=== PATIENT | female | born 1950 | race Caucasian/White ===

== ENCOUNTER 2020-04-04 22:20 | Emergency (ER) | payer MEDICARE, OTHER, SELFPAY ==
[2020-04-04] VITALS (14 sets, daily range): BP systolic 153–213; BP diastolic 86–132; PULSE 74–104; RESP 13–24; O2SAT 95–100
--- NOTE | ~2020-04-04 | CT_ITS ---
EXAMINATION: CTA chest abdomen DATE: 04/04/2020 23:11 INDICATION: Chest pain TECHNIQUE: Computed tomographic angiography (CTA) of the chest and abdomen was performed without and with 100 mL Omnipaque-350 intravenous contrast. Volume-rendered 3D-reconstructions of the aorta and l arge arteries were constructed by the technologist on a separate workstation. Automated exposure cont rol and iterative reconstruction technique were employed. The dose-length product was 707 mGy-cm. COMPARISON: CT abdomen and pelvis dated 06/03/2017 FINDINGS: Chest: Mild biapical pleural-parenchymal scarring. Heart size is normal. No pericardial effusion. Calcified nodule in the right lower lobe along with calcified right hilar and mediastinal lymph nodes consisten t with old granulomatous disease. No pneumonia, pulmonary edema, pleural effusion or pneumothorax. Th oracic aorta is normal in caliber with no dissection. There is relatively low-attenuation likely emily atous wall thickening of the mid thoracic esophagus suspicious for esophagitis. No pathologically enl arged thoracic lymphadenopathy. Postoperative changes with several surgical clips at the left breast. Mild thoracic spondylosis with bridging osteophytes at multiple levels consistent with diffuse idiop athic skeletal hyperostosis (DISH). Likely ventriculoperitoneal shunt which extends caudally from the right neck along the anterior chest wall and into the right upper quadrant with distal tip in the an terior upper abdomen. Abdomen: Diffuse hepatic steatosis. Cholecystectomy clips the gallbladder fossa. Spleen, pancreas, bilateral a drenal glands and right kidney are normal. 2.6 cm cyst at the upper pole of the left kidney. Normal a ppendix. There are few scattered colonic diverticula without adjacent inflammatory change to suggest diverticulitis. No dilated bowel to suggest obstruction. There is mild scattered calcified atheroscle rosis without stenosis of the normal caliber aorta and several of the other arteries. No aortic disse ction. Utilized portions of the bladder and uterus are unremarkable. No pathologically enlarged abdom inal lymphadenopathy. Mild lumbar spondylosis. IMPRESSION: 1. Normal caliber aorta with no dissection. 2. Edematous-appearing wall thickening in the mid esophagus suggestive of esophagitis. 3. No acute intra-abdominal/pelvic process. 4. Diffuse hepatic steatosis. 5. Likely ventriculoperitoneal shunt with distal tip in the upper abdomen. Reviewed, dictated and finalized at location A. IMPRESSION: 1. Normal caliber aorta with no dissection. 2. Edematous-appearing wall thickening in the mid esophagus suggestive of esoph agitis. 3. No acute intra-abdominal/pelvic process. 4. Diffuse hepatic steatosis. 5. Likely ventriculoperitoneal shunt with distal tip in the upper abdomen.
--- NOTE | 2020-04-04 22:25 | ED.CHESTPAIN ---
HPI - Chest Pain General Chief Complaint: Chest Pain Stated Complaint: CP Time Seen by Provider: 04/04/20 22:24 History of Present Illness HPI narrative: Severe crushing chest pain radiating to the back for about thirty minutes. Associated with SOB, bilateral arm weakness. She tried antacids without relief. Related Data Home Medications Medication Instructions Recorded Confirmed atorvastatin 04/04/20 donepezil mg 04/04/20 fluoxetine mg 04/04/20 lisinopril 04/04/20 lisinopril 04/04/20 04/04/20 trazodone 04/04/20 Allergies Allergy/AdvReac Type Severity Reaction Status Date / Time No Known Allergies Allergy Mild Verified 04/04/20 22:30 Review of Systems Review of Systems: All systems reviewed & are unremarkable except as noted in HPI and below Constitutional: Constitutional: Denies fever(s) ENT: Denies sore throat Cardiovascular: Cardiovascular: Reports chest pain Respiratory: Respiratory: Reports dyspnea Gastrointestinal: Gastrointestinal: Reports abdominal pain Musculoskeletal: Musculoskeletal: Reports back pain Neurologic: Reports numbness and Reports weakness [facility] Past Medical History Medical History (Updated 04/05/20 @ 04:28 by Jaime Lovett MD) Acid reflux Depression HTN (hypertension) Social History Social History (Updated 04/05/20 @ 04:28 by Jaime Lovett MD) Smoking status: Never smoker Exam Const: General: alert Orientation/consciousness: patient oriented x3 Other: Moderate distress HENMT: Head: normal to inspection Resp: Effort & Inspection: tachypneic Auscultation: clear to auscultation bilaterally Cardio: Rate: tachycardic Rhythm: regular rhythm GI: Other: mild epigastric tenderness Skin: General skin exam: normal color Neuro: General: patient oriented x3, moves all extremities, no focal motor deficits and CN's II-XI intact bilaterally Extrem: General: no edema Course Vital Signs Vital signs: Vital Signs Pulse Rate 104 H 04/04/20 22:25 Respiratory Rate 22 H 04/04/20 22:25 Blood Pressure 213/132 H 04/04/20 22:25 Pulse Oximetry 100 04/04/20 22:25 Pulse Rate 80 04/05/20 02:22 Respiratory Rate 17 04/05/20 02:22 Blood Pressure 140/90 04/05/20 02:22 Pulse Oximetry 97 04/05/20 02:22 MDM - Chest Pain MDM Narrative Medical decision making narrative: She presented with severe chest pain radiating to the back and very elevated BP. This was very concerning for potential aortic dissection. CT showed no dissection, but did show finding concerning for esophogitis. EKG had no acute findings. Troponin negative x2. Medical Records Data Attestation: I reviewed the patient's medical records. Lab Data Attestation: I reviewed the patient's lab results. Result diagrams: 04/04/20 23:08 04/04/20 23:50 Labs: Lab Results 04/04/20 04/04/20 04/04/20 Range/Units 22:58 23:08 23:08 WBC 9.2 (4.5-10.0) K/mm3 RBC 4.25 (4.2-5.4) M/mm3 Hgb 13.0 (12.0-15.0) g/dL Hct 37.9 (37.0-47.0) % MCV 89.2 (80-100) fl MCH 30.6 (26-34) pg MCHC 34.3 (32-36) g/dl RDW 14.6 H (11.5-14.5) % Plt Count 246 (150-375) k/mm3 MPV 10.2 (7.4-10.4) fl Immature Gran % (Auto) 0.2 (0-0.5) % Neut % (Auto) 42.9 L (45.5-73.1) % Lymph % (Auto) 49.4 H (18.3-44.2) % [place] % (Auto) 5.7 (2.6-8.5) % Eos % (Auto) 1.6 (0-4.4) % Baso % (Auto) 0.2 (0.2-1.2) % Lymph # (Auto) 4.54 H (0.9-3.2) K/mm3 [place] # (Auto) 0.5 (0.1-0.6) K/mm3 Eos # (Auto) 0.2 (0-0.3) K/mm3 Baso # (Auto) 0.0 (0.0-0.1) K/mm3 Abs Immat Gran (auto) 0.02 (0.00-0.031) K/mm3 Absolute Neuts (auto) 3.9 (1.3-6.7) K/mm3 Absolute Nucleated RBC 0.0 (0.0-0.012) K/mm3 Nucleated RBC % 0.0 (0.0-0.2) % PT 12.5 (11.1-14.7) Seconds INR 1.0 APTT 25.7 (22.3-36.8) SECONDS Sodium (137-145) mmol/L Potassium (3.4-5.0) mmol/L Chloride (98-107)
--- NOTE | 2020-04-04 22:41 | ECG_ITS ---
Measurements Intervals [place] Rate: 91 P: 57 [place]: 141 QRS: -8 QRSD: 96 T: 47 QT: 362 QTc: 446 Interpretive Statements SINUS RHYTHM CANNOT RULE OUT SEPTAL INFARCT, AGE INDETERMINATE BORDERLINE ST-T WAVE ABNORMALITY- DIFFUSE LEADS BASELINE ARTIFACT- I, II, AVR, AVL, AVF, V3-V6 ABNORMAL ECG Electronically Signed On 04-05-2020 6:57:36 CDT by Jose Martino D.O.
[2020-04-04] MEDS: MORPHINE SULFATE 2 MG/ML INJ IV PUSH (22:46)
[2020-04-04] MEDS: LABETALOL HCL INJ 100 MG/20 ML VIAL 20 MG IV PUSH (22:46)
[2020-04-04 22:59] LABS: Estimated CRCL calculation 61 ml/min; Estimated Glomerular Filt Rate > 60
[2020-04-04 23:16] LABS: Basophils Percent Auto 0.2 % (0.2-1.2); Eosinophils Absolute Auto 0.2 K/mm3 (0-0.3); Eosinophils Percent Auto 1.6 % (0-4.4); Hematocrit 37.9 % (37.0-47.0); Immature Granulocyte Absolute 0.02 K/mm3 (0.00-0.031); Immature Granulocyte Percent A 0.2 % (0-0.5); Lymphocytes Absolute Auto 4.54 K/mm3 (0.9-3.2); Lymphocytes Percent Auto 49.4 % (18.3-44.2); Mean Corpuscular HGB Conc 34.3 g/dl (32-36); Mean Corpuscular Hemoglobin 30.6 pg (26-34); Mean Corpuscular Volume 89.2 fl (80-100); Mean Platelet Volume 10.2 fl (7.4-10.4); Monocytes Absolute Auto 0.5 K/mm3 (0.1-0.6); Monocytes Percent Auto 5.7 % (2.6-8.5); Neutrophils Absolute Auto 3.9 K/mm3 (1.3-6.7); Neutrophils Percent Auto 42.9 % (45.5-73.1); Platelet Count Result 246 k/mm3 (150-375); Red Blood Count 4.25 M/mm3 (4.2-5.4); Red Cell Distribution Width 14.6 % (11.5-14.5); White Blood Count 9.2 K/mm3 (4.5-10.0)
[2020-04-04 23:27] LABS: Prothrombin Time 12.5 Seconds (11.1-14.7)
[2020-04-04 23:28] LABS: Partial Thromboplastin Time 25.7 SECONDS (22.3-36.8)
[2020-04-05] VITALS (11 sets, daily range): BP systolic 115–144; BP diastolic 66–90; PULSE 75–87; RESP 13–17; O2SAT 94–98
[2020-04-05 00:33] LABS: Alanine Aminotransferase 21 U/L (4-35); Albumin Level 3.9 g/dL (3.5-5.1); Alkaline Phosphatase 84 U/L (38-126); Aspartate Amino Transferase 25 U/L (14-36); Bilirubin,Total 0.3 mg/dL (0.2-1.3); Blood Urea Nitrogen 12 mg/dL (7-17); Calcium 8.7 mg/dL (8.4-10.2); Carbon Dioxide 23 mmol/L (22-30); Chloride 101 mmol/L (98-107); Estimated CRCL calculation 72 ml/min; Estimated Glomerular Filt Rate > 60; Glucose 118 mg/dL (65-105); Sodium 132 mmol/L (137-145)
[2020-04-05 00:38] LABS: NT Pro B Type Natriuretic Pept 107 PG/ML (5-100); Troponin I < 0.012 ng/mL (0.000-0.034)
[2020-04-05] MEDS: PANTOPRAZOLE SODIUM IV 40 MG VIAL IV PUSH (01:09)
[2020-04-05 01:58] LABS: Troponin I < 0.012 ng/mL (0.000-0.034)
== END 2020-04-05 02:15 | disposition home or self-care (01) ==
PROVIDERS: Emergency Provider Emergency Medicine; PCP Internal Medicine
DX: K21.0 Gastro-esophageal reflux disease with esophagitis (principal); F32.9 Major depressive disorder, single episode, unspecified; I10 Essential (primary) hypertension; R06.02 Shortness of breath
CPT/HCPCS: 36415; 71275; 74175; 80053; 83880; 84484; 85025; 85610; 85730; 93005; 96374; 96375; 99284; C9113; J2270; Q9967

== ENCOUNTER 2020-11-24 15:14 | Observation (INO) | payer MEDICARE, OTHER, SELFPAY ==
--- NOTE | ~2020-11-24 | XR_ITS ---
EXAMINATION: XR chest 2V EXAM DATE: 11/24/2020 16:18 INDICATION: Chest pain across shoulder blades for one week. TECHNIQUE: Frontal and lateral projections of the chest obtained and reviewed. Comparison is made to prior examination from 09/13/2016. FINDINGS: The lungs are clear. There are no pleural effusions. The cardiomediastinal silhouette is within normal limits. There is no pneumothorax suspected. Moderate-sized mid thoracic bridging endp late osteophytes. There is a ventriculoperitoneal shunt. IMPRESSION: No acute cardiopulmonary findings. Reviewed, dictated and finalized at location B. DRY ROOM ATTENDANT
--- NOTE | 2020-11-24 15:20 | ECG_ITS ---
Measurements Intervals [place] Rate: 87 P: 66 [place]: 146 QRS: -7 QRSD: 94 T: 69 QT: 389 QTc: 470 Interpretive Statements SINUS RHYTHM CANNOT RULE OUT SEPTAL INFARCT, AGE INDETERMINATE BORDERLINE ST-T WAVE ABNORMALITY- HIGH LATERAL LEADS ABNORMAL ECG Electronically Signed On 11-24-2020 15:44:14 WILDLIFE VETERINARIAN by Jose Martino D.O.
[2020-11-24 15:21] VITALS: BP 147/93; PULSE 90; RESP 16; TEMP 36.2; O2SAT 97
[2020-11-24 15:35] LABS: Basophils Percent Auto 0.4 % (0.2-1.2); Eosinophils Absolute Auto 0.2 K/mm3 (0-0.3); Eosinophils Percent Auto 1.9 % (0-4.4); Hematocrit 38.7 % (37.0-47.0); Hemoglobin 12.7 g/dL (12.0-15.0); Immature Granulocyte Absolute 0.03 K/mm3 (0.00-0.031); Immature Granulocyte Percent A 0.4 % (0-0.5); Lymphocytes Percent Auto 27.8 % (18.3-44.2); Mean Corpuscular HGB Conc 32.8 g/dl (32-36); Mean Corpuscular Hemoglobin 30.5 pg (26-34); Mean Platelet Volume 9.2 fl (7.4-10.4); Monocytes Absolute Auto 0.4 K/mm3 (0.1-0.6); Monocytes Percent Auto 5.3 % (2.6-8.5); Neutrophils Absolute Auto 5.1 K/mm3 (1.3-6.7); Neutrophils Percent Auto 64.2 % (45.5-73.1); Platelet Count Result 228 k/mm3 (150-375); Red Blood Count 4.16 M/mm3 (4.2-5.4); Red Cell Distribution Width 15.1 % (11.5-14.5); White Blood Count 7.9 K/mm3 (4.5-10.0)
[2020-11-24 15:49] LABS: Anion Gap 9 mmol/L (8-16); Blood Urea Nitrogen 14 mg/dL (7-17); Calcium 8.8 mg/dL (8.4-10.2); Carbon Dioxide 26 mmol/L (22-30); Chloride 104 mmol/L (98-107); Estimated CRCL calculation 61 ml/min; Estimated Glomerular Filt Rate > 60; Glucose 97 mg/dL (65-105); Potassium 3.9 mmol/L (3.4-5.0); Sodium 139 mmol/L (137-145)
[2020-11-24 16:01] LABS: Troponin I < 0.012 ng/mL (0.000-0.034)
[2020-11-24 16:13] VITALS: BP 160/91; PULSE 86; RESP 17; O2SAT 99
--- NOTE | 2020-11-24 16:13 | PC.NURSE ---
Pt to XRAY via stretcher.
[2020-11-24 16:14] VITALS: PULSE 86
[2020-11-24 16:23] LABS: Prothrombin Time 13.2 Seconds (11.1-14.7)
--- NOTE | 2020-11-24 16:29 | ED.CHESTPAIN ---
HPI - Chest Pain General Chief Complaint: Chest Pain Stated Complaint: Chest Pain Time Seen by Provider: 11/24/20 15:47 Source: patient and family Mode of arrival: ambulatory Limitations: no limitations History of Present Illness HPI narrative: Patient is 70-year-old white female presents with intermittent chest heaviness radiating to upper extremities. For the last 7 days, usually last for minutes loss that, denies aggravating or relieving factors. Currently patient is asymptomatic. Patient blood pressure was elevated over 1 week ago, her lisinopril increased to 20 mg instead of 1 mg once a day. History of hypertension, hyperlipidemia, patient does not smoke and drinks occasionally, currently baby aspirin once a day. Patient denies history of COVID-19 or exposure to anybody known having COVID-19. Patient also denies any shortness of breath Related Data Home Medications Medication Instructions Recorded Confirmed atorvastatin 04/04/20 donepezil mg 04/04/20 fluoxetine mg 04/04/20 lisinopril 20 mg PO DAILY 04/04/20 04/04/20 trazodone 04/04/20 Allergies Allergy/AdvReac Type Severity Reaction Status Date / Time No Known Allergies Allergy Mild Verified 11/24/20 15:24 Review of Systems Review of Systems: Narrative: CONSTITUTIONAL: Denies fever, chills, or sweats. EYES: Denies visual changes, redness, or discharge. ENT: Denies rhinorrhea, congestion, sore throat, or otalgia. CARDIOVASCULAR: Denies chest pain, palpitations, or edema. RESPIRATORY: Denies cough or dyspnea. GASTROINTESTINAL: Denies abdominal pain, nausea, vomiting, or diarrhea. GENITOURINARY: Denies dysuria or hematuria. SKIN: Denies rash or itching. MUSCULOSKELETAL: Denies back pain, joint pain, or myalgia. NEUROLOGIC: Denies headache, numbness, or weakness. PSYCHIATRIC: Denies anxiety or depression. PMFSH Past Medical History Medical History Acid reflux Depression HTN (hypertension) Social History Social History Smoking status: Never smoker Gender identity (if verbalized by the patient): Female Exam Narrative: Exam Narrative: General appearance: Well-developed, well-nourished Skin: Normal color Head: Normocephalic, nontraumatic Eyes: Clear conjunctiva ENT: Oropharynx normal, ears normal, nose normal Neck: Supple, nontender Chest and respiratory: Airway patent, no respiratory distress, no accessory muscle use Heart: Regular rate/rhythm Abdomen: Soft, nontender, no organomegaly, quiet bowel sounds Vascular: Normal peripheral pulses, normal capillary refill. Musculoskeletal: Normal range of motion, nontender back Neurologic: Alert and oriented ?3, GEODETIC COMPUTATOR is normal as tested, no gross motor deficit Course Course Emergency Course: Stable Consultations Consultation #1: Dr. Head, Admit to hospitalist Date: 11/24/20 Time: 16:46 Vital Signs Vital signs: Vital Signs Temperature 36.2 C L 11/24/20 15:21 Pulse Rate 90 11/24/20 15:21 Respiratory Rate 16 11/24/20 15:21 Blood Pressure 147/93 H 11/24/20 15:21 Pulse Oximetry 97 11/24/20 15:21 Temperature 36.2 C L 11/24/20 15:21 Pulse Rate 86 11/24/20 16:14 Respiratory Rate 17 11/24/20 16:13 Blood Pressure 160/91 H 11/24/20 16:13 Pulse Oximetry 99 11/24/20 16:13 MDM - Chest Pain MDM Narrative Medical decision making narrative: Patient presents with chest heaviness for the last 7 days, intermittent. Unstable angina, atypical chest pain, costochondritis. Differential Diagnosis Differential diagnosis: Likely pneumothorax, unstable angina pectoris, atypical chest pain and chest kwame
[2020-11-24] MEDS: ASPIRIN 81 MG CHEWABLE TABLET 324 MG PO (17:16)
[2020-11-24 17:18] VITALS: PULSE 100
[2020-11-24] MEDS: NITROGLYCERIN OINTMENT 1 INCH DOSE TRANSDERM (17:18)
[2020-11-24] MEDS: METOPROLOL TARTRATE 50 MG TAB 25 MG PO (17:18)
[2020-11-24 17:27] VITALS: BP 140/98; PULSE 100; RESP 15; O2SAT 97
--- NOTE | 2020-11-24 19:00 | PM.IMHP ---
H&P: HPI History of Present Illness Date/Time: 11/24/20 19:00 Chief Complaint: Chest pressure. Narrative: This is a pleasant 70-year-old female with hypertension and hydrocephalus status post PLACEMENT COORDINATOR shunt x3 who presented to the emergency department earlier today via private vehicle from home for evaluation of chest pressure. Sometime last week she had an appointment with her neurologist and at that time her blood pressure was high, reportedly in the 180 systolic. Since that time her blood pressures have continued to run in the 160s to 180s and she was seen by her primary care provider today and was told to double her lisinopril dose. She was ultimately referred to the emergency department after she provided a history of intermittent midsternal chest tightness/pressure over the past week or so. It happens several times a day, and typically resolves without issue within a minute or so. The discomfort radiates through to the scapula but she sees no significant aggravating or alleviating factors. She specifically denies that the discomfort is related to activity and/or eating. No associated headache, vertigo, nausea, vomiting, or sweats. She has never had similar symptoms in the past. Review of Systems Review of Systems: Narrative: Twelve systems were reviewed with pertinent positives and negatives as per HPI. No fever, chills, or sweats. 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 She was born with hydrocephalus and had a PLACEMENT COORDINATOR shunt created at that time, but began having issues about 5 years ago and has had to shunt revisions since. No cold or flu symptoms. No known exposure to those positive for COVID-19. She denies nausea and vomiting. No palpitations, orthopnea, PND, or lower extremity edema. Except as documented, all other systems were reviewed and are negative. [facility] Past Medical History Medical History (Updated 11/24/20 @ 21:24 by Monserrat Scott PA-C) Anxiety Arthritis Cancer of left breast Status post lumpectomy and chemo radiation. Depression Gastroesophageal reflux disease Hydrocephalus Hypertension Memory deficit Surgical History Surgical History (Updated 11/24/20 @ 21:20 by Monserrat Scott PA-C) History of cholecystectomy History of lumpectomy of left breast History of ventriculoperitoneal shunting X3. Family History Family History (Updated 11/24/20 @ 21:21 by Monserrat Scott PA-C) Mother Lung cancer Father Coronary artery disease Sibling Coronary artery disease Social History Social History (Updated 11/24/20 @ 21:23 by Monserrat Scott PA-C) Social History: Surrogate decision maker: Noe Drake, . Code status: Full code. Smoking status: Never smoker Second hand tobacco smoke exposure: No Alcohol intake: current Drinks per week: 2 Substance use: never Additional living arrangements comments: Resides with her in [place]. Additional occupation/education comments: Retired. Gender identity (if verbalized by the patient): Female Spiritual care concerns: No Meds Home Medications and Allergies Home Medications Medication Instructions Recorded Confirmed Type atorvastatin 04/04/20 History donepezil mg 04/04/20 History fluoxetine mg 04/04/20 History lisinopril 20 mg PO DAILY 04/04/20 04/04/20 History trazodone 04/04/20 History omeprazole 40 mg PO QPM 11/24/20 11/24/20 History Allergies Allergy/AdvReac Type Severity Reaction Status Date / Time No Known Allergies Allergy Mild Verified 11/24/20 15:24 Vital Signs Vital Signs - 24 hr 11/24/20 15:21 11/24/20 16:13 11/24/20 16:14 Temperature 97.1 F L Pulse Rate 90 86 86 Respiratory Rate 16 17 Blood Pressure 147/93 H 160/91 H Pulse Oximetry 97 99 11/24/20 17:18 11/24/20 17:27 Temperature Pulse Rate 100 100 Respiratory Rate 15 Blood Pressure 140/98 H Pulse Oximetry 97
[2020-11-24 19:01] LABS: Troponin I < 0.012 ng/mL (0.000-0.034)
[2020-11-24] MEDS: ENOXAPARIN 80 MG/0.8 ML SYRINGE 70 MG SUB-Q (19:16)
--- NOTE | 2020-11-24 20:57 | ADMGEN ---
This patient, Michelle Drake, was admitted to IMU Room 206-02. Patient/family oriented to hospital policies and general routines including ID bracelet, bed and alarms, visiting hours, pain management, procedures, bathroom and other care routines, personal items, smoking policy, room service/diet, and visiting hours. Information on how to activate the Rapid Response Team has been discussed. Patient/Family are encouraged to report perceived risks to care and to ask questions if they do not understand what they are told or what they should do.
[2020-11-24 22:24] LABS: Troponin I < 0.012 ng/mL (0.000-0.034)
[2020-11-24] MEDS: ACETAMINOPHEN 325 MG TABLET 650 MG PO (22:24)
[2020-11-24] MEDS: traZODone HCL 50 MG TABLET PO (22:49)
[2020-11-24 23:25] VITALS: BP 148/82; PULSE 68; RESP 20; TEMP 36.6; O2SAT 98
[2020-11-25] VITALS (9 sets, daily range): BP systolic 140–165; BP diastolic 78–87; PULSE 68–96; RESP 18–20; TEMP 36.5–36.9; O2SAT 96–98
[2020-11-25 05:05] LABS: Alanine Aminotransferase 30 U/L (4-35); Albumin Level 3.6 g/dL (3.5-5.1); Alkaline Phosphatase 67 U/L (38-126); Aspartate Amino Transferase 27 U/L (14-36); Bilirubin,Total 0.3 mg/dL (0.2-1.3); Cholesterol 196 mg/dL (0-200); HDL Direct 49 mg/dL; Triglycerides 505 mg/dL (<150)
[2020-11-25 05:17] LABS: LDL Cholesterol Direct 62 mg/dL
[2020-11-25] MEDS: lisinopriL 20 MG TABLET PO (09:59)
[2020-11-25] MEDS: ASPIRIN 81 MG CHEWABLE TABLET PO (09:59)
[2020-11-25] MEDS: ATORVASTATIN 40 MG TABLET PO (09:59)
[2020-11-25] MEDS: hydroCHLOROthiazide 12.5 MG CAPSULE PO (09:59)
[2020-11-25] MEDS: DONEPEZIL HCL 5 MG TABLET PO (09:59)
[2020-11-25] MEDS: FLUoxetine HCL 20 MG CAPSULE 40 MG PO (09:59)
--- NOTE | 2020-11-25 12:34 | PM.CNCAR ---
Assessment and Plan Additional Plan 70-year-old woman with: Intermittent episodes of chest and left arm paresthesias with no objective evidence of acute coronary syndrome ECGs and biomarkers are normal. Symptoms are nonexertional and in that sense on the atypical side. I believe she this lady should undergo noninvasive evaluation for ischemia ideally with a Lexiscan nuclear stress test. I was offering her to have this done while in the hospital . She prefers to be discharged and have this done as an outpatient . As ACS has been ruled out this is reasonable . I will arrange for Lexiscan Nuclear stress as an out pt Kyle Terrell MD [facility] History of Present Illness History of Present Illness Consult date/time: 11/25/20 12:34 Consult reason: chest pain Reason For Visit: Chest Pain, uncontrolled hypertension Narrative: This is a 70-year-old lady that I am seeing today at the request of the hospitalist because of chest pain for which she was seen in the emergency room last evening and subsequently admitted to the IMU. She is not known to have any cardiac problems before this. She was in the office of her primary care physician yesterday and was reporting that recently she has noticed some increased readings on her home blood pressure readings and also for the last 2-3 weeks she has been noticing intermittent episodes of some chest discomfort associated with paresthesias in her left arm. She states that the chest discomfort occurs in an unpredictable fashion usually 1-3 times per day and lasts a few minutes. She is not a physically active woman but she with activities she is capable of performing she has not noticed any of this to be triggered by exertion. She states that she was not particularly concerned about the symptoms but did mention it to her PCP who directed her to the emergency room yesterday evening and that she was admitted. She has a couple of EKGs in the chart that look benign. She had 3 sets of troponins done that are all normal. She is feeling well this morning her only complaint is that she is hungry and would like something to eat. Had a long discussion with the patient about the symptoms. She does as stated above have hypertension also history of dyslipidemia and hydrocephalus with ventriculoperitoneal shunts having been placed in the past. Because of this she is followed by a Neurology consult and at [place]. Review of Systems Constitutional: Constitutional: Reports no additional constitutional complaints Eyes: Eyes: Reports no additional eye complaints ENT: Reports system reviewed and no additional complaints, except as documented Cardiovascular: Cardiovascular: Reports as per HPI Respiratory: Respiratory: Reports no additional respiratory complaints Gastrointestinal: Gastrointestinal: Reports no additional gastrointestinal complaints Musculoskeletal: Musculoskeletal: Reports myalgias Integumentary/Breasts: Skin/Breast: Reports system reviewed and no additional complaints, except as docu Neurologic: Reports as per HPI Endocrine: Endocrine: Reports no additional endocrine complaints Hematologic/Lymphatic: Hematologic/Lymphatic: Reports no additional hematologic/lymphatic complaints Allergic/Immunologic: Allergic/Immunologic: Reports no additional allergic/immunologic complaints [facility] Past Medical History Medical History (Updated 11/24/20 @ 21:24 by Monserrat Scott PA-C) Anxiety Arthritis Cancer of left breast Status post lumpectomy and chemo radiation. Depression Gastroesophageal reflux disease Hydrocephalus Hypertension Memory deficit Surgical History Surgical History (Updated 11/24/20 @ 21:20 by Monserrat Scott PA-C) History of cholecystectomy History of lumpectomy of left breast History of ventriculoperitoneal shunting X3. Family History Family History Mother Lung cancer Father Coronary artery disease Sibling Ann
--- NOTE | 2020-11-25 12:53 | PM.DS ---
DS: Admitting Diagnosis Admitting Diagnosis Admitting Diagnosis: chest pain DS: Discharge Diagnosis Discharge Diagnosis (1) Chest pressure: Code(s): R07.89 - Other chest pain Status: Acute (2) Hypertension: Code(s): I10 - Essential (primary) hypertension Status: Acute (3) Gastroesophageal reflux disease: Code(s): K21.9 - Gastro-esophageal reflux disease without esophagitis Status: Inactive (4) Depression: Code(s): F32.9 - Major depressive disorder, single episode, unspecified Status: Acute (5) Anxiety: Code(s): F41.9 - Anxiety disorder, unspecified Status: Inactive (6) Memory deficit: Code(s): R41.3 - Other amnesia Status: Inactive DS: Summary Hospital Course Reason for hospitalization: 70yo female with HTN and hydorcephalus here for chest pressure. Please see H&P for details. Hospital Course: Patient presented to the emergency department for evaluation of chest pressure. Last week, her neurologist noted elevated blood pressure and was told to follow-up with her doctor. She was seen by her primary care doctor on the day of admission and told to double lisinopril. During that visist, she provided a history of intermittent midsternal chest tightness/pressure over the past week so the primary care doctor advised her to go to the emergencyroom for evaluation. In the emergency department, she was hemodynamically stable. Her blood pressure was 147/93. Blood pressure remained reasonably well controlled during hospital course. CBC and CMP were normal. CXR clear. Triglycerides were 505. Cholesterol 196. LDL 62 HDL 49. Troponin negative x3. EKG borderline ST T wave changes in the high lateral leads. Patient was admitted to the IMU on telemetry. No significant dysrhythmias noted. She was seen by Cardiology. Stress test was planned but patient wished to go home and have a stress test done as an outpatient. Spray Gun Sizer felt that this was not unreasonable. Echocardiogram has been done but is pending. Patient feels much better. She is able to discharge home on 11/25/2020. Status at Discharge Cognitive/behavioral status at discharge: Patient stable for discharge Time Spent with Patient Time attestation: Total time spent providing and/or coordinating discharge services:35 minutes Time spent: Greater than 30 minutes Specific discharge activities: Discussed with Cardiology in detail Exam Narrative: Exam Narrative: AF 98.4 165/87 79 18 96% ra Gen - NARD Chest - CTA bilaterally, nml RR CV - RRR S1/S2. Telemetry showing no significant dysrhythmias Abd - Soft, NT/ND, Positive BS Ext - No pedal edema Psych - Nml mood and affect Skin - Warm and dry DS: Data Data Completed and Pending Labs on day of discharge: Labs from last 24 hours 11/25/20 11/24/20 11/24/20 04:31 21:35 18:31 WBC RBC Hgb Hct MCV MCH MCHC RDW Plt Count MPV Immature Gran % (Auto) Neut % (Auto) Lymph % (Auto) [place] % (Auto) Eos % (Auto) Baso % (Auto) Lymph # (Auto) [place] # (Auto) Eos # (Auto) Baso # (Auto) Abs Immat Gran (auto) Absolute Neuts (auto) Absolute Nucleated RBC Nucleated RBC % PT INR APTT Sodium Potassium Chloride Carbon Dioxide Anion Gap BUN Creatinine Estim Creat Clear Calc Estimated GFR Glucose Calcium Total Bilirubin 0.3 Direct Bilirubin 0.0 AST 27 ALT 30 Alkaline Phosphatase 67 Troponin I < 0.012 < 0.012 Total Protein 6.0 L Albumin 3.6 Triglycerides 505 H Cholesterol 196 LDL Cholesterol Direct 62 HDL Direct 49 11/24/20 11/24/20 11/24/20 16:03 15:27 15:27 WBC 7.9 RBC 4.16 L Hgb 12.7 Hct 38.7 MCV 93.0 MCH 30.5 MCHC 32.8 RDW 15.1 H Plt Count 228 MPV 9.2 Immature Gran % (Auto) 0.4 Neut % (Auto) 64.2 Lymph % (Auto) 27.8 [place] % (Auto)
--- NOTE | 2020-11-25 21:33 | ECHO_ITS ---
Patient Info Name: Michelle Drake Age: 70 years : 1950 Gender: Female Ht: 62 in Wt: 154 lbs BSA: 1.77 m2 HR: 79 bpm BP: 146 / 82 mmHg Heart Rhythm: Sinus Rhythm Technical Quality: Good Exam Date: 11/25/2020 8:34 AM Exam Location: [facility] Patient Status: Inpatient Admit Date: 11/24/2020 Staff Ordering Physician: Monserrat Scott PA-C Consulting Solution Manager: Dio Lara, CRISTY, RT Attending Provider: Wilber Singh MD Referring Physician: Sonia VILLA; Exam Type: CA echo doppler color flow Study Info Indications R07.89 - Other chest pain Complete two-dimensional, color flow and Doppler transthoracic echocardiogram is performed. Strain analysis performed. Summary 1. Complete two-dimensional, color flow and Doppler transthoracic echocardiogram is performed. 2. Left ventricular chamber dimension is normal. 3. Left ventricular systolic function is normal, estimated at 60-65%. 4. No ischemic wall motion abnormalities. 5. No valvular lesions. Left Ventricle Left ventricular chamber dimension is normal. Left ventricular systolic function is normal, estimated at 60-65%. The left ventricular diastolic function is normal. No ischemic wall motion abnormalities. Right Ventricle Right ventricular chamber dimension is normal. Left Atria Left atrial chamber dimension is normal. Right Atria Right atrial chamber dimension is normal. Aortic Valve The aortic valve is normal. Pulmonic Valve The pulmonic valve is not well visualized. Mitral Valve The mitral valve has normal leaflets. Tricuspid Valve The tricuspid valve leaflets are normal. Pericardium/Pleural The pericardium appears normal. Aorta The aortic root size at the sinus of Valsalva is normal. Left Ventricular Outflow Tract Name Value Normal LVOT 2D LVOT Diameter 2.0 cm LVOT Doppler LVOT Peak Gradient 2 mmHg LVOT Mean Gradient 1 mmHg LVOT VTI 15 cm LVOT VTI/AV VTI Ratio 0.7 LVOT Stroke Volume 44 ml LVOT CO 3.3 l/min LVOT CI 1.9 l/min/m2 Mitral Valve Name Value Normal MV Doppler MV Decel Mclean 176 cm/s2 MV PHT 77 ms MV Area (PHT) 2.9 cm2 4.0-5.0 MV Diastolic Function MV E Peak Velocity 47 cm/s MV A Peak Velocity 71 cm/s MV E/A 0.7 MV Decel Time 265 ms MV Annular TDI
== END 2020-11-25 15:00 | disposition home or self-care (01) ==
LOC: ANHED 18:54 → ANHIMU 19:48
PROVIDERS: Emergency Medicine; Physician Assistant; Admitting Provider Internal Medicine; Emergency Provider Emergency Medicine; PCP Internal Medicine; Visit Provider Internal Medicine
DX: R07.89 Other chest pain (principal); I10 Essential (primary) hypertension; K21.9 Gastro-esophageal reflux disease without esophagitis; F32.9 Major depressive disorder, single episode, unspecified; F41.9 Anxiety disorder, unspecified; R41.3 Other amnesia; E78.5 Hyperlipidemia, unspecified; R94.31 Abnormal electrocardiogram [ECG] [EKG]; G91.9 Hydrocephalus, unspecified; Z79.82 Long term (current) use of aspirin; Z79.899 Other long term (current) drug therapy; Z98.2 Presence of cerebrospinal fluid drainage device; Z85.3 Personal history of malignant neoplasm of breast; Z92.3 Personal history of irradiation; Z92.21 Personal history of antineoplastic chemotherapy
CPT/HCPCS: 36415; 71046; 80048; 80061; 80076; 84484; 85025; 85610; 85730; 93005; 93306; 96372; 99285; A9270; G0378; J1650

== ENCOUNTER 2020-12-02 09:16 | Outpatient (CLI) | payer MEDICARE, OTHER, SELFPAY ==
[2020-12-02 09:54] LABS: Anion Gap 8 mmol/L (8-16); Blood Urea Nitrogen 11 mg/dL (7-17); Calcium 8.7 mg/dL (8.4-10.2); Carbon Dioxide 27 mmol/L (22-30); Chloride 100 mmol/L (98-107); Estimated Glomerular Filt Rate > 60; Glucose 103 mg/dL (65-105); Potassium 3.8 mmol/L (3.4-5.0); Sodium 135 mmol/L (137-145)
== END 2020-12-02 09:17 | disposition home or self-care (01) ==
PROVIDERS: PCP Internal Medicine; Visit Provider Internal Medicine
DX: I10 Essential (primary) hypertension (principal)
CPT/HCPCS: 36415; 80048

== ENCOUNTER 2021-02-07 11:53 | Outpatient (CLI) | payer MEDICARE, OTHER, SELFPAY ==
[2021-02-07 12:47] LABS: Alanine Aminotransferase 39 U/L (4-35); Aspartate Amino Transferase 34 U/L (14-36)
== END 2021-02-07 11:54 | disposition home or self-care (01) ==
PROVIDERS: PCP Internal Medicine; Visit Provider Podiatrist Foot & Ankle Surgery
DX: B35.1 Tinea unguium (principal)
CPT/HCPCS: 36415; 84450; 84460

== ENCOUNTER 2021-05-09 08:54 | Outpatient (CLI) | payer MEDICARE, OTHER, SELFPAY ==
[2021-05-09 10:16] LABS: Alanine Aminotransferase 32 U/L (4-35); Aspartate Amino Transferase 27 U/L (14-36)
== END 2021-05-09 08:55 | disposition home or self-care (01) ==
PROVIDERS: PCP Internal Medicine; Visit Provider Podiatrist Foot & Ankle Surgery
DX: B35.1 Tinea unguium (principal)
CPT/HCPCS: 36415; 84450; 84460

== ENCOUNTER 2021-09-11 01:49 | Day surgery (SDC) | payer MEDICARE, OTHER, SELFPAY ==
[2021-08-24 14:23] VITALS: BMI 25.9
--- NOTE | 2021-09-08 14:31 | PM.HPGS ---
History of Present Illness History of Present Illness Consent: Risks, benefits, and alternatives have been discussed and questions answered. Patient agrees to proceed with procedure. Chief complaint: hx of colon polyps, diarrhea Narrative: Michelle Drake is a 71 year old female here for colon cancer screening. She has a history of polyps. She has had a change in bowel habits having severe diarrhea for the past 6 or 8 weeks. Fiber 6 years ago a colonoscopy showed microscopic colitis. She does not recall taking any specific medication for that Review of Systems Review of Systems: All systems reviewed & are unremarkable except as noted in HPI and below PMFSH Past Medical History Medical History Anxiety Arthritis Cancer of left breast Status post lumpectomy and chemo radiation. Chest pressure Depression Gastroesophageal reflux disease Hydrocephalus Hypertension Memory deficit Overweight (BMI 25.0-29.9) Surgical History Surgical History History of cholecystectomy History of lumpectomy of left breast History of ventriculoperitoneal shunting X3. Family History Family History Mother Lung cancer Father Coronary artery disease Sibling Coronary artery disease Social History Social History Social History: Surrogate decision maker: Neo Drake, . Code status: Full code. Smoking status: Never smoker Second hand tobacco smoke exposure: No Alcohol intake: never Drinks per week: 2 Substance use: never Substance use type: does not use Living arrangements: with family Additional living arrangements comments: Neo (Spouse) Additional occupation/education comments: Retired. Gender identity (if verbalized by the patient): Female Spiritual care concerns: No Meds Home Medications and Allergies Home Medications Medication Instructions Recorded Confirmed Type atorvastatin 40 mg PO DAILY 04/04/20 08/24/21 History donepezil 10 mg PO HS 04/04/20 08/24/21 History fluoxetine 40 mg PO DAILY 04/04/20 08/24/21 History lisinopril 20 mg PO DAILY 04/04/20 08/24/21 History trazodone 75 mg PO QPM 04/04/20 08/24/21 History nortriptyline 40 mg PO QPM 11/24/20 08/24/21 History omeprazole 40 mg PO QPM 11/24/20 08/10/21 History aspirin [Children's Aspirin] 81 mg PO DAILY@0800 #30 tablet 11/25/20 08/24/21 Rx hydrochlorothiazide 12.5 mg PO QAM #30 cap 11/25/20 08/24/21 Rx diphenoxylate-atropine 2.5 1 tablet PO BID tablet 08/10/21 08/10/21 History mg-0.025 mg tablet budesonide 3 mg PO BID 08/24/21 History melatonin 48 mg PO HS 08/24/21 08/24/21 History Allergies Allergy/AdvReac Type Severity Reaction Status Date / Time No Known Allergies Allergy Mild Verified 09/11/21 09:04 Exam Resp: Auscultation: clear to auscultation bilaterally Cardio: Rate: regular rate Rhythm: regular rhythm GI: GI Palp: Yes Soft to palpation and No Tenderness to palpation present (GI) Assessment and Plan Assessment and plan (1) Colon cancer screening: Code(s): Z12.11 - Encounter for screening for malignant neoplasm of colon Status: Acute Assessment and Plan: Colonoscopy with possible biopsy or polypectomy or cautery or injection of substances.
--- NOTE | 2021-09-11 07:49 | WPDANESEPPF ---
Anes - Initial Pre Proc Eval Procedure: Operation Date: 09/11/21 10:00 Proposed Procedures p Colonoscopy - Bishnu Zee MD Date/Time: 09/11/21 07:49 Surgeon: Bishnu Zee MD Pre Op Diagnosis: hx of colon polyps, diarrhea Patient Data Age: 71 Gender: F Height: 1.57 m Weight: 64.5 kg Allergies Allergy/AdvReac Type Severity Reaction Status Date / Time No Known Allergies Allergy Mild Verified 09/11/21 09:04 Home Medications Medication Instructions Recorded Confirmed Type atorvastatin 40 mg PO DAILY 04/04/20 08/24/21 History donepezil 10 mg PO HS 04/04/20 08/24/21 History fluoxetine 40 mg PO DAILY 04/04/20 08/24/21 History lisinopril 20 mg PO DAILY 04/04/20 08/24/21 History trazodone 75 mg PO QPM 04/04/20 08/24/21 History nortriptyline 40 mg PO QPM 11/24/20 08/24/21 History omeprazole 40 mg PO QPM 11/24/20 09/11/21 History aspirin [Children's Aspirin] 81 mg PO DAILY@0800 #30 tablet 11/25/20 08/24/21 Rx hydrochlorothiazide 12.5 mg PO QAM #30 cap 11/25/20 08/24/21 Rx diphenoxylate-atropine 2.5 1 tablet PO BID tablet 08/10/21 09/11/21 History mg-0.025 mg tablet budesonide 3 mg PO BID 08/24/21 09/11/21 History melatonin 48 mg PO HS 08/24/21 08/24/21 History Patient hx anesthesia problems: none Family hx anesthesia problems: none Results Review: All pre-operative results and documents have been reviewed as part of the pre-operative evaluation. [facility] Past Medical History Medical History Anxiety Arthritis Cancer of left breast Status post lumpectomy and chemo radiation. Chest pressure Depression Gastroesophageal reflux disease Hydrocephalus Hypertension Memory deficit Overweight (BMI 25.0-29.9) Surgical History Surgical History History of cholecystectomy History of lumpectomy of left breast History of ventriculoperitoneal shunting X3. Family History Family History Mother Lung cancer Father Coronary artery disease Sibling Coronary artery disease Social History Social History Social History: Surrogate decision maker: Neo Drake, . Code status: Full code. Smoking status: Never smoker Second hand tobacco smoke exposure: No Alcohol intake: never Drinks per week: 2 Substance use: never Substance use type: does not use Living arrangements: with family Additional living arrangements comments: Neo (Spouse) Additional occupation/education comments: Retired. Gender identity (if verbalized by the patient): Female Spiritual care concerns: No Anes - Eval Final PreProcedure Day of Procedure 09/11/21 07:49 Patient weight: obese Heart: regular rate and rhythm Lungs: clear to auscultation and normal air movement Airway: Mallampati scale class II Neurological: alert and oriented Last oral intake: >/= 8 hours ASA classification: III Emergent: no Anesthetic plan: proceed Anesthesia type and monitoring: general GIVS Results Review: All pre-operative results and documents have been reviewed as part of the pre-operative evaluation. Informed Consent: The patient's anesthetic plan and its attendant risks and benefits were discussed with the patient/family/POA. Questions were solicited and answers provided to the satisfaction of the patient/family/POA.
[2021-09-11 09:05] VITALS: BP 141/89; PULSE 113; RESP 20; TEMP 36.4; O2SAT 97
[2021-09-11 09:06] VITALS: BP 124/76; PULSE 91; RESP 18; O2SAT 99
[2021-09-11] MEDS: LACTATED RINGERS 1,000 ML 150 ML IV CONT (09:17)
[2021-09-11 09:46] VITALS: BP 116/68; PULSE 85; RESP 20; O2SAT 96
[2021-09-11 09:56] VITALS: BP 112/67; PULSE 86; RESP 33; O2SAT 96
== END 2021-09-11 10:14 | disposition home or self-care (01) ==
PROVIDERS: PCP Internal Medicine; Visit Provider Internal Medicine Gastroenterology
PROC: 0DJD8ZZ Inspection of Lower Intestinal Tract, Via Natural or Artificial Opening Endoscopic (ICD-10-PCS; CPT 45378; principal; 2021-09-11 10:00)
DX: Z12.11 Encounter for screening for malignant neoplasm of colon (principal); K57.30 Diverticulosis of large intestine without perforation or abscess without bleeding; I10 Essential (primary) hypertension; K21.9 Gastro-esophageal reflux disease without esophagitis; F41.8 Other specified anxiety disorders; Z85.3 Personal history of malignant neoplasm of breast; Z92.21 Personal history of antineoplastic chemotherapy; Z92.3 Personal history of irradiation; E66.9 Obesity, unspecified
CPT/HCPCS: 45380; 88305; J2704; J7120

== ENCOUNTER 2021-11-12 18:19 | Inpatient (IN) | payer MEDICARE, OTHER, SELFPAY ==
--- NOTE | ~2021-11-12 | XR_ITS ---
EXAMINATION: XR UGI w small bowel EXAM DATE: 11/14/2021 10:04 INDICATION: Terminal ileitis on CT. Suspicion of omental carcinomatosis. TECHNIQUE: Standard single barium upper GI and small bowel examination was performed by radiologist Anand Schwartz M.D. Patient initially ingested barium and after it was determined more contrast should b e administered water-soluble Omnipaque water solution. Pulsed dose reduction fluoroscopy was used wit h fluoroscopic time of 0.1 minutes. The DAP for this procedure was 19.4 Gycm2. A total of 13 images obtained for the exam. Correlation is made to CT from 11/12/2021. FINDINGS: Stomach has normal mucosal pattern, no mass or ulceration suspected. Duodenal sweep is unre markable. Some cholecystectomy clips. Reflux was not demonstrated during this examination. The 30 and 45 minute KUB images are essentially unchanged from each other with contrast in normal-betito earing jejunum. No residual contrast was remaining in the stomach. Water-soluble contrast was adminis tered at this time. An image obtained at 1.5 hours demonstrates contrast within the jejunum and also normal-appearing ileum. The terminal ileum was well-visualized on that KUB and unremarkable. Contrast in the cecum. Normal transit time. IMPRESSION: Unremarkable terminal ileum, which could indicate improvement in terminal ileitis seen on CT from infectious etiology in the or possibly inflammatory bowel disease. Reviewed, dictated and finalized at location A. CAL DELIVERY TECHNICIAN IMPRESSION: Unremarkable terminal ileum, which could indicate improvement in te rminal ileitis seen on CT from infectious etiology in the or possibly inflammat ory bowel disease.
--- NOTE | ~2021-11-12 | XR_ITS ---
EXAMINATION: XR chest 1V portable INDICATION: Chest pain TECHNIQUE: Portable AP chest at 1901 hours COMPARISON: 11/24/2020 FINDINGS: The lungs are free of acute opacities. There is no pleural effusion or pneumothorax. The ca rdiomediastinal silhouette is normal. Ventriculoperitoneal shunt catheter tubing courses over the rig ht hemithorax. Surgical clips project over the left lower hemithorax. IMPRESSION: 1. No acute cardiopulmonary abnormality. Reviewed, dictated and finalized at location F. CTORY COMPILER
--- NOTE | ~2021-11-12 | CT_ITS ---
EXAMINATION: CT abdomen pelvis w con INDICATION: Abdominal pain TECHNIQUE: Computed tomographic images of the abdomen and pelvis were obtained after the administrati on of 100 cc of Omnipaque 350 intravenous contrast. The dose-length product (DLP) was 550.39 mGy-cm. Automated exposure control and iterative reconstruction technique were employed. COMPARISON: 04/04/2020 FINDINGS: Minimal dependent atelectasis is present in the lung bases. The heart size is normal. The g allbladder is surgically absent. Ventriculoperitoneal shunt catheter tubing courses anteriorly in the subcutaneous tissues overlying the right hemithorax and coils in the right upper quadrant. The liver , spleen, pancreas, and adrenal glands are normal. There is a 2.5 cm cyst of the left kidney upper po le. There is mild right hydroureteronephrosis which continues to the level of the mid ureter. No defi nite stone is identified. There is calcified atherosclerosis of the aorta and many of the other arter ies. No pathologically enlarged abdominal or pelvic lymph nodes are identified. There is wall thicken ing with possible stricturing in the terminal ileum. A small amount of small bowel feces is seen just proximal to the segment of stricturing. No free intraperitoneal gas is identified. There are no dila aster loops of bowel. There is omental thickening with some evidence of nodularity. There is mild lumba r spondylosis. IMPRESSION: 1. Wall thickening and stricturing of the terminal ileum which could reflect inflammatory bowel disea se. 2. Omental thickening with some evidence of nodularity concerning for omental caking due to metastati c disease or possibly omental edema. Reviewed, dictated and finalized at location F. ATRICS TEACHER IMPRESSION: 1. Wall thickening and stricturing of the terminal ileum which could reflect in flammatory bowel disease. 2. Omental thickening with some evidence of nodularity concerning for omental c aking due to metastatic disease or possibly omental edema.
[2021-11-12 18:21] VITALS: BP 134/86; PULSE 89; RESP 20; TEMP 36.8; O2SAT 100
--- NOTE | 2021-11-12 18:25 | ECG_ITS ---
Measurements Intervals [place] Rate: 100 P: 69 TN: 153 QRS: 18 QRSD: 85 T: 76 QT: 363 QTc: 470 Interpretive Statements SINUS TACHYCARDIA LOW QRS VOLTAGE IN LIMB LEADS CANNOT RULE OUT SEPTAL INFARCT, AGE INDETERMINATE BORDERLINE ST-T WAVE ABNORMALITY- ANTEROLAT/HIGH LAT LEADS BASELINE ARTIFACT- I, II, III, AVR, AVL, AVF, V1-V5 ABNORMAL ECG Electronically Signed On 11-12-2021 20:22:49 CROP QUANTITATIVE GENETICIST by Jose Martino D.O.
--- NOTE | 2021-11-12 19:04 | ED.ABDPAIN ---
HPI - Abdominal Pain General Chief Complaint: Abdominal Pain Stated Complaint: Gas pains Time Seen by Provider: 11/12/21 18:35 Source: RN notes reviewed History of Present Illness HPI narrative: Patient presents emergency department from home for abdominal pain. He states pain has been ongoing since this afternoon pain is located in the right abdomen and goes into the right back described as sharp and stabbing pain is worse with movement. States the pain radiates into the anterior right chest she denies any fevers or chills nausea vomiting diarrhea or any other symptoms states he not taking medication for the pain at home Related Data Home Medications Medication Instructions Recorded Confirmed atorvastatin 40 mg PO DAILY 04/04/20 08/24/21 donepezil 10 mg PO HS 04/04/20 08/24/21 fluoxetine 40 mg PO DAILY 04/04/20 08/24/21 lisinopril 20 mg PO DAILY 04/04/20 08/24/21 trazodone 75 mg PO QPM 04/04/20 08/24/21 nortriptyline 40 mg PO QPM 11/24/20 08/24/21 omeprazole 40 mg PO QPM 11/24/20 09/11/21 diphenoxylate-atropine 2.5 1 tablet PO BID tablet 08/10/21 09/11/21 mg-0.025 mg tablet budesonide 3 mg PO BID 08/24/21 09/11/21 melatonin 48 mg PO HS 08/24/21 08/24/21 Allergies Allergy/AdvReac Type Severity Reaction Status Date / Time No Known Allergies Allergy Mild Verified 09/11/21 09:04 Review of Systems Review of Systems: Gen.: Denies fevers or chills ENT: Denies congestion Respiratory: Denies shortness of breath or cough CV: Denies chest pain or palpitations GI: See HPI denies burning, urgency, frequency or hematuria Musculoskeletal: Denies back pain or muscle pain Neuro: Denies numbness, tingling, weakness or focal weakness Skin: Denies rash Except as documented, all other systems reviewed and negative PMFSH Past Medical History Medical History Anxiety Arthritis Cancer of left breast Status post lumpectomy and chemo radiation. Chest pressure Depression Gastroesophageal reflux disease Hydrocephalus Hypertension Memory deficit Overweight (BMI 25.0-29.9) Surgical History Surgical History History of cholecystectomy History of lumpectomy of left breast History of ventriculoperitoneal shunting X3. Family History Family History Mother Lung cancer Father Coronary artery disease Sibling Coronary artery disease Social History Social History Social History: Surrogate decision maker: Neo Drake, . Code status: Full code. Smoking status: Never smoker Second hand tobacco smoke exposure: No Alcohol intake: never Drinks per week: 2 Substance use: never Substance use type: does not use Additional living arrangements comments: Neo (Spouse) Additional occupation/education comments: Retired. Gender identity (if verbalized by the patient): Female Spiritual care concerns: No Exam Narrative: APPEARANCE: No acute distress, nontoxic, resting in bed HEENT: Normocephalic, atraumatic, OMM RESPIRATORY: No respiratory distress, clear to auscultation bilaterally with no rhonchi wheezing or rales CARDIOVASCULAR: RRR s murmur ABDOMINAL: Soft nondistended diffusely tender to palpation no rebound or guarding MUSCULOSKELETAl: Moves all extremities. No clubbing, cyanosis or edema. NEURO: Awake and alert. Following commands, speech normal, no focal deficits SKIN:: Warm, dry. Normal Color PSYCHIATRIC: Normal affect/mood Course Course Emergency Course: Reviewed old records patient had a colonoscopy in August 2021 no abnormalities at that time she denies any history of inflammatory bowel disease. Patient does have a history of breast cancer 25 years ago but has been in remission and has had no symptoms since that time Called and discussed with Dr. Coleman beckamn
[2021-11-12 19:06] LABS: Basophils Percent Auto 0.2 % (0.2-1.2); Eosinophils Percent Auto 0.5 % (0-4.4); Hematocrit 37.9 % (37.0-47.0); Hemoglobin 12.6 g/dL (12.0-15.0); Immature Granulocyte Absolute 0.03 K/mm3 (0.00-0.031); Immature Granulocyte Percent A 0.4 % (0-0.5); Lymphocytes Absolute Auto 3.13 K/mm3 (0.9-3.2); Lymphocytes Percent Auto 37.4 % (18.3-44.2); Mean Corpuscular HGB Conc 33.2 g/dl (32-36); Mean Corpuscular Hemoglobin 30.4 pg (26-34); Mean Corpuscular Volume 91.3 fl (80-100); Mean Platelet Volume 9.4 fl (7.4-10.4); Monocytes Absolute Auto 0.5 K/mm3 (0.1-0.6); Monocytes Percent Auto 6.2 % (2.6-8.5); Neutrophils Absolute Auto 4.6 K/mm3 (1.3-6.7); Neutrophils Percent Auto 55.3 % (45.5-73.1); Platelet Count Result 265 k/mm3 (150-375); Red Blood Count 4.15 M/mm3 (4.2-5.4); Red Cell Distribution Width 14.7 % (11.5-14.5); White Blood Count 8.4 K/mm3 (4.5-10.0)
[2021-11-12] MEDS: SODIUM CHLORIDE 0.9% IV 1,000 ML 999 ML IV CONT (19:11)
[2021-11-12] MEDS: MORPHINE SULFATE (*CRX) 4 MG/ML INJ IV PUSH ×2 (19:12→23:43)
[2021-11-12] MEDS: ONDANSETRON INJ 4 MG/2 ML VIAL IV PUSH (19:12)
[2021-11-12 19:16] LABS: Alanine Aminotransferase 26 U/L (4-35); Albumin Level 4.6 g/dL (3.5-5.1); Alkaline Phosphatase 80 U/L (38-126); Anion Gap 11 mmol/L (8-16); Aspartate Amino Transferase 24 U/L (14-36); Bilirubin,Total 0.3 mg/dL (0.2-1.3); Blood Urea Nitrogen 18 mg/dL (7-17); Calcium 9.5 mg/dL (8.4-10.2); Carbon Dioxide 27 mmol/L (22-30); Chloride 101 mmol/L (98-107); Estimated CRCL calculation 46 ml/min; Estimated Glomerular Filt Rate > 60; Glucose 110 mg/dL (65-110); Lactic Acid Reflex 2.2 mmol/L (0.7-2.1); Lipase 101 U/L (23-300); Potassium 3.7 mmol/L (3.4-5.0); Sodium 139 mmol/L (137-145)
[2021-11-12 19:21] LABS: Prothrombin Time 12.7 Seconds (11.1-14.7)
[2021-11-12 19:22] LABS: Partial Thromboplastin Time 23.7 SECONDS (22.3-36.8)
[2021-11-12 20:56] LABS: Add Urine Microscopic? YES; Appearance Urine Clear (Clear); Bacteria Urine Trace /hpf; Bilirubin Urine Negative (Negative); Blood Urine Negative (Negative); Color Urine Colorless (Yellow); Glucose Urine UA Negative (Negative); Ketones Urine Negative (Negative); Leukocyte Esterase Ur 3+ LEU/UL (Negative); Mucus Urine Rare /lpf; Nitrate Urine Negative (Negative); Protein Urine Negative (Negative); Specific Grav Ur 1.028 (1.001-1.035); Squamous Epithelial Cell Urine Occasional /hpf (Few); Urobilinogen Urine Negative mg/dL (<2.0); WBC Urine 21-30 /hpf
[2021-11-12] MEDS: MORPHINE SULFATE (*CRX) 2 MG/ML INJ IV PUSH (21:10)
--- NOTE | 2021-11-12 21:24 | PM.IMHP ---
H&P: HPI History of Present Illness Date/Time: 11/12/21 21:24 Chief Complaint: ABDOMINAL PAIN Narrative: This is a 71-year-old female with past medical history significant for hypertension, generalized anxiety disorder, left breast cancer, gastroesophageal reflux disease, hydrocephalus. Patient presented today to the emergency room due to diffuse abdominal pain she has been in her usual state of health up until this event she denies any nausea any vomiting any diarrhea she is had constipation and had a large hard bowel movement just prior to coming to the emergency room, patient denies any fevers, rigors, chills, weight loss, cough, sputum production, she has been able to eat or her meals, no pain or burning with urination. Preliminary workup was significant for CT of abdomen and pelvis with area of stricture in the terminal ileum and omental lesions. Patient is been admitted for further evaluation and treatment. Review of Systems Review of Systems: diffuse abdominal pain and constipation Constitutional: Constitutional: Denies chills, Denies fatigue, Denies fever(s), Denies malaise, Denies night sweats, Denies poor appetite and Denies weakness Eyes: Eyes: Denies change in vision ENT: Denies dysphagia, Denies nasal congestion, Denies nasal discharge, Denies nasal obstruction and Denies odynophagia Cardiovascular: Cardiovascular: Denies chest pain, Denies pedal edema, Denies leg edema, Denies radiating jaw, neck or arm pain, Denies palpitations, Denies dyspnea on exertion, Denies orthopnea and Denies paroxysmal nocturnal dyspnea Respiratory: Respiratory: Denies cough and Denies dyspnea Gastrointestinal: Gastrointestinal: Reports abdominal pain, Denies melena, Denies hematochezia, Reports change in bowel habits, Denies coffee ground emesis, Reports constipation, Reports GI cramping, Denies dyspepsia, Denies heartburn, Denies nausea and Denies vomiting Genitourinary: Genitourinary: Denies dysuria Musculoskeletal: Musculoskeletal: Denies arthralgias Integumentary/Breasts: Skin/Breast: Denies rash Neurologic: Denies focal weakness and Denies Sensory deficit (Neuro) Psychiatric: Psychiatric: Reports no additional psychiatric complaints and Reports as per HPI Endocrine: Endocrine: Denies cold intolerance, Denies heat intolerance, Denies polyphagia, Denies polydipsia, Denies polyuria and Denies palpitations Hematologic/Lymphatic: Hematologic/Lymphatic: Reports no additional hematologic/lymphatic complaints and Reports as per HPI Allergic/Immunologic: Allergic/Immunologic: Reports no additional allergic/immunologic complaints and Reports as per HPI [facility] Past Medical History Medical History (Updated 11/13/21 @ 05:01 by Konstantin High MD) Anxiety Arthritis Cancer of left breast Status post lumpectomy and chemo radiation. Chest pressure Depression Gastroesophageal reflux disease Hydrocephalus Hypertension Memory deficit Overweight (BMI 25.0-29.9) Surgical History Surgical History History of cholecystectomy History of lumpectomy of left breast History of ventriculoperitoneal shunting X3. Family History Family History Mother Lung cancer Father Coronary artery disease Sibling Coronary artery disease Social History Social History Social History: Surrogate decision maker: Neo Drake, . Code status: Full code. Smoking status: Never smoker Second hand tobacco smoke exposure: No Alcohol intake: never Drinks per week: 2 Substance use: never Substance use type: does not use Additional living arrangements comments: Neo (Spouse) Additional occupation/education comments: Retired. Gender identity (if verbalized by the patient): Female Spiritual care concerns: No Meds Home Medications and Allergies Home Medications
[2021-11-12 21:35] LABS: Erythrocyte Sedimentation Rate 20 mm/hr (0-20)
[2021-11-12 21:37] LABS: SARS-CoV-2 RNA PCR Negative
[2021-11-12 22:04] LABS: Reflex Lactic Acid Yes or No Add Lactic
[2021-11-13 00:07] LABS: Lactic Acid 1.7 mmol/L (0.7-2.1)
[2021-11-13 00:30] VITALS: BP 128/61; PULSE 105; RESP 16; TEMP 36.4; O2SAT 97; BMI 27.6
--- NOTE | 2021-11-13 00:30 | ADMGEN ---
This patient, Michelle Drake, was admitted to [facility] Surg Room 301-01. Patient/family oriented to hospital policies and general routines including ID bracelet, bed and alarms, visiting hours, pain management, procedures, bathroom and other care routines, personal items, smoking policy, room service/diet, and visiting hours. Information on how to activate the Rapid Response Team has been discussed. Patient/Family are encouraged to report perceived risks to care and to ask questions if they do not understand what they are told or what they should do.
[2021-11-13] MEDS: SODIUM CHLORIDE 0.9% IV 1,000 ML 125 ML IV CONT ×3 (00:42→20:00)
[2021-11-13] MEDS: MORPHINE SULFATE (*CRX) 4 MG/ML INJ IV PUSH ×2 (01:45→03:48)
[2021-11-13 05:26] VITALS: BP 122/63; PULSE 100; RESP 16; TEMP 36.6; O2SAT 95
[2021-11-13 07:48] LABS: Alanine Aminotransferase 22 U/L (4-35); Albumin Level 3.7 g/dL (3.5-5.1); Alkaline Phosphatase 67 U/L (38-126); Anion Gap 10 mmol/L (8-16); Aspartate Amino Transferase 21 U/L (14-36); Bilirubin,Total 0.3 mg/dL (0.2-1.3); Blood Urea Nitrogen 13 mg/dL (7-17); Calcium 8.7 mg/dL (8.4-10.2); Carbon Dioxide 26 mmol/L (22-30); Chloride 106 mmol/L (98-107); Estimated CRCL calculation 52 ml/min; Estimated Glomerular Filt Rate > 60; Glucose 114 mg/dL (65-110); Potassium 3.7 mmol/L (3.4-5.0); Sodium 142 mmol/L (137-145)
[2021-11-13 08:05] LABS: Basophils Percent Auto 0.3 % (0.2-1.2); Eosinophils Absolute Auto 0.1 K/mm3 (0-0.3); Eosinophils Percent Auto 0.8 % (0-4.4); Hematocrit 37.1 % (37.0-47.0); Hemoglobin 12.2 g/dL (12.0-15.0); Immature Granulocyte Absolute 0.04 K/mm3 (0.00-0.031); Immature Granulocyte Percent A 0.4 % (0-0.5); Lymphocytes Absolute Auto 2.51 K/mm3 (0.9-3.2); Lymphocytes Percent Auto 24.3 % (18.3-44.2); Mean Corpuscular HGB Conc 32.9 g/dl (32-36); Mean Corpuscular Hemoglobin 30.7 pg (26-34); Mean Corpuscular Volume 93.2 fl (80-100); Mean Platelet Volume 9.7 fl (7.4-10.4); Monocytes Absolute Auto 0.6 K/mm3 (0.1-0.6); Neutrophils Percent Auto 68.2 % (45.5-73.1); Platelet Count Result 269 k/mm3 (150-375); Red Blood Count 3.98 M/mm3 (4.2-5.4); Red Cell Distribution Width 15.2 % (11.5-14.5); White Blood Count 10.3 K/mm3 (4.5-10.0)
--- NOTE | 2021-11-13 08:10 | WPDGICN ---
Assessment and Plan Assessment and plan (1) Abdominal pain: Code(s): R10.9 - Unspecified abdominal pain Status: Acute Assessment and Plan: her pain she states was generalized although she is more tender in the lower abdomen and may have an inflammatory process of the terminal ileum. The omental caking is quite concerning for possible metastatic disease, possibly gynecologic (2) Ileitis, terminal: Code(s): K50.00 - Crohn's disease of small intestine without complications Status: Acute Assessment and Plan: I will obtain serology for Crohn's disease. Will probably also perform small-bowel series. I will 1st try her on a clear liquid diet today (3) Microscopic colitis: Code(s): K52.839 - Microscopic colitis, unspecified Status: Acute Assessment and Plan: she has been on budesonide and it is in remission. She no longer has diarrhea (4) Gastroesophageal reflux disease: Code(s): K21.9 - Gastro-esophageal reflux disease without esophagitis Status: Acute Assessment and Plan: well controlled with omeprazole. GI Consult Note Consult date/time: 11/13/21 08:10 HPI: Michelle Drake is a 71 year old female since emergency room with complaints of severe abdominal pain. She states that the pain has been coming and going for the last week or 2. It is generalized. Is much better today since she had a large bowel movement yesterday. Pain is predominantly in the lower abdomen and also radiates into the back. It was present most of the day yesterday. She denies vomiting or nausea. Her appetite has been good. She has a diagnosis of having microscopic colitis for which she was on budesonide several years ago. When diarrhea returned last fall she was restarted on that medication, and no longer has diarrhea. In fact a recent colonoscopy showed that there was no microscopic colitis present on biopsies and the plan was to wean her off budesonide. A CT scan shows an apparent stricture in terminal ileum. This raises the possibility of Crohn's disease although she has never had symptoms like this before. The mesenteric caking also is worrisome and suggests the possibility of metastatic disease. Review of Systems Review of Systems: All systems reviewed & are unremarkable except as noted in HPI and below PMFSH Past Medical History Medical History Anxiety Arthritis Cancer of left breast Status post lumpectomy and chemo radiation. Chest pressure Depression Gastroesophageal reflux disease Hydrocephalus Hypertension Memory deficit Overweight (BMI 25.0-29.9) Surgical History Surgical History History of cholecystectomy History of lumpectomy of left breast History of ventriculoperitoneal shunting X3. Family History Family History Mother Lung cancer Father Coronary artery disease Sibling Coronary artery disease Social History Social History Social History: Surrogate decision maker: Neo Drake, . Code status: Full code. Smoking status: Never smoker Second hand tobacco smoke exposure: No Alcohol intake: never Drinks per week: 2 Substance use: never Substance use type: does not use Additional living arrangements comments: Neo (Spouse) Additional occupation/education comments: Retired. Gender identity (if verbalized by the patient): Female Spiritual care concerns: No Meds Home Medications and Allergies Home Medications Medication Instructions Recorded Confirmed Type atorvastatin 40 mg PO DAILY 04/04/20 11/13/21 History donepezil 10 mg PO HS 04/04/20 11/13/21 History fluoxetine 40 mg PO DAILY 04/04/20 11/13/21 History lisinopril 20 mg PO DAILY 04/04/20 11/13/21 History nortriptyline 40 mg PO QP
[2021-11-13] MEDS: BUDESONIDE 3 MG CAP.SR.24H PO ×2 (08:23→17:35)
[2021-11-13] MEDS: FLUoxetine HCL 20 MG CAPSULE 40 MG PO (08:23)
[2021-11-13] MEDS: hydroCHLOROthiazide 12.5 MG CAPSULE PO (08:23)
[2021-11-13] MEDS: ATORVASTATIN 40 MG TABLET PO (08:23)
[2021-11-13] MEDS: ASPIRIN 81 MG CHEWABLE TABLET PO (08:23)
[2021-11-13] MEDS: RALOXIFENE HCL (*CHEMO) 60 MG TABLET PO (08:23)
[2021-11-13] MEDS: lisinopriL 20 MG TABLET PO (08:23)
[2021-11-13 11:33] LABS: Carcinoembryonic Antigen 4.8 ng/mL (0.0-3.0)
--- NOTE | 2021-11-13 11:42 | PM.IMPN ---
Progress Note: A&P Assessment and Plan (1) Acute UTI: Code(s): N39.0 - Urinary tract infection, site not specified Status: Acute Assessment and Plan: Patient was started on Zosyn. Currently she is stable afebrile. Urine cultures are pending at the time of this dictation. Deescalate antibiotics as needed (2) Ileitis, terminal: Code(s): K50.00 - Crohn's disease of small intestine without complications Status: Acute Assessment and Plan: Patient also found to have a stricture on CT of abdomen and pelvis GI consulted. They are considering a possibility of Crohn's disease. Appreciate their recommendation. (3) Gastroesophageal reflux disease: Code(s): K21.9 - Gastro-esophageal reflux disease without esophagitis Status: Acute Assessment and Plan: PPI as needed (4) Cancer of left breast: Code(s): C50.912 - Malignant neoplasm of unspecified site of left female breast Status: Inactive Assessment and Plan: On remission for 20+ years Follow-up in outpatient setting Subjective Date/time seen: 11/13/21 11:42 Narrative:This is a 71-year-old female with past medical history significant for hypertension, generalized anxiety disorder, left breast cancer, gastroesophageal reflux disease, hydrocephalus, who presented yesterday to the emergency room due to diffuse abdominal pain she has been in her usual state of health up until this event. Preliminary workup was significant for CT of abdomen and pelvis with area of stricture in the terminal ileum and omental lesions. Patient is been admitted for further evaluation and treatment. GI was consulted.She carries a diagnosis of microscopic colitis for which she was on budesonide several years ago. When diarrhea returned last fall she was restarted on that medication, and no longer has diarrhea. The diarrhea has recurred about 2 weeks ago, but has resolved now. In fact a recent colonoscopy showed that there was no microscopic colitis present on biopsies and the plan was to wean her off budesonide. A CT scan shows an apparent stricture in terminal ileum. This raises the possibility of Crohn's disease although she has never had symptoms like this before. The mesenteric caking also is worrisome and suggests the possibility of metastatic disease. Of note, she self catheterizes several times a day at home. S: Patient was seen and examined at the bedside. She is feeling a lot better. She denies any complaints at the time of the encounter. Review of Systems Constitutional: Constitutional: Denies chills, Denies fatigue, Denies fever(s), Denies malaise, Denies night sweats, Denies poor appetite and Denies weakness Eyes: Eyes: Denies change in vision ENT: Denies dysphagia, Denies nasal congestion, Denies nasal discharge, Denies nasal obstruction and Denies odynophagia Cardiovascular: Cardiovascular: Denies chest pain, Denies pedal edema, Denies leg edema, Denies radiating jaw, neck or arm pain, Denies palpitations, Denies dyspnea, Denies dyspnea on exertion, Denies orthopnea and Denies paroxysmal nocturnal dyspnea Respiratory: Respiratory: Denies cough, Denies dyspnea and Denies dyspnea on exertion Gastrointestinal: Gastrointestinal: Reports abdominal pain, Denies melena, Denies hematochezia, Reports change in bowel habits, Denies coffee ground emesis, Reports constipation, Reports GI cramping, Denies dysphagia, Denies dyspepsia, Denies heartburn, Denies nausea, Denies odynophagia and Denies vomiting Genitourinary: Genitourinary: Denies dysuria Musculoskeletal: Musculoskeletal: Denies arthralgias Integumentary/Breasts: Skin/Breast: Denies rash Neurologic: Denies focal weakness, Denies Sensory deficit (Neuro) and Denies weakness Psychiatric: Psychiatric: Reports no additional psychiatric complaints and Reports as per HPI Endocrine: Endocrine: Denies cold intolerance, Denies fatigue, Denies heat intolerance, Denies polyphagia, Denies
--- NOTE | 2021-11-13 13:10 | PC.NURSE ---
Felix not draining. Removed per pt request. Will notify
[2021-11-13 14:00] VITALS: BP 120/64; PULSE 98; RESP 16; TEMP 36.6; O2SAT 96
[2021-11-13] MEDS: NORTRIPTYLINE HCL 10 MG CAPSULE 40 MG PO (17:35)
[2021-11-13] MEDS: PANTOPRAZOLE 40 MG TABLET PO (17:35)
[2021-11-13] MEDS: MELATONIN 3 MG TABLET 12 MG PO (21:29)
[2021-11-13] MEDS: hydrOXYzine pamoate 25 MG CAPSULE 50 MG PO (21:29)
[2021-11-13] MEDS: DONEPEZIL HCL 5 MG TABLET 10 MG PO (21:30)
[2021-11-13 21:31] VITALS: BP 139/75; PULSE 79; RESP 18; TEMP 36.4; O2SAT 92
[2021-11-14 05:18] VITALS: BP 134/74; PULSE 84; RESP 18; TEMP 36.8; O2SAT 95
--- NOTE | 2021-11-14 07:30 | WPDGIPROGNO ---
Progress Note: A&P Assessment and Plan (1) Abdominal pain: Code(s): R10.9 - Unspecified abdominal pain Status: Acute Assessment and Plan: 11/13 her pain she states was generalized although she is more tender in the lower abdomen and may have an inflammatory process of the terminal ileum. The omental caking is quite concerning for possible metastatic disease, possibly gynecologic 11/14 today she says the pain is much improved. She is only mildly uncomfortable. Although her abdomen is rounded, She states this is no more than her usual (2) Ileitis, terminal: Code(s): K50.00 - Crohn's disease of small intestine without complications Status: Acute Assessment and Plan: I will obtain serology for Crohn's disease. Will probably also perform small-bowel series. she did well with clear liquids. I told her that depending on the results of the small-bowel series we may be able to advance her diet. She would really like to continue investigation as an outpatient. I told her that as of this morning they are still too many unanswered questions. (3) Microscopic colitis: Code(s): K52.839 - Microscopic colitis, unspecified Status: Acute Assessment and Plan: she has been on budesonide and it is in remission. She no longer has diarrhea . I would stop the budesonide but if she has Crohn's ileitis, budesonide is an ideal therapy. (4) Gastroesophageal reflux disease: Code(s): K21.9 - Gastro-esophageal reflux disease without esophagitis Status: Acute Assessment and Plan: well controlled with omeprazole. Subjective Date/time seen: 11/14/21 07:30 11/13 She was presented to the emergency room with complaints of severe abdominal pain. She states that the pain has been coming and going for the last week or 2. It is generalized. Is much better today since she had a large bowel movement yesterday. Pain is predominantly in the lower abdomen and also radiates into the back. It was present most of the day yesterday. She denies vomiting or nausea. Her appetite has been good. She has a diagnosis of having microscopic colitis for which she was on budesonide several years ago. When diarrhea returned last fall she was restarted on that medication, and no longer has diarrhea. In fact a recent colonoscopy showed that there was no microscopic colitis present on biopsies and the plan was to wean her off budesonide. A CT scan shows an apparent stricture in terminal ileum. This raises the possibility of Crohn's disease although she has never had symptoms like this before. The mesenteric caking also is worrisome and suggests the possibility of metastatic disease 11/14 she is able to take clear liquids yesterday. She denies any increase in pain. She has had no vomiting. She asked if she might be able to go home today. We are waiting results of her inflammatory bowel disease markers. Her CEA- was slightly elevated. Review of Systems Review of Systems: All systems reviewed & are unremarkable except as noted in HPI and below Exam Const: General: alert Orientation/consciousness: patient oriented x3 Resp: Auscultation: clear to auscultation bilaterally Cardio: Rhythm: regular rhythm GI: GI Palp: Yes Soft to palpation and No Tenderness to palpation present (GI) Auscultation: normal bowel sounds Skin: General skin exam: ecchymosis ( Numerous ecchymoses on extremities from venipuncture attempts) Neuro: General: patient oriented x3 Objective Data Vital Signs Vital Signs: Vital Signs - 24 hr 11/13/21 14:00 11/13/21 21:31 11/14/21 05:18 Temperature 36.6 C 36.4 C L 36.8 C Pulse Rate 98 79 84 Respiratory Rate 16 18 18 Blood Pressure 120/64 139/75 134/74 Pulse Oximetry 96 92 95 Intake/Output Intake/Output: Intake & Output 11/11/21 11/12/21 11/13/21 11/14/21 23:59 23:59 23:59 23:59 Intake Total 1050 3550 950 Balance 1050 3550 950 Meds/Results Medications: A
[2021-11-14] MEDS: SODIUM CHLORIDE 0.9% IV 1,000 ML 125 ML IV CONT (09:36)
[2021-11-14] MEDS: lisinopriL 20 MG TABLET PO (12:37)
[2021-11-14] MEDS: FLUoxetine HCL 20 MG CAPSULE 40 MG PO (12:37)
[2021-11-14] MEDS: RALOXIFENE HCL (*CHEMO) 60 MG TABLET PO (12:37)
[2021-11-14] MEDS: ATORVASTATIN 40 MG TABLET PO (12:38)
[2021-11-14] MEDS: hydroCHLOROthiazide 12.5 MG CAPSULE PO (12:38)
[2021-11-14] MEDS: ASPIRIN 81 MG CHEWABLE TABLET PO (12:38)
[2021-11-14] MEDS: BUDESONIDE 3 MG CAP.SR.24H PO (12:38)
[2021-11-14 13:49] VITALS: BP 151/87; PULSE 90; RESP 18; TEMP 35.8; O2SAT 100
--- NOTE | 2021-11-14 16:30 | PM.DS ---
DS: Admitting Diagnosis Discharge Date 11/14/2021 Admitting Diagnosis (1) Acute UTI: (2) Ileitis, terminal: (3) Gastroesophageal reflux disease: (4) Cancer of left breast: DS: Discharge Diagnosis Discharge Diagnosis (1) Acute UTI: Code(s): N39.0 - Urinary tract infection, site not specified Status: Acute Assessment and Plan: Patient was started on Zosyn. Currently she is stable afebrile. Urine cultures are pending at the time of this dictation. Deescalate antibiotics as needed (2) Ileitis, terminal: Code(s): K50.00 - Crohn's disease of small intestine without complications Status: Acute Assessment and Plan: Patient also found to have a stricture on CT of abdomen and pelvis GI consulted. They are considering a possibility of Crohn's disease. Appreciate their recommendation. (3) Gastroesophageal reflux disease: Code(s): K21.9 - Gastro-esophageal reflux disease without esophagitis Status: Acute Assessment and Plan: PPI as needed (4) Cancer of left breast: Code(s): C50.912 - Malignant neoplasm of unspecified site of left female breast Status: Inactive Assessment and Plan: On remission for 20+ years Follow-up in outpatient setting DS: Summary Hospital Course Reason for hospitalization: Abdominal pain Hospital Course: Please refer to admission H&P. Briefly,this is a 71-year-old female with past medical history significant for hypertension, generalized anxiety disorder, left breast cancer, gastroesophageal reflux disease, hydrocephalus. Patient presented today to the emergency room due to diffuse abdominal pain she has been in her usual state of health up until this event she denies any nausea any vomiting any diarrhea she is had constipation and had a large hard bowel movement just prior to coming to the emergency room, patient denies any fevers, rigors, chills, weight loss, cough, sputum production, she has been able to eat or her meals, no pain or burning with urination. Preliminary workup was significant for CT of abdomen and pelvis with area of stricture in the terminal ileum and omental lesions. Patient was admitted for further evaluation and treatment. (1) Abdominal pain: 11/13 her pain she states was generalized although she is more tender in the lower abdomen and may have an inflammatory process of the terminal ileum. The omental caking is quite concerning for possible metastatic disease, possibly gynecologic. On the day of discharge, she says the pain is much improved. She is only mildly uncomfortable. Although her abdomen is rounded, She states this is no more than her usual. Carcinogenic embryonic antigen was 4.8. CA 125 antigen is pending (2) Ileitis, terminal: Follow-up serology for Crohn's disease. (3) Microscopic colitis: Code(s): K52.839 - Microscopic colitis, unspecified Status: Acute Assessment and Plan: she has been on budesonide and it is in remission. She no longer has diarrhea . Continue investigation as an outpatient. (4) Gastroesophageal reflux disease: Code(s): K21.9 - Gastro-esophageal reflux disease without esophagitis Status: Acute Assessment and Plan: well controlled with omeprazole. Continue PPI Time Spent with Patient Time attestation: Total time spent providing and/or coordinating discharge services:35 min Exam Narrative: Patient is observed ambulating in her room. Const: General: cooperative, comfortable, no acute distress, well developed, alert, awake, Physically active and other (Well-appearing) Nutritional Appearance: average body habitus Orientation/consciousness: patient oriented x3 HENMT: Head: normal to inspection, normocephalic and atraumatic Ears: hearing grossly normal bilaterally General nose exam: Normal external nose present Face and sinus: normal facial exam Mouth: Yes Normal oral and palatal mucosa present Eyes: General: appearance normal, both eyes
[2021-11-16 03:20] LABS: CA-125 42 U/mL (<35)
[2021-11-17 19:57] LABS: ANCA Screen Negative (Negative); Myeloperoxidase Ab <1.0 AI (<1.0); Proteinase-3 Ab <1.0 AI (<1.0); S cerevisiae Ab (IgA) 9.2 U (<=20.0); S cerevisiae Ab (IgG) 10.5 U (<=20.0)
== END 2021-11-14 17:15 | disposition home or self-care (01) | DRG 386 ==
LOC: ANHED 22:35 → ANH3MEDSUR 23:17
PROVIDERS: Internal Medicine Gastroenterology; Admitting Provider Internal Medicine; Emergency Provider Emergency Medicine; PCP Internal Medicine; Visit Provider Internal Medicine
DX: K50.00 Crohn's disease of small intestine without complications (principal); N39.0 Urinary tract infection, site not specified; Z20.822 Contact with and (suspected) exposure to COVID-19; K21.9 Gastro-esophageal reflux disease without esophagitis; K52.839 Microscopic colitis, unspecified; F41.1 Generalized anxiety disorder; I10 Essential (primary) hypertension; M19.90 Unspecified osteoarthritis, unspecified site; Z85.3 Personal history of malignant neoplasm of breast; Z90.49 Acquired absence of other specified parts of digestive tract
CPT/HCPCS: 36415; 71045; 74177; 74240; 74248; 80053; 81001; 82378; 83605; 83690; 85025; 85610; 85652; 85730; 86036; 86140; 86304; 86671; 87077; 87086; 87186; 93005; 96361; 96365; 96366; 96375; 96376; 99285; A9270; C9803; G0378; J2270; J2405; J2543; J7030; Q9967; U0003; U0005

== ENCOUNTER 2024-11-29 12:02 | Emergency (ER) | payer MEDICARE, SELFPAY ==
--- OUTSIDE RECORDS SUMMARY | 2024-11-29 12:06 | XMS_ITS | CONTINUITY OF CARE DOCUMENT ---
Author Name john lopez Address Unknown Organization [facility] Office Address [address] [place] [address] [address] [place] [address] Phone [phone] Care Team Providers Care Choral Director Name Role Phone john lopez Unavailable Unavailable
--- OUTSIDE RECORDS SUMMARY | 2024-11-29 12:06 | XMS_ITS | Clinical Summary ---
Author Organization [facility] [place] [address] Address [address] [place] [address] Care Team Providers Care Slip Box Changer Name Role Phone Titi Cummings MD Primary Care Provider Tomás Garcia MD Unavailable Gautam Stoll MD Unavailable Steve Murphy MD Unavailable China Reynoso NP Unavailable + Yariel Stephens MD Unavailable Allergies No known active allergies Medications hydroCHLOROthi azide (MICROZIDE) 12.5 mg capsule Take 1 capsule (12.5 mg total) by mouth every morning 1 Active FLUoxetine (PROzac) 40 mg capsule daily 0 Active atorvastatin (LIPITOR) 40 mg tablet Take 1 tablet (40 mg total) by mouth daily 1 Active donepeziL (ARICEPT) 10 mg tablet 0.5 tablets (5 mg total) daily 1 Active traZODone (DESYREL) 50 mg tablet 1 tablet (50 mg total) every evening 1 Active lisinopriL (PRINIVIL,ZEST RIL) 20 mg tablet 1 tablet (20 mg total) daily 1 Active budesonide EC (ENTOCORT EC) 3 mg 24 hr capsule Take 2 capsules (6 mg total) by mouth every morning Active nortriptyline (PAMELOR) 50 mg capsule [address] (PROTONIX) 40 mg EC tablet Take 1 tablet (40 mg total) by mouth daily 30 tablet 11 3 Active doxorubicin HCl (DOXORUBICIN IV) Infuse into a venous catheter Active potassium chloride ER 20 mEq CR tablet 4 Active diphenoxylate- atropine (LOMOTIL) 2.5-0.025 mg per tablet TAKE 1 TABLET BY MOUTH FOUR TIMES DAILY NEEDED FOR DIARRHEA 30 tablet 1 5 Active diphenoxylate- atropine (LOMOTIL) 2.5-0.025 mg per tabletIndicati ons:Chemothera py-Induced Diarrhea,diarr hea Take 1 tablet by mouth 4 (four) times a day as needed for diarrhea 30 tablet 3 4 025 Discontinued Active Problems Problem Noted Date Diagnosed Date Nephrolithiasis 10/12/2023 Assessment & Plan (10/12/2023 11:42 AM SCREW MACHINE HAND): Re-imaging kidney stone Nuclear stress test ordered, though I am leaning more so towards reflux as the culprit Starting Protonix x 3 months (1 month supply sent for first) Abnormal computed tomography of head 10/07/2023 Benign hypertension 09/24/2023 Essential hypertension 09/24/2023 Blood glucose abnormal 09/24/2023 Gait abnormality 09/24/2023 Hypokalemia 09/24/2023 Acute encephalopathy 09/24/2023 Hydrocephalus 09/24/2023 Encounter for medical examination to establish c are 09/24/2023 Assessment & Plan (09/24/2023 11:21 AM SCREW MACHINE HAND): A(n) initial Medicare Annual Wellness Visit has been performed today. Michelle Drake is not up to date on screening tests. She is in need of hepatitis C screening . She is not up to date on needed preventative vaccinations; She is in need of Tdap/Td, Influenza, Pneumonia (Prevnar-13 or Pneumovax-23), Zoster, and Covid-19 (booster). We discussed healthy lifestyle habits, educational material has been given. Medications reviewed, changes documented as per the medical record and discussed with patient along with risks vs benefits. Return in 6 months Malfunction of ventriculoperitoneal shunt (CMS/H CC) 09/25/2022 Pure hypercholesterolemia 09/25/2022 Tremor 09/25/2022 Orthostatic syncope 04/24/2022 Sepsis 04/24/2022 Protein-calorie malnutrition, moderate (CMS/HCC) 03/17/2022 Increased anion gap metabolic acidosis Peritoneal carcinoma 11/21/2021 Abdominal pain 11/21/2021 Esophagitis 04/12/2020 Insomnia 05/02/2017 Right sided weakness 10/28/2015 Chronic intracranial subdural hematoma (CMS/HCC) 10/10/2015 NPH (normal pressure hydrocephalus) 07/19/2015 Other specified disorders of brain 06/07/2015 Microscopic colitis 01/18/2015 Diarrhea 12/01/2014 Malignant neoplasm of female breast 05/05/2014 Anxiety 02/17/2011 Chest pain 02/17/2011 Hyperlipemia 02/17/2011 Disorder of lip 11/22/2010 Encounters Date Type Department Care Team Description 11/02/2024 Telephone [facility] Primary Care at [address] [address] Titi Cummings MD Prior Auth (marionmotil) from Last 3 Months Immunizations Name Administration Dates Next Due Influenza, Quadrivalent, Hig h Dose, Preservative Free, Intrr 08/17/2021 Influenza, Quadrivalent, Spl it, Preservative Free, Intramuscular 08/09/2023 Influenza, Trivalent, High D ose, Split, Preservative Free, Intramuscular 08/06/2018,08/01/2017,08/30/2016 Influenza, Trivalent, IM (MDV) 0,08/09/2015,08/10/2014,08/14 Influenza, Trivalent, Preser vative Free, Intramuscular 09/28/2009 Influenza, Unspecified 10/21/2022(Deferred: Margret ent Refused) Moderna SARS-CoV-2 Monovalen t Vaccination (12+ YRS) 01/12/2021,01/06/2021,12/15/2020,12/09 Pneumococcal Conjugate Pcv20 03/25/2024 ZOSTER LIVE 08/14/2013 Surgical History Surgery Date Site/Laterality Comments VENTRICULOPERITONEAL SHUNT BREAST LUMPECTOMY Left CHOLECYSTECTOMY Medical History Medical History Date Comments Hyperlipidemia Hypertension Arthritis Hydrocephalus (HCC) GERD (gastroesophageal reflux disease) Anxiety and depression Breast cancer (HCC) Family History Medical History Relation Name Comments Coronary artery disease Brother Coronary artery disease Father Cancer Father's Sister No Known Problems Maternal Grandfather Diabetes type II Maternal Grandmother Lung cancer Mother metastatic; andrew g primary No Known Problems Paternal Grandfather No Known Problems Paternal Grandmother Coronary artery disease Sister Relation Name Status Comments Brother Alive Father Father's Sister Maternal Grandfather Maternal Grandmother Mother Paternal Grandfather Paternal Grandmother Sister Alive Social History Tobacco Use Types Packs/Day Years Used Date Smoking Tobacco: Never Smokeless Tobacco: Never Tobacco Cessation:Counseling Given: Not Answered AUDIT-C Answer Date Recorded Q1: How often do you have a drink containing alc ohol? Monthly or less 09/24/2023 Q2: How many drinks containi ng alcohol do you have on a typical day when you are drinking? 1 or 2 09/24/2023 Q3: How often do you have si x or more drinks on one occasion? Never 09/24/2023 PHQ-2 Answer Date Recorded PHQ-2 Total Score (If total score is 3 or more points, staff should administer the PHQ-9) 0 08/06/2024 Personal Safety Answer Date Recorded Getting School Help Needed Not on file 10/02 Comments No Sex and Gender Information Value Date Recorded Sex Assigned at Not on file Legal Sex Female 1:46 PM SCREW MACHINE HAND Gender Identity Female 07/25/2023 8:58 AM CDT Sexual Orientation Straight 07/25/2023 8: 58 AM CDT Obstetrics History Last Filed Vital Signs Vital Sign Reading Time Taken Comments Blood Pressure 122/70 08/06/2024 9:16 AM CDT Pulse 74 08/06/2024 9:16 AM CDT Temperature 36 C (96.8 F) 08/06/2024 9:16 AM CDT Respiratory Rate 16 08/06/2024 9:16 AM CDT Oxygen Saturation 97% 08/06/2024 9:16 AM CDT Inhaled Oxygen Concentration - - Weight 62.1 kg (137 lb) 08/06/2024 9:16 AM CDT Height 157.5 cm (5' 2 ) 08/06/2024 9:16 AM CDT Body Mass Index 25.06 08/06/2024 9:16 AM CDT Plan of Treatment Health Maintenance Due Date Last Done Comments DTaP/Tdap/Td Vaccine (1 - Tdap) 1961 Hepatitis B Screening 1968 Zoster Vaccine (1 of 2) 10/09/2013 08/14/2013 Covid-19 Vaccine (7 - season) 2024 07/13/2022, 08/25/2021, 01/12/2021, Additional history exists Fall Risk Assessment 09/24/2024 09/24/2023 Well Visit 65+ 09/24/2024 09/24/2023 Breast Cancer Screening-Mammogram 12/30/2024 11/02/2022, 11/02/2022, 11/02/2022, Additional history exists Postponed from 11/02/2023 (Patient declined, but will receive in the future) Influenza Vaccine (#1) 2025 , 07/22/2023, 08/17/2021, Additional history exists Postponed from 06/21/2024 (Patient declined, but will receive in the future) Osteoporosis Screening-Bone Density Scan 05/14/2025 05/14/2023, 05/14/2023, 05/14/2023, Additional history exists Depression Screening 08/06/2025 08/06/2024, 03/25/2024, 09/24/2023 Colon Cancer Screening-Colonoscopy 07/02/2032 07/02/2022 Hepatitis C Screening Completed 09/24/2023 Pneumococcal vaccine 65+ Completed 03/25/2024 Procedures Procedure Name Priority Date/Time Associated Diagnosis Comments HEPATITIS C ANTIBODY Routine 09/24/2023 12:11 PM SCREW MACHINE HAND Encounter for hepatitis C virus screening test for high risk patient from Last 3 Months or Most Recently Relevant to Health Maintenance Results * Hepatitis C antibody Blood (09/24/2023 12:11 PM SCREW MACHINE HAND) Hep C Ab Nonreactive Nonreactive [facility] Comment: Interpretive Data Nonreactive: Antibodies to HCV not detected. Does NOT exclude the possibility of recent exposure to HCV. Equivocal: Equivocal for HCV antibodies. Supplemental molecular testing will be automatically performed to determine infection status in accordance with current CDC screening recommendations. Reactive: Positive for HCV antibodies. This may represent current or past HCV infection. Supplemental molecular testing will be automatically performed to determine current infection status in accordance with current CDC screening recommendations. Interpretive data was last revised on 2020. Blood 09/24/2023 12:1 1 PM SCREW MACHINE HAND 09/24/2023 6:41 PM SCREW MACHINE HAND us Titi Cummings MD LAB MICROBIOLOGY - GENERAL ORDERABLES Edited Result - Final Performing Organization Address City/State/ZIP [facility] Phone Number [facility] [id number] Department [place] [address] from Last 3 Months or Most Recently Relevant to Health Maintenance Insurance [employer] MEDICARE PPO Care Teams Slip Box Changer Relationship Specialty Start Date End Date Titi Cummings MD [address] [place] [address] PCP - General Family Medicine 09/24/23 Tomás Garcia MD [address] [facility] [address] [place] [address] Referring Physician Neurosurgery 09/24/23 Gautam Stoll MD [address] [facility] [address] [place] [address] Consulting Physician Obstetrics and Gynecology 09/24/23 Steve Murphy MD [address] [facility] [address] [place] [address] Gynecologic Oncology 09/24/23 China Reynoso NP [address] [facility] [address] [place] [address] Nurse Practitioner Neurology 09/24/23 Yariel Stephens MD [address] [facility] [address] [place] [address] Referring Physician Neurology 09/24/23
--- OUTSIDE RECORDS SUMMARY | 2024-11-29 12:06 | XMS_ITS | Data Portability ---
Author Organization [place] [facility], Main Office Address [address] [place] [address] Assessment Encounter Date Assessment Date Assessment LastModified by Organization Details LastModified Time 05/07/2023 05/07/2023 Continue current therapy follow-up with me in 4 months blood work [email or web address] Not available 05/10/2023 21:52:33 07/24/2023 07/24/2023 Add amlodipine 5 mg daily. See me back 3 weeks. ER record reviewed. [email or web address] Not available 07/28/2023 11:17:44 Plan of Treatment Reminders Order Date Submit Date Provider Last Modified By Organization Details Last Modified Time Details Appointments None recorded . Lab CBC w/ auto diff 023 05/07/20 cyahl Not available 4 14:52:14 lipid panel, serum 023 05/07/20 cyahl Not available 4 14:52:15 CMP, serum or plasma 023 05/07/20 cyahl Not available 4 14:52:15 Referral None recorded . Procedures None recorded . Surgeries None recorded . Imaging None recorded . Medication Orders None recorded . Patient TargetsNo targets recorded. Patient InstructionsNo instructions recorded. Reason for Referral None Reported. Results Created Date Observation Date Name Description Value Unit Range Abnormal Flag Note LastModifiedBy Organization Detail LastModifiedTime 11/12/1911/12/2021 CT, abdom en + pelvi s, w/ contr ast No observ ation record ed. [id number], [place], [address], 12/19/2022 05:04:24 11/12/19 22 11/12/2021 XR, chest No observ ation record ed. [id number] [facility] (Imaging) [address], [place], [address], 12/19/2022 05:04:24 11/14/19 22 11/14/2021 RF, small bowel , w/ contr ast PO No observ ation record ed. [id number] [facility] (Imaging) [address], [place], [address], 12/19/2022 05:04:24 Result Notes None recorded. Problems Name Problem SNOMED Code Status Onset Date Resolution Date Notes Provider Name and Address Organization Details Recorded Time Blood glucose outside reference range 045915500 Active Not Available [facility] 3 04:53:02 Esophagiti s 88387887 Active 2019 Not Available [facility] 3 04:53:02 Insomnia 394649425 Active 2016 Not Available [facility] 3 04:53:02 Tremor 31659864 Active Not Available [facility] 3 04:53:02 Pure hyperchole sterolemia 140933092 Active Not Available [facility] 3 04:53:02 Chronic intracrani al subdural hematoma 692383698 Completed Not Available [facility] 3 04:53:02 Normal pressure hydrocepha fariha 04282761 Active 2016 Not Available [facility] 3 04:53:03 Ventriculo peritoneal shunt malfunctio n 293673873 Active Not Available [facility] 3 04:53:03 CT of head abnormal 203221621 Completed Not Available [facility] 3 04:53:03 Anxiety 99691103 Active 2017 Not Available [facility] 3 04:53:03 Essential hypertensi on 22339348 Active Not Available [facility] 3 04:53:03 Problem Notes None recorded. Procedures Surgical History Date Name Laterality Status Provider Name and Address Organization Details Recorded Time ventriculoperitoneal shunt completed Not Available [facility] 12/19/2022 04:43:40 Lumpectomy completed Not Available [facility] 12/19/2022 04:43:40 Imaging Results Imaging Date Name Status LastModified by Organiz ation Details LastModified Time 11/12/2021 CT, abdomen + pelvis, w/ contrast completed [id number] [facility] [address], [place], [address], 12/19/2022 05:04:24 11/14/2021 RF, small bowel, w/ contrast PO completed [id number] [facility] (Imaging) [address] [place] [address] [address], [place], [address], 12/19/2022 05:04:24 11/12/2021 XR, chest completed [id number] [facility] (Imaging) [facility] [address], [place], [address], 12/19/2022 05:04:24 Procedure Notes None recorded. Medical Equipment None Reported. Allergies No known drug allergies Medications Name Sig Start Date Stop Date Status Note LastModified by Organization Details LastModified Time fluoxetin e 40 mg capsule TAKE 1 CAPSULE BY MOUTH EVERY DAY active Not Available Not Available No t Available atorvasta tin 40 mg tablet TAKE 1 TABLET BY MOUTH DAILY active Not Available Not Available No t Available prednison e 10 mg tablet active Not Available Not Available Not Available nitrofura ntoin macrocrys amirah 50 mg capsule TK 1 C PO D WF 01/03 completed Not Available Not Available Not Available donepezil 5 mg tablet active Not Available Not Available Not Available tizanidin e 2 mg tablet active Not Available Not Available Not Available trazodone 50 mg tablet TAKE 1 AND 1/2 TABLETS BY MOUTH EVERY NIGHT AT BEDTIME NEEDED active Not Available Not Available No t Available levetirac etam 500 mg tablet TK 1 T PO BID 02/05 completed Not Available Not Available Not Available hydrocodo ne 5 mg-acetam inophen 325 mg tablet active Not Available Not Available Not Available ondansetr on HCl 8 mg tablet 03/29 completed Not Available Not Available Not Available donepezil 10 mg tablet active Not Available Not Available Not Available lisinopri l 20 mg tablet TAKE 1 TABLET BY MOUTH EVERY DAY active Not Available Not Available No t Available ondansetr on HCl 4 mg tablet TAKE 1 TABLET BY MOUTH THREE TIMES DAILY NEEDED 07/11 completed Not Available Not Available Not Available hydroxyzi ne pamoate 50 mg capsule TAKE 1 CAPSULE BY MOUTH EVERY NIGHT AT BEDTIME NEEDED FOR SLEEP 2022 active Not Available Not Available Not Avai lable diphenoxy late-atro pine 2.5 mg-0.025 mg tablet TAKE 1 TABLET BY MOUTH FOUR TIMES DAILY NEEDED active Not Available Not Available No t Available metronida zole 500 mg tablet TAKE 1 TABLET BY MOUTH THREE TIMES DAILY FOR 7 DAYS 07/11 completed Not Available Not Available Not Available Klor-Con 20 mEq oral packet 12/04 completed Not Available Not Available Not Available ciproflox acin 250 mg tablet TK 1 T PO BID 02/05 completed Not Available Not Available Not Available amlodipin e 5 mg tablet TAKE 1 TABLET BY MOUTH EVERY DAY 2023 active Not Available Not Available Not Avai lable prochlorp erazine maleate 10 mg tablet active Not Available Not Available Not Available ciproflox acin 500 mg tablet 05/07 completed Not Available Not Available Not Available sulfameth oxazole 800 mg-trimet hoprim 160 mg tablet TAKE 1 TABLET BY MOUTH EVERY 12 HOURS UNTIL GONE 12/04 completed Not Available Not Available Not Available omeprazol e 40 mg capsule,d elayed release TAKE 1 CAPSULE BY MOUTH EVERY DAY active Not Available Not Available No t Available aspirin 81 mg tablet,de layed release Take 1 tablet every day by oral route. 2020 active Not Available Not Available Not Avai lable ondansetr on 8 mg disintegr ating tablet DISSOLVE ONE TABLET ON TOP OF TONGUE EVERY 8 HOURS NEEDED FOR NAUSEA AND VOMITING active Not Available Not Available No t Available lidocaine -prilocai ne 2.5 %-2.5 % topical cream APPLY TO AFFECTED AREA DIRCTED 12/04 completed Not Available Not Available Not Available terbinafi ne HCl 250 mg tablet TAKE 1 TABLET BY MOUTH EVERY DAY 11/02 completed Not Available Not Available Not Available alprazola m 0.5 mg tablet TAKE 1 TABLET BY MOUTH DAILY active Not Available Not Available No t Available alprazola m 0.25 mg tablet 02/09 completed Not Available Not Available Not Available citalopra m 20 mg tablet TAKE ONE TABLET BY MOUTH DAILY 05/01 completed Not Available Not Available Not Available famotidin e 20 mg tablet 12/04 completed Not Available Not Available Not Available lorazepam 0.5 mg tablet 02/09 completed Not Available Not Available Not Available hyoscyami ne ER 0.375 mg tablet,ex tended release,1 2 hr 08/09 completed Not Available Not Available Not Available tamsulosi n 0.4 mg capsule TK 1 C PO D 01/03 completed Not Available Not Available Not Available pantopraz ole 40 mg tablet,de layed release active Not Available Not Available Not Available nortripty line 10 mg capsule TAKE 4 CAPSULES BY MOUTH EVERY NIGHT AT BEDTIME active Not Available Not Available No t Available clotrimaz ole-betam ethasone 1 %-0.05 % topical cream APPLY A THIN LAYER TO THE VULVAR AREA TWICE DAILY ALTERNAT ING WEEKS ON AND OFF 12/04 completed Not Available Not Available Not Available lisinopri l 10 mg tablet TAKE 1 TABLET BY MOUTH DAILY active Not Available Not Available No t Available hyoscyami ne 0.125 mg sublingua l tablet active Not Available Not Available Not Available hydrochlo rothiazid e 12.5 mg capsule TAKE 1 CAPSULE BY MOUTH EVERY MORNING active Not Available Not Available No t Available raloxifen e 60 mg tablet TAKE 1 TABLET BY MOUTH EVERY DAY active Not Available Not Available No t Available ergocalci ferol (vitamin D2) 1,250 mcg (50,000 unit) capsule Take 1 capsule every week by oral route. active Not Available Not Available No t Available budesonid e DR - ER 3 mg capsule,d elayed,ex tended release TAKE 3 CAPSULES BY MOUTH DAILY active Not Available Not Available No t Available methylpre dnisolone 4 mg tablets in a dose pack 06/13 completed Not Available Not Available Not Available ondansetr on 4 mg disintegr ating tablet 12/04 completed Not Available Not Available Not Available fluoxetin e 20 mg capsule one capsule daily 01/31 completed increase d to 40 mg qd Not Available Not Available Not Available nortripty line 50 mg capsule active Not Available Not Available Not Available oxycodone 5 mg tablet active Not Available Not Available Not Available topiramat e 50 mg tablet 02/05 completed Not Available Not Available Not Available nitrofura ntoin monohydra te/macroc rystals 100 mg capsule 01/03 completed Not Available Not Available Not Available Vesicare 5 mg tablet 05/02 completed Not Available Not Available Not Available Vesicare 10 mg tablet TK 1 T PO QD 01/03 completed Not Available Not Available Not Available Zostavax (PF) 19,400 unit/0.65 mL subcutane ous suspensio n active Not Available Not Available Not Available Gavilyte- C 240 gram-22.7 2 gram-6.72 gram-5.84 gram oral solution TAKE 4000 ML BY MOUTH 1 TIME ONLY FOR 1 DOSE 12/04 completed Not Available Not Available Not Available Myrbetriq 25 mg tablet,ex tended release TK 1 T PO D 01/03 completed Not Available Not Available Not Available Fluvirin 3270-3314 45 mcg (15 mcg x 3)/0.5 mL intramusc ular suspensio n active Not Available Not Available Not Available potassium chloride ER 20 mEq tablet,ex tended release active Not Available Not Available Not Available baclofen 5 mg tablet TAKE 1 TABLET BY MOUTH EVERY 8 HOURS NEEDED FOR MUSCLE SPASM 07/11 completed Not Available Not Available Not Available Zejula 200 mg tablet active Not Available Not Available Not Available Vitals Date Recorded Body mass index (BMI) Body mass index (BMI) Body mass index (BMI) Body height Body height Body height Pain severity - 0-10 verbal numeric rating [Score] - Reported Heart rate Heart rate Heart rate Body temperature Body temperature Body temperature Body weight Body weight Body weight Systolic blood pressure Diastolic blood pressure Systolic blood pressure Diastolic blood pressure Systolic blood pressure Diastolic blood pressure Provider Name and Address Organization Details Last Updated DateTime 3 27.8 kg/m2 24.5 kg/m2 26.3 kg/m2 157.48 cm 157.48 cm 157.48 cm 0 84 /min 63 /min 104 /min 97.4 [degF] 97.2 [degF] 98.2 [degF] 61592.0 4 g 44322.3 8 g 14493.3 g 130 mm[Hg] 80 mm[Hg] 126 mm[Hg] 86 mm[Hg] 118 mm[Hg] 82 mm[Hg] Not Available [facility] 3 04:50:24 Date Recorded Body height Body mass index (BMI) Body weight Body temperature Heart rate Systolic blood pressure Diastolic blood pressure Provider Name and Address Organization Details Last Updated DateTime 3 157.48 cm 25.1 kg/m2 08938.1 5 g 98.2 [degF] 92 /min 130 mm[Hg] 90 mm[Hg] NELY Lindo [employer] [facility] [employer] [facility] 3 12:14:31 Date Recorded Body height Body mass index (BMI) Body weight Body temperature Heart rate Systolic blood pressure Diastolic blood pressure Provider Name and Address Organization Details Last Updated DateTime 3 157.48 cm 23.8 kg/m2 44313.0 1 g 98.2 [degF] 102 /min 140 mm[Hg] 98 mm[Hg] Carly BrookeNELY [employer] [facility] [employer] [facility] 3 10:32:15 Social History Question Answer Notes LastModified by Organization Details LastModified Time Tobacco Smoking Status Never Smoker Not Available [facility] 12/19/2022 04:42:24 Do You Have An Advance Directive? Yes [id number].0301 [id number] Information not available 12/19/2022 What Is Your Level Of Alcohol Consumption? Occasional MIGRATION.030 [id number] Information not available 12/19/2022 Are You Blind Or Do You Have Difficulty Seeing? No MIGRATION.0301 133327 Information not available 12/19/2022 What Is Your Level Of Caffeine Consumption? Moderate MIGRATION.0301 181351 Information not available 12/19/2022 How Much Tobacco Do You Chew? None MIGRATION.030 951786 Information not available 12/19/2022 In The 14 Days Before Symptom Onset, Have You Had Close Contact With A Laboratory-conf irmed COVID-19 While That Case Was Ill? No MIGRATION.030 [id number] Information not available 12/19/2022 In The 14 Days Before Symptom Onset, Have You Had Close Contact With A Person Who Is Under Investigation For COVID-19 While That Person Was Ill? No MIGRATION.0301 573672 Information not available 12/19/2022 Are You Deaf Or Do You Have Serious Difficulty Hearing? No MIGRATION.0301 557849 Information not available 12/19/2022 What Type Of Diet Are You Following? REGULAR MIGRATION.0301 997010 Information not available 12/19/2022 Which Illicit Or Recreational Drugs Have You Used? None MIGRATION.0301 168991 Information not available 12/19/2022 Do You Or Have You Ever Used E-cigarettes Or Vape? Never Used Electronic Cigarettes MIGRATION.0301 730697 Information not available 12/19/2022 What Is The Highest Grade Or Level Of School You Have Completed Or The Highest Degree You Have Received? [id number] MIGRATION.030 451639 Information not available 12/19/2022 What Is Your Occupation? Retired MIGRATION.030 091666 Information not available 12/19/2022 Have There Been Any Changes To Your Family Or Social Situation? No MIGRATION.0301 142061 Information not available 12/19/2022 What Is The Fluoride Status Of Your Home? Unknown MIGRATION.030 200139 Information not available 12/19/2022 Are There Any Guns Present In Your Home? No MIGRATION.0301 054871 Information not available 12/19/2022 Do You Use Insect Repellent Routinely? No MIGRATION.0301 650941 Information not available 12/19/2022 Where Do You Live? SingleLevelHouse With Basement MIGRATION.030 193569 Information not available 12/19/2022 Do You Have A Medical Power Of Air Support Operations Operator? Yes MIGRATION.0301 130646 Information not available 12/19/2022 What Was The Date Of Your Most Recent Tobacco Screening? 07/24/2023 [email or web address] Information not available 07/24/2023 Have You Ever Been Counseled For Unhealthy Alcohol Use? No MIGRATION.0301 588347 Information not available 12/19/2022 Do You Have Any Pets? No MIGRATION.0301 412886 Information not available 12/19/2022 What Is Your Relationship Status? MIGRATION.0301 623166 Information not available 12/19/2022 Do You Use Your Seat Belt Or Car Seat Routinely? Yes MIGRATION.0301 230526 Information not available 12/19/2022 Do You Have Smoke And Carbon Monoxide Detectors In Your Home? Yes MIGRATION.0301 119405 Information not available 12/19/2022 Are You Passively Exposed To Smoke? No MIGRATION.0301 600898 Information not available 12/19/2022 Do You Or Have You Ever Used Smokeless Tobacco? Never Used Smokeless Tobacco MIGRATION.030 334345 Information not available 12/19/2022 Are There Any Smokers In Your House? No MIGRATION.0301 167109 Information not available 12/19/2022 How Much Tobacco Do You Smoke? No MIGRATION.0301 665792 Information not available 12/19/2022 What Types Of Sporting Activities Do You Participate In? None MIGRATION.0301 218112 Information not available 12/19/2022 Do You Feel Stressed (tense, Restless, Nervous, Or Anxious, Or Unable To Sleep At Night)? [id number] MIGRATION.0301 977686 Information not available 12/19/2022 Do You Use Any Illicit Or Recreational Drugs? No MIGRATION.0301 128826 Information not available 12/19/2022 Do You Use Sunscreen Routinely? No MIGRATION.0301 390620 Information not available 12/19/2022 Has Tobacco Cessation Counseling Been Provided? No Not Needed-nev er Smoked MIGRATION.0301 272685 Information not available 12/19/2022 How Many Years Have You Smoked Tobacco? 0 MIGRATION.0301 723485 Information not available 12/19/2022 Have You Recently Traveled Abroad? No MIGRATION.0301 418251 Information not available 12/19/2022 Do You Have Any Dietary Restrictions? No MIGRATION.0301 367000 Information not available 12/19/2022 Do You Or Have You Ever Used Any Other Forms Of Tobacco Or Nicotine? No MIGRATION.0301 898215 Information not available 12/19/2022 Sex: Female Functional Status Question Answer Note LastModified by Organizat ion Details LastModified Time Do you have difficulty walking or climbing stairs? Yes uses cane MIGRATION.240298 0651 Information not available 12/19/2022 Do you have transportation difficulties? No MIGRATION.255116 9033 Information not available 12/19/2022 Are you able to walk? YESASSIST uses cane MIGRATION.164620 1515 Information not available 12/19/2022 Do you have difficulty doing errands alone? No MIGRATION.144345 0633 Information not available 12/19/2022 Are you able to care for yourself? Yes MIGRATION.678361 6061 Information not available 12/19/2022 Do you have difficulty dressing or bathing? No MIGRATION.271680 1293 Information not available 12/19/2022 What is your exercise level? None MIGRATION.399614 7015 Information not available 12/19/2022 Mental Status Question Answer Note LastModified by Organizat ion Details LastModified Time Do you have difficulty concentrating, remembering or making decisions? Yes MIGRATION.[id number] 6 Information not available 12/19/2022 Family History Relationship Description Onset Age of this Age Resolved Age Notes LastModified by Organization Details LastModified Time Mother Malignant tumor of lung MIGRATION.606 [id number] Not available 12/19/2022 04:43:48 Medical History Condition Response NERVE DISEASE N BLINDNESS N RHEUMATIC FEVER N KIDNEY STONES N BLADDER PROBLEMS N MRSA N OTHER # 1 Y POLIO N LUNG DISEASE/DISORDER N COPD N RADIATION / CHEMOTHERAPY N Other # 2 N BLOOD DISEASES N EAR OR HEARING PROBLEMS N MUMPS N DEPRESSION (INCLUDING POST ) N BOWEL PROBLEMS N STROKE/TIA N ULCERS N BENIGN PROSTATIC HYPERPLASIA N MEASLES N MYOCARDIAL INFARCTION N OBESITY N GERD/NAUSEA N ANEURYSM N URINARY/BLADDER/KIDNEY PROBLEMS Y CORONARY ARTERY DISEASE (CAD) N ADDICTION CONCERNS N Impotence N ENDOMETRIOSIS N USE OF BLOOD THINNERS N SKIN PROBLEMS N GASTROINTESTINAL DISORDER N PERIPHERAL VASCULAR DISEASE N MUSCLE,JOINT OR BONE PROBLEMS N GASTROINTESTINAL BLEEDING N BLOOD CLOTS N ASTHMA N CATARACTS N ERECTILE DYSFUNCTION N VARICOSITIES N GI PROBLEMS N Low Testosterone N INFERTILITY N AIDS/HIV N CHEMOTHERAPY / RADIATION N LIVER DISEASE N MALE HYPOGONADISM N HYPERTENSION Y Deficiency N TOURETTE'S N ANXIETY DISORDER Y BLOOD TRANSFUSION N ANEMIA/BLOOD DISORDER N CHRONIC EAR INFECTIONS N BRONCHITIS N TUBERCULOSIS N GLAUCOMA N FOOT PROBLEM N DIVERTICULITIS N SLEEP APNEA N CHICKENPOX N INFECTIOUS DISEASE N PROSTATE N HEART ARRHYTHMIA N INSOMNIA Y HIGH CHOLESTEROL / HYPERLIPIDEMIA Y EYE PROBLEMS N HYPERTHYROIDISM N EDEMA N CHRONIC PAIN SYNDROME N HYPOTHYROIDISM N CAROTID BLOCKAGE N CONSTIPATION N BACK / NECK PROBLEMS N ATHEROSCLEROSIS N BREAST PROBLEMS N DIALYSIS N ECZEMA N OSTEOPOROSIS N ARTHRITIS N APPENDICITIS N DIABETES, TYPE N BAD TEETH N ENT N HEARTBURN / REFLUX N AUTISM SPECTRUM DISORDER (ASD) N HEPATITIS / LIVER DISEASE N GOUT N SLEEP DISORDER N ALZHEIMER'S DISEASE N Brain Problems Y DEMENTIA N HERPES N SEIZURES/EPILEPSY N HEADACHES/MIGRAINES N VASCULAR DISEASE N PACEMAKER N Blood Disorder N DIZZINESS N HEART DISEASE/HEART PROBLEMS N KIDNEY DISEASE N MULTIPLE SCLEROSIS N CANCER: SPECIFY Y CARDIAC ARRHYTHMIA N ATRIAL FIBRILLATION N Gall Stones N PULMONARY EMBOLISM N AUTOIMMUNE DISEASE N Gynecological History Statement/Question Response Date of Last Pap Date of Last Mammogram Date of Last Colonoscopy Most Recent Bone Density Obstetrics History GPAL:G 3 P 1 0 2 0 Type Value Full Term 1 Spontaneous 2 Total 3 Immunizations Vaccine Type Date Status Note Provider Nam e and Address Organization Details Recorded Time COVID-19, mRNA, LNP-S, PF, 100 mcg/0.5mL dose or 50 mcg/0.25mL dose 1 completed Not Available [facility] 12/19/2022 05:03:48 COVID-19, mRNA, LNP-S, PF, 100 mcg/0.5mL dose or 50 mcg/0.25mL dose 1 completed Not Available [facility] 12/19/2022 05:03:48 Influenza, split virus, trivalent, preservative 0 completed Not Available [facility] 12/19/2022 05:03:48 Influenza, high-dose, trivalent, PF 8 completed Not Available [facility] 12/19/2022 05:03:48 Influenza, high-dose, quadrivalent, PF 1 completed Not Available [facility] 12/19/2022 05:03:48 Influenza, high-dose, trivalent, PF 7 completed Not Available [facility] 12/19/2022 05:03:48 Influenza, high-dose, trivalent, PF 6 completed Not Available [facility] 12/19/2022 05:03:48 Influenza, split virus, trivalent, preservative 4 completed Not Available [facility] 12/19/2022 05:03:48 Influenza, split virus, trivalent, preservative 5 completed Not Available [facility] 12/19/2022 05:03:49 Past Encounters Encounter ID Performer Location Encounter Start Date Encounter Closed Date Diagnosis/Indication Diagnosis SNOMED-CT Code Diagnosis ICD10 Code Diagnosis Note [id number] [facility] Internal Med [place] llangeles [address] [place] [address] 03/14/2021 00:00:00 03/14/2021 23:03:17 [id number] [facility] Internal Med [place] [address] [place] [address] 06/13/2021 00:00:00 06/13/2021 21:15:23 [id number] [facility] Internal Med [place] llangeles [address] [place] [address] y , [place] [address] 07/11/2021 00:00:00 07/11/2021 22:19:31 [id number] [facility] Internal Med [place] l[place]eles [address] [place] [address] y , [place] [address] 11/02/2021 00:00:00 11/02/2021 22:47:25 [id number] [facility] Internal Med [place] [address] [place] [address] y , [place] [address] 06/28/2022 00:00:00 07/08/2022 12:00:03 [id number] [facility] Internal Med [place] l[place] [address] [place] [address] y , [place] [address] 12/04/2022 00:00:00 12/04/2022 21:36:02 [id number] Kyle Casas MD [facility] Internal Med [place] [address] [place] [address] y , [place] [address] 05/07/2023 11:31:17 05/07/2023 12:53:18 Essential hypertension 79368982 I10 Anxiety 02776204 F41.9 Normal pre ssure hydrocephalus 82572871 G91.2 [id number] Kyle Casas MD [facility] Internal Med [facility] [address] [facility], [facility] [address] [place] [address] 07/24/2023 10:22:50 07/24/2023 10:55:10 Essential hypertension 60692559 I10 Health Concerns Section Related Observation LastModified by Organization Detai ls LastModified Time None Recorded Concern Status LastModified by Organization Details LastModified Time None Recorded Advance Directives Directive Y: Payers Encounter Date Sequence Insurance Name Policy Number Policy Narvaez Covered Member ID Narvaez Member ID Guarantor Name 05/07/2023 1 [place] Michelle Drake [id number] Michelle A Noelle 05/07/2023 2 [employer] ([place]) [id number] Neo Bazan Noelle [id number] Michelle A Monroe 07/24/2023 1 [place] Michelle A Monroe [id number] Michelle A Monroe 07/24/2023 2 [employer] ([place]) [id number] Neo Bazan Monroe [id number] Michelle A Monroe Notes Date Note Type Note Provider Name and Address Organization Details Recorded Time 3 text/html Overall stable hypertension no headache anxiety stable normal pressure hydrocephalus ventriculoperitoneal shunt in place history of ovarian cancer following up with her specialist Kyle Casas MD [address], [place], [address], [facility] [employer] [facility] [employer] 05/10/2023 21:52:56 3 text/html Headache. BP a. ER. Shunt working fine. Chest pain. No shortness of breath. No edema. Kyle Casas MD [address], [place], [address], [employer] [facility] [employer] 07/28/2023 11:18:13 OBGyn Episode No OBEpisode recorded.
--- OUTSIDE RECORDS SUMMARY | 2024-11-29 12:06 | XMS_ITS | Continuity of Care Document ---
Author Organization [facility] Address [address] [place] [address] [address] [place] [address] Phone Care Team Providers Care Subway Train Driver Name Role Phone Jhon Oscar Unavailable Unavailable Procedures Procedure Date Eye Exam, New Patient Advance Directives Directive Yes / No Effective Date File Name No Information Encounters Encounter Description Practice Location Reason(s) For Visit Diagnoses Date Provider Providers Copied on Encounter [facility], [address], [place], [place], [id number], [place] tel:[phone] [facility] No Information [address] , [address], [place], [address], [place]. tel:[phone] Family History Family Member Type Diagnosis Age At Onset No Information Payers Payer name Insurance type Covered libertarian ID Authoriza tion(s) No Information Social History Type Description Quantity Date Captured Comments Sex Female Smoking Status No Information Chief Complaint And Reason For Visit No Information Reason For Referral Reason For Referral No Information History Of Present Illness Encounter Date Complaint History Of Prese nt Illness No Information Functional Status Date Functional Assessmen t No Information Instructions Date Instruction Additional Infor mation No Information Assessments Type Assessment Date No Information Patient Care Teams Name Effective Dates (start - stop) Status Members No Information
[2024-11-29 12:07] VITALS: BP 147/85; PULSE 99; RESP 22; TEMP 36.3; O2SAT 100
--- OUTSIDE RECORDS SUMMARY | 2024-11-29 12:07 | XMS_ITS | Patient Health Summary ---
Author Organization [facility] Address [address] [facility] [place] [address] Care Team Providers Care Medical Sonographer Name Role Phone Kyle Casas MD Primary Care Provider [phone] Note from [facility] [place],non-owned Affiliates and Associated Physician Practices is amultiple site organization consisting of ambulatory clinics and hospital sitesin [place], [place], [place] and [place]. This disclosure is being madepursuant to the Care Everywhere program and may not contain all information available regarding this patient. 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 Disorder of lip 11/22/2010 Social History Tobacco Use Types Packs/Day Years Used Date Smoking Tobacco: Never Smokeless Tobacco: Never Alcohol Use Standard Drinks/Week Comments No 0 (1 standard drink = 0.6 oz pur e alcohol) Sex and Gender Information Value Date Recorded Sex Assigned at Not on file Gender Identity Not on file Sexual Orientation Not on file Last Filed Vital Signs Vital Sign Reading Time Taken Comments Blood Pressure 141/87 06/01/2015 10:36 AM CDT Pulse 74 06/01/2015 10:36 AM CDT Temperature - - Respiratory Rate - - Oxygen Saturation - - Inhaled Oxygen Concentration - - Weight 59 kg (130 lb) 06/01/2015 10:36 AM CDT Height 157.5 cm (5' 2 ) 06/01/2015 10:36 AM CDT Body Mass Index 23.78 06/01/2015 10:36 AM CDT Procedures * TSH(Performed 06/01/2015) * VITAMIN B12(Performed 06/01/2015) Results * VITAMIN B12 (06/01/2015 12:10 PM CDT) Vitamin B12 675 213 - 816 pg/mL [facility] Blood specimen (specimen) BLOOD SPECIMEN / Unknown 06/01/2015 12:10 PM CDT 06/01/2015 1:06 PM CDT Varun Phelps MD LAB - CHEMISTRY [facility] [address] [phone] * TSH (06/01/2015 12:10 PM CDT) TSH 1.455 0.350 - 4.940 uIU/mL [facility] Blood specimen (specimen) BLOOD SPECIMEN / Unknown 06/01/2015 12:10 PM CDT 06/01/2015 1:06 PM CDT Varun Phelps MD LAB - CHEMISTRY [facility] [address] [phone] Care Teams Medical Sonographer Relationship Specialty Start Date End Date Kyle Casas MD PCP - General 10/27/08
--- OUTSIDE RECORDS SUMMARY | 2024-11-29 12:07 | XMS_ITS | Referral Summary ---
Author Organization [facility] Address [address] [place] [address] Care Team Providers Care Librarian Name Role Phone Kyle Casas MD Primary Care Provider [phone] Source Comments [facility],non-[facility] Affiliates and Associated Physician Practices is amultiple site organization consisting of ambulatory clinics and hospital sitesin [place], [place], [place] and [place]. This disclosure is being madepursuant to the Care Everywhere program and may not contain all information available regarding this patient. Last updated 18.[facility] Active Problems Problem Noted Date Diagnosed Date [...] Mass Index 23.78 06/01/2015 10:36 AM CDT Plan of Treatment Not on file Care Teams Librarian Relationship Specialty Start Date End Date Kyle Casas MD PCP - General 10/27/08
--- OUTSIDE RECORDS SUMMARY | 2024-11-29 12:07 | XMS_ITS | Clinical Summary ---
Author Organization [facility] Address [address] [place] [address] Care Team Providers Care Paleobotanist Name Role Phone Kyle Casas MD Primary Care Provider [phone] Source Comments [facility],non-[facility] Affiliates and Associated Physician Practices is amultiple site organization consisting of ambulatory clinics and hospital sitesin [place], [place], [place] and [place]. This disclosure is being madepursuant to the Care Everywhere program and may not contain all information available regarding this patient. 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/22/2010 Family History Medical History Relation Name Comments Cancer Father Testicle High Cholesterol Father Cancer Maternal Aunt Breast Cancer Maternal Grandmother Breast Ca Diabetes Maternal Grandmother Cancer Mother lung High Cholesterol Mother Relation Name Status Comments Father Maternal Aunt Maternal Grandmother Mother Social History Tobacco Use Types Packs/Day Years [...] 06/01/2015 10:36 AM CDT Plan of Treatment Health Maintenance Due Date Last Done Comments BONE DENSITY TESTING 1950 COLOGUARD (AGES 45-75) - COL ON CA SCREENING 1952 COLON MONITORING 1952 COLONOSCOPY - COLON CA SCREENING 1952 CT COLONOGRAPHY - COLON CA SCREENING 1950 Colorectal Cancer Screening 1952 FIT - COLON CA SCREENING 1952 FLEX SIG - COLON CA SCREENING 1952 LIPID TESTING 1952 MAMMOGRAM 1950 MEDICARE AWV 12 MONTHS 1952 HEPATITIS C SCREENING 04/10/1970 DTAP/TDAP/TD VACCINES (1 - Tdap) 1971 PNEUMOCOCCAL VACCINE 50+ (1 of 1 - PCV) 2002 ZOSTER VACCINE (1 of 2) 2002 COVID-19 VACCINE (1 - 2023-2 5 season) 2024 INFLUENZA VACCINE (#1) 2024 DEPRESSION SCREENING 10/21/2024 Respiratory Syncytial Virus (RSV) Vaccine Pt: or over 60 yrs (1 - 1-dose 75+ series) 2027 HEPATITIS B VACCINE Aged Out No longe r eligible based on patient's age to complete this topic HIB VACCINE Aged Out No longer eligi ble based on patient's age to complete this topic HPV VACCINE Aged Out No longer eligi ble based on patient's age to complete this topic MENINGOCOCCAL (Group B) VACCINE Aged Out No longer eligible based on patient's age to complete this topic MENINGOCOCCAL VACCINE Aged Out No cindy joel eligible based on patient's age to complete this topic Care Teams Paleobotanist Relationship Specialty Start Date End Date Kyle Casas MD PCP - General 10/27/08
--- OUTSIDE RECORDS SUMMARY | 2024-11-29 12:07 | XMS_ITS | Referral Summary ---
Author Organization [facility] [address] Address [address] [place] [address] Care Team Providers Care Clinical Laboratory Assistant Name Role Phone Titi Cummings MD Primary Care Provider Tomás Garcia MD Unavailable Gautam Stoll MD Unavailable Steve Murphy MD Unavailable China Reynoso NP Unavailable + Yariel Stephens MD Unavailable Encounters Date Type Department Care Team Description 11/02/2024 Telephone [facility] Primary Care at [address] [address] Titi Cummings MD Prior Auth (lomotil) from Last 3 Months Allergies No known active allergies Medications hydroCHLOROthi [...] 10/12/2023 Assessment & Plan (10/12/2023 11:42 AM RESEARCH COMPUTING SPECIALIST): Re-imaging kidney stone Nuclear stress test ordered, [...] 09/24/2023 Assessment & Plan (09/24/2023 11:21 AM RESEARCH COMPUTING SPECIALIST): A(n) initial Medicare Annual Wellness Visit has been performed today. Michelle Michael Drake is not up to date on [...] 02/17/2011 Hyperlipemia 02/17/2011 Disorder of lip 11/22/2010 Immunizations Name Administration Dates Next Due Influenza, [...] Pneumococcal Conjugate Pcv20 03/25/2024 ZOSTER LIVE 08/14/2013 Social History Tobacco Use Types Packs/Day Years [...] on file Legal Sex Female 1:46 PM RESEARCH COMPUTING SPECIALIST Gender Identity Female 07/25/2023 8:58 AM CDT Sexual Orientation Straight 07/25/2023 8: 58 AM CDT Last Filed Vital Signs Vital Sign Reading [...] 08/06/2024 9:16 AM CDT Plan of Treatment Not on file Procedures Procedure Name Priority Date/Time Associated Diagnosis Comments HEPATITIS C ANTIBODY Routine 09/24/2023 12:11 PM RESEARCH COMPUTING SPECIALIST Encounter for hepatitis C virus screening test for high risk patient from Last 3 Months or Most Recently Relevant to Health Maintenance Results * Hepatitis C antibody Blood (09/24/2023 12:11 PM RESEARCH COMPUTING SPECIALIST) Hep C Ab Nonreactive Nonreactive [facility]IM[facility] [...] on 2020. Blood 09/24/2023 12:1 1 PM RESEARCH COMPUTING SPECIALIST 09/24/2023 6:41 PM RESEARCH COMPUTING SPECIALIST us Titi Cummings MD LAB MICROBIOLOGY - GENERAL ORDERABLES Edited Result - Final [facility]ANC[facility] TRIMBLE [id number] Department [place] [address] from Last 3 Months or Most Recently Relevant to Health Maintenance Insurance [employer] MEDICARE PPO Care Teams Clinical Laboratory Assistant Relationship Specialty Start Date End Date Titi Cummings MD [address] [place] [address] PCP - General Family Medicine 09/24/23 Tomás Garcia MD [address] [facility] [address] [place], [place] [phone] Referring Physician Neurosurgery 09/24/23 Gautam Stoll MD [address] [facility] [address] [place] [address] Consulting Physician Obstetrics and Gynecology 09/24/23 Steve Murphy MD [address] [facility] [address] [place] [address] Gynecologic Oncology 09/24/23 China Reynoso, TORRI [address] [facility] [address] [place] [address] Nurse Practitioner Neurology 09/24/23 Yariel Stephens MD [address] [facility] [address] [place], [place] [address] [phone] Referring Physician Neurology 09/24/23
--- NOTE | 2024-11-29 12:40 | PC.NURSE ---
pt comes up to intake to this RN to states they would like to leave ED because it can wait until tomorrow when we see our family doctor . educated patient that we will gladly see them in ER today and to return with any concerning symptoms. pt ambulates with steady gait and in no resp. distress.
--- OUTSIDE RECORDS SUMMARY | 2024-11-29 12:46 | XMS_ITS | Encounter Summary ---
Author Organization [facility] Address [address] [place] [address] Care Team Providers Care Scientific Advisor Name Role Phone Titi Cummings MD Primary Care Provider Encounter Details Date Type Department Care Team (Latest Contact Info) Description 02/03/2000 Outpatient Historical HIS [facility] BRY Contreras, Gibson Rivera MD NO ADDRESS ON FILE Malignant neoplasm of upper-outer quadrant of female breast (CMS/HCC) (Primary Dx) Social History Tobacco Use Types Packs/Day Years Used Date Smoking Tobacco: Never Assessed Comments Unknown Sex and Gender Information Value Date Recorded Sex Assigned at Not on file Legal Sex Female 4:40 AM AGRICULTURAL EQUIPMENT SALESPERSON Gender Identity Not on file Sexual Orientation Not on file documented as of this encounter Plan of Treatment Upcoming Encounters Date Type Department Care Team (Late st Contact Info) Description 12/16/2024 11:00 AM AGRICULTURAL EQUIPMENT SALESPERSON Office Visit [facility] Gynecologic Oncology [place] [address] [place] [address] Becky Walton MD [address] [place] [address] 12/16/2024 11:30 AM AGRICULTURAL EQUIPMENT SALESPERSON Appointment [facility] 2nd Fl [address] [place] [address] Infusion [address] 6, 2nd Floor [place] 12/28/2024 10:00 AM CDT Office Visit [facility] Neurology [address] [place] [address] Navi Stephens MD [address] [facility] [address] [address] documented as of this encounter Visit Diagnoses Diagnosis Malignant neoplasm of upper-outer quadrant of female breast (CMS/HCC)- Primary Malignant neoplasm of upper-outer quadrant of female breast documented in this encounter Additional Health Concerns Infection Onset Date Last Indicated Resolved Time R/O C. diff 03/28/2022 03/27/2022 03/28/2022 3:35 PM CDT R/O C. diff 04/12/2022 04/11/2022 04/12/2022 3:26 PM CDT R/O C. diff 04/13/2023 04/12/2023 04/13/2023 2:29 PM CDT documented as of this encounter Care Teams Scientific Advisor Relationship Specialty Start Date End Date Titi Cummings MD [address] [phone] PCP - General Family Practice 10/10/23 documented as of this encounter
--- OUTSIDE RECORDS SUMMARY | 2024-11-29 12:46 | XMS_ITS | Encounter Summary ---
Author Organization [facility] Address [address] [place] [address] Care Team Providers Care Underwear Welter Name Role Phone Titi Cummings MD Primary Care Provider Encounter Details Date Type Department Care Team (Latest Contact Info) Description 09/23/1999 Outpatient Historical HIS [facility] BRY Contreras, Gibson Rivera MD NO ADDRESS ON FILE Malignant neoplasm of upper-outer quadrant of female breast (CMS/HCC) (Primary Dx) Social History Tobacco Use Types Packs/Day Years Used Date Smoking Tobacco: Never Assessed Comments Unknown Sex and Gender Information Value Date Recorded Sex Assigned at Not on file Legal Sex Female 4:40 AM CERAMIC TILE MECHANIC Gender Identity Not on file Sexual Orientation Not on file documented as of this encounter Plan of Treatment Upcoming Encounters Date Type Department Care Team (Late st Contact Info) Description 12/16/2024 11:00 AM CERAMIC TILE MECHANIC Office Visit [facility] Gynecologic Oncology [place] [address] [place] [address] Becky Walton MD [address] [place] [address] 12/16/2024 11:30 AM CERAMIC TILE MECHANIC Appointment [facility] 2nd Fl [address] [place] [address] Infusion Chair 6, 2nd Floor [place] 12/28/2024 10:00 AM CDT Office Visit [facility] Neurology [address] [place] [address] Navi Stephens MD [address] [facility] [address] [address] documented as of this encounter [...] documented as of this encounter Care Teams Underwear Welter Relationship Specialty Start Date End Date Titi Cummings MD [address] [phone] PCP - General Family Practice 10/10/23 documented as of this encounter
--- OUTSIDE RECORDS SUMMARY | 2024-11-29 12:46 | XMS_ITS | Encounter Summary ---
Author Organization [facility] Address [address] [place] [address] Care Team Providers Care Solution Director Name Role Phone Titi Cummings MD Primary Care Provider Reason for Visit * Reason Onset Date Comments Imaging Results 05/14/2023 BMD Encounter Details Date Type Department Care Team (Late st Contact Info) Description 05/14/2023 Telephone [facility] HEEL WASHER STRINGING MACHINE OPERATOR - Medical [facility] [address] [address] Jackie Aceves, VIRTUALIZATION ENGINEER [address] [facility] [address] [address] Imaging Results (BMD) Social History Tobacco Use Types Packs/Day Years Used Date Smoking Tobacco: Never Smokeless Tobacco: Never Alcohol Use Standard Drinks/Week Comments Not Currently 2 (1 standard drink = 0.6 oz pur e alcohol) Socially Comments No Sex and Gender Information Value Date Recorded Sex Assigned at Not on file Legal Sex Female 4:40 AM PIECE WORKER Gender Identity Not on file Sexual Orientation Not on file Occupation Industry Job Start Date Job End Date Not on file Not on file Not on file Not on file documented as of this encounter Miscellaneous Notes * Telephone Encounter - Aretha Ash LPN - 05/14/2023 4:21 PM CDT Narrative & Impression: Patient takes Evista due to breast cancer history. Her bone density is stable. FRAX is negative andthere is no history of osteoporotic fracture. Continue the Evista and repeat the bone density in 2 years. Patient was sent a Kapt[employer] message. documented in this encounter Plan of Treatment Upcoming Encounters Date Type Department Care Team (Late st Contact Info) Description 12/16/2024 11:00 AM PIECE WORKER Office Visit [facility] Gynecologic Oncology [place] [address] [place] [address] Becky Walton MD [address] [place] [address] 12/16/2024 11:30 AM PIECE WORKER Appointment [facility] 2nd Fl [address] [place] [address] Infusion Chair 6, 2nd Floor [place] 12/28/2024 10:00 AM CDT Office Visit [facility] Neurology [address] [place] [address] Navi Stephens MD [address] [address] documented as of this encounter Visit Diagnoses Not on filedocumented in this encounter Care Teams Solution Director Relationship Specialty Start Date End Date Titi Cummings MD [address] [place] [address] [place] [phone] PCP - General Family Practice 10/10/23 documented as of this encounter
--- OUTSIDE RECORDS SUMMARY | 2024-11-29 12:46 | XMS_ITS | Encounter Summary ---
Author Organization [facility] Address [address] [place] [address] Care Team Providers Care Chief Fundraising Officer Name Role Phone Titi Cummings MD Primary Care Provider Encounter Details Date Type Department Care Team (Latest Contact Info) Description 07/20/2000 Outpatient Historical HIS [facility] BRY Contreras, Gibson Rivera MD NO ADDRESS ON FILE Malignant neoplasm of upper-outer quadrant of female breast (CMS/HCC) (Primary Dx) Social History Tobacco Use Types Packs/Day Years Used Date Smoking Tobacco: Never Assessed Comments Unknown Sex and Gender Information Value Date Recorded Sex Assigned at Not on file Legal Sex Female 4:40 AM TANK CAR MECHANIC Gender Identity Not on file Sexual Orientation Not on file documented as of this encounter Plan of Treatment Upcoming Encounters Date Type Department Care Team (Late st Contact Info) Description 12/16/2024 11:00 AM TANK CAR MECHANIC Office Visit [facility] Gynecologic Oncology [place] [address] [place] [address] Becky Walton MD [address] [place] [address] 12/16/2024 11:30 AM TANK CAR MECHANIC Appointment [facility] 2nd Fl [address] [place] [address] Infusion Chair 6, 2nd Floor [place] 12/28/2024 10:00 AM CDT Office Visit [facility] Neurology [address] [place] [address] Navi Stephens MD [address] [facility] [address] [address] documented as of this encounter [...] documented as of this encounter Care Teams Chief Fundraising Officer Relationship Specialty Start Date End Date Titi Cummings MD [address] [phone] PCP - General Family Practice 10/10/23 documented as of this encounter
--- OUTSIDE RECORDS SUMMARY | 2024-11-29 12:46 | XMS_ITS | Encounter Summary ---
Author Organization [facility] Address [address] [place] [address] Care Team Providers Care Guidance Counselor Name Role Phone Titi Cummings MD Primary Care Provider Encounter Details Date Type Department Care Team (Latest Contact Info) Description 02/26/2001 Outpatient Historical HIS [facility] BRY Contreras, Gibson Rivera MD NO ADDRESS ON FILE Malignant neoplasm of upper-outer quadrant of female breast (CMS/HCC) (Primary Dx) Social History Tobacco Use Types Packs/Day Years Used Date Smoking Tobacco: Never Assessed Comments Unknown Sex and Gender Information Value Date Recorded Sex Assigned at Not on file Legal Sex Female 4:40 AM GUEST EXPERIENCE SPECIALIST Gender Identity Not on file Sexual Orientation Not on file documented as of this encounter Plan of Treatment Upcoming Encounters Date Type Department Care Team (Late st Contact Info) Description 12/16/2024 11:00 AM GUEST EXPERIENCE SPECIALIST Office Visit [facility] Gynecologic Oncology [place] [address] [place] [address] Becky Walton MD [address] [place] [address] 12/16/2024 11:30 AM GUEST EXPERIENCE SPECIALIST Appointment [facility] 2nd Fl [address] [place] [address] Infusion [address] 6, 2nd Floor [place] 12/28/2024 10:00 AM CDT Office Visit [facility] Neurology [address] [place] [address] Navi Stephens MD [address] [facility] [address] [address] documented as of this encounter [...] documented as of this encounter Care Teams Guidance Counselor Relationship Specialty Start Date End Date Titi Cummings MD [address] [phone] PCP - General Family Practice 10/10/23 documented as of this encounter
--- OUTSIDE RECORDS SUMMARY | 2024-11-29 12:46 | XMS_ITS | Encounter Summary ---
Author Organization [facility] Address [address] [place] [address] Care Team Providers Care Piano Mechanic Apprentice Name Role Phone Titi Cummings MD Primary Care Provider Encounter Details Date Type Department Care Team (Latest Contact Info) Description 02/06/2001 Outpatient Historical [facility] Daron French MD NO ADDRESS ON FILE Special screening for osteoporosis (Primary Dx) Social History Tobacco Use Types Packs/Day Years Used Date Smoking Tobacco: Never Assessed Comments Unknown Sex and Gender Information Value Date Recorded Sex Assigned at Not on file Legal Sex Female 4:40 AM R&D ENGINEER Gender Identity Not on file Sexual Orientation Not on file documented as of this encounter Plan of Treatment Upcoming Encounters Date Type Department Care Team (Late st Contact Info) Description 12/16/2024 11:00 AM R&D ENGINEER Office Visit [facility] Gynecologic Oncology [place] [address] [place] [address] Becky Walton MD [address] [place] [address] 12/16/2024 11:30 AM R&D ENGINEER Appointment [facility] 2nd Fl [address] [place] [address] Infusion Chair 6, 2nd Floor [place] 12/28/2024 10:00 AM CDT Office Visit [facility] Neurology [address] [place] [address] Navi Stephens MD [address] [facility] [address] [address] documented as of this encounter Visit Diagnoses Diagnosis Special screening for osteoporosis- Primary documented in this encounter Additional Health Concerns Infection Onset Date Last Indicated Resolved Time R/O C. diff 03/28/2022 03/27/2022 03/28/2022 3:35 PM CDT R/O C. diff 04/12/2022 04/11/2022 04/12/2022 3:26 PM CDT R/O C. diff 04/13/2023 04/12/2023 04/13/2023 2:29 PM CDT documented as of this encounter Care Teams Piano Mechanic Apprentice Relationship Specialty Start Date End Date Titi Cummings MD [address] [phone] PCP - General Family Practice 10/10/23 documented as of this encounter
--- OUTSIDE RECORDS SUMMARY | 2024-11-29 12:46 | XMS_ITS | Encounter Summary ---
Author Organization [facility] Address [address] [place] [address] Care Team Providers Care Meat And Seafood Manager Name Role Phone Titi Cummings MD Primary Care Provider Encounter Details Date Type Department Care Team (Late Contact Info) Description 11/28/2024 External Device Data STL ABSTRACTION Provider, Abstract NO ADDRESS ON FILE Social History Tobacco Use Types Packs/Day Years Used Date Smoking Tobacco: Never Smokeless Tobacco: Never Alcohol Use Standard Drinks/Week Comments Not Currently 0 (1 standard drink = 0.6 oz pur e alcohol) Feeling Safe Answer Date Recorded Are you in a relationship wi th someone who hurts you emotionally and/or physically? No 11/25/2024 Comments No Sex and Gender Information Value Date Recorded Sex Assigned at Not on file Legal Sex Female 4:40 AM PERINATAL SPECIALIST Gender Identity Not on file Sexual Orientation Not on file Occupation Industry Job Start Date Job End Date Not on file Not on file Not on file Not on file documented as of this encounter Plan of Treatment Upcoming Encounters Date Type Department Care Team (Late st Contact Info) Description 12/16/2024 11:00 AM PERINATAL SPECIALIST Office Visit [facility] Gynecologic Oncology [place] [address] [place] [address] Becky Walton MD [address] [place] [address] 12/16/2024 11:30 AM PERINATAL SPECIALIST Appointment [facility] [address] [place] [address] Infusion Chair 6, 2nd Floor [place] 12/28/2024 10:00 AM CDT Office Visit [facility] Neurology [address] [place] [address] Navi Stephens MD [address] [facility] [address] [address] documented as of this encounter Visit Diagnoses Not on filedocumented in this encounter Additional Health Concerns Assessment Noted Time PHQ-9 Depression Total Score: 4 10/02/20 24 12:00 PM PERINATAL SPECIALIST documented as of this encounter Care Teams Meat And Seafood Manager Relationship Specialty Start Date End Date Titi Cummings MD 4 [facility] [address] [place] [address] PCP - General Family Practice 10/10/23 documented as of this encounter
--- OUTSIDE RECORDS SUMMARY | 2024-11-29 12:46 | XMS_ITS | Encounter Summary ---
Author Organization [facility] Address [address] [place] [address] Care Team Providers Care Gift Consultant Name Role Phone Titi Cummings MD Primary Care Provider Encounter Details Date Type Department Care Team (Late Contact Info) Description 11/29/2024 External Device Data STL ABSTRACTION Provider, Abstract [...] on file Legal Sex Female 4:40 AM STRAP MAKER Gender Identity Not on file Sexual Orientation Not on file Occupation Industry Job Start Date Job End Date Not on file Not on file Not on file Not on file documented as of this encounter Plan of Treatment Upcoming Encounters Date Type Department Care Team (Late st Contact Info) Description 12/16/2024 11:00 AM STRAP MAKER Office Visit [facility] Gynecologic Oncology [place] [address] [place] [address] Becky Walton MD [address] [place] [address] 12/16/2024 11:30 AM STRAP MAKER Appointment [facility] [address] [place] [address] Infusion Chair 6, 2nd Floor [place] 12/28/2024 10:00 AM CDT Office Visit [facility] Neurology [address] [facility] [address] [place] [address] Navi Stephens MD [address] [facility] [address] [address] documented as of this encounter Visit Diagnoses Not on filedocumented in this encounter Additional Health Concerns Assessment Noted Time PHQ-9 Depression Total Score: 4 10/02/20 24 12:00 PM STRAP MAKER documented as of this encounter Care Teams Gift Consultant Relationship Specialty Start Date End Date Titi Cummings MD 4 [facility] [address] [place] [address] PCP - General Family Practice 10/10/23 documented as of this encounter
--- OUTSIDE RECORDS SUMMARY | 2024-11-29 12:46 | XMS_ITS | Encounter Summary ---
Author Organization [facility] Address [address] [place] [address] Care Team Providers Care Engineering Documentation Specialist Name Role Phone Titi Cummings MD Primary Care Provider Encounter Details Date Type Department Care Team (Latest Contact Info) Description 05/27/1999 Outpatient Historical [facility] BRY Contreras, Gibson Rivera MD NO ADDRESS ON FILE Malignant neoplasm of upper-outer quadrant of female breast (CMS/HCC) (Primary Dx) Social History Tobacco Use Types Packs/Day Years Used Date Smoking Tobacco: Never Assessed Comments Unknown Sex and Gender Information Value Date Recorded Sex Assigned at Not on file Legal Sex Female 4:40 AM LOOM STOP CHECKER Gender Identity Not on file Sexual Orientation Not on file documented as of this encounter Plan of Treatment Upcoming Encounters Date Type Department Care Team (Late st Contact Info) Description 12/16/2024 11:00 AM LOOM STOP CHECKER Office Visit [facility] Gynecologic Oncology [place] [address] [place] [address] Becky Walton MD [address] [place] [address] 12/16/2024 11:30 AM LOOM STOP CHECKER Appointment [facility] 2nd Fl [address] [place] [address] Infusion Chair 6, 2nd Floor [place] 12/28/2024 10:00 AM CDT Office Visit [facility] Neurology [address] [place] [address] Navi Stephens MD [address] [facility] [address] [address] documented as of this encounter [...] documented as of this encounter Care Teams Engineering Documentation Specialist Relationship Specialty Start Date End Date Titi Cummings MD [address] [phone] PCP - General Family Practice 10/10/23 documented as of this encounter
--- OUTSIDE RECORDS SUMMARY | 2024-11-29 12:46 | XMS_ITS ---
Author Organization [facility] Address [address] [place] [address] Phone Care Team Providers Care Assistant Finance Manager Name Role Phone Titi Cummings MD Primary Care Provider Active Problems Problem Noted Date Diagnosed Date Goals of care, counseling/discussion 10/02/2024 Cancer cachexia 10/02/2024 Chronic right shoulder pain 10/02/2024 Blood glucose abnormal 09/25/2022 Malfunction of ventriculoperitoneal shunt 2021 Pure hypercholesterolemia 09/25/2022 Tremor 09/25/2022 Orthostatic syncope 04/24/2022 Sepsis 04/24/2022 Acute cystitis without hematuria 04/24/2022 Protein-calorie malnutrition, moderate 2 Peritoneal carcinoma 03/13/2022 Primary peritoneal carcinomatosis 12/14/2021 Increased anion gap metabolic acidosis 2 Lactic acidosis 11/21/2021 Abdominal pain 11/21/2021 Peritoneal carcinomatosis 11/21/2021 Family history of breast cancer in female 2018 Family history of lung cancer 05/06/2019 Family history of pancreatic cancer 05/06/2019 Genetic testing 05/06/2019 Overview (06/18/2019): NEGATIVE genetic testing. The patient underwent the [employer] My Risk Genetic Testing for Hereditary Cancer Syndromes due to a personal history of premenopausal breast cancer. She also had a maternal family history of breast cancer. The patient had a paternal family history of pancreatic cancer. The patient tested negative for any deleterious mutations in all 35 genes that were tested. This testing included the genes responsible for HBOC, Morel syndrome, as well as most other common hereditary cancer syndromes. Insomnia 05/02/2017 Right sided weakness 10/28/2015 Chronic subdural hematoma 10/10/2015 NPH (normal pressure hydrocephalus) 07/19/2015 Microscopic colitis 01/18/2015 Diarrhea 12/01/2014 Malignant neoplasm of female breast 05/05/2014 Chest pain 02/17/2011 Hyperlipemia 02/17/2011 Anxiety 02/17/2011 Hydrocephalus Benign hypertension UNIFORM PATROL POLICE OFFICER (ventriculoperitoneal) shunt status Gait abnormality Acute on chronic intracranial subdural hematoma Hypokalemia Acute encephalopathy Catheter-associated urinary tract infection Current Treatment and Therapy Plans BLANK SUPPORTIVE CARE THERAPY PLAN & OP FLUSH PROTOCOL CENTRAL LINES (PICC, CVC, IMPLANTED PORT)* Plan Start Date:03/26/2022 Plan Provider:Avani Fong NP Linked Problems Peritoneal carcinoma (CMS/HC C) Treatment Medications No medications scheduled. OP ONC PPC_BEVACIZUMAB_CYTOXAN_EVERY 21 DAYS* Plan Start Date:08/10/2024 Plan Provider:Becky Walton MD Linked Problems Primary peritoneal carcinoma tosis (CMS/HCC) Treatment Medications Current Day (Day 1 , Cycle 6 - Planned for 12/16/2024) Next Day (Day 1, Cycle 7 - Planned for 01/06/2025) bevacizumab-awwb (MVASI) IVPB bevacizuma b-awwb (MVASI) 900 mg in sodium chloride 0.9 % 100 mL IVPB bevacizumab-awwb (MVASI) 900 mg in sodium chloride 0.9% 100 mL IVPB Past Treatment and Therapy Plans ONCOLOGY TREATMENT Plan Name Start Date Discontinue Date Treatment Medications Discontinue Reason Plan Provider Cycles OP ONC OVARIA N_LIPO SOMAL DOXORU BICIN_ EVERY 28 DAYS 12/18/19 24 08/03/2024 DOXOrubicin liposomal (DOXIL) IVPB Progression King Murphy MD 4 of 6 cycles started OP ONC OVARIA N_CARB OPLATI N_PACL ITAXEL _EVERY 21 DAYS X 6 023 11/29/2023 CARBOplatin (PARAPLATIN)CARBOplatin (PARAPLATIN) IVPBCARBOplatin (PARAPLATIN) IVPB FOR DESENSITIZATIONPACLitaxel (TAXOL) IVPB Other King Murphy MD 4 of 6 cycles started OP ONC OVARIA N_CARB OPLATI N_PACL ITAXEL _EVERY 21 DAYS X 6 2 12/19/2022 CARBOplatin (PARAPLATIN) IVPBPACLitaxel (TAXOL) IVPB Therapy Complete Maggy West V., DO 6 of 6 cycles started Lifetime Dose Tracking * Chemical Lifetime Dose Automatic Entry Manual Entr y doxorubicin 141.338 mg/m2 (226 mg) 141.338 mg/m2 (226 mg) 0 mg/m2 (0 mg) Effective Dose 260.92 mSv 260.92 mSv 0 mSv Total DLP 22,223.39 DLP 22,223.39 DLP 0 DLP CTDIvol Max 816.33 mGy 816.33 mGy 0 mGy CTDIvol Min 688.76 mGy 688.76 mGy 0 mGy
--- OUTSIDE RECORDS SUMMARY | 2024-11-29 12:46 | XMS_ITS | Encounter Summary ---
Author Organization [facility] Address [address] [place] [address] Care Team Providers Care Risk Intern Name Role Phone Titi Cummings MD Primary Care Provider Encounter Details Date Type Department Care Team (Latest Contact Info) Description 10/01/1998 Outpatient Historical [facility] BRY Contreras, Gibson Rivera MD NO ADDRESS ON FILE Malignant neoplasm of upper-outer quadrant of female breast (CMS/HCC) (Primary Dx) Social History Tobacco Use Types Packs/Day Years Used Date Smoking Tobacco: Never Assessed Comments Unknown Sex and Gender Information Value Date Recorded Sex Assigned at Not on file Legal Sex Female 4:40 AM WIRE WEAVER HELPER Gender Identity Not on file Sexual Orientation Not on file documented as of this encounter Plan of Treatment Upcoming Encounters Date Type Department Care Team (Late st Contact Info) Description 12/16/2024 11:00 AM WIRE WEAVER HELPER Office Visit [facility] Gynecologic Oncology [place] [address] [place] [address] Becky Walton MD [address] [place] [address] 12/16/2024 11:30 AM WIRE WEAVER HELPER Appointment [facility] 2nd Fl [address] [place] [address] Infusion Chair 6, 2nd Floor [place] 12/28/2024 10:00 AM CDT Office Visit [facility] Neurology [address] [place] [address] Navi Stephens MD [address] [facility] [address] [address] documented as of this encounter [...] documented as of this encounter Care Teams Risk Intern Relationship Specialty Start Date End Date Titi Cummings MD [address] [phone] PCP - General Family Practice 10/10/23 documented as of this encounter
--- OUTSIDE RECORDS SUMMARY | 2024-11-29 12:46 | XMS_ITS | Encounter Summary ---
Author Organization [facility] Address [address] [place] [address] Care Team Providers Care Tax Compliance Officer Name Role Phone Titi Cummings MD Primary Care Provider Encounter Details Date Type Department Care Team (Late Contact Info) Description 04/28/1999 Outpatient Historical [facility] Jose Daniel Dowell MD [address] [place] [address] [address] [place] [address] Diarrhea (Primary Dx) Social History Tobacco Use Types Packs/Day Years Used Date Smoking Tobacco: Never Assessed Comments Unknown Sex and Gender Information Value Date Recorded Sex Assigned at Not on file Legal Sex Female 4:40 AM INSTRUCTION DEAN Gender Identity Not on file Sexual Orientation Not on file documented as of this encounter Plan of Treatment Upcoming Encounters Date Type Department Care Team (Late Contact Info) Description 12/16/2024 11:00 AM INSTRUCTION DEAN Office Visit [facility] Gynecologic Oncology [place] [address] [place] [address] Becky Walton MD [address] [place] [address] 12/16/2024 11:30 AM INSTRUCTION DEAN Appointment [facility] 2nd Fl [address] [place] [address] Infusion Chair 6, 2nd Floor [place] 12/28/2024 10:00 AM CDT Office Visit [facility] Neurology [address] [place] [address] Navi Stephens MD [address] [facility] [address] [address] documented as of this encounter Visit Diagnoses Diagnosis Diarrhea- Primary documented in this encounter Additional Health Concerns Infection Onset Date Last Indicated Resolved Time R/O C. diff 03/28/2022 03/27/2022 03/28/2022 3:35 PM CDT R/O C. diff 04/12/2022 04/11/2022 04/12/2022 3:26 PM CDT R/O C. diff 04/13/2023 04/12/2023 04/13/2023 2:29 PM CDT documented as of this encounter Care Teams Tax Compliance Officer Relationship Specialty Start Date End Date Titi Cummings MD [address] [phone] PCP - General Family Practice 10/10/23 documented as of this encounter
--- OUTSIDE RECORDS SUMMARY | 2024-11-29 12:46 | XMS_ITS | Encounter Summary ---
Author Organization [facility] Address [address] [place] [address] Care Team Providers Care Pastoral Worker Name Role Phone Titi Cummings MD Primary Care Provider Encounter Details Date Type Department Care Team (Latest Contact Info) Description 01/25/2001 Outpatient Historical [facility] BRY Contreras, Gibson Rivera MD NO ADDRESS ON FILE Malignant neoplasm of upper-outer quadrant of female breast (CMS/HCC) (Primary Dx) Social History Tobacco Use Types Packs/Day Years Used Date Smoking Tobacco: Never Assessed Comments Unknown Sex and Gender Information Value Date Recorded Sex Assigned at Not on file Legal Sex Female 4:40 AM MEDICAL PHYSIOLOGIST Gender Identity Not on file Sexual Orientation Not on file documented as of this encounter Plan of Treatment Upcoming Encounters Date Type Department Care Team (Late st Contact Info) Description 12/16/2024 11:00 AM MEDICAL PHYSIOLOGIST Office Visit [facility] Gynecologic Oncology [place] [address] [place] [address] Becky Walton MD [address] [place] [address] 12/16/2024 11:30 AM MEDICAL PHYSIOLOGIST Appointment [facility] 2nd Fl [address] [place] [address] Infusion Chair 6, 2nd Floor [place] 12/28/2024 10:00 AM CDT Office Visit [facility] Neurology [address] [place] [address] Navi Stephens MD [address] [facility] [address] [address] documented as of this encounter [...] documented as of this encounter Care Teams Pastoral Worker Relationship Specialty Start Date End Date Titi Cummings MD [address] [phone] PCP - General Family Practice 10/10/23 documented as of this encounter
--- OUTSIDE RECORDS SUMMARY | 2024-11-29 12:46 | XMS_ITS | Encounter Summary ---
Author Organization [facility] Address [address] [place] [address] Care Team Providers Care Wet Process Miller Name Role Phone Titi Cummings MD Primary Care Provider Encounter Details Date Type Department Care Team (Latest Contact Info) Description 01/21/1999 Outpatient Historical [facility] BRY Contreras, Gibson Rivera MD NO ADDRESS ON FILE Malignant neoplasm of upper-outer quadrant of female breast (CMS/HCC) (Primary Dx) Social History Tobacco Use Types Packs/Day Years Used Date Smoking Tobacco: Never Assessed Comments Unknown Sex and Gender Information Value Date Recorded Sex Assigned at Not on file Legal Sex Female 4:40 AM FLAT IRONER Gender Identity Not on file Sexual Orientation Not on file documented as of this encounter Plan of Treatment Upcoming Encounters Date Type Department Care Team (Late st Contact Info) Description 12/16/2024 11:00 AM FLAT IRONER Office Visit [facility] Gynecologic Oncology [place] [address] [place] [address] Becky Walton MD [address] [place] [address] 12/16/2024 11:30 AM FLAT IRONER Appointment [facility] 2nd Fl [address] [place] [address] Infusion Chair 6, 2nd Floor [place] 12/28/2024 10:00 AM CDT Office Visit [facility] Neurology [address] [place] [address] Navi Stephens MD [address] [facility] [address] [address] documented as of this encounter [...] documented as of this encounter Care Teams Wet Process Miller Relationship Specialty Start Date End Date Titi Cummings MD [address] [phone] PCP - General Family Practice 10/10/23 documented as of this encounter
--- OUTSIDE RECORDS SUMMARY | 2024-11-29 12:46 | XMS_ITS | Encounter Summary ---
Author Organization [facility] Address [address] [place] [address] Care Team Providers Care Inspector Subassembly Name Role Phone Titi Cummings MD Primary Care Provider Encounter Details Date Type Department Care Team (Latest Contact Info) Description 04/13/1999 Outpatient Historical [facility] BRY Contreras, Gibson Rivera MD NO ADDRESS ON FILE Malignant neoplasm of upper-outer quadrant of female breast (CMS/HCC) (Primary Dx) Social History Tobacco Use Types Packs/Day Years Used Date Smoking Tobacco: Never Assessed Comments Unknown Sex and Gender Information Value Date Recorded Sex Assigned at Not on file Legal Sex Female 4:40 AM REAL ESTATE BROKER ASSOCIATE Gender Identity Not on file Sexual Orientation Not on file documented as of this encounter Plan of Treatment Upcoming Encounters Date Type Department Care Team (Late st Contact Info) Description 12/16/2024 11:00 AM REAL ESTATE BROKER ASSOCIATE Office Visit [facility] Gynecologic Oncology [place] [address] [place] [address] Becky Walton MD [address] [place] [address] 12/16/2024 11:30 AM REAL ESTATE BROKER ASSOCIATE Appointment [facility] 2nd Fl [address] [place] [address] Infusion Chair 6, 2nd Floor [place] 12/28/2024 10:00 AM CDT Office Visit [facility] Neurology [address] [place] [address] Navi Stephens MD [address] [facility] [address] [address] documented as of this encounter [...] documented as of this encounter Care Teams Inspector Subassembly Relationship Specialty Start Date End Date Titi Cummings MD [address] [phone] PCP - General Family Practice 10/10/23 documented as of this encounter
--- OUTSIDE RECORDS SUMMARY | 2024-11-29 12:46 | XMS_ITS | Clinical Summary ---
Author Organization [facility] Address [address] [place] [address] Phone Care Team Providers Care Inspector [employer] Name Role Phone Titi Cummings MD Primary Care Provider Allergies No known active allergies Medications atorvastatin (LIPITOR) 40 mg Oral tablet Take 40 mg by mouth Daily LATE. Active FLUoxetine (PROzac) 20 mg capsule Take 20 mg by mouth daily. 0 12/29/19 17 Active lisinopriL (PRINIVIL) 20 mg tablet lisinopril 20 mg tablet TAKE 1 TABLET BY MOUTH IN THE MORNING AND 1/2 TABLET IN THE EVENING 12/13/19 21 Active lidocaine-prilo hayley (EMLA) 2.5-2.5 % Cream Apply to affected area see administration instructions. 30 Gram 3 02/09/20 22 Active budesonide (ENTOCORT EC) 3 mg Enteric Coated 24 hour capsule TAKE 3 CAPSULES BY MOUTH DAILY 07/20/20 22 Active omeprazole (PriLOSEC) 40 mg Capsule, Delayed Release(E.C.) Take 40 mg by mouth daily. 07/25/20 22 Active amLODIPine (NORVASC) 5 mg tablet Take 5 mg by mouth daily. Active traZODone (DESYREL) 50 mg tabletIndicatio ns:Insomnia, unspecified type TAKE 2 TABLETS(100 MG) BY MOUTH DAILY AT BEDTIME 180 Tablet 3 12/15/19 24 Active donepeziL (ARICEPT) 10 mg tabletIndicatio ns:Forgetfulnes s TAKE 1 TABLET(10 MG) BY MOUTH DAILY AT BEDTIME 90 Tablet 6 12/24/19 24 Active doxorubicin HCl peg-liposomal (DOXIL IV) Inject by intravenous injection. Active nortriptyline (PAMELOR) 50 mg capsuleIndicati ons:Tension headache Take 1 Capsule (50 mg) by mouth daily at bedtime. NOTE change in dosage 90 Capsule 3 03/05/20 24 Active diphenoxylate-a tropine 2.5 mg-0.025 mg tabletIndicatio ns:Diarrhea, unspecified type TAKE 1 TABLET BY MOUTH FOUR TIMES DAILY NEEDED FOR DIARRHEA OR LOOSE STOOLS 40 Tablet 2 03/17/20 24 Active potassium chloride (KLOR-CON M20) 20 mEq Extended Release tablet 12/18/19 24 Active cycloPHOSphamid e (CYTOXAN) 50 mg capsule Take 1 Capsule (50 mg) by mouth daily. 30 Capsule 6 10/29/19 25 Active traMADoL (ULTRAM) 50 mg tabletIndicatio ns:Chemotherapy management, encounter for,Peritoneal carcinoma (CMS/HCC) Take 1 Tablet (50 mg) by mouth every 6 hours as needed for Pain. 120 Tablet 11/10/19 25 Active traMADoL (ULTRAM) 50 mg tabletIndicatio ns:Chemotherapy management, encounter for,Peritoneal carcinoma (CMS/HCC) Take 1 Tablet (50 mg) by mouth every 6 hours as needed for Pain. 30 Tablet 4 3:50 PM INTEGRATIVE MEDICINE PHYSICIAN 09/30/20 24 025 Discontin ued(Reord er) sodium chloride 0.9 % Syringe Inject 0-30 mL by intravenous injection see administration instructions. 10 mL 11/20/19 25 025 Discontin ued(Other ) heparin, porcine, pf, (heparin LockFlush,Porci ne,,PF,) 10 unit/mL Syringe Inject 5 mL (50 Units) by intravenous injection one time only for 1 dose. 5 mL 11/20/19 25 025 Discontin ued(Other ) Active Problems Problem Noted Date Diagnosed Date [...] NEGATIVE genetic testing. The patient underwent the [employer] Risk Genetic Testing for Hereditary Cancer Syndromes [...] Hyperlipemia 02/17/2011 Anxiety 02/17/2011 Hydrocephalus Benign hypertension PIPE CAULKER (ventriculoperitoneal) shunt status Gait abnormality Acute on chronic intracranial subdural hematoma Hypokalemia Acute encephalopathy Catheter-associated urinary tract infection Encounters Date Type Department Care Team Description 11/29/2024 External Device Data STL ABSTRACTION Provider, Abstract 11/28/2024 External Device Data STL ABSTRACTION Provider, Abstract 11/27/2024 External Device Data STL ABSTRACTION Provider, Abstract 11/26/2024 Telephone [facility] Oncology and Hematology - [place] [address] [address] Maggy eWst V., DO genetic testing 11/26/2024 External Device Data STL ABSTRACTION Provider, Abstract 11/26/2024 External Device Data ST[facility] ABSTRACTION Provider, Abstract 11/25/2024 10:22 AM INTEGRATIVE MEDICINE PHYSICIAN - 11/25/2024 11:59 PM INTEGRATIVE MEDICINE PHYSICIAN Hospital Encounter [facility] 2nd Fl [address] [place] [address] Becky Walton MD Infusion Chair 10, 2nd Floor [place] Discharge Disposition: Home or Self Care 11/25/2024 10:00 AM INTEGRATIVE MEDICINE PHYSICIAN Office Visit [facility] Gynecologic Oncology [place] [address] [facility] [address] [place] [address] Avani Fong NP Chemotherapy management, encounter for (Primary Dx); Recurrent malignant neoplasm of ovary (CMS/HCC); Chronic right shoulder pain 11/25/2024 8:48 AM INTEGRATIVE MEDICINE PHYSICIAN - 11/25/2024 11:59 PM INTEGRATIVE MEDICINE PHYSICIAN Hospital Encounter [facility] Infusion Center 2nd Fl [address] [place] [address] Becky Walton MD Discharge Disposition: Home or Self Care 11/25/2024 External Device Data STL ABSTRACTION Provider, Abstract 11/25/2024 External Device Data STL ABSTRACTION Provider, Abstract 11/24/2024 External Device Data STL ABSTRACTION Provider, Abstract 11/24/2024 External Device Data ST[facility] ABSTRACTION Provider, Abstract 11/23/2024 External Device Data STL ABSTRACTION Provider, Abstract 11/23/2024 External Device Data STL ABSTRACTION Provider, Abstract 11/22/2024 Results Follow-Up [facility] Gynecologic Oncology [place] [address] [facility] [address] [place] [address] CHEST ABDOMEN PELVIS W CONT 11/22/2024 External Device Data STL ABSTRACTION Provider, Abstract 11/22/2024 External Device Data STL ABSTRACTION Provider, Abstract 11/20/2024 10:56 AM INTEGRATIVE MEDICINE PHYSICIAN - 11/20/2024 11:59 PM INTEGRATIVE MEDICINE PHYSICIAN Hospital Encounter [facility] [address] [place] [address] Avani Fong NP Discharge Disposition: Home or Self Care 11/20/2024 10:39 AM INTEGRATIVE MEDICINE PHYSICIAN - 11/20/2024 11:59 PM INTEGRATIVE MEDICINE PHYSICIAN Hospital Encounter [facility] [address] [place] [address] Maggy West V., DO [facility] Discharge Disposition: Home or Self Care 11/20/2024 Telephone [facility] Gynecologic Oncology [place] [address] [facility] [address] [place] [address] Becky Walton MD Question (Port left accessed) 11/20/2024 External Device Data STL ABSTRACTION Provider, Abstract 11/20/2024 External Device Data STL ABSTRACTION Provider, Abstract 11/19/2024 External Device Data STL ABSTRACTION Provider, Abstract 11/19/2024 External Device Data STL ABSTRACTION Provider, Abstract 11/18/2024 External Device Data [place] ABSTRACTION Provider, Abstract 11/18/2024 External Device Data [facility] ABSTRACTION Provider, Abstract 11/17/2024 External Device Data STL ABSTRACTION Provider, Abstract 11/17/2024 External Device Data STL ABSTRACTION Provider, Abstract 11/16/2024 External Device Data STL ABSTRACTION Provider, Abstract 11/16/2024 External Device Data STL ABSTRACTION Provider, Abstract 11/15/2024 External Device Data STL ABSTRACTION Provider, Abstract 11/15/2024 External Device Data STL ABSTRACTION Provider, Abstract 11/14/2024 External Device Data ST[facility] ABSTRACTION Provider, Abstract 11/14/2024 External Device Data STL ABSTRACTION Provider, Abstract 11/13/2024 External Device Data ST[place] ABSTRACTION Provider, Abstract 11/13/2024 External Device Data [facility] ABSTRACTION Provider, Abstract 11/11/2024 External Device Data STL ABSTRACTION Provider, Abstract 11/11/2024 External Device Data STL ABSTRACTION Provider, Abstract 11/11/2024 External Device Data ST[place] ABSTRACTION Provider, Abstract 11/10/2024 External Device Data STL ABSTRACTION Provider, Abstract 11/10/2024 Specialty Pharmacy [facility] [address] [place] [address] Trixie [place], PHARMACIST 11/10/2024 External Device Data ST[place] ABSTRACTION Provider, Abstract 11/10/2024 External Device Data [place] ABSTRA[place] Provider, Abstract 11/09/2024 External Device Data [place] ABSTRACTION Provider, Abstract 11/09/2024 External Device Data ST[facility] ABSTRACTION Provider, Abstract 11/08/2024 External Device Data [facility] ABSTRACTION Provider, Abstract 11/08/2024 External Device Data STL ABSTRACTION Provider, Abstract 11/07/2024 External Device Data STL ABSTRACTION Provider, Abstract 11/07/2024 External Device Data STL ABSTRACTION Provider, Abstract 11/06/2024 Refill [facility] [address] [facility] [address] [place] [address] Saman Ramos MD Chemotherapy management, encounter for; Peritoneal carcinoma (CMS/HCC) 11/06/2024 External Device Data STL ABSTRACTION Provider, Abstract 11/06/2024 External Device Data STL ABSTRACTION Provider, Abstract 11/05/2024 Orders Only [facility] Gynecologic Oncology [place] [address] [facility] [address] [place] [address] Dee Dee Jessica RN Chemotherapy management, encounter for; Peritoneal carcinoma (CMS/HCC) 11/04/2024 11:14 AM INTEGRATIVE MEDICINE PHYSICIAN - 11/04/2024 11:59 PM INTEGRATIVE MEDICINE PHYSICIAN Hospital Encounter [facility] 2nd Fl [address] [place] [address] Becky Walton MD Infusion Chair 2, 2nd Floor [place] Discharge Disposition: Home or Self Care 11/04/2024 10:00 AM INTEGRATIVE MEDICINE PHYSICIAN - 11/04/2024 11:59 PM INTEGRATIVE MEDICINE PHYSICIAN Hospital Encounter [facility] 2nd Fl [address] [place] [address] Becky Walton MD Discharge Disposition: Home or Self Care 11/04/2024 External Device Data STL ABSTRACTION Provider, Abstract 11/04/2024 Orders Only [facility] Gynecologic Oncology [place] [address] [facility] [address] [place] [address] Avani Fong NP 11/04/2024 Telephone [facility] Gynecologic Oncology [place] [address] [facility] [address] [place] [address] Avani Fong NP Appointment Verification 11/03/2024 External Device Data ST[facility] ABSTRACTION Provider, Abstract 11/02/2024 External Device Data STL ABSTRACTION Provider, Abstract 11/01/2024 External Device Data ST[facility] ABSTRACTION Provider, Abstract 10/31/2024 External Device Data ST[place] ABSTRACTION Provider, Abstract 10/30/2024 External Device Data STL ABSTRACTION Provider, Abstract 10/29/2024 Refill [facility] Gynecologic Oncology [place] [address] [facility] [address] [place] [address] Avani Fong, TUBE BUFFER 10/29/2024 External Device Data [facility] ABSTRACTION Provider, Abstract 10/28/2024 External Device Data [place] ABSTRACTION Provider, Abstract 10/27/2024 External Device Data [place] ABSTRACTION Provider, Abstract 10/26/2024 External Device Data [facility] ABSTRACTION Provider, Abstract 10/25/2024 External Device Data [facility] ABSTRACTION Provider, Abstract 10/24/2024 External Device Data [facility] ABSTRACTION Provider, Abstract 10/23/2024 External Device Data [facility] ABSTRACTION Provider, Abstract 10/22/2024 External Device Data ST[place] ABSTRACTION Provider, Abstract 10/21/2024 External Device Data STL ABSTRACTION Provider, Abstract 10/20/2024 External Device Data ST[facility] ABSTRACTION Provider, Abstract 10/19/2024 External Device Data STL ABSTRACTION Provider, Abstract 10/18/2024 External Device Data [facility] ABSTRACTION Provider, Abstract 10/17/2024 External Device Data ST[facility] ABSTRACTION Provider, Abstract 10/16/2024 External Device Data [facility] ABSTRACTION Provider, Abstract 10/15/2024 External Device Data [facility] ABSTRACTION Provider, Abstract 10/14/2024 External Device Data ST[facility] ABSTRACTION Provider, Abstract 10/13/2024 External Device Data [facility] ABSTRACTION Provider, Abstract 10/12/2024 External Device Data [facility] ABSTRACTION Provider, Abstract 10/11/2024 External Device Data ST[facility] ABSTRACTION Provider, Abstract 10/10/2024 External Device Data STL ABSTRACTION Provider, Abstract 10/09/2024 External Device Data ST[facility] ABSTRACTION Provider, Abstract 10/08/2024 External Device Data ST[facility] ABSTRACTION Provider, Abstract 10/07/2024 External Device Data STL ABSTRACTION Provider, Abstract 10/06/2024 External Device Data STL ABSTRACTION Provider, Abstract 10/05/2024 Specialty Pharmacy [facility] [address] [facility] [place] [place] [place] [address] Audra Chacon, PHARMACIST Specialty Pharmacy Refill Coordination 10/05/2024 External Device Data STL ABSTRACTION Provider, Abstract 10/04/2024 External Device Data ST[place] ABSTRACTION Provider, Abstract 10/03/2024 External Device Data ST[facility] ABSTRACTION Provider, Abstract 10/02/2024 1:00 PM INTEGRATIVE MEDICINE PHYSICIAN Office Visit [facility] [address] [facility] [address] [place] [address] Saman Ramos MD Chronic right shoulder pain (Primary Dx); Cancer cachexia; Primary peritoneal carcinomatosis (CMS/HCC); Goals of care, counseling/discussion 10/02/2024 External Device Data ST[facility] ABSTRACTION Provider, Abstract 10/01/2024 External Device Data STL ABSTRACTION Provider, Abstract 09/30/2024 11:30 AM INTEGRATIVE MEDICINE PHYSICIAN Office Visit [facility] Gynecologic Oncology [place] [address] [facility] [address] [place] [address] Avani Fong NP Primary peritoneal carcinomatosis (CMS/HCC) (Primary Dx); Chemotherapy management, encounter for; Peritoneal carcinoma (CMS/HCC) 09/30/2024 11:08 AM INTEGRATIVE MEDICINE PHYSICIAN - 09/30/2024 11:59 PM INTEGRATIVE MEDICINE PHYSICIAN Hospital Encounter [facility] 2nd Co [address] [place] [address] Becky Walton MD Infusion Chair 2, 2nd Floor [place] Discharge Disposition: Home or Self Care 09/30/2024 8:45 AM INTEGRATIVE MEDICINE PHYSICIAN - 09/30/2024 11:59 PM INTEGRATIVE MEDICINE PHYSICIAN Hospital Encounter [facility] 2nd Fl [address] [place] [address] Becky Walton MD Discharge Disposition: Home or Self Care 09/30/2024 External Device Data STL ABSTRACTION Provider, Abstract 09/29/2024 External Device Data [place] ABSTRACTION Provider, Abstract 09/28/2024 External Device Data [place] ABSTRACTION Provider, Abstract 09/27/2024 External Device Data [place] ABSTRACTION Provider, Abstract 09/26/2024 External Device Data ST[place] ABSTRACTION Provider, Abstract 09/25/2024 External Device Data [place] ABSTRACTION Provider, Abstract 09/24/2024 External Device Data [place] ABSTRACTION Provider, Abstract 09/23/2024 11:14 AM INTEGRATIVE MEDICINE PHYSICIAN - 09/23/2024 11:59 PM INTEGRATIVE MEDICINE PHYSICIAN Hospital Encounter [facility] 2nd Fl [address] [place] [address] Becky Walton MD Infusion Chair 4, 2nd Floor [place] Discharge Disposition: Home or Self Care 09/23/2024 10:41 AM INTEGRATIVE MEDICINE PHYSICIAN - 09/23/2024 11:59 PM INTEGRATIVE MEDICINE PHYSICIAN Hospital Encounter [facility] 2nd Fl [address] [place] [address] Becky Walton MD Discharge Disposition: Home or Self Care 09/23/2024 Orders Only [facility] Gynecologic Oncology [place] [address] [facility] [address] [place] [address] Avani Fong NP Chemotherapy management, encounter for (Primary Dx); Peritoneal carcinoma (CMS/HCC) 09/23/2024 External Device Data STL ABSTRACTION Provider, Abstract 09/22/2024 External Device Data [facility] ABSTRACTION Provider, Abstract 09/21/2024 External Device Data STL ABSTRACTION Provider, Abstract 09/20/2024 External Device Data ST[facility] ABSTRACTION Provider, Abstract 09/19/2024 External Device Data STL ABSTRACTION Provider, Abstract 09/18/2024 External Device Data ST[facility] ABSTRACTION Provider, Abstract 09/17/2024 External Device Data STL ABSTRACTION Provider, Abstract 09/16/2024 External Device Data STL ABSTRACTION Provider, Abstract 09/15/2024 Telephone [facility] Gynecologic Oncology [place] [address] [facility] [address] [place] [address] Becky Walton MD Question (Tramadol prescription) 09/15/2024 External Device Data STL ABSTRACTION Provider, Abstract 09/14/2024 Refill [facility] Gynecologic Oncology [place] [address] [facility] [address] [place] [address] Avani Fong NP Chemotherapy management, encounter for 09/14/2024 External Device Data [place] ABSTRACTION Provider, Abstract 09/13/2024 External Device Data [place] ABSTRACTION Provider, Abstract 09/12/2024 External Device Data [place] ABSTRA[place] Provider, Abstract 09/11/2024 External Device Data [place] AB[facility] Provider, Abstract 09/10/2024 External Device Data [place] ABSTRA[place] Provider, Abstract 09/09/2024 External Device Data [facility] ABSTRA[place] Provider, Abstract 09/09/2024 External Device Data [facility] ABSTRACTION Provider, Abstract 09/08/2024 External Device Data [facility] ABSTRACTION Provider, Abstract 09/08/2024 External Device Data ST[place] ABSTRACTION Provider, Abstract 09/08/2024 Orders Only [facility] Gynecologic Oncology [place] [address] [facility] [address] [place] [address] Avani Fong NP Chemotherapy management, encounter for (Primary Dx) 09/08/2024 Telephone [facility] Gynecologic Oncology [place] [address] [facility] [address] [place] [address] Becky Walton MD Pain 09/08/2024 External Device Data [facility] ABSTRACTION Provider, Abstract 09/07/2024 External Device Data [place] ABSTRA[place] Provider, Abstract 09/07/2024 External Device Data [place] AB[place] Provider, Abstract 09/06/2024 External Device Data [place] ABSTRA[place] Provider, Abstract 09/05/2024 External Device Data [place] ABSTRACTION Provider, Abstract 09/04/2024 External Device Data [place] ABSTRACTION Provider, Abstract 09/04/2024 Specialty Pharmacy [facility] [place] [address] Audra Chacon, PHARMACIST Specialty Pharmacy Refill Coordination 09/04/2024 External Device Data [place] ABSTRACTION Provider, Abstract 09/03/2024 External Device Data [place] ABSTRA[place] Provider, Abstract 09/02/2024 10:00 AM INTEGRATIVE MEDICINE PHYSICIAN - 09/02/2024 11:59 PM INTEGRATIVE MEDICINE PHYSICIAN Hospital Encounter [facility] 2nd Fl [address] [place] [address] Avani Fong, TORRI Infusion Chair 2, 2nd Floor [place] Discharge Disposition: Home or Self Care 09/02/2024 9:30 AM INTEGRATIVE MEDICINE PHYSICIAN Office Visit [facility] Gynecologic Oncology [place] [address] [facility] [address] [place] [address] Sonia Iyer PA-C Chemotherapy management, encounter for (Primary Dx); Recurrent malignant neoplasm of ovary (CMS/HCC); Primary peritoneal carcinomatosis (CMS/HCC) 09/02/2024 8:20 AM INTEGRATIVE MEDICINE PHYSICIAN - 09/02/2024 11:59 PM INTEGRATIVE MEDICINE PHYSICIAN Hospital Encounter [facility] [address] [place] [address] Discharge Disposition: Home or Self Care 09/02/2024 External Device Data [facility] ABSTRACTION Provider, Abstract 09/01/2024 External Device Data [place] ABSTRA[place] Provider, Abstract 08/31/2024 External Device Data [place] AB[facility] Provider, Abstract 08/30/2024 External Device Data [place] AB[facility] Provider, Abstract 08/29/2024 External Device Data [place] ABSTRACTION Provider, Abstract from Last 3 Months Immunizations Immunization Administration Dates Next Due (SPIKEVAX) (12 YRS UP PRIMAR Y SERIES) COVID-19 VACCINE - MRNA-1273(PF) 100 MCG/0.5 ML IM SUSP 01/12/2021,12/15/2020 INFLUENZA VACCINE HIGH DOSE QUADRIVALENT 65 YR UP PF IM 08/17/2021 Influenza Seasonal Unspecified Formulation IM Influenza Vaccine Split 3+ Yrs PF IM 09/28/2009 Family History Medical History Relation Name Comments Healthy Brother Healthy Daughter Heart Disease Father Breast Cancer Maternal Aunt 1 Lung Cancer Maternal Aunt 2 Question bra in mets Breast Cancer Maternal Cousin Breast Cancer Maternal Grandmother Lung Cancer Mother Cancer Paternal Aunt Pancreatic Heart Disease Paternal Grandfather Healthy Sister 1 Ovarian Cancer Sister 1 Healthy Sister 2 Relation Name Status Comments Brother Alive Daughter Alive Father cancer Maternal Aunt 1 Maternal Aunt 2 Maternal Aunt 3 Alive Maternal Cousin Alive Maternal Grandfather Maternal Grandmother Maternal Uncle Mother cancer Paternal Aunt Paternal Grandfather Paternal Grandmother Sister 1 Alive Sister 2 Alive Social History Tobacco Use Types Packs/Day Years Used Date Smoking Tobacco: Never Smokeless Tobacco: Never Tobacco Cessation:Counseling Given: Not Answered Alcohol Use Standard Drinks/Week Comments Not Currently 0 (1 standard drink = 0.6 oz pur e alcohol) Feeling Safe Answer Date Recorded Are you in a relationship wi th someone who hurts you emotionally and/or physically? No 11/25/2024 Comments No Sex and Gender Information Value Date Recorded Sex Assigned at Not on file Legal Sex Female 4:40 AM INTEGRATIVE MEDICINE PHYSICIAN Gender Identity Not on file Sexual Orientation Not on file Occupation Industry Job Start Date Job End Date Not on file Not on file Not on file Not on file Last Filed Vital Signs Vital Sign Reading Time Taken Comments Blood Pressure 128/76 11/25/2024 9:53 AM INTEGRATIVE MEDICINE PHYSICIAN Pulse 82 11/25/2024 9:53 AM INTEGRATIVE MEDICINE PHYSICIAN Temperature 36.9 C (98.4 F) 11/25/2024 9:53 AM INTEGRATIVE MEDICINE PHYSICIAN Respiratory Rate 16 11/04/2024 12:29 PM INTEGRATIVE MEDICINE PHYSICIAN Oxygen Saturation 97% 11/25/2024 9:53 AM INTEGRATIVE MEDICINE PHYSICIAN Inhaled Oxygen Concentration - - Weight 57.8 kg (127 lb 6 oz) 11/25/2024 9:53 AM INTEGRATIVE MEDICINE PHYSICIAN Height 157.5 cm (5' 2 ) 11/25/2024 9:53 AM INTEGRATIVE MEDICINE PHYSICIAN Body Mass Index 23.3 11/25/2024 9:53 AM INTEGRATIVE MEDICINE PHYSICIAN Plan of Treatment Upcoming Encounters Date Type Department Care Team (Late st Contact Info) Description 12/16/2024 11:00 AM INTEGRATIVE MEDICINE PHYSICIAN Office Visit [facility] Gynecologic Oncology [place] [address] [facility] [address] [place] [address] Becky Walton MD [address] [facility] [address] [place] [address] 12/16/2024 11:30 AM INTEGRATIVE MEDICINE PHYSICIAN Appointment [facility] 2nd Fl [address] [place] [address] Infusion Chair 6, 2nd Floor [place] 12/28/2024 10:00 AM CDT Office Visit [facility] [address] [facility] [address] [place] [address] Navi Stephens MD [address] [facility] [address] [address] Health Maintenance Due Date Last Done Comments DTAP/TDAP/TD VACCINES (1 - Tdap) 1971 FIT-DNA Q 3 years 1997 FIT/FOBT Q 1 year 1997 Flex Sig/CT Colonography Q 5 years 1997 RSV VACCINE (60+ or ) (1 - Risk 60-74 years 1-dose series) 2012 ZOSTER VACCINE (1 of 2) 10/09/2013 08/14/2013 COVID-19 Vaccine (3 - Modern a risk series) 02/09/2021 01/12/2021, 12/15/2020 BREAST CANCER SCREENING 11/02/2023 11/02/19 23, 06/01/2021, 07/08/2019, Additional history exists INFLUENZA VACCINE (#1) 2024 3, 08/17/2021, 07/23/2020, Additional history exists COLORECTAL SCREENING 07/02/2027 07/02/2022, 07/02/2022, 09/11/2021, Additional history exists Colorectal Cancer Screening 07/02/2027 OSTEOPOROSIS SCREENING Completed 3, 05/14/2023, 08/25/2020, Additional history exists PNEUMOCOCCAL VACCINE 65+ YEARS Completed 03/25/2024 Medical Devices Implanted Type Area Corporate Vp [employer]vertising & Online Device Identifier Shelf Expiration Date Model / Serial / Lot Cath Pert Bactiseal [id number] - [id number] Implanted:Qty: 1 on 08/25/2015 by Tomás Garcia MD at [facility] Catheter [employer] 01/19/2016 [id number] / [id number] / [id number] Port-12/20/2021 Implanted:Qty: 1 on 12/20/2021 by Dameon Smith MD Port Chest Wall [id number] 01/18/2023 [id number] / / [id number] Sealant Floseal W/ Apdtr 5ml [id number] - [id number] Implanted:Qty: 1 on 07/19/2015 by Tomás Garcia MD at [facility] Sealant N/A: Cranial [employer]ARC[employer] 06/20/2016 [id number] / / [id number] Cath Ventricular Bactiseal [id number] - [id number] Implanted:Qty: 1 on 07/19/2015 by Tomás Garcia MD at [facility] Shunt N/A: Brain [employer]- [employer] 01/19/2016 [id number] / / [id number] Connector Shunt Ss Str [id number] - [id number] Implanted:Qty: 1 on 08/25/2015 by Tomás Garcia MD at [facility] [employer] 01/23/2018 [id number] / / [id number] Valve Strata Reg Programmable [id number] - [id number] Implanted:Qty: 1 on 08/25/2015 by Tomás Garcia MD at [facility] Valve [employer] 03/20/2018 [id number] / / [id number] Explanted Type Area Corporate Vp Advertising & Online Device Identifier Shelf Expiration Date Model / Serial / Lot Valve Strata Reg Programmable [id number] - [id number] Implanted:Qty: 1 on 07/19/2015 by Tomás Garcia MD at [facility] Explanted:Qty: 1 on 08/25/2015 by Tomás Garcia MD at [facility] Valve N/A: Brain [employer] NEUROS[employer]GERY 03/20/2018 [id number] / / [id number] Procedures Procedure Name Priority Date/Time Associated Diagnosis Comments URINALYSIS W/REFLEX MICROSCOPIC Stat 11/25/2024 8:57 AM INTEGRATIVE MEDICINE PHYSICIAN Primary peritoneal carcinomatosis (CMS/HCC) COMPREHENSIVE METABOLIC PANEL Stat 11/25/2024 8:56 AM INTEGRATIVE MEDICINE PHYSICIAN Primary peritoneal carcinomatosis (CMS/HCC) CBC WITH DIFFERENTIAL Stat 11/25/2024 8:56 AM INTEGRATIVE MEDICINE PHYSICIAN Primary peritoneal carcinomatosis (CMS/HCC) CANCER ANTIGEN 125 Routine 11/25/2024 8: 56 AM INTEGRATIVE MEDICINE PHYSICIAN Primary peritoneal carcinomatosis (CMS/HCC) CT CHEST ABDOMEN PELVIS W CONT Routine 11/20/2024 11:50 AM INTEGRATIVE MEDICINE PHYSICIAN Chemotherapy management, encounter for Recurrent malignant neoplasm of ovary (CMS/HCC) COMPREHENSIVE METABOLIC PANEL Stat 11/04/2024 10:55 AM INTEGRATIVE MEDICINE PHYSICIAN Primary peritoneal carcinomatosis (CMS/HCC) CBC WITH DIFFERENTIAL Stat 11/04/2024 10:55 AM INTEGRATIVE MEDICINE PHYSICIAN Primary peritoneal carcinomatosis (CMS/HCC) URINALYSIS W/REFLEX MICROSCOPIC Stat 11/04/2024 10:55 AM INTEGRATIVE MEDICINE PHYSICIAN Primary peritoneal carcinomatosis (CMS/HCC) CANCER ANTIGEN 125 Routine 11/03/2024 12 :14 PM INTEGRATIVE MEDICINE PHYSICIAN Primary peritoneal carcinomatosis (CMS/HCC) URINALYSIS W/REFLEX MICROSCOPIC Routine 09/30/2024 9:46 AM INTEGRATIVE MEDICINE PHYSICIAN Acute cystitis without hematuria COMPREHENSIVE METABOLIC PANEL Stat 09/30/2024 9:40 AM INTEGRATIVE MEDICINE PHYSICIAN Primary peritoneal carcinomatosis (CMS/HCC) CBC WITH DIFFERENTIAL Stat 09/30/2024 9:40 AM INTEGRATIVE MEDICINE PHYSICIAN Primary peritoneal carcinomatosis (CMS/HCC) CANCER ANTIGEN 125 Routine 09/30/2024 9: 40 AM INTEGRATIVE MEDICINE PHYSICIAN Primary peritoneal carcinomatosis (CMS/HCC) URINALYSIS W/REFLEX MICROSCOPIC Stat 09/23/2024 10:50 AM INTEGRATIVE MEDICINE PHYSICIAN Primary peritoneal carcinomatosis (CMS/HCC) COMPREHENSIVE METABOLIC PANEL Stat 09/23/2024 10:47 AM INTEGRATIVE MEDICINE PHYSICIAN Primary peritoneal carcinomatosis (CMS/HCC) CBC WITH DIFFERENTIAL Stat 09/23/2024 10:47 AM INTEGRATIVE MEDICINE PHYSICIAN Primary peritoneal carcinomatosis (CMS/HCC) CANCER ANTIGEN 125 Routine 09/23/2024 10 :47 AM INTEGRATIVE MEDICINE PHYSICIAN Primary peritoneal carcinomatosis (CMS/HCC) URINALYSIS W/REFLEX MICROSCOPIC Stat 09/02/2024 11:23 AM INTEGRATIVE MEDICINE PHYSICIAN Urinary tract infection associated with catheterization of urinary tract, unspecified indwelling urinary catheter type, initial encounter COMPREHENSIVE METABOLIC PANEL Stat 09/02/2024 8:37 AM INTEGRATIVE MEDICINE PHYSICIAN Primary peritoneal carcinomatosis (CMS/HCC) CBC WITH DIFFERENTIAL Stat 09/02/2024 8:37 AM INTEGRATIVE MEDICINE PHYSICIAN Primary peritoneal carcinomatosis (CMS/HCC) CANCER ANTIGEN 125 Routine 09/02/2024 8: 36 AM INTEGRATIVE MEDICINE PHYSICIAN Primary peritoneal carcinomatosis (CMS/HCC) XR DEXA BONE DENSITY AXIAL 1 OR MORE SITES Routine 05/14/2023 11:47 AM CDT Other specified menopausal and perimenopausal disorders MAMMO SCREEN BILAT W OR WO CAD Routine 11/02/2022 11:05 AM INTEGRATIVE MEDICINE PHYSICIAN Breast cancer screening by mammogram History of breast cancer COLONOSCOPY REPORT 07/02/2022 9: 48 AM CDT from Last 3 Months or Most Recently Relevant to Health Maintenance Results * (ABNORMAL) URINALYSIS WITH REFLEX MICROSCOPIC (11/25/2024 8:57 AM INTEGRATIVE MEDICINE PHYSICIAN) Only the most recent of5 resultswithin the time period is included. COLOR UA Yellow Pale to Dark Yellow 11/25/2024 9:55 AM INTEGRATIVE MEDICINE PHYSICIAN [facility] CLARITY UA Slightly Cloudy(A) Clear 11/25/2024 9:55 AM INTEGRATIVE MEDICINE PHYSICIAN [facility] SPECIFIC GRAVITY UA 1.006 1.003 - 1.035 11/25/2024 9:55 AM INTEGRATIVE MEDICINE PHYSICIAN [facility] PH UA 6.0 5.0 - 8.0 11/25/2024 9:55 AM INTEGRATIVE MEDICINE PHYSICIAN [facility] LEUKOCYTE ESTERASE UA 3+(A) Negative 11/25/2024 9:55 AM INTEGRATIVE MEDICINE PHYSICIAN [facility] NITRITE UA Negative Negative 11/25/2024 9:55 AM INTEGRATIVE MEDICINE PHYSICIAN [facility] PROTEIN UA Negative Negative 11/25/2024 9:55 AM INTEGRATIVE MEDICINE PHYSICIAN [facility] GLUCOSE UA Negative Negative 11/25/2024 9:55 AM INTEGRATIVE MEDICINE PHYSICIAN [facility] KETONES UA Negative Negative 11/25/2024 9:55 AM INTEGRATIVE MEDICINE PHYSICIAN [facility] UROBILINOGEN UA Normal <2.0 mg/dL 9:55 AM [facility] BILIRUBIN UA Negative Negative 11/25/2024 9:55 AM [facility] BLOOD UA Negative Negative 11/25/2024 9:55 AM [facility] WBC UA 51-100(A) 0 - 2 /hpf 11/25/2024 9:55 AM [facility] RBC UA 0-2 0 - 2 /hpf 11/25/2024 9:55 AM [facility] BACTERIA UA 2+(A) Negative /hpf 11/25/2024 9:55 AM [facility] EPITHELIAL CELLS, URINE 0-5 0 - 5 /hpf 11/25/2024 9:55 AM [facility] WBC CLUMPS Present(A) Absent 11/25/2024 9:55 AM [facility] Urine URINE SPECIMEN OBTAINED BY CLEAN CATCH PROCEDURE / Unknown Collection / Unknown 11/25/2024 8:57 AM INTEGRATIVE MEDICINE PHYSICIAN 11/25/2024 9:23 AM INTEGRATIVE MEDICINE PHYSICIAN Becky Walton MD URINE ORDERABLES Final Result [facility]# [id number] [address] [place] [id number] * (ABNORMAL) CBC WITH DIFFERENTIAL (11/25/2024 8:56 AM INTEGRATIVE MEDICINE PHYSICIAN) Only the most recent of5 resultswithin the time period is included. WBC 5.6 4.0 - 9.8 K/uL 11/25/2024 9:23 AM [facility] [employer] [facility] RBC 4.07 3.90 - 4.90 M/uL 11/25/2024 9:23 AM [facility] HEMOGLOBIN 12.3 11.8 - 14.8 g/dL 11/25/2024 9:23 AM [facility] HEMATOCRIT 38.9 35.5 - 44.0 % 11/25/2024 9:23 AM INTEGRATIVE MEDICINE PHYSICIAN [facility] MCV 95.6 82.0 - 99.0 fL 11/25/2024 9:23 AM INTEGRATIVE MEDICINE PHYSICIAN [facility] MCH 30.2 27.2 - 32.6 pg 11/25/2024 9:23 AM INTEGRATIVE MEDICINE PHYSICIAN [facility] MCHC 31.6 31.5 - 35.5 g/dL 11/25/2024 9:23 AM INTEGRATIVE MEDICINE PHYSICIAN [facility] RDW 16.3(H) 11.5 - 14.5 % 11/25/2024 9:23 AM INTEGRATIVE MEDICINE PHYSICIAN [facility] RDW-STDEV 57.2(H) 37.1 - 48.7 fL 11/25/2024 9:23 AM [facility] PLATELETS 159 140 - 350 K/uL 11/25/2024 9:23 AM [facility] MPV 8.7(L) 9.3 - 12.4 fL 11/25/2024 9:23 AM [facility] NEUTROPHILS 67 % 11/25/2024 9:23 AM [facility] LYMPHOCYTES 21 % 11/25/2024 9:23 AM [facility] MONOCYTES 10 % 11/25/2024 9:23 AM [facility] EOSINOPHILS 1 % 11/25/2024 9:23 AM [facility] BASOPHILS 0 % 11/25/2024 9:23 AM [facility] IMMATURE GRANULOCYTES 0 % 11/25/2024 9:23 AM INTEGRATIVE MEDICINE PHYSICIAN [facility] NEUTROPHIL ABSOLUTE 3.75 1.90 - 7.00 K/uL 11/25/2024 9:23 AM INTEGRATIVE MEDICINE PHYSICIAN [facility] LYMPHOCYTE ABSOLUTE 1.18 0.70 - 4.50 K/uL 11/25/2024 9:23 AM INTEGRATIVE MEDICINE PHYSICIAN [facility] MONOCYTE ABSOLUTE 0.55 0.10 - 1.30 K/uL 11/25/2024 9:23 AM INTEGRATIVE MEDICINE PHYSICIAN [facility] EOSINOPHIL ABSOLUTE 0.08 0.00 - 0.70 K/uL 11/25/2024 9:23 AM INTEGRATIVE MEDICINE PHYSICIAN [facility] BASOPHILS ABSOLUTE 0.02 0.00 - 0.20 K/uL 11/25/2024 9:23 AM INTEGRATIVE MEDICINE PHYSICIAN [facility] IMMATURE GRANULOCYTES ABSOLUTE 0.02 0.00 - 0.03 K/uL 11/25/2024 9:23 AM INTEGRATIVE MEDICINE PHYSICIAN [facility] Blood Collection / Unknown 11/25/2024 8:56 AM INTEGRATIVE MEDICINE PHYSICIAN 11/25/2024 9:20 AM INTEGRATIVE MEDICINE PHYSICIAN Avani Fong NP HEMATOLOGY ORDERABLES Final Resu lt Performing Organization Address City/[facility]/ZIP Co de Phone Number [facility] CLIA# [id number] [place] [address] * CANCER ANTIGEN 125 (11/25/2024 8:56 AM INTEGRATIVE MEDICINE PHYSICIAN) Only the most recent of5 resultswithin the time period is included. Pathologist [facility] CA 125 18 <35 U/mL [facility] Comment: This test was performed using the Siemens Chemiluminescent method. Values obtained from different assay methods cannot be used interchangeably. CA 125 levels, regardless of value, should not be interpreted as absolute evidence of the presence or absence of disease. Test Performed at: [facility] [address] [place] [id number] Ruddy Pradhan MD Blood 11/25/2024 8:56 AM INTEGRATIVE MEDICINE PHYSICIAN 11/25/2024 9:29 AM INTEGRATIVE MEDICINE PHYSICIAN Avani Fong NP CHEMISTRY ORDERABLES Final Resul t [facility] [phone] [facility] [id number] * (ABNORMAL) COMPREHENSIVE METABOLIC PANEL (11/25/2024 8:56 AM INTEGRATIVE MEDICINE PHYSICIAN) Only the most recent of5 resultswithin the time period is included. Pathologist [facility] SODIUM 138 136 - 145 mmol/L 11/25/2024 10:19 AM [facility] POTASSIUM 3.8 3.5 - 5.0 mmol/L 11/25/2024 10:19 AM [facility] CHLORIDE 101 98 - 107 mmol/L 11/25/2024 10:19 AM [facility] CO2 24 22 - 29 mmol/L 11/25/2024 10:19 AM [facility] CALCIUM 8.7 8.6 - 10.2 mg/dL 11/25/2024 10:19 AM [facility] BUN 8 8 - 23 mg/dL 11/25/2024 10:19 AM [facility] CREATININE 0.66 0.51 - 0.95 mg/dL 11/25/2024 10:19 AM [facility] Comment:The GFR result is no t clinically significant on patients <18 or >70 years of age. GLUCOSE 112(H) 74 - 99 mg/dL 11/25/2024 10:19 AM [facility] TOTAL PROTEIN 6.5(L) 6.7 - 8.6 g/dL 11/25/2024 10:19 AM [facility] ALBUMIN 3.7 3.5 - 5.2 g/dL 11/25/2024 10:19 AM [facility] BILIRUBIN TOTAL 0.2 0.2 - 1.1 mg/dL 11/25/2024 10:19 AM [facility] ALKALINE PHOSPHATASE 106(H) 35 - 104 U/L 11/25/2024 10:19 AM [facility] AST 38(H) <33 U/L 11/25/2024 10:19 AM [facility] ALT 34(H) <34 U/L 11/25/2024 10:19 AM [facility] GFR >60 mL/min/1.7 3 sq meter 11/25/2024 10:19 AM [facility] Comment:eGFR calculated with 2020 CKD-EPI equation. Vegetarian diet, extremely high or low muscle mass, and may affect results. Cystatin C with Glomerular Filtration Rate is a suitable alternative for these patients. ANION GAP 13 8 - 16 mmol/L 11/25/2024 10:19 AM INTEGRATIVE MEDICINE PHYSICIAN [facility] Blood Collection / Unknown 11/25/2024 8:56 AM INTEGRATIVE MEDICINE PHYSICIAN 11/25/2024 9:23 AM INTEGRATIVE MEDICINE PHYSICIAN Narrative [facility] - 11/25/2024 10:19 AM INTEGRATIVE MEDICINE PHYSICIAN Samples containing indocyanine green cause interferences on Total and/or Direct Bilirubin and must not be measured. us Avani Fong NP CHEMISTRY ORDERABLES Final Resul t [facility] [employer] [facility] CLIA# [id number] [address] [place] [address] * CT CHEST ABDOMEN PELVIS W CONT (11/20/2024 11:50 AM INTEGRATIVE MEDICINE PHYSICIAN) Anatomical Region Laterality Modality Chest Computed Tomogra phy 11/20/2024 11:4 7 AM INTEGRATIVE MEDICINE PHYSICIAN Impressions 11/20/2024 1:12 PM INTEGRATIVE MEDICINE PHYSICIAN IMPRESSION: 1. Peritoneal carcinomatosis and omental implants, stable since 07/23/2024. 2. No evidence of metastatic disease to the chest. DICTATION LOCATION: Location [address] [place] [address] Narrative 11/20/2024 1:[address] CHEST, ABDOMEN , AND PELVIS WITH IV CONTRAST DATE: 11/20/2024 11:50 AM HISTORY: Ovarian cancer, monitor TECHNIQUE: Transaxial computed tomographic images of the chest, abdomen, and pelvis were obtained following the uneventful administration of 80 ml Isovue 370 according to standard protocol. The examination was performed with the adjustment of mA according to the patient size and/or the use of Iterative Reconstruction Technique. FINDINGS: Comparison is made to 07/23/2024. Chest: Coronary artery calcifications are present.No adenopathy present chest. Surgical clips are seen in the left breast. Calcified right middle lobe granuloma present. No noncalcified pulmonary nodule. Abdomen/pelvis: The liver is normal. The gallbladder is absent. The pancreas, spleen and adrenal glands are normal. Simple left renal cyst are present measuring 3.7 cm. No bowel wall thickening or dilation present. There is atherosclerosis of the aorta. Ventricular peritoneal shunt catheter is present ends within the right mid abdomen. 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 No obstruction present. There is mild bladder wall thickening present. No free fluid present. No suspicious lytic or blastic lesion present. Procedure Note Jorge Luis Malloy MD - 11/20/2024 CT CHEST, ABDOMEN , AND PELVIS WITH IV CONTRAST DATE: 11/20/2024 11:50 AM HISTORY: Ovarian cancer, monitor TECHNIQUE: Transaxial computed tomographic images of the chest, abdomen, and pelvis were obtained following the uneventful administration of 80 ml Isovue 370 according to standard protocol. The examination was performed with the adjustment of mA according to the patient size and/or the use of Iterative Reconstruction Technique. FINDINGS: Comparison is made to 07/23/2024. Chest: Coronary artery calcifications are present.No adenopathy present chest. Surgical clips are seen in the left breast. Calcified right middle lobe granuloma present. No noncalcified pulmonary nodule. Abdomen/pelvis: The liver is normal. The gallbladder is absent. The pancreas, spleen and adrenal glands are normal. Simple left renal cyst are present measuring 3.7 cm. No bowel wall thickening or dilation present. There is atherosclerosis of the aorta. Ventricular peritoneal shunt catheter is present ends within the right mid abdomen. 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 No obstruction present. There is mild bladder wall thickening present. No free fluid present. No suspicious lytic or blastic lesion present. IMPRESSION: 1. Peritoneal carcinomatosis and omental implants, stable since 07/23/2024. 2. No evidence of metastatic disease to the chest. DICTATION LOCATION: Location [address] [place] [address] Fong NP CT ORDERABLES Final Result * XR DEXA BONE DENSITY AXIAL 1 OR MORE SITES (05/14/2023 11:47 AM CDT) Anatomical Region Laterality Modality Computed Radiogr aphy Narrative 05/14/2023 3:28 PM CDT Patient takes Evista due to breast cancer history. Her bone density is stable. FRAX is negative and there is no history of osteoporotic fracture. Continue the Evista and repeat the bone density in 2 years. us Remberto Bhandari MD DIAGNOSTIC IMAGING ORDERABLE S Final Result * MAMMO SCREEN BILAT W OR WO CAD (11/02/2022 11:05 AM INTEGRATIVE MEDICINE PHYSICIAN) Anatomical Region Laterality Modality Breast Bilateral Mammography 11/02/2022 11:0 6 AM INTEGRATIVE MEDICINE PHYSICIAN Impressions 11/02/2022 11:29 AM INTEGRATIVE MEDICINE PHYSICIAN IMPRESSION: No suspicious findings to suggest malignancy in either breast. Annual mammography is recommended. OVERALL FINAL ASSESSMENT: BI-RADS CATEGORY 2: Benign findings Narrative 11/02/2022 11:29 AM INTEGRATIVE MEDICINE PHYSICIAN EXAM: BILATERAL SCREENING DIGITAL MAMMOGRAM WITH CAD DATE: 11/02/2022 11:05 AM HISTORY: Personal history of breast cancer with prior left conservation therapy. DICTATION LOCATION: [facility] COMPARISON: 06/01/2021 and TECHNIQUE: Mediolateral oblique, mediolateral and craniocaudal views of both breasts were performed using full-field digital mammography. Computer aided diagnosis was performed. BREAST COMPOSITION: Scattered fibroglandular densities FINDINGS: Mammographic changes consistent with breast conservation therapy are seen on the left. No concerning mass, suspicious microcalcifications, or concerning areas of architectural distortion are identified in either breast. Computer aided detection was utilized. Procedure Note Mary Ivey MD - 11/02/2022 EXAM: BILATERAL SCREENING DIGITAL MAMMOGRAM WITH CAD DATE: 11/02/2022 11:05 AM HISTORY: Personal history of breast cancer with prior left conservation therapy. DICTATION LOCATION: [facility] COMPARISON: 06/01/2021 and TECHNIQUE: Mediolateral oblique, mediolateral and craniocaudal views of both breasts were performed using full-field digital mammography. Computer aided diagnosis was performed. BREAST COMPOSITION: Scattered fibroglandular densities FINDINGS: Mammographic changes consistent with breast conservation therapy are seen on the left. No concerning mass, suspicious microcalcifications, or concerning areas of architectural distortion are identified in either breast. Computer aided detection was utilized. IMPRESSION: No suspicious findings to suggest malignancy in either breast. Annual mammography is recommended. OVERALL FINAL ASSESSMENT: BI-RADS CATEGORY 2: Benign findings Iram Naranjo NP MAMMO ORDERABLES Final Result * COLONOSCOPY REPORT (07/02/2022 9:48 AM CDT) Narrative Procedure Note Babak Heard MD - 07/02/2022 9:47 AM CDT [facility] Endoscopy Patient Name: Michelle Drake Procedure Date: 07/02/2022 Date of : 1950 Attending MD: Babak Heard MD, Procedure: Colonoscopy Indications: Clinically significant diarrhea of unexplained origin, Abnormal CT of the GI tract Providers: Babak Heard MD Referring MD: Kyle Casas MD, Maggy West MD Medicines: TIVA Complications: No immediate complications. Estimated blood loss: None. Procedure: Informed consent was obtained for the procedure, including moderate sedation after risks were discussed. Based on the pre-procedure assessment, including review of the patient's medical history, medications, allergies, and review of systems, the patient was deemed to be an appropriate candidate for sedation. A timeout was performed. Continuous ECG monitoring, pulse oximetry, blood pressure monitoring, and direct observation were performed. The Colonoscope was introduced through the anus and advanced to the ileocolonic anastomosis. The colonoscopy was performed without difficulty. The patient tolerated the procedure well. The quality of the bowel preparation was good. Estimated Blood Loss: Estimated blood loss: none. Findings: There was evidence of a prior end-to-end colo-colonic anastomosis in the ascending colon. This was patent and was characterized by healthy appearing mucosa. Internal hemorrhoids were found during retroflexion. The hemorrhoids were mild. A few diverticula were found in the sigmoid colon. The remainder of the examined colon appeared normal. Biopsies for histology were taken with a cold forceps from the right colon and left colon for evaluation of microscopic colitis. Impression: - Patent end-to-end colo-colonic anastomosis, characterized by healthy appearing mucosa. - Internal hemorrhoids. - Diverticulosis in the sigmoid colon. - Otherwise normal colonoscopy to the level of the ileocolonic anastomosis. - Biopsies were obtained from the right and left colon to exclude microscopic colitis. Recommendation: - Await pathology results. Babak Heard MD 07/02/2022 9:46:55 AM This report has been signed electronically. Number of Addenda: [address]; [place] [address] Babak Heard MD GI PROCEDURE ORDERABLES Final R esult from Last 3 Months or Most Recently Relevant to Health Maintenance Insurance [employer] [facility] RX [employer] Medicare Part D Advance Directives For more information, please contact: [phone] * Full Code (Latest Code Status on File) Date Activated Date Inactivated Comments 04/24/2022 7:43 PM 04/25/2022 5:43 PM * Full Code Date Activated Date Inactivated Comments 03/12/2022 8:58 PM 03/20/2022 6:22 PM * Full Code Date Activated Date Inactivated Comments 11/21/2021 10:37 PM 11/25/2021 6:38 PM * Full Code Date Activated Date Inactivated Comments 10/28/2015 11:24 PM 10/31/2015 6:37 PM * Full Code Date Activated Date Inactivated Comments 10/24/2015 1:34 AM 10/27/2015 3:38 PM Care Teams [employer] Relationship Specialty Start Date End Date Titi Cummings MD [address] [place] [phone] PCP - General Family Practice 10/10/23
--- OUTSIDE RECORDS SUMMARY | 2024-11-29 12:47 | XMS_ITS | Encounter Summary ---
Author Organization [facility] Address [address] [place] [address] Care Team Providers Care Title I Assistant Name Role Phone Titi Cummings MD Primary Care Provider Encounter Details Date Type Department Care Team (Latest Contact Info) Description 01/05/2005 Outpatient Historical HIS [facility] BRY French, Daron Guaman MD NO ADDRESS ON FILE ABNORMAL CLINICAL FINDING NEC (Primary Dx) Social History Tobacco Use Types Packs/Day Years Used Date Smoking Tobacco: Never Assessed Comments Unknown Sex and Gender Information Value Date Recorded Sex Assigned at Not on file Legal Sex Female 4:40 AM NAILER OPERATOR Gender Identity Not on file Sexual Orientation Not on file documented as of this encounter Plan of Treatment Upcoming Encounters Date Type Department Care Team (Late st Contact Info) Description 12/16/2024 11:00 AM NAILER OPERATOR Office Visit [facility] Gynecologic Oncology [place] [address] [place] [address] Becky Walton MD [address] [place] [address] 12/16/2024 11:30 AM NAILER OPERATOR Appointment [facility] 2nd Fl [address] [place] [address] Infusion Chair 6, 2nd Floor [place] 12/28/2024 10:00 AM CDT Office Visit [facility] Neurology [address] [place] [address] Navi Stephens MD [address] [facility] [address] [address] documented as of this encounter Procedures Procedure Name Priority Date/Time Associated Diagnosis Comments TSH Routine 01/05/2005 11:07 AM NAILER OPERATOR GLUCOSE LEVEL Routine 01/05/2005 11:07 AM NAILER OPERATOR LIPID PANEL Routine 01/05/2005 11:07 AM NAILER OPERATOR documented in this encounter Results * GLUCOSE LEVEL (01/05/2005 11:07 AM NAILER OPERATOR) GLUCOSE 91 65 - 109 mg/dL INTERFACE SYSTEM 01/05/2005 11:0 7 AM NAILER OPERATOR Daron French MD CHEMISTRY ORDERABLES Final Re sult Performing Organization Address [facility] Co de Phone Number INTERFACE SYSTEM Refer to clinic/hospital department * TSH (01/05/2005 11:07 AM NAILER OPERATOR) TSH 1.95 0.27 - 4.20 uU/mL INTERFACE SYSTEM 01/05/2005 11:0 7 AM NAILER OPERATOR Daron French MD CHEMISTRY ORDERABLES Final Re sult Performing Organization Address [facility] Co de Phone Number INTERFACE SYSTEM Refer to clinic/hospital department * (ABNORMAL) LIPID PANEL (01/05/2005 11:07 AM NAILER OPERATOR) CHOLESTEROL 221(H) 100 - 199 mg/dL INTERFACE SYSTEM TRIGLYCERIDE 126 10 - 149 mg/dL INTERFACE SYSTEM HDL 97(H) 40 - 59 mg/dL INTERFACE SYSTEM LDL CALCULATED 99 <=99 mg/dL INTERFACE SYSTEM CHOL/HDL RATIO 2.3 2.0 - 5.0 INTER FACE SYSTEM Comment:See interpretive kecia a section for risk classifications. LIPID PANEL COMMENT See below INTERFACE SYSTEM Comment: Adult ATP III Classifications: Cholesterol (mg/dL) Triglyceride (mg/dL) Desirable <200 Normal <150 Borderline 200 - 239 Borderline High 150 - 199 High >=240 High 200 - 499 Very High >=500 HDL Cholesterol (mg/dL) LDL (mg/dL) Low (increased risk) <40 Optimal <100 High (reduced risk) >=60 Near or above optimal 100 - 129 Borderline 130 - 159 High 160 - 189 Very High >=190 LDL calculation is not accurate if Triglycerides are greater than 400 mg /dL Pediatric NCEP Classifications: Cholesterol(<20 years),(mg/dL) Triglyceride Desirable <170 Pediatric classification Borderline 170 - 199 not defined. High >=200 HDL (<5 years) LDL (mg/dL) No Reference Range Established Desirable <110 Borderline 110 - 129 High >=130 01/05/2005 11:0 7 AM NAILER OPERATOR us Daron French MD CHEMISTRY ORDERABLES Final Re sult INTERFACE SYSTEM Refer to clinic/hospital department documented in this encounter Visit Diagnoses Diagnosis Other abnormal clinical finding- Primary documented in this encounter Additional Health Concerns Infection Onset Date Last Indicated Resolved Time R/O C. diff 03/28/2022 03/27/2022 03/28/2022 3:35 PM CDT R/O C. diff 04/12/2022 04/11/2022 04/12/2022 3:26 PM CDT R/O C. diff 04/13/2023 04/12/2023 04/13/2023 2:29 PM CDT documented as of this encounter Care Teams Title I Assistant Relationship Specialty Start Date End Date Titi Cummings MD [address] [address] PCP - General Family Practice 10/10/23 documented as of this encounter
--- OUTSIDE RECORDS SUMMARY | 2024-11-29 12:47 | XMS_ITS | Encounter Summary ---
Author Organization [facility] Address [address] [place] [address] Care Team Providers Care Community Services Manager Name Role Phone Titi Cummings MD Primary Care Provider Encounter Details Date Type Department Care Team (Late st Contact Info) Description 03/16/2005 Outpatient Historical [facility] Sera Banuelos MD NO ADDRESS ON FILE Er, Authorized P NO ADDRESS ON FILE ABDOMINAL PAIN OTHER SPEC SITE (Primary Dx) Social History Tobacco Use Types Packs/Day Years Used Date Smoking Tobacco: Never Assessed Comments Unknown Sex and Gender Information Value Date Recorded Sex Assigned at Not on file Legal Sex Female 4:40 AM MASTER CONTROL ENGINEER Gender Identity Not on file Sexual Orientation Not on file documented as of this encounter Plan of Treatment Upcoming Encounters Date Type Department Care Team (Late st Contact Info) Description 12/16/2024 11:00 AM MASTER CONTROL ENGINEER Office Visit [facility] Gynecologic Oncology [place] [address] [place] [address] Becky Walton MD [address] [place] [address] 12/16/2024 11:30 AM MASTER CONTROL ENGINEER Appointment [facility] 2nd Fl [address] [place] [address] Infusion Chair 6, 2nd Floor [place] 12/28/2024 10:00 AM CDT Office Visit [facility] Neurology [address] [place] [address] Navi Stephens MD [address] [facility] [address] [address] documented as of this encounter Procedures Procedure Name Priority Date/Time Associated Diagnosis Comments TROPONIN (W/REFLEX CKMB/CK) Routine 03/16/2005 9:42 AM CDT CBC WITH DIFFERENTIAL Routine 03/16/2005 9:42 AM CDT CBC WITH DIFFERENTIAL Routine 03/16/2005 9:42 AM CDT URINALYSIS WITH MICROSCOPIC Routine 03/16/2005 9:42 AM CDT C-REACTIVE PROTEIN Routine 03/16/2005 9: 42 AM CDT LIPASE Routine 03/16/2005 9:42 AM CDT AMYLASE Routine 03/16/2005 9:42 AM CDT documented in this encounter Results * URINALYSIS WITH MICROSCOPIC (03/16/2005 9:42 AM CDT) COLOR UA Yellow INTERFACE SYSTEM CLARITY UA Clear Clear INTERFACE SYSTEM SPECIFIC GRAVITY UA 1.005 1.001 - 1.035 INTERFACE SYSTEM PH UA 7.5 5.0 - 8.0 INTERFACE SYSTEM LEUKOCYTE ESTERASE UA Negative Negative INTERFACE SYSTEM NITRITE UA Negative Negative INTERFACE SYSTEM PROTEIN UA Negative Negative INTERFACE SYSTEM GLUCOSE UA Negative Negative INTERFACE SYSTEM KETONES UA Negative Negative INTERFACE SYSTEM UROBILINOGEN UA <1 <1 EU INTE RFACE SYSTEM BILIRUBIN UA Negative Negative INTERFA CE SYSTEM BLOOD UA Negative Negative INTERFACE SYSTEM WBC UA 1 0 - 5 /HPF INTERFACE SYSTEM RBC UA <1 0 - 4 /HPF INTERFACE SYSTEM 03/16/2005 9:42 AM CDT us Sera Banuelos MD URINE ORDERABLES Final Result INTERFACE SYSTEM Refer to clinic/hospital department * CBC WITH DIFFERENTIAL (03/16/2005 9:42 AM CDT) NEUTROPHILS 64 45 - 70 % INTERFAC E SYSTEM LYMPHOCYTES 27 16 - 45 % INTERFAC E SYSTEM MONOCYTES 9 3 - 13 % INTERFACE SYSTEM EOSINOPHILS 1 0 - 7 % INTERFAC E SYSTEM BASOPHILS 0 0 - 2 % INTERFACE SYSTEM NEUTROPHIL ABSOLUTE 2.88 1.90 - 7.00 K/uL INTERFACE SYSTEM LYMPHOCYTE ABSOLUTE 1.21 0.70 - 4.50 K/uL INTERFACE SYSTEM MONOCYTE ABSOLUTE 0.39 0.10 - 1.30 K/uL INTERFACE SYSTEM EOSINOPHIL ABSOLUTE 0.03 0.00 - 0.70 K/uL INTERFACE SYSTEM BASOPHILS ABSOLUTE 0.01 0.00 - 0.20 K/uL INTERFACE SYSTEM 03/16/2005 9:42 AM CDT Sera Banuelos MD HEMATOLOGY ORDERABLES Final Re sult Performing Organization Address [facility] de Phone Number INTERFACE SYSTEM Refer to clinic/hospital department * CBC WITH DIFFERENTIAL (03/16/2005 9:42 AM CDT) WBC 4.5 4.0 - 9.8 K/uL INTERFACE SYSTEM RBC 4.23 3.90 - 4.90 M/uL INTERFACE SYSTEM HEMOGLOBIN 13.2 11.8 - 14.8 g/dL INTERFACE SYSTEM HEMATOCRIT 40.0 35.5 - 44.0 % INTERFACE SYSTEM MCV 94.6 82.0 - 99.0 fL INTERFACE SYSTEM MCH 31.2 27.2 - 32.6 pg INTERFACE SYSTEM MCHC 33.0 31.5 - 35.5 % INTERFACE SYSTEM RDW 13.8 11.5 - 14.5 % INTERFACE SYSTEM RDW-STDEV 47.6 37.1 - 48.7 fL INTERFACE SYSTEM PLATELETS 200 140 - 350 K/uL INTERFACE SYSTEM MPV 10.4 9.3 - 12.4 fL INTERFACE SYSTEM 03/16/2005 9:42 AM CDT Sera Banuelos MD HEMATOLOGY ORDERABLES Final Re sult Performing Organization Address City/[facility] Co de Phone Number INTERFACE SYSTEM Refer to clinic/hospital department * LIPASE (03/16/2005 9:42 AM CDT) LIPASE 40 13 - 60 U/L INTERFAC E SYSTEM 03/16/2005 9:42 AM CDT Sera Banuelos MD CHEMISTRY ORDERABLES Final Res ult Performing Organization Address [facility] INTERFACE SYSTEM Refer to clinic/hospital department * AMYLASE (03/16/2005 9:42 AM CDT) AMYLASE 42 28 - 100 U/L INTERFACE SYSTEM 03/16/2005 9:42 AM CDT Sera Banuelos MD CHEMISTRY ORDERABLES Final Res ult Performing Organization Address [facility] INTERFACE SYSTEM Refer to clinic/hospital department * C-REACTIVE PROTEIN (03/16/2005 9:42 AM CDT) CRP <0.5 0.0 - 0.8 mg/dL INTERFACE SYSTEM 03/16/2005 9:42 AM CDT Sera Banuelos MD CHEMISTRY ORDERABLES Final Res ult Performing Organization Address [facility] INTERFACE SYSTEM Refer to clinic/hospital department * TROPONIN (W/REFLEX CKMB/CK) (03/16/2005 9:42 AM CDT) TROPONIN T <0.01 <=0.03 ng/mL INTERFACE SYSTEM TROPONIN T INTERP Negative INTERFACE SYSTEM 03/16/2005 9:42 AM CDT Sera Banuelos MD CHEMISTRY ORDERABLES Final Res ult Performing Organization Address [facility] INTERFACE SYSTEM Refer to clinic/hospital department documented in this encounter Visit Diagnoses Diagnosis Abdominal pain, other specified site- Primary documented in this encounter Additional Health Concerns Infection Onset Date Last Indicated Resolved Time R/O C. diff 03/28/2022 03/27/2022 03/28/2022 3:35 PM CDT R/O C. diff 04/12/2022 04/11/2022 04/12/2022 3:26 PM CDT R/O C. diff 04/13/2023 04/12/2023 04/13/2023 2:29 PM CDT documented as of this encounter Care Teams Community Services Manager Relationship Specialty Start Date End Date Titi Cummings MD [address] [phone] PCP - General Family Practice 10/10/23 documented as of this encounter
--- OUTSIDE RECORDS SUMMARY | 2024-11-29 12:47 | XMS_ITS | Encounter Summary ---
Author Organization [facility] Address [address] [place] [address] Care Team Providers Care Appeals And Generalist Clerk Name Role Phone Titi Cummings MD Primary Care Provider Encounter Details Date Type Department Care Team (Latest Contact Info) Description 03/21/2004 Outpatient Historical [facility] Gibson Contreras MD NO ADDRESS ON FILE MALIG NEOPLASM BREAST UP-OUTER (CMS/HCC) (Primary Dx) Social History Tobacco Use Types Packs/Day Years Used Date Smoking Tobacco: Never Assessed Comments Unknown Sex and Gender Information Value Date Recorded Sex Assigned at Not on file Legal Sex Female 4:40 AM MANAGER OF PROGRAM Gender Identity Not on file Sexual Orientation Not on file documented as of this encounter Plan of Treatment Upcoming Encounters Date Type Department Care Team (Late st Contact Info) Description 12/16/2024 11:00 AM MANAGER OF PROGRAM Office Visit [facility] Gynecologic Oncology [place] [address] [place] [address] Becky Walton MD [address] [place] [address] 12/16/2024 11:30 AM MANAGER OF PROGRAM Appointment [facility] 2nd Fl [address] [place] [address] Infusion Chair 6, 2nd Floor [place] 12/28/2024 10:00 AM CDT Office Visit [facility] Neurology [address] [facility] [facility] [address] [place] [address] Navi Stephens MD [address] [facility] [address] [address] documented as of this encounter Visit Diagnoses Diagnosis Malignant neoplasm of upper-outer quadrant of female breast (CMS/HCC)- Primary Malignant neoplasm of upper-outer quadrant of female breast documented in this encounter Additional Health Concerns Infection Onset Date Last Indicated Resolved Time R/O C. diff 03/28/2022 03/27/2022 03/28/2022 3:35 PM CDT R/O C. diff 04/12/2022 04/11/2022 04/12/2022 3:2 6 PM CDT R/O C. diff 04/13/2023 04/12/2023 04/13/2023 2:29 PM CDT documented as of this encounter Care Teams Appeals And Generalist Clerk Relationship Specialty Start Date End Date Titi Cummings MD 4 [facility] [address] [place] [phone] PCP - General Family Practice 10/10/23 documented as of this encounter
--- OUTSIDE RECORDS SUMMARY | 2024-11-29 12:47 | XMS_ITS | Encounter Summary ---
Author Organization [facility] Address [address] [place] [address] Care Team Providers Care Order Analyst Name Role Phone Titi Cummings MD Primary Care Provider Encounter Details Date Type Department Care Team (Late st Contact Info) Description 04/06/2005 Outpatient Historical [facility] Nia More MD [address] [place] [phone] ABDOMINAL PAIN EPIGASTRIC (Primary Dx) Social History Tobacco Use Types Packs/Day Years Used Date Smoking Tobacco: Never Assessed Comments Unknown Sex and Gender Information Value Date Recorded Sex Assigned at Not on file Legal Sex Female 4:40 AM ENGINE INSPECTOR Gender Identity Not on file Sexual Orientation Not on file documented as of this encounter Plan of Treatment Upcoming Encounters Date Type Department Care Team (Late st Contact Info) Description 12/16/2024 11:00 AM ENGINE INSPECTOR Office Visit [facility] Gynecologic Oncology [place] [address] [place] [address] Becky Walton MD [address] [place] [address] 12/16/2024 11:30 AM ENGINE INSPECTOR Appointment [facility] 2nd Fl [address] [place] [address] Infusion Chair 6, 2nd Floor [place] 12/28/2024 10:00 AM CDT Office Visit [facility] Neurology [address] [facility] [address] [place] [address] Navi Stephens MD [address] [facility] [address] [address] documented as of this encounter Visit Diagnoses Diagnosis Abdominal pain, epigastric- Primary documented in this encounter Additional Health Concerns Infection Onset Date Last Indicated Resolved Time R/O C. diff 03/28/2022 03/27/2022 03/28/2022 3:35 PM CDT R/O C. diff 04/12/2022 04/11/2022 04/12/2022 3:26 PM CDT R/O C. diff 04/13/2023 04/12/2023 04/13/2023 2:29 PM CDT documented as of this encounter Care Teams Order Analyst Relationship Specialty Start Date End Date Titi Cummings MD [address] [place] [phone] PCP - General Family Practice 10/10/23 documented as of this encounter
--- OUTSIDE RECORDS SUMMARY | 2024-11-29 12:47 | XMS_ITS | Encounter Summary ---
Author Organization [facility] Address [address] [place] [address] Care Team Providers Care Auxiliary Engineer Name Role Phone Titi Cummings MD Primary Care Provider Encounter Details Date Type Department Care Team (Latest Contact Info) Description 01/26/2004 Outpatient Historical [facility] Gibson Contreras MD NO ADDRESS ON FILE MALIG NEOPLASM BREAST UP-OUTER (CMS/HCC) (Primary Dx) Social History Tobacco Use Types Packs/Day Years Used Date Smoking Tobacco: Never Assessed Comments Unknown Sex and Gender Information Value Date Recorded Sex Assigned at Not on file Legal Sex Female 4:40 AM MANAGER OF HOUSEKEEPING Gender Identity Not on file Sexual Orientation Not on file documented as of this encounter Plan of Treatment Upcoming Encounters Date Type Department Care Team (Late st Contact Info) Description 12/16/2024 11:00 AM MANAGER OF HOUSEKEEPING Office Visit [facility] Gynecologic Oncology [place] [address] [place] [address] Becky Walton MD [address] [place] [address] 12/16/2024 11:30 AM MANAGER OF HOUSEKEEPING Appointment [facility] 2nd Fl [address] [place] [address] Infusion Chair 6, 2nd Floor [place] 12/28/2024 10:00 AM CDT Office Visit [facility] Neurology [address] [facility] [address] [place] [address] Navi Stephens MD [address] [facility] [address] [address] documented as of this encounter [...] documented as of this encounter Care Teams Auxiliary Engineer Relationship Specialty Start Date End Date Titi Cummings MD 4 [facility] [address] [place] [phone] PCP - General Family Practice 10/10/23 documented as of this encounter
--- OUTSIDE RECORDS SUMMARY | 2024-11-29 12:47 | XMS_ITS | Encounter Summary ---
Author Organization [facility] Address [address] [place] [address] Care Team Providers Care Liquid Fertilizer Servicer Name Role Phone Titi Cummings MD Primary Care Provider Encounter Details Date Type Department Care Team (Late st Contact Info) Description 03/21/2005 Outpatient Historical [facility] DE[facility] Edwin Wade MD NO ADDRESS ON FILE ABDOMINAL PAIN UNSPEC SITE (Primary Dx) Social History Tobacco Use Types Packs/Day Years Used Date Smoking Tobacco: Never Assessed Comments Unknown Sex and Gender Information Value Date Recorded Sex Assigned at Not on file Legal Sex Female 4:40 AM HEAVY FORGER HELPER Gender Identity Not on file Sexual Orientation Not on file documented as of this encounter Plan of Treatment Upcoming Encounters Date Type Department Care Team (Late st Contact Info) Description 12/16/2024 11:00 AM HEAVY FORGER HELPER Office Visit [facility] Gynecologic Oncology [place] [address] [place] [address] Becky Walton MD [address] [place] [address] 12/16/2024 11:30 AM HEAVY FORGER HELPER Appointment [facility] 2nd Fl [address] [place] [address] Infusion Chair 6, 2nd Floor [place] 12/28/2024 10:00 AM CDT Office Visit [facility] Neurology [address] [place] [address] Navi Stephens MD [address] [facility] [address] [address] documented as of this encounter Visit Diagnoses Diagnosis Abdominal pain, unspecified site- Primary documented in this encounter Additional Health Concerns Infection Onset Date Last Indicated Resolved Time R/O C. diff 03/28/2022 03/27/2022 03/28/2022 3:35 PM CDT R/O C. diff 04/12/2022 04/11/2022 04/12/2022 3:26 PM CDT R/O C. diff 04/13/2023 04/12/2023 04/13/2023 2:29 PM CDT documented as of this encounter Care Teams Liquid Fertilizer Servicer Relationship Specialty Start Date End Date Titi Cummings MD [address] [phone] PCP - General Family Practice 10/10/23 documented as of this encounter
--- OUTSIDE RECORDS SUMMARY | 2024-11-29 12:47 | XMS_ITS | Encounter Summary ---
Author Organization [facility] Address [address] [place] [address] Care Team Providers Care Cable Inspector Name Role Phone Titi Cummings MD Primary Care Provider Encounter Details Date Type Department Care Team (Latest Contact Info) Description 08/08/2003 Outpatient Historical [facility], [address] Gibson Contreras MD NO ADDRESS ON FILE ABNORMAL LIVER FUNCTION STUDY (Primary Dx) Social History Tobacco Use Types Packs/Day Years Used Date Smoking Tobacco: Never Assessed Comments Unknown Sex and Gender Information Value Date Recorded Sex Assigned at Not on file Legal Sex Female 4:40 AM EVENTS ASSISTANT Gender Identity Not on file Sexual Orientation Not on file documented as of this encounter Plan of Treatment Upcoming Encounters Date Type Department Care Team (Late st Contact Info) Description 12/16/2024 11:00 AM EVENTS ASSISTANT Office Visit [facility] Gynecologic Oncology [place] [address] [place] [address] Becky Walton MD [address] [place] [address] 12/16/2024 11:30 AM EVENTS ASSISTANT Appointment [facility] 2nd Fl [address] [place] [address] Infusion Chair 6, 2nd Floor [facility] 12/28/2024 10:00 AM CDT Office Visit [facility] Neurology [address] [place] [address] Navi Stephens MD [address] [facility] [address] [address] documented as of this encounter Visit Diagnoses Diagnosis Nonspecific abnormal results of liver function study- Primary documented in this encounter Additional Health Concerns Infection Onset Date Last Indicated Resolved Time R/O C. diff 03/28/2022 03/27/2022 03/28/2022 3:35 PM CDT R/O C. diff 04/12/2022 04/11/2022 04/12/2022 3:26 PM CDT R/O C. diff 04/13/2023 04/12/2023 04/13/2023 2:29 PM CDT documented as of this encounter Care Teams Cable Inspector Relationship Specialty Start Date End Date Titi Cummings MD [address] [phone] PCP - General Family Practice 10/10/23 documented as of this encounter
--- OUTSIDE RECORDS SUMMARY | 2024-11-29 12:47 | XMS_ITS | Encounter Summary ---
Author Organization [facility] Address [address] [place] [address] Care Team Providers Care Uniform Designer Name Role Phone Titi Cummings MD Primary Care Provider Encounter Details Date Type Department Care Team (Latest Contact Info) Description 01/02/2002 Outpatient Historical [facility] Daron French MD NO ADDRESS ON FILE SCREENING FOR OSTEOPOROSIS (Primary Dx) Social History Tobacco Use Types Packs/Day Years Used Date Smoking Tobacco: Never Assessed Comments Unknown Sex and Gender Information Value Date Recorded Sex Assigned at Not on file Legal Sex Female 4:40 AM TRACK EQUIPMENT OPERATOR Gender Identity Not on file Sexual Orientation Not on file documented as of this encounter Plan of Treatment Upcoming Encounters Date Type Department Care Team (Late st Contact Info) Description 12/16/2024 11:00 AM TRACK EQUIPMENT OPERATOR Office Visit [facility] Gynecologic Oncology [place] [address] [place] [address] Becky Walton MD [address] [place] [address] 12/16/2024 11:30 AM TRACK EQUIPMENT OPERATOR Appointment [facility] 2nd Fl [address] [place] [address] Infusion Chair 6, 2nd Floor [place] 12/28/2024 10:00 AM CDT Office Visit [facility] Neurology [address] [place] [address] Navi Stephens MD [address] [address] documented as of this encounter Visit Diagnoses Diagnosis Special screening for osteoporosis- Primary documented in this encounter Additional Health Concerns Infection Onset Date Last Indicated Resolved Time R/O C. diff 03/28/2022 03/27/2022 03/28/2022 3:35 PM CDT R/O C. diff 04/12/2022 04/11/2022 04/12/2022 3:26 PM CDT R/O C. diff 04/13/2023 04/12/2023 04/13/2023 2:29 PM CDT documented as of this encounter Care Teams Uniform Designer Relationship Specialty Start Date End Date Titi Cummings MD [address] [phone] PCP - General Family Practice 10/10/23 documented as of this encounter
--- OUTSIDE RECORDS SUMMARY | 2024-11-29 12:47 | XMS_ITS | Encounter Summary ---
Author Organization [facility] Address [address] [place] [address] Care Team Providers Care Spool Maker Name Role Phone Titi Cummings MD Primary Care Provider Encounter Details Date Type Department Care Team (Latest Contact Info) Description 01/31/2002 Outpatient Historical HIS [facility] BRY Contreras, Gibson Rivera MD NO ADDRESS ON FILE MALIG NEOPLASM BREAST UP-OUTER (CMS/HCC) (Primary Dx) Social History Tobacco Use Types Packs/Day Years Used Date Smoking Tobacco: Never Assessed Comments Unknown Sex and Gender Information Value Date Recorded Sex Assigned at Not on file Legal Sex Female 4:40 AM CAR SEAT UPHOLSTERER Gender Identity Not on file Sexual Orientation Not on file documented as of this encounter Plan of Treatment Upcoming Encounters Date Type Department Care Team (Late st Contact Info) Description 12/16/2024 11:00 AM CAR SEAT UPHOLSTERER Office Visit [facility] Gynecologic [facility] [place] [address] [place] [address] Becky Walton MD [address] [place] [address] 12/16/2024 11:30 AM CAR SEAT UPHOLSTERER Appointment [facility] 2nd Fl [address] [place] [address] Infusion Chair 6, 2nd Floor [place] 12/28/2024 10:00 AM CDT Office Visit [facility] Neurology [address] [place] [address] Navi Stephens MD [address] [facility] [address] [address] documented as of this encounter [...] documented as of this encounter Care Teams Spool Maker Relationship Specialty Start Date End Date Titi Cummings MD [address] [phone] PCP - General Family Practice 10/10/23 documented as of this encounter
--- OUTSIDE RECORDS SUMMARY | 2024-11-29 12:47 | XMS_ITS | Encounter Summary ---
Author Organization [facility] Address [address] [place] [address] Care Team Providers Care Viscosity Tester Name Role Phone Titi Cummings MD Primary Care Provider Encounter Details Date Type Department Care Team (Latest Contact Info) Description 04/24/2005 Outpatient Historical [facility] Wendy Nolasco MD [address] [place] [address] [address] [address] CHRONIC CHOLECYSTITIS NEC (Primary Dx) Social History Tobacco Use Types Packs/Day Years Used Date Smoking Tobacco: Never Assessed Comments Unknown Sex and Gender Information Value Date Recorded Sex Assigned at Not on file Legal Sex Female 4:40 AM C.O.D. BILLER Gender Identity Not on file Sexual Orientation Not on file documented as of this encounter Plan of Treatment Upcoming Encounters Date Type Department Care Team (Late st Contact Info) Description 12/16/2024 11:00 AM C.O.D. BILLER Office Visit [facility] Gynecologic Oncology [place] [address] [place] [address] Becky Walton MD [address] [place] [address] 12/16/2024 11:30 AM C.O.D. BILLER Appointment [facility] 2nd Fl [address] [place] [address] Infusion Chair 6, 2nd Floor [place] 12/28/2024 10:00 AM CDT Office Visit [facility] Neurology [address] [place] [address] Navi Stephens MD [address] [facility] [address] [phone] documented as of this encounter Visit Diagnoses Diagnosis Chronic cholecystitis- Primary documented in this encounter Additional Health Concerns Infection Onset Date Last Indicated Resolved Time R/O C. diff 03/28/2022 03/27/2022 03/28/2022 3:35 PM CDT R/O C. diff 04/12/2022 04/11/2022 04/12/2022 3:26 PM CDT R/O C. diff 04/13/2023 04/12/2023 04/13/2023 2:29 PM CDT documented as of this encounter Care Teams Viscosity Tester Relationship Specialty Start Date End Date Titi Cummings MD [address] [place] [phone] PCP - General Family Practice 10/10/23 documented as of this encounter
--- OUTSIDE RECORDS SUMMARY | 2024-11-29 12:47 | XMS_ITS | Encounter Summary ---
Author Organization [facility] Address [address] [place] [address] Care Team Providers Care Diesel Locomotive Firer Name Role Phone Titi Cummings MD Primary Care Provider Encounter Details Date Type Department Care Team (Late Contact Info) Description 03/21/2005 Outpatient Historical HIS [facility] BRY More, Nia Liang MD [address] [address] LUMBOSACRAL SPONDYLOSIS (Primary Dx) Social History Tobacco Use Types Packs/Day Years Used Date Smoking Tobacco: Never Assessed Comments Unknown Sex and Gender Information Value Date Recorded Sex Assigned at Not on file Legal Sex Female 4:40 AM REDEYE GUNNER Gender Identity Not on file Sexual Orientation Not on file documented as of this encounter Plan of Treatment Upcoming Encounters Date Type Department Care Team (Late st Contact Info) Description 12/16/2024 11:00 AM REDEYE GUNNER Office Visit [facility] Gynecologic Oncology [place] [address] [place] [address] Becky Walton MD [address] [place] [address] 12/16/2024 11:30 AM REDEYE GUNNER Appointment [facility] 2nd Fl [address] [place] [address] Infusion Chair 6, 2nd Floor [place] 12/28/2024 10:00 AM CDT Office Visit [facility] Neurology [address] [place] [address] Navi Stephens MD [address] [facility] [address] [address] documented as of this encounter Visit Diagnoses Diagnosis 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 diff 03/28/2022 03/27/2022 03/28/2022 3:35 PM CDT R/O C. diff 04/12/2022 04/11/2022 04/12/2022 3:26 PM CDT R/O C. diff 04/13/2023 04/12/2023 04/13/2023 2:29 PM CDT documented as of this encounter Care Teams Diesel Locomotive Firer Relationship Specialty Start Date End Date Titi Cummings MD [address] [place] [phone] PCP - General Family Practice 10/10/23 documented as of this encounter
--- OUTSIDE RECORDS SUMMARY | 2024-11-29 12:47 | XMS_ITS | Encounter Summary ---
Author Organization [facility] Address 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) Social History Tobacco Use Types Packs/Day Years Used Date Smoking Tobacco: Never Assessed Comments Unknown Sex and Gender Information Value Date Recorded Sex Assigned at Not on file Legal Sex Female 4:40 AM FUR DRESSING SUPERVISOR Gender Identity Not on file Sexual Orientation Not on file documented as of this encounter Plan of Treatment Upcoming Encounters Date Type Department Care Team (Late st Contact Info) Description 12/16/2024 11:00 AM FUR DRESSING SUPERVISOR Office Visit [facility] Gynecologic Oncology [place] [address] [place] [address] Becky Walton MD [address] [place] [address] 12/16/2024 11:30 AM FUR DRESSING SUPERVISOR Appointment [facility] 2nd Fl [address] [place] [address] Infusion Chair 6, 2nd Floor [place] 12/28/2024 10:00 AM CDT Office Visit [facility] Neurology [address] [place] [address] Navi Stephens MD [address] [facility] [address] [address] documented as of this encounter Procedures Procedure Name Priority Date/Time Associated Diagnosis Comments CBC WITH DIFFERENTIAL Routine 02/01/2007 10:24 AM CDT CBC WITH DIFFERENTIAL Routine 02/01/2007 10:24 AM CDT COMPREHENSIVE METABOLIC PANEL Routine 02/01/2007 10:24 AM CDT documented in this encounter Results * CBC WITH DIFFERENTIAL (02/01/2007 10:24 AM CDT) NEUTROPHILS 62 45 - 70 % INTERFAC E SYSTEM LYMPHOCYTES 28 16 - 45 % INTERFAC E SYSTEM MONOCYTES 9 3 - 13 % INTERFACE SYSTEM EOSINOPHILS 2 0 - 7 % INTERFAC E SYSTEM BASOPHILS 0 0 - 2 % INTERFACE SYSTEM NEUTROPHIL ABSOLUTE 3.28 1.90 - 7.00 K/uL INTERFACE SYSTEM LYMPHOCYTE ABSOLUTE 1.48 0.70 - 4.50 K/uL INTERFACE SYSTEM MONOCYTE ABSOLUTE 0.47 0.10 - 1.30 K/uL INTERFACE SYSTEM EOSINOPHIL ABSOLUTE 0.08 0.00 - 0.70 K/uL INTERFACE SYSTEM BASOPHILS ABSOLUTE 0.01 0.00 - 0.20 K/uL INTERFACE SYSTEM 02/01/2007 10:2 4 AM CDT us Gibson Contreras MD HEMATOLOGY ORDERABLES Edited INTERFACE SYSTEM Refer to clinic/hospital department * CBC WITH DIFFERENTIAL (02/01/2007 10:24 AM CDT) WBC 5.3 4.0 - 9.8 K/uL INTERFACE SYSTEM RBC 4.00 3.90 - 4.90 M/uL INTERFACE SYSTEM HEMOGLOBIN 12.3 11.8 - 14.8 g/dL INTERFACE SYSTEM HEMATOCRIT 37.2 35.5 - 44.0 % INTERFACE SYSTEM MCV 93.0 82.0 - 99.0 fL INTERFACE SYSTEM MCH 30.8 27.2 - 32.6 pg INTERFACE SYSTEM MCHC 33.1 31.5 - 35.5 % INTERFACE SYSTEM RDW 14.1 11.5 - 14.5 % INTERFACE SYSTEM RDW-STDEV 47.7 37.1 - 48.7 fL INTERFACE SYSTEM PLATELETS 180 140 - 350 K/uL INTERFACE SYSTEM MPV 10.3 9.3 - 12.4 fL INTERFACE SYSTEM 02/01/2007 10:2 4 AM CDT Gibson Contreras MD HEMATOLOGY ORDERABLES Edited INTERFACE SYSTEM Refer to clinic/hospital department * (ABNORMAL) COMPREHENSIVE METABOLIC PANEL (02/01/2007 10:24 AM CDT) GLUCOSE 98 65 - 99 mg/dL INTERFACE SYSTEM CREATININE 0.58 0.51 - 0.95 mg/dL INTERFACE SYSTEM CALCIUM 8.5 8.4 - 10.2 mg/dL INTERFACE SYSTEM ALKALINE PHOSPHATASE 61 35 - 104 U/L INTERFACE SYSTEM AST 26 12 - 32 U/L INTERFACE SYSTEM ALT 36(H) 0 - 31 U/L INTERFACE SYSTEM TOTAL PROTEIN 6.8 6.3 - 8.6 g/dL INTERFACE SYSTEM ALBUMIN 4.3 3.4 - 4.8 g/dL INTERFACE SYSTEM BILIRUBIN TOTAL 0.2 0.2 - 1.0 mg/dL INTERFACE SYSTEM BUN 11 6 - 20 mg/dL INTERFACE SYSTEM SODIUM 140 135 - 145 mmol/L INTERFACE SYSTEM POTASSIUM 3.7 3.5 - 4.9 mmol/L INTERFACE SYSTEM CHLORIDE 107 96 - 108 mmol/L INTERFACE SYSTEM CO2 25 22 - 30 mmol/L INTERFACE SYSTEM GFR, >60 >=60 mL/min/1.7 sq meter INTERFACE SYSTEM GFR >60 >=60 mL/min/1.7 sq meter INTERFACE SYSTEM Comment: Estimated GFR rate interpretative information for both Americans and non- Americans is available on the [facility] Intranet at: [email or web address] Select: Lab Policies and Procedures Select: Reference Ranges - GFR 02/01/2007 10:2 4 AM CDT Gibson Contreras MD CHEMISTRY ORDERABLES Edited INTERFACE SYSTEM Refer to clinic/hospital department documented in this encounter Visit Diagnoses Diagnosis Malignant neoplasm [...] documented as of this encounter Care Teams Dentures Lab Technician Relationship Specialty Start Date End Date Titi Cummings MD [address] [phone] PCP - General Family Practice 10/10/23 documented as of this encounter
--- OUTSIDE RECORDS SUMMARY | 2024-11-29 12:47 | XMS_ITS | Encounter Summary ---
Author Organization [facility] Address [address] [place] [address] Care Team Providers Care Inside Sales Trainer Name Role Phone Titi Cummings MD Primary Care Provider Encounter Details Date Type Department Care Team (Latest Contact Info) Description 08/15/2002 Outpatient Historical HIS [facility] BRY Contreras, Gibson Rivera MD NO ADDRESS ON FILE MALIG NEOPLASM BREAST UP-OUTER (CMS/HCC) (Primary Dx) Social History Tobacco Use Types Packs/Day Years Used Date Smoking Tobacco: Never Assessed Comments Unknown Sex and Gender Information Value Date Recorded Sex Assigned at Not on file Legal Sex Female 4:40 AM BANKING REPRESENTATIVE Gender Identity Not on file Sexual Orientation Not on file documented as of this encounter Plan of Treatment Upcoming Encounters Date Type Department Care Team (Late st Contact Info) Description 12/16/2024 11:00 AM BANKING REPRESENTATIVE Office Visit [facility]necologic Oncology [place] [address] [place] [address] Becky Walton MD [address] [place] [address] 12/16/2024 11:30 AM BANKING REPRESENTATIVE Appointment [facility] 2nd Fl [address] [place] [address] Infusion Chair 6, 2nd Floor [place] 12/28/2024 10:00 AM CDT Office Visit [facility] Neurology [address] [place] [address] Navi Stephens MD [address] [facility] [address] [address] documented as of this encounter [...] documented as of this encounter Care Teams Inside Sales Trainer Relationship Specialty Start Date End Date Titi Cummings MD [address] [phone] PCP - General Family Practice 10/10/23 documented as of this encounter
--- OUTSIDE RECORDS SUMMARY | 2024-11-29 12:47 | XMS_ITS | Encounter Summary ---
Author Organization [facility] Address [address] [place] [address] Care Team Providers Care Clasp Machine Operator Name Role Phone Titi Cummings MD Primary Care Provider Encounter Details Date Type Department Care Team (Latest Contact Info) Description 01/15/2004 Outpatient Historical HIS [facility] BRY Contreras, Gibson Rivera MD NO ADDRESS ON FILE PERS HX OF BREAST MALIGNANCY (Primary Dx) Social History Tobacco Use Types Packs/Day Years Used Date Smoking Tobacco: Never Assessed Comments Unknown Sex and Gender Information Value Date Recorded Sex Assigned at Not on file Legal Sex Female 4:40 AM ACUTE CARE PHYSICIAN Gender Identity Not on file Sexual Orientation Not on file documented as of this encounter Plan of Treatment Upcoming Encounters Date Type Department Care Team (Late st Contact Info) Description 12/16/2024 11:00 AM ACUTE CARE PHYSICIAN Office Visit [facility] Gynecologic Oncology [place] [address] [place] [address] Becky Walton MD [address] [place] [address] 12/16/2024 11:30 AM ACUTE CARE PHYSICIAN Appointment [facility] 2nd Fl [address] [place] [address] Infusion Chair 6, 2nd Floor [place] 12/28/2024 10:00 AM CDT Office Visit [facility] Neurology [address] [place] [address] Navi Stephens MD [address] [facility] [address] [address] documented as of this encounter Visit Diagnoses Diagnosis Personal history of malignant neoplasm of breast- Primary documented in this encounter Additional Health Concerns Infection Onset Date Last Indicated Resolved Time R/O C. diff 03/28/2022 03/27/2022 03/28/2022 3:35 PM CDT R/O C. diff 04/12/2022 04/11/2022 04/12/2022 3:26 PM CDT R/O C. diff 04/13/2023 04/12/2023 04/13/2023 2:29 PM CDT documented as of this encounter Care Teams Clasp Machine Operator Relationship Specialty Start Date End Date Titi Cummings MD [address] [phone] PCP - General Family Practice 10/10/23 documented as of this encounter
--- OUTSIDE RECORDS SUMMARY | 2024-11-29 12:47 | XMS_ITS | Encounter Summary ---
Author Organization [facility] Address [address] [place] [address] Care Team Providers Care Clerk Stenographer Name Role Phone Titi Cummings MD Primary Care Provider Encounter Details Date Type Department Care Team (Latest Contact Info) Description 07/29/2004 Outpatient Historical HIS [facility] BRY Contreras, Gibson Rivera MD NO ADDRESS ON FILE MALIG NEOPLASM BREAST UP-OUTER (CMS/HCC) (Primary Dx) Social History Tobacco Use Types Packs/Day Years Used Date Smoking Tobacco: Never Assessed Comments Unknown Sex and Gender Information Value Date Recorded Sex Assigned at Not on file Legal Sex Female 4:40 AM GLASSWARE SELECTOR Gender Identity Not on file Sexual Orientation Not on file documented as of this encounter Plan of Treatment Upcoming Encounters Date Type Department Care Team (Late st Contact Info) Description 12/16/2024 11:00 AM GLASSWARE SELECTOR Office Visit [facility] Gynecologic Oncology [place] [address] [place] [address] Becky Walton MD [address] [place] [address] 12/16/2024 11:30 AM GLASSWARE SELECTOR Appointment [facility] 2nd Fl [address] [place] [address] Infusion Chair 6, 2nd Floor [place] 12/28/2024 10:00 AM CDT Office Visit [facility] Neurology [address] [place] [address] Navi Stephens MD [address] [facility] [address] [address] documented as of this encounter [...] documented as of this encounter Care Teams Clerk Stenographer Relationship Specialty Start Date End Date Titi Cummings MD [address] [phone] PCP - General Family Practice 10/10/23 documented as of this encounter
--- OUTSIDE RECORDS SUMMARY | 2024-11-29 12:47 | XMS_ITS | Encounter Summary ---
Author Organization [facility] Address 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 [place] [address] Becky Walton MD [address] [place] [address] 12/16/2024 11:30 AM EMPLOYEE BENEFITS DIRECTOR Appointment [facility] 2nd Fl [address] [place] [address] Infusion Chair 6, 2nd Floor [place] 12/28/2024 10:00 AM CDT Office Visit [facility] Neurology [address] [place] [address] Navi Stephens MD [address] [phone] documented as of this encounter Procedures Procedure Name Priority Date/Time Associated Diagnosis Comments XR CHEST PA AND LATERAL 2 VW Routine 02/12/2009 9:20 AM CDT CBC WITH DIFFERENTIAL Stat 02/12/2009 9:09 AM CDT COMPREHENSIVE METABOLIC PANEL Stat 02/12/2009 9:09 AM CDT documented in this encounter Results * XR CHEST PA AND LATERAL (02/12/2009 9:20 AM CDT) Anatomical Region Laterality Modality Chest Other 02/12/2009 9:20 AM CDT Narrative 02/12/2009 1:35 PM CDT [place] [id number], [place] [address] Admit Date: 02/12/2009 ELOISA DRAKE Sex: F Admit Prov: MEHDI MARTINES Date: 1950 Primary Care Prov: ARLYN VÁZQUEZ CMRN: [id number] Room: [facility] SSN: [id number] IMAGING SERVICES Ordering Prov: N/A Accession Number: [id number] Interpretation CHEST, PA AND LATERAL, 02/12/09 History: Breast cancer. Findings: Surgical clips are noted in the left breast. There is no infiltrate, pleural effusion or pneumothorax. Heart size, mediastinum and pulmonary vascularity are normal. IMPRESSION: No active pulmonary disease. . Dictated by: WANDER CHAVES 02/12/2009 09:51 Electronically signed by: WANDER CHAVES 02/12/2009 13:33 Transcribed: 02/12/2009 10:21 LE Procedure Note Wander Chaves MD - 02/12/2009 [facility] [address], [place] [address] Admit Date: 02/12/2009 CHARLINEELOISA Rodriguez Sex: F Admit Prov: MEHDI MARTINES Date: 1950 Primary Care Prov: ARLYN VÁZQUEZ CMRN: [id number] Room: [facility] SSN: [id number] IMAGING SERVICES Ordering Prov: N/A Interpretation CHEST, PA AND LATERAL, 02/12/09 History: Breast cancer. Findings: Surgical clips are noted in the left breast. There is no infiltrate, pleural effusion or pneumothorax. Heart size, mediastinumand pulmonary vascularity are normal. IMPRESSION: No active pulmonary disease. . Dictated by: WANDER CHAVES 02/12/2009 09:51 Electronically signed by: WANDER CHAVES 02/12/2009 13:33 Transcribed: 02/12/2009 10:21 LE us Mehdi Martines MD DIAGNOSTIC IMAGING ORDERABLE S Final Result * COMPREHENSIVE METABOLIC PANEL (02/12/2009 9:09 AM CDT) ALKALINE PHOSPHATASE 60 35 - 104 U/L [facility] BILIRUBIN TOTAL 0.3 0.2 - 1.0 mg/dL [facility] CO2 24 22 - 30 mmol/L [facility] TOTAL PROTEIN 7.1 6.3 - 8.6 g/dL [facility] POTASSIUM 3.8 3.5 - 4.9 mmol/L [facility] GLUCOSE 90 65 - 99 mg/dL [facility] AST 26 12 - 32 U/L [facility] BUN 11 6 - 20 mg/dL [facility] CALCIUM 9.1 8.6 - 10.2 mg/dL [facility] CHLORIDE 105 96 - 108 mmol/L [facility] ALBUMIN 4.5 3.4 - 4.8 g/dL [facility] CREATININE 0.66 0.51 - 0.95 mg/dL [facility] SODIUM 141 135 - 145 mmol/L [facility] ALT 24 0 - 31 U/L [facility] GFR, >60 >=60 mL/min/1.7 sq meter [facility] GFR >60 >=60 mL/min/1.7 sq meter [facility] Comment: Modification of Diet in Renal Disease (MDRD) study formula. Estimated GFR rate interpretative information for both Americans and non- Americans is available on the [facility] Intranet at: [email or web address] Select: Lab Policies and Procedures Select: Reference Ranges - GFR Blood specimen (specimen) 02/12/2009 9:09 AM CDT 02/12/2009 9:35 AM CDT Narrative INTERFACE SYSTEM - 02/12/2009 11:09 AM CDT Results called to at 02/12/09 11:09 and read back verified. us Mehdi Martines MD CHEMISTRY ORDERABLES Edited INTERFACE SYSTEM Refer to clinic/hospital department [facility] CLIA# [id number] [address] [place] [address] * CBC WITH DIFFERENTIAL (02/12/2009 9:09 AM CDT) MCV 94.6 82.0 - 99.0 fL [facility] PLATELETS 170 140 - 350 K/uL [facility] HEMOGLOBIN 12.4 11.8 - 14.8 g/dL [facility] RDW 14.0 11.5 - 14.5 % [facility] WBC 4.8 4.0 - 9.8 K/uL [facility] MCH 30.7 27.2 - 32.6 pg [facility] MPV 10.2 9.3 - 12.4 fL [facility] HEMATOCRIT 38.2 35.5 - 44.0 % [facility] RDW-STDEV 48.2 37.1 - 48.7 fL [facility] RBC 4.04 3.90 - 4.90 M/uL [facility] MCHC 32.5 31.5 - 35.5 % [facility] NEUTROPHILS 56 45 - 70 % [facility] NEUTROPHIL ABSOLUTE 2.68 1.90 - 7.00 K/uL [facility] EOSINOPHILS 1 0 - 7 % [facility] EOSINOPHIL ABSOLUTE 0.07 0.00 - 0.70 K/uL [facility] LYMPHOCYTES 36 16 - 45 % [facility] LYMPHOCYTE ABSOLUTE 1.72 0.70 - 4.50 K/uL [facility] BASOPHILS 0 0 - 2 % [facility] BASOPHILS ABSOLUTE 0.01 0.00 - 0.20 K/uL [facility] MONOCYTES 7 3 - 13 % [facility] MONOCYTE ABSOLUTE 0.35 0.10 - 1.30 K/uL [facility] Blood specimen (specimen) 02/12/2009 9:09 AM CDT 02/12/2009 9:35 AM CDT Narrative INTERFACE SYSTEM - 02/12/2009 11:09 AM CDT Results called to at 02/12/09 11:09 and read back verified. us Mehdi Martines MD HEMATOLOGY ORDERABLES Edited INTERFACE SYSTEM Refer to clinic/hospital department [facility] CLIA# [id number] [address] [place] [address] documented in this encounter Visit Diagnoses Diagnosis Malignant neoplasm of upper-outer quadrant of female breast (CMS/HCC) Malignant neoplasm of upper-outer quadrant of female breast documented in this encounter Additional Health Concerns Infection Onset Date Last Indicated Resolved Time R/O C. diff 03/28/2022 03/27/2022 03/28/2022 3:35 PM CDT R/O C. diff 04/12/2022 04/11/2022 04/12/2022 3:26 PM CDT R/O C. diff 04/13/2023 04/12/2023 04/13/2023 2:29 PM CDT documented as of this encounter Care Teams Ticket Collector Or Usher Relationship Specialty Start Date End Date Titi Cummings MD [address] [phone] PCP - General Family Practice 10/10/23 documented as of this encounter
--- OUTSIDE RECORDS SUMMARY | 2024-11-29 12:47 | XMS_ITS | Encounter Summary ---
Author Organization [facility] Address [address] [place] [address] Care Team Providers Care Laboratory Secretary Name Role Phone Titi Cummings MD Primary Care Provider Encounter Details Date Type Department Care Team (Late st Contact Info) Description 03/16/2005 Outpatient Historical [facility] Support Serv. (Adt Cardiology-[facility]) [address] [place] [address] Mehran Salgado MD NO ADDRESS ON FILE Social History Tobacco Use Types Packs/Day Years Used Date Smoking Tobacco: Never Assessed Comments Unknown Sex and Gender Information Value Date Recorded Sex Assigned at Not on file Legal Sex Female 4:40 AM SHOE REPAIRER APPRENTICE Gender Identity Not on file Sexual Orientation Not on file documented as of this encounter Plan of Treatment Upcoming Encounters Date Type Department Care Team (Late st Contact Info) Description 12/16/2024 11:00 AM SHOE REPAIRER APPRENTICE Office Visit [facility] Gynecologic Oncology [place] [address] [place] [address] Becky Walton MD [address] [place] [address] 12/16/2024 11:30 AM SHOE REPAIRER APPRENTICE Appointment [facility] 2nd Fl [address] [place] [address] Infusion Chair 6, 2nd Floor [place] 12/28/2024 10:00 AM CDT Office Visit [facility] Neurology [address] [place] [address] Navi Stephens MD [address] [address] documented as of this encounter Visit Diagnoses Not on filedocumented in this encounter Additional Health Concerns Infection Onset Date Last Indicated Resolved Time R/O C. diff 03/28/2022 03/27/2022 03/28/2022 3:35 PM CDT R/O C. diff 04/12/2022 04/11/2022 04/12/2022 3:26 PM CDT R/O C. diff 04/13/2023 04/12/2023 04/13/2023 2:29 PM CDT documented as of this encounter Care Teams Laboratory Secretary Relationship Specialty Start Date End Date Titi Cummings MD [address] [phone] PCP - General Family Practice 10/10/23 documented as of this encounter
--- OUTSIDE RECORDS SUMMARY | 2024-11-29 12:47 | XMS_ITS | Encounter Summary ---
Author Organization [facility] Address [address] [place] [address] Care Team Providers Care Casting And Curing Operator Name Role Phone Titi Cummings MD Primary Care Provider Encounter Details Date Type Department Care Team (Latest Contact Info) Description 07/28/2005 Outpatient Historical HIS [facility] BRY Contreras, Gibson Rivera MD NO ADDRESS ON FILE MALIG NEOPLASM BREAST UP-OUTER (CMS/HCC) (Primary Dx) Social History Tobacco Use Types Packs/Day Years Used Date Smoking Tobacco: Never Assessed Comments Unknown Sex and Gender Information Value Date Recorded Sex Assigned at Not on file Legal Sex Female 4:40 AM SECURITY SYSTEMS ADMINISTRATOR Gender Identity Not on file Sexual Orientation Not on file documented as of this encounter Plan of Treatment Upcoming Encounters Date Type Department Care Team (Late st Contact Info) Description 12/16/2024 11:00 AM SECURITY SYSTEMS ADMINISTRATOR Office Visit [facility] Gynecologic Oncology [place] [address] [place] [address] Becky Walton MD [address] [place] [address] 12/16/2024 11:30 AM SECURITY SYSTEMS ADMINISTRATOR Appointment [facility] 2nd Fl [address] [place] [address] Infusion Chair 6, 2nd Floor [place] 12/28/2024 10:00 AM CDT Office Visit [facility] Neurology [address] [place] [address] Navi Stephens MD [address] [facility] [address] [address] documented as of this encounter Procedures Procedure Name Priority Date/Time Associated Diagnosis Comments CBC WITH DIFFERENTIAL Routine 07/28/2005 10:53 AM CDT CBC WITH DIFFERENTIAL Routine 07/28/2005 10:53 AM CDT COMPREHENSIVE METABOLIC PANEL Routine 07/28/2005 10:53 AM CDT documented in this encounter Results * CBC WITH DIFFERENTIAL (07/28/2005 10:53 AM CDT) NEUTROPHILS 54 45 - 70 % INTERFAC E SYSTEM LYMPHOCYTES 35 16 - 45 % INTERFAC E SYSTEM MONOCYTES 9 3 - 13 % INTERFACE SYSTEM EOSINOPHILS 1 0 - 7 % INTERFAC E SYSTEM BASOPHILS 0 0 - 2 % INTERFACE SYSTEM NEUTROPHIL ABSOLUTE 3.26 1.90 - 7.00 K/uL INTERFACE SYSTEM LYMPHOCYTE ABSOLUTE 2.15 0.70 - 4.50 K/uL INTERFACE SYSTEM MONOCYTE ABSOLUTE 0.57 0.10 - 1.30 K/uL INTERFACE SYSTEM EOSINOPHIL ABSOLUTE 0.08 0.00 - 0.70 K/uL INTERFACE SYSTEM BASOPHILS ABSOLUTE 0.02 0.00 - 0.20 K/uL INTERFACE SYSTEM 07/28/2005 10:5 3 AM CDT Gibson Contreras MD HEMATOLOGY ORDERABLES Final Result INTERFACE SYSTEM Refer to clinic/hospital department * CBC WITH DIFFERENTIAL (07/28/2005 10:53 AM CDT) WBC 6.1 4.0 - 9.8 K/uL INTERFACE SYSTEM RBC 4.37 3.90 - 4.90 M/uL INTERFACE SYSTEM HEMOGLOBIN 13.5 11.8 - 14.8 g/dL INTERFACE SYSTEM HEMATOCRIT 40.9 35.5 - 44.0 % INTERFACE SYSTEM MCV 93.6 82.0 - 99.0 fL INTERFACE SYSTEM MCH 30.9 27.2 - 32.6 pg INTERFACE SYSTEM MCHC 33.0 31.5 - 35.5 % INTERFACE SYSTEM RDW 14.1 11.5 - 14.5 % INTERFACE SYSTEM RDW-STDEV 48.5 37.1 - 48.7 fL INTERFACE SYSTEM PLATELETS 165 140 - 350 K/uL INTERFACE SYSTEM MPV 10.3 9.3 - 12.4 fL INTERFACE SYSTEM 07/28/2005 10:5 3 AM CDT us Gibson Contreras MD HEMATOLOGY ORDERABLES Final Result Performing Organization Address City/[facility] de Phone Number INTERFACE SYSTEM Refer to clinic/hospital department * COMPREHENSIVE METABOLIC PANEL (07/28/2005 10:53 AM CDT) GLUCOSE 92 65 - 109 mg/dL INTERFACE SYSTEM CREATININE 0.7 0.4 - 1.2 mg/dL INTERFACE SYSTEM CALCIUM 9.2 8.6 - 10.2 mg/dL INTERFACE SYSTEM AST 24 12 - 32 U/L INTERFACE SYSTEM ALKALINE PHOSPHATASE 59 35 - 104 U/L INTERFACE SYSTEM BUN 11 6 - 20 mg/dL INTERFACE SYSTEM BILIRUBIN TOTAL 0.3 0.2 - 1.0 mg/dL INTERFACE SYSTEM ALBUMIN 4.7 3.4 - 4.8 g/dL INTERFACE SYSTEM TOTAL PROTEIN 7.5 6.3 - 8.6 g/dL INTERFACE SYSTEM ALT 24 0 - 31 U/L INTERFACE SYSTEM SODIUM 141 135 - 145 mmol/L INTERFACE SYSTEM POTASSIUM 3.7 3.5 - 4.9 mmol/L INTERFACE SYSTEM CHLORIDE 103 96 - 108 mmol/L INTERFACE SYSTEM CO2 29 22 - 30 mmol/L INTERFACE SYSTEM 07/28/2005 10:5 3 AM CDT Gibson Contreras MD CHEMISTRY ORDERABLES Final R esult Performing Organization Address City/[facility] Co de Phone Number INTERFACE SYSTEM Refer to clinic/hospital department documented [...] documented as of this encounter Care Teams Casting And Curing Operator Relationship Specialty Start Date End Date Titi Cummings MD [address] [address] PCP - General Family Practice 10/10/23 documented as of this encounter
--- OUTSIDE RECORDS SUMMARY | 2024-11-29 12:47 | XMS_ITS | Encounter Summary ---
Author Organization [facility] Address [address] [place] [address] Care Team Providers Care Vehicle Glass Technician Name Role Phone Titi Cummings MD Primary Care Provider Encounter Details Date Type Department Care Team (Latest Contact Info) Description 01/05/2006 Outpatient Historical HIS [facility] BRY Contreras, Gibson Rivera MD NO ADDRESS ON FILE Other Screening Mammogram (Primary Dx) Social History Tobacco Use Types Packs/Day Years Used Date Smoking Tobacco: Never Assessed Comments Unknown Sex and Gender Information Value Date Recorded Sex Assigned at Not on file Legal Sex Female 4:40 AM OPERATING ROOM RN Gender Identity Not on file Sexual Orientation Not on file documented as of this encounter Plan of Treatment Upcoming Encounters Date Type Department Care Team (Late st Contact Info) Description 12/16/2024 11:00 AM OPERATING ROOM RN Office Visit [facility] Gynecologic Oncology [place] [address] [place] [address] Becky Walton MD [address] [place] [address] 12/16/2024 11:30 AM OPERATING ROOM RN Appointment [facility] 2nd Fl [address] [place] [address] Infusion Chair 6, 2nd Floor [place] 12/28/2024 10:00 AM CDT Office Visit [facility] Neurology [address] [place] [address] Navi Stephens MD [address] [facility] [address] [address] documented as of this encounter Visit Diagnoses Diagnosis Other screening mammogram- Primary documented in this encounter Additional Health Concerns Infection Onset Date Last Indicated Resolved Time R/O C. diff 03/28/2022 03/27/2022 03/28/2022 3:35 PM CDT R/O C. diff 04/12/2022 04/11/2022 04/12/2022 3:26 PM CDT R/O C. diff 04/13/2023 04/12/2023 04/13/2023 2:29 PM CDT documented as of this encounter Care Teams Vehicle Glass Technician Relationship Specialty Start Date End Date Titi Cummings MD [address] [phone] PCP - General Family Practice 10/10/23 documented as of this encounter
--- OUTSIDE RECORDS SUMMARY | 2024-11-29 12:47 | XMS_ITS | Encounter Summary ---
Author Organization [facility] Address [address] [place] [address] Care Team Providers Care Media Reconciliation Specialist Name Role Phone Titi Cummings MD Primary Care Provider Encounter Details Date Type Department Care Team (Latest Contact Info) Description 01/15/2004 Outpatient Historical HIS [facility] BRY Contreras, Gibson Rivera MD NO ADDRESS ON FILE MALIG NEOPLASM BREAST UP-OUTER (CMS/HCC) (Primary Dx) Social History Tobacco Use Types Packs/Day Years Used Date Smoking Tobacco: Never Assessed Comments Unknown Sex and Gender Information Value Date Recorded Sex Assigned at Not on file Legal Sex Female 4:40 AM PRODUCTION REPAIRER Gender Identity Not on file Sexual Orientation Not on file documented as of this encounter Plan of Treatment Upcoming Encounters Date Type Department Care Team (Late st Contact Info) Description 12/16/2024 11:00 AM PRODUCTION REPAIRER Office Visit [facility] Gynecologic Oncology [place] [address] [place] [address] Becky Walton MD [address] [place] [address] 12/16/2024 11:30 AM PRODUCTION REPAIRER Appointment [facility] 2nd Fl [address] [place] [address] Infusion Chair 6, 2nd Floor [facility] 12/28/2024 10:00 AM CDT Office Visit [facility] Neurology [address] [place] [address] Navi Stephens MD [address] [facility] [address] [address] documented as of this encounter [...] documented as of this encounter Care Teams Media Reconciliation Specialist Relationship Specialty Start Date End Date Titi Cummings MD [address] [phone] PCP - General Family Practice 10/10/23 documented as of this encounter
--- OUTSIDE RECORDS SUMMARY | 2024-11-29 12:47 | XMS_ITS | Encounter Summary ---
Author Organization [facility] Address [address] [place] [address] Care Team Providers Care Manager Strategic Marketing Name Role Phone Titi Cummings MD Primary Care Provider Encounter Details Date Type Department Care Team (Latest Contact Info) Description 01/05/2005 Outpatient Historical HIS [facility] BRY Contreras, Gibson Rivera MD NO ADDRESS ON FILE SURGERY FOLLOWUP, OTHER (Primary Dx) Social History Tobacco Use Types Packs/Day Years Used Date Smoking Tobacco: Never Assessed Comments Unknown Sex and Gender Information Value Date Recorded Sex Assigned at Not on file Legal Sex Female 4:40 AM YARN PACKER Gender Identity Not on file Sexual Orientation Not on file documented as of this encounter Plan of Treatment Upcoming Encounters Date Type Department Care Team (Late st Contact Info) Description 12/16/2024 11:00 AM YARN PACKER Office Visit [facility] Gynecologic Oncology [place] [address] [place] [address] Becky Walton MD [address] [place] [address] 12/16/2024 11:30 AM YARN PACKER Appointment [facility] 2nd Fl [address] [place] [address] Infusion Chair 6, 2nd Floor [place] 12/28/2024 10:00 AM CDT Office Visit [facility] Neurology [address] [place] [address] Navi Stephens MD [address] [facility] [address] [phone] documented as of this encounter Procedures Procedure Name Priority Date/Time Associated Diagnosis Comments CBC WITH DIFFERENTIAL Routine 01/05/2005 11:07 AM YARN PACKER CBC WITH DIFFERENTIAL Routine 01/05/2005 11:07 AM YARN PACKER COMPREHENSIVE METABOLIC PANEL Routine 01/05/2005 11:07 AM YARN PACKER documented in this encounter Results * CBC WITH DIFFERENTIAL (01/05/2005 11:07 AM YARN PACKER) NEUTROPHILS 63 45 - 70 % INTERFAC E SYSTEM LYMPHOCYTES 30 16 - 45 % INTERFAC E SYSTEM MONOCYTES 7 3 - 13 % INTERFACE SYSTEM EOSINOPHILS 1 0 - 7 % INTERFAC E SYSTEM BASOPHILS 0 0 - 2 % INTERFACE SYSTEM NEUTROPHIL ABSOLUTE 2.68 1.90 - 7.00 K/uL INTERFACE SYSTEM LYMPHOCYTE ABSOLUTE 1.26 0.70 - 4.50 K/uL INTERFACE SYSTEM MONOCYTE ABSOLUTE 0.30 0.10 - 1.30 K/uL INTERFACE SYSTEM EOSINOPHIL ABSOLUTE 0.03 0.00 - 0.70 K/uL INTERFACE SYSTEM BASOPHILS ABSOLUTE 0.00 0.00 - 0.20 K/uL INTERFACE SYSTEM 01/05/2005 11:0 7 AM YARN PACKER us Gibson Contreras MD HEMATOLOGY ORDERABLES Final Result INTERFACE SYSTEM Refer to clinic/hospital department * (ABNORMAL) CBC WITH DIFFERENTIAL (01/05/2005 11:07 AM YARN PACKER) WBC 4.3 4.0 - 9.8 K/uL INTERFACE SYSTEM RBC 4.19 3.90 - 4.90 M/uL INTERFACE SYSTEM HEMOGLOBIN 12.8 11.8 - 14.8 g/dL INTERFACE SYSTEM HEMATOCRIT 39.8 35.5 - 44.0 % INTERFACE SYSTEM MCV 95.0 82.0 - 99.0 fL INTERFACE SYSTEM MCH 30.5 27.2 - 32.6 pg INTERFACE SYSTEM MCHC 32.2 31.5 - 35.5 % INTERFACE SYSTEM RDW 14.2 11.5 - 14.5 % INTERFACE SYSTEM RDW-STDEV 49.3(H) 37.1 - 48.7 fL INTERFACE SYSTEM PLATELETS 170 140 - 350 K/uL INTERFACE SYSTEM MPV 10.3 9.3 - 12.4 fL INTERFACE SYSTEM 01/05/2005 11:0 7 AM YARN PACKER us Gibson Contreras MD HEMATOLOGY ORDERABLES Final Result Performing Organization Address [facility] de Phone Number INTERFACE SYSTEM Refer to clinic/hospital department * (ABNORMAL) COMPREHENSIVE METABOLIC PANEL (01/05/2005 11:07 AM YARN PACKER) GLUCOSE 90 65 - 109 mg/dL INTERFACE SYSTEM CREATININE 0.7 0.4 - 1.2 mg/dL INTERFACE SYSTEM CALCIUM 9.2 8.6 - 10.2 mg/dL INTERFACE SYSTEM AST 23 12 - 32 U/L INTERFACE SYSTEM ALKALINE PHOSPHATASE 58 35 - 104 U/L INTERFACE SYSTEM BUN 14 6 - 20 mg/dL INTERFACE SYSTEM BILIRUBIN TOTAL 0.5 0.2 - 1.0 mg/dL INTERFACE SYSTEM ALBUMIN 4.7 3.4 - 4.8 g/dL INTERFACE SYSTEM TOTAL PROTEIN 7.5 6.3 - 8.6 g/dL INTERFACE SYSTEM ALT 24 0 - 31 U/L INTERFACE SYSTEM SODIUM 144 135 - 145 mmol/L INTERFACE SYSTEM POTASSIUM 3.4(L) 3.5 - 4.9 mmol/L INTERFACE SYSTEM CHLORIDE 107 96 - 108 mmol/L INTERFACE SYSTEM CO2 26 22 - 30 mmol/L INTERFACE SYSTEM 01/05/2005 11:0 7 AM YARN PACKER us Gibson Contreras MD CHEMISTRY ORDERABLES Final R esult Performing Organization Address [facility] [address] [facility] de Phone Number INTERFACE SYSTEM Refer to clinic/hospital department documented in this encounter Visit Diagnoses Diagnosis Follow-up examination, following other surgery- Primary documented in this encounter Additional Health Concerns Infection Onset Date Last Indicated Resolved Time R/O C. diff 03/28/2022 03/27/2022 03/28/2022 3:35 PM CDT R/O C. diff 04/12/2022 04/11/2022 04/12/2022 3:26 PM CDT R/O C. diff 04/13/2023 04/12/2023 04/13/2023 2:29 PM CDT documented as of this encounter Care Teams Manager Strategic Marketing Relationship Specialty Start Date End Date Titi Cummings MD [address] [place] [phone] PCP - General Family Practice 10/10/23 documented as of this encounter
--- OUTSIDE RECORDS SUMMARY | 2024-11-29 12:47 | XMS_ITS | Encounter Summary ---
Author Organization [facility] Address [address] [place] [address] Care Team Providers Care Ammunition Assembly I Laborer Name Role Phone Titi Cummings MD Primary Care Provider Encounter Details Date Type Department Care Team (Latest Contact Info) Description 01/16/2003 Outpatient Historical HIS [facility] BRY Contreras, Gibson Rivera MD NO ADDRESS ON FILE PERS HX OF BREAST MALIGNANCY (Primary Dx) Social History Tobacco Use Types Packs/Day Years Used Date Smoking Tobacco: Never Assessed Comments Unknown Sex and Gender Information Value Date Recorded Sex Assigned at Not on file Legal Sex Female 4:40 AM TOY PAINTER Gender Identity Not on file Sexual Orientation Not on file documented as of this encounter Plan of Treatment Upcoming Encounters Date Type Department Care Team (Late st Contact Info) Description 12/16/2024 11:00 AM TOY PAINTER Office Visit [facility] Gynecologic Oncology [place] [address] [place] [address] Becky Walton MD [address] [place] [address] 12/16/2024 11:30 AM TOY PAINTER Appointment [facility] 2nd Fl [address] [place] [address] Infusion Chair 6, 2nd Floor [place] 12/28/2024 10:00 AM CDT Office Visit [facility] Neurology [address] [place] [address] Navi Stephens MD [address] [facility] [address] [address] documented as of this encounter Visit Diagnoses [...] documented as of this encounter Care Teams Ammunition Assembly I Laborer Relationship Specialty Start Date End Date Titi Cummings MD [address] [phone] PCP - General Family Practice 10/10/23 documented as of this encounter
--- OUTSIDE RECORDS SUMMARY | 2024-11-29 12:47 | XMS_ITS | Encounter Summary ---
Author Organization [facility] Address 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) Social History Tobacco Use Types Packs/Day Years Used Date Smoking Tobacco: Never Assessed Comments Unknown Sex and Gender Information Value Date Recorded Sex Assigned at Not on file Legal Sex Female 4:40 AM EDGER TECHNICIAN Gender Identity Not on file Sexual Orientation Not on file documented as of this encounter Plan of Treatment Upcoming Encounters Date Type Department Care Team (Late st Contact Info) Description 12/16/2024 11:00 AM EDGER TECHNICIAN Office Visit [facility] Gynecologic Oncology [place] [address] [place] [address] Becky Walton MD [address] [place] [address] 12/16/2024 11:30 AM EDGER TECHNICIAN Appointment [facility] 2nd Fl [address] [place] [address] Infusion Chair 6, 2nd Floor [place] 12/28/2024 10:00 AM CDT Office Visit [facility] Neurology [address] [place] [address] Navi Stephens MD [address] [facility] [address] [address] documented as [...] documented as of this encounter Care Teams Crewman Armoured Personnel Carrier M113 Relationship Specialty Start Date End Date Titi Cummings MD [address] [phone] PCP - General Family Practice 10/10/23 documented as of this encounter
--- OUTSIDE RECORDS SUMMARY | 2024-11-29 12:47 | XMS_ITS | Encounter Summary ---
Author Organization [facility] Address [address] [place] [address] Care Team Providers Care Gas Controller Name Role Phone Titi Cummings MD Primary Care Provider Encounter Details Date Type Department Care Team (Latest Contact Info) Description 08/11/2008 Outpatient Historical HIS [facility] Gibson Contreras MD NO ADDRESS ON FILE Malignant Neoplasm of Breast (Female), Unspecified Site (CMS/HCC) Social History Tobacco Use Types Packs/Day Years Used Date Smoking Tobacco: Never Assessed Comments Unknown Sex and Gender Information Value Date Recorded Sex Assigned at Not on file Legal Sex Female 4:40 AM POWER SWEEPER OPERATOR Gender Identity Not on file Sexual Orientation Not on file documented as of this encounter Plan of Treatment Upcoming Encounters Date Type Department Care Team (Late st Contact Info) Description 12/16/2024 11:00 AM POWER SWEEPER OPERATOR Office Visit [facility] Gynecologic Oncology [place] [address] [place] [address] Becky Walton MD [address] [place] [address] 12/16/2024 11:30 AM POWER SWEEPER OPERATOR Appointment [facility] 2nd Fl [address] [place] [address] Infusion Chair 6, 2nd Floor [place] 12/28/2024 10:00 AM CDT Office Visit [facility] Neurology [address] [place] [address] Navi Stephens MD [address] [facility] [address] [address] documented as of this encounter Visit Diagnoses Diagnosis Malignant neoplasm of breast (female), unspecified site (CMS/HCC) Malignant neoplasm of breast (female), unspecified site documented in this encounter Additional Health Concerns Infection Onset Date Last Indicated Resolved Time R/O C. diff 03/28/2022 03/27/2022 03/28/2022 3:35 PM CDT R/O C. diff 04/12/2022 04/11/2022 04/12/2022 3:26 PM CDT R/O C. diff 04/13/2023 04/12/2023 04/13/2023 2:29 PM CDT documented as of this encounter Care Teams Gas Controller Relationship Specialty Start Date End Date Titi Cummings MD 4 [facility] [address] [place] [phone] PCP - General Family Practice 10/10/23 documented as of this encounter
--- OUTSIDE RECORDS SUMMARY | 2024-11-29 12:47 | XMS_ITS | Encounter Summary ---
Author Organization [facility] Address [address] [place] [address] Care Team Providers Care Contract Designer Name Role Phone Titi Cummings MD Primary Care Provider Encounter Details Date Type Department Care Team (Latest Contact Info) Description 01/05/2005 Outpatient Historical HIS [facility] BRY Contreras, Gibson Rivera MD NO ADDRESS ON FILE SURGERY FOLLOWUP, OTHER (Primary Dx) Social History Tobacco Use Types Packs/Day Years Used Date Smoking Tobacco: Never Assessed Comments Unknown Sex and Gender Information Value Date Recorded Sex Assigned at Not on file Legal Sex Female 4:40 AM ANTHROPOLOGIST PHYSICAL Gender Identity Not on file Sexual Orientation Not on file documented as of this encounter Plan of Treatment Upcoming Encounters Date Type Department Care Team (Late st Contact Info) Description 12/16/2024 11:00 AM ANTHROPOLOGIST PHYSICAL Office Visit [facility] Gynecologic Oncology [place] [address] [place] [address] Becky Walton MD [address] [place] [address] 12/16/2024 11:30 AM ANTHROPOLOGIST PHYSICAL Appointment [facility] 2nd Fl [address] [place] [address] Infusion Chair 6, 2nd Floor [place] 12/28/2024 10:00 AM CDT Office Visit [facility] Neurology [address] [place] [address] Navi Stephens MD [address] [facility] [address] [address] documented as of this encounter Visit Diagnoses Diagnosis Follow-up examination, following other surgery- Primary documented in this encounter Additional Health Concerns Infection Onset Date Last Indicated Resolved Time R/O C. diff 03/28/2022 03/27/2022 03/28/2022 3:35 PM CDT R/O C. diff 04/12/2022 04/11/2022 04/12/2022 3:26 PM CDT R/O C. diff 04/13/2023 04/12/2023 04/13/2023 2:29 PM CDT documented as of this encounter Care Teams Contract Designer Relationship Specialty Start Date End Date Titi Cummings MD [address] [phone] PCP - General Family Practice 10/10/23 documented as of this encounter
--- OUTSIDE RECORDS SUMMARY | 2024-11-29 12:47 | XMS_ITS | Encounter Summary ---
Author Organization [facility] Address [address] [place] [address] Care Team Providers Care Superintendent Radio Communications Name Role Phone Titi Cummings MD Primary Care Provider Encounter Details Date Type Department Care Team (Latest Contact Info) Description 02/01/2007 Outpatient Historical HIS [facility] BRY Contreras, Gibson Rivera MD NO ADDRESS ON FILE Other Screening Mammogram (Primary Dx) Social History Tobacco Use Types Packs/Day Years Used Date Smoking Tobacco: Never Assessed Comments Unknown Sex and Gender Information Value Date Recorded Sex Assigned at Not on file Legal Sex Female 4:40 AM HYDRAULIC RUBBISH COMPACTOR MECHANIC Gender Identity Not on file Sexual Orientation Not on file documented as of this encounter Plan of Treatment Upcoming Encounters Date Type Department Care Team (Late st Contact Info) Description 12/16/2024 11:00 AM HYDRAULIC RUBBISH COMPACTOR MECHANIC Office Visit [facility] Gynecologic Oncology [place] [address] [place] [address] Becky Walton MD [address] [place] [address] 12/16/2024 11:30 AM HYDRAULIC RUBBISH COMPACTOR MECHANIC Appointment [facility] 2nd Fl [address] [place] [address] Infusion Chair 6, 2nd Floor [place] 12/28/2024 10:00 AM CDT Office Visit [facility] Neurology [address] [place] [address] Navi Stephens MD [address] [facility] [address] [address] documented as of this encounter Visit Diagnoses Diagnosis Other screening mammogram- Primary documented in this encounter Additional Health Concerns Infection Onset Date Last Indicated Resolved Time R/O C. diff 03/28/2022 03/27/2022 03/28/2022 3:35 PM CDT R/O C. diff 04/12/2022 04/11/2022 04/12/2022 3:26 PM CDT R/O C. diff 04/13/2023 04/12/2023 04/13/2023 2:29 PM CDT documented as of this encounter Care Teams Superintendent Radio Communications Relationship Specialty Start Date End Date Titi Cummings MD [address] [phone] PCP - General Family Practice 10/10/23 documented as of this encounter
--- OUTSIDE RECORDS SUMMARY | 2024-11-29 12:47 | XMS_ITS | Encounter Summary ---
Author Organization [facility] Address [address] [place] [address] Care Team Providers Care Salmon Troll Fisher Name Role Phone Titi Cummings MD Primary Care Provider Encounter Details Date Type Department Care Team (Latest Contact Info) Description 01/16/2003 Outpatient Historical HIS [facility] BRY Contreras, Gibson Rivera MD NO ADDRESS ON FILE MALIG NEOPLASM BREAST UP-OUTER (CMS/HCC) (Primary Dx) Social History Tobacco Use Types Packs/Day Years Used Date Smoking Tobacco: Never Assessed Comments Unknown Sex and Gender Information Value Date Recorded Sex Assigned at Not on file Legal Sex Female 4:40 AM NAVIGATION OFFICER Gender Identity Not on file Sexual Orientation Not on file documented as of this encounter Plan of Treatment Upcoming Encounters Date Type Department Care Team (Late st Contact Info) Description 12/16/2024 11:00 AM NAVIGATION OFFICER Office Visit [facility] Gynecologic Oncology [place] [address] [facility] [address] [place] [address] Becky Walton MD [address] [place] [address] 12/16/2024 11:30 AM NAVIGATION OFFICER Appointment [facility] 2nd Fl [address] [place] [address] Infusion Chair 6, 2nd Floor [place] 12/28/2024 10:00 AM CDT Office Visit [facility] Neurology [address] [place] [address] Navi Stephens MD [address] [facility] [address] [address] documented as of this encounter [...] documented as of this encounter Care Teams Salmon Troll Fisher Relationship Specialty Start Date End Date Titi Cummings MD [address] [phone] PCP - General Family Practice 10/10/23 documented as of this encounter
--- OUTSIDE RECORDS SUMMARY | 2024-11-29 12:47 | XMS_ITS | Encounter Summary ---
Author Organization [facility] Address [address] [place] [address] Care Team Providers Care Technical Professional Name Role Phone Titi Cummings MD Primary Care Provider Encounter Details Date Type Department Care Team (Latest Contact Info) Description 01/15/2004 Outpatient Historical HIS [facility] BRY Contreras, Gibson Rivera MD NO ADDRESS ON FILE SCREENING MAMM-MAILG NEOPL-OTHER (Primary Dx) Social History Tobacco Use Types Packs/Day Years Used Date Smoking Tobacco: Never Assessed Comments Unknown Sex and Gender Information Value Date Recorded Sex Assigned at Not on file Legal Sex Female 4:40 AM MODEL AND MOLD MAKER PLASTER Gender Identity Not on file Sexual Orientation Not on file documented as of this encounter Plan of Treatment Upcoming Encounters Date Type Department Care Team (Late st Contact Info) Description 12/16/2024 11:00 AM MODEL AND MOLD MAKER PLASTER Office Visit [facility] Gynecologic Oncology [place] [address] [place] [address] Becky Walton MD [address] [place] [address] 12/16/2024 11:30 AM MODEL AND MOLD MAKER PLASTER Appointment [facility] 2nd Fl [address] [place] [address] Infusion Chair 6, 2nd Floor [place] 12/28/2024 10:00 AM CDT Office Visit [facility] Neurology [address] [facility] [address] [place] [address] Navi Stephens MD [address] [facility] [address] [address] documented as of this encounter Visit Diagnoses Diagnosis Other screening mammogram- Primary documented in this encounter Additional Health Concerns Infection Onset Date Last Indicated Resolved Time R/O C. diff 03/28/2022 03/27/2022 03/28/2022 3:35 PM CDT R/O C. diff 04/12/2022 04/11/2022 04/12/2022 3:26 PM CDT R/O C. diff 04/13/2023 04/12/2023 04/13/2023 2:29 PM CDT documented as of this encounter Care Teams Technical Professional Relationship Specialty Start Date End Date Titi Cummings MD [address] [phone] PCP - General Family Practice 10/10/23 documented as of this encounter
--- OUTSIDE RECORDS SUMMARY | 2024-11-29 12:47 | XMS_ITS | Encounter Summary ---
Author Organization [facility] Address [address] [place] [address] Care Team Providers Care Administrative Personal Assistant Name Role Phone Titi Cummings MD Primary Care Provider Encounter Details Date Type Department Care Team (Late st Contact Info) Description 03/28/2005 Outpatient Historical HIS [facility] Nia More MD [address] [address] ATROPHIC GASTRITIS W/O HEMORRH (Primary Dx) Social History Tobacco Use Types Packs/Day Years Used Date Smoking Tobacco: Never Assessed Comments Unknown Sex and Gender Information Value Date Recorded Sex Assigned at Not on file Legal Sex Female 4:40 AM WINDOWS APPLICATION ADMINISTRATOR Gender Identity Not on file Sexual Orientation Not on file documented as of this encounter Plan of Treatment Upcoming Encounters Date Type Department Care Team (Late st Contact Info) Description 12/16/2024 11:00 AM WINDOWS APPLICATION ADMINISTRATOR Office Visit [facility] Gynecologic Oncology [place] [address] [place] [address] Becky Walton MD [address] [place] [address] 12/16/2024 11:30 AM WINDOWS APPLICATION ADMINISTRATOR Appointment [facility] 2nd Fl [address] [place] [address] Infusion Chair 6, 2nd Floor [place] 12/28/2024 10:00 AM CDT Office Visit [facility] Neurology [address] [facility] [address] [place] [address] Navi Stephens MD [address] [facility] [address] [address] documented as of this encounter Visit Diagnoses Diagnosis 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 diff 03/28/2022 03/27/2022 03/28/2022 3:35 PM CDT R/O C. diff 04/12/2022 04/11/2022 04/12/2022 3:26 PM CDT R/O C. diff 04/13/2023 04/12/2023 04/13/2023 2:29 PM CDT documented as of this encounter Care Teams Administrative Personal Assistant Relationship Specialty Start Date End Date Titi Cummings MD [address] [place] [phone] PCP - General Family Practice 10/10/23 documented as of this encounter
--- OUTSIDE RECORDS SUMMARY | 2024-11-29 12:47 | XMS_ITS | CONTINUITY OF CARE DOCUMENT ---
Author Name john lopez Address Unknown Organization [facility] Office Address [address] [place] [address] [address] [place] [address] Phone [phone] Care Team Providers Care Specification Writer Name Role Phone john lopez Unavailable Unavailable
--- OUTSIDE RECORDS SUMMARY | 2024-11-29 12:47 | XMS_ITS | Encounter Summary ---
Author Organization [facility] Address 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) Social History Tobacco Use Types Packs/Day Years Used Date Smoking Tobacco: Never Assessed Comments Unknown Sex and Gender Information Value Date Recorded Sex Assigned at Not on file Legal Sex Female 4:40 AM DIE MAINTENANCE Gender Identity Not on file Sexual Orientation Not on file documented as of this encounter Plan of Treatment Upcoming Encounters Date Type Department Care Team (Late st Contact Info) Description 12/16/2024 11:00 AM DIE MAINTENANCE Office Visit [facility] Gynecologic Oncology [place] [address] [place] [address] Becky Walton MD [address] [place] [address] 12/16/2024 11:30 AM DIE MAINTENANCE Appointment [facility] 2nd Fl [address] [place] [address] Infusion Chair 6, 2nd Floor [place] 12/28/2024 10:00 AM CDT Office Visit [facility] Neurology [address] [place] [address] Navi Stephens MD [address] [facility] [address] [address] documented as of this encounter Procedures Procedure Name Priority Date/Time Associated Diagnosis Comments CBC WITH DIFFERENTIAL Routine 01/05/2006 8:53 AM DIE MAINTENANCE CBC WITH DIFFERENTIAL Routine 01/05/2006 8:53 AM DIE MAINTENANCE COMPREHENSIVE METABOLIC PANEL Routine 01/05/2006 8:53 AM DIE MAINTENANCE documented in this encounter Results * CBC WITH DIFFERENTIAL (01/05/2006 8:53 AM DIE MAINTENANCE) NEUTROPHILS 66 45 - 70 % INTERFAC E SYSTEM LYMPHOCYTES 24 16 - 45 % INTERFAC E SYSTEM MONOCYTES 10 3 - 13 % INTERFACE SYSTEM EOSINOPHILS 1 0 - 7 % INTERFAC E SYSTEM BASOPHILS 0 0 - 2 % INTERFACE SYSTEM NEUTROPHIL ABSOLUTE 5.12 1.90 - 7.00 K/uL INTERFACE SYSTEM LYMPHOCYTE ABSOLUTE 1.87 0.70 - 4.50 K/uL INTERFACE SYSTEM MONOCYTE ABSOLUTE 0.76 0.10 - 1.30 K/uL INTERFACE SYSTEM EOSINOPHIL ABSOLUTE 0.05 0.00 - 0.70 K/uL INTERFACE SYSTEM BASOPHILS ABSOLUTE 0.02 0.00 - 0.20 K/uL INTERFACE SYSTEM 01/05/2006 8:53 AM DIE MAINTENANCE Gibson Contreras MD HEMATOLOGY ORDERABLES Final Result INTERFACE SYSTEM Refer to clinic/hospital department * (ABNORMAL) CBC WITH DIFFERENTIAL (01/05/2006 8:53 AM DIE MAINTENANCE) WBC 7.8 4.0 - 9.8 K/uL INTERFACE SYSTEM RBC 4.38 3.90 - 4.90 M/uL INTERFACE SYSTEM HEMOGLOBIN 13.6 11.8 - 14.8 g/dL INTERFACE SYSTEM HEMATOCRIT 40.4 35.5 - 44.0 % INTERFACE SYSTEM MCV 92.2 82.0 - 99.0 fL INTERFACE SYSTEM MCH 31.1 27.2 - 32.6 pg INTERFACE SYSTEM MCHC 33.7 31.5 - 35.5 % INTERFACE SYSTEM RDW 14.5 11.5 - 14.5 % INTERFACE SYSTEM RDW-STDEV 49.1(H) 37.1 - 48.7 fL INTERFACE SYSTEM PLATELETS 238 140 - 350 K/uL INTERFACE SYSTEM MPV 9.9 9.3 - 12.4 fL INTERFACE SYSTEM 01/05/2006 8:53 AM DIE MAINTENANCE us Gibson Contreras MD HEMATOLOGY ORDERABLES Final Result Performing Organization Address [facility] Phone Number INTERFACE SYSTEM Refer to clinic/hospital department * COMPREHENSIVE METABOLIC PANEL (01/05/2006 8:53 AM DIE MAINTENANCE) GLUCOSE 81 65 - 109 mg/dL INTERFACE SYSTEM CREATININE 0.7 0.4 - 1.2 mg/dL INTERFACE SYSTEM CALCIUM 8.7 8.6 - 10.2 mg/dL INTERFACE SYSTEM AST 31 12 - 32 U/L INTERFACE SYSTEM ALKALINE PHOSPHATASE 52 35 - 104 U/L INTERFACE SYSTEM ALT 31 0 - 31 U/L INTERFACE SYSTEM BILIRUBIN TOTAL 0.3 0.2 - 1.0 mg/dL INTERFACE SYSTEM ALBUMIN 4.6 3.4 - 4.8 g/dL INTERFACE SYSTEM TOTAL PROTEIN 7.1 6.3 - 8.6 g/dL INTERFACE SYSTEM BUN 10 6 - 20 mg/dL INTERFACE SYSTEM SODIUM 139 135 - 145 mmol/L INTERFACE SYSTEM POTASSIUM 3.5 3.5 - 4.9 mmol/L INTERFACE SYSTEM CHLORIDE 100 96 - 108 mmol/L INTERFACE SYSTEM CO2 28 22 - 30 mmol/L INTERFACE SYSTEM 01/05/2006 8:53 AM DIE MAINTENANCE us Gibson Contreras MD CHEMISTRY ORDERABLES Final R esult Performing Organization Address City/[facility] Co de Phone Number INTERFACE [...] documented as of this encounter Care Teams Talent Acquisition Director Relationship Specialty Start Date End Date Titi Cummings MD [address] [address] PCP - General Family Practice 10/10/23 documented as of this encounter
--- OUTSIDE RECORDS SUMMARY | 2024-11-29 12:47 | XMS_ITS | Encounter Summary ---
Author Organization [facility] Address 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) Social History Tobacco Use Types Packs/Day Years Used Date Smoking Tobacco: Never Assessed Comments Unknown Sex and Gender Information Value Date Recorded Sex Assigned at Not on file Legal Sex Female 4:40 AM MONITORING AND EVALUATION ADVISOR Gender Identity Not on file Sexual Orientation Not on file documented as of this encounter Plan of Treatment Upcoming Encounters Date Type Department Care Team (Late st Contact Info) Description 12/16/2024 11:00 AM MONITORING AND EVALUATION ADVISOR Office Visit [facility] Gynecologic Oncology [place] [address] [place] [address] Becky Walton MD [address] [place] [address] 12/16/2024 11:30 AM MONITORING AND EVALUATION ADVISOR Appointment [facility] 2nd Fl [address] [place] [address] Infusion Chair 6, 2nd Floor [place] 12/28/2024 10:00 AM CDT Office Visit [facility] Neurology [address] [place] [address] Navi Stephens MD [address] [facility] [address] [address] documented as of this encounter Procedures Procedure Name Priority Date/Time Associated Diagnosis Comments CBC WITH DIFFERENTIAL Routine 07/27/2006 9:21 AM CDT CBC WITH DIFFERENTIAL Routine 07/27/2006 9:21 AM CDT COMPREHENSIVE METABOLIC PANEL Routine 07/27/2006 9:21 AM CDT documented in this encounter Results * CBC WITH DIFFERENTIAL (07/27/2006 9:21 AM CDT) NEUTROPHILS 56 45 - 70 % INTERFAC E SYSTEM LYMPHOCYTES 33 16 - 45 % INTERFAC E SYSTEM MONOCYTES 9 3 - 13 % INTERFACE SYSTEM EOSINOPHILS 1 0 - 7 % INTERFAC E SYSTEM BASOPHILS 0 0 - 2 % INTERFACE SYSTEM NEUTROPHIL ABSOLUTE 2.73 1.90 - 7.00 K/uL INTERFACE SYSTEM LYMPHOCYTE ABSOLUTE 1.59 0.70 - 4.50 K/uL INTERFACE SYSTEM MONOCYTE ABSOLUTE 0.45 0.10 - 1.30 K/uL INTERFACE SYSTEM EOSINOPHIL ABSOLUTE 0.06 0.00 - 0.70 K/uL INTERFACE SYSTEM BASOPHILS ABSOLUTE 0.01 0.00 - 0.20 K/uL INTERFACE SYSTEM 07/27/2006 9:21 AM CDT Gibson Contreras MD HEMATOLOGY ORDERABLES Final Result INTERFACE SYSTEM Refer to clinic/hospital department * CBC WITH DIFFERENTIAL (07/27/2006 9:21 AM CDT) WBC 4.8 4.0 - 9.8 K/uL INTERFACE SYSTEM RBC 4.21 3.90 - 4.90 M/uL INTERFACE SYSTEM HEMOGLOBIN 12.6 11.8 - 14.8 g/dL INTERFACE SYSTEM HEMATOCRIT 38.7 35.5 - 44.0 % INTERFACE SYSTEM MCV 91.9 82.0 - 99.0 fL INTERFACE SYSTEM MCH 29.9 27.2 - 32.6 pg INTERFACE SYSTEM MCHC 32.6 31.5 - 35.5 % INTERFACE SYSTEM RDW 14.2 11.5 - 14.5 % INTERFACE SYSTEM RDW-STDEV 47.4 37.1 - 48.7 fL INTERFACE SYSTEM PLATELETS 185 140 - 350 K/uL INTERFACE SYSTEM MPV 11.1 9.3 - 12.4 fL INTERFACE SYSTEM 07/27/2006 9:21 AM CDT us Gibson Contreras MD HEMATOLOGY ORDERABLES Final Result Performing Organization Address [facility] de Phone Number INTERFACE SYSTEM Refer to clinic/hospital department * (ABNORMAL) COMPREHENSIVE METABOLIC PANEL (07/27/2006 9:21 AM CDT) GLUCOSE 89 65 - 99 mg/dL INTERFACE SYSTEM CREATININE 0.8 0.4 - 1.2 mg/dL INTERFACE SYSTEM CALCIUM 8.9 8.4 - 10.2 mg/dL INTERFACE SYSTEM ALKALINE PHOSPHATASE 60 35 - 104 U/L INTERFACE SYSTEM AST 32 12 - 32 U/L INTERFACE SYSTEM ALT 38(H) 0 - 31 U/L INTERFACE SYSTEM TOTAL PROTEIN 7.2 6.3 - 8.6 g/dL INTERFACE SYSTEM ALBUMIN 4.5 3.4 - 4.8 g/dL INTERFACE SYSTEM BILIRUBIN TOTAL 0.3 0.2 - 1.0 mg/dL INTERFACE SYSTEM BUN 11 6 - 20 mg/dL INTERFACE SYSTEM SODIUM 141 135 - 145 mmol/L INTERFACE SYSTEM POTASSIUM 4.0 3.5 - 4.9 mmol/L INTERFACE SYSTEM CHLORIDE 106 96 - 108 mmol/L INTERFACE SYSTEM CO2 24 22 - 30 mmol/L INTERFACE SYSTEM 07/27/2006 9:21 AM CDT us Gibson Contreras MD CHEMISTRY ORDERABLES Final R esult Performing Organization Address City/[facility]/ZIP Co de Phone Number INTERFACE SYSTEM Refer [...] documented as of this encounter Care Teams Cloth Pattern Maker Relationship Specialty Start Date End Date Titi Cummings MD [address] [phone] PCP - General Family Practice 10/10/23 documented as of this encounter
--- OUTSIDE RECORDS SUMMARY | 2024-11-29 12:47 | XMS_ITS | Encounter Summary ---
Author Organization [facility] Address [address] [place] [address] Care Team Providers Care Permanent Mold Supervisor Name Role Phone Titi Cummings MD Primary Care Provider Encounter Details Date Type Department Care Team (Latest Contact Info) Description 08/20/2001 Outpatient Historical HIS [facility] BRY Contreras, Gibson Rivera MD NO ADDRESS ON FILE PERS HX OF BREAST MALIGNANCY (Primary Dx) Social History Tobacco Use Types Packs/Day Years Used Date Smoking Tobacco: Never Assessed Comments Unknown Sex and Gender Information Value Date Recorded Sex Assigned at Not on file Legal Sex Female 4:40 AM PLATE STACKER HAND Gender Identity Not on file Sexual Orientation Not on file documented as of this encounter Plan of Treatment Upcoming Encounters Date Type Department Care Team (Late st Contact Info) Description 12/16/2024 11:00 AM PLATE STACKER HAND Office Visit [facility] Gynecologic Oncology [place] [address] [place] [address] Becky Walton MD [address] [place] [address] 12/16/2024 11:30 AM PLATE STACKER HAND Appointment [facility] 2nd Fl [address] [place] [address] Infusion Chair 6, 2nd Floor [place] 12/28/2024 10:00 AM CDT Office Visit [facility] Neurology [address] [place] [address] Navi Stephens MD [address] [facility] [address] [address] documented as of this encounter Visit Diagnoses [...] documented as of this encounter Care Teams Permanent Mold Supervisor Relationship Specialty Start Date End Date Titi Cummings MD [address] [phone] PCP - General Family Practice 10/10/23 documented as of this encounter
--- OUTSIDE RECORDS SUMMARY | 2024-11-29 12:48 | XMS_ITS | Encounter Summary ---
Author Organization [facility] Address [address] [place] [address] Care Team Providers Care Cutter In Name Role Phone Titi Cummings MD Primary Care Provider Encounter Details Date Type Department Care Team (Late st Contact Info) Description 12/12/2007 Outpatient Historical [facility] Nia Mroe MD [address] [address] Kyle Richardson MD 5 [place] [address] Social History Tobacco Use Types Packs/Day Years Used Date Smoking Tobacco: Never Assessed Comments Unknown Sex and Gender Information Value Date Recorded Sex Assigned at Not on file Legal Sex Female 4:40 AM PASTER HAT LINING Gender Identity Not on file Sexual Orientation Not on file documented as of this encounter Plan of Treatment Upcoming Encounters Date Type Department Care Team (Late st Contact Info) Description 12/16/2024 11:00 AM PASTER HAT LINING Office Visit [facility] Gynecologic Oncology [place]ene [address] [facility] [place] [address] Becky Walton MD [address] [place] [address] 12/16/2024 11:30 AM PASTER HAT LINING Appointment [facility] 2nd Fl [address] [place] [address] Infusion Chair 6, 2nd Floor [place] 12/28/2024 10:00 AM CDT Office Visit [facility] Neurology [address] [address] [place] [address] Navi Stephens MD [address] [facility] [address] [address] documented as of this encounter Visit Diagnoses Not on filedocumented in this encounter Additional Health Concerns Infection Onset Date Last Indicated Resolved Time R/O C. diff 03/28/2022 03/27/2022 03/28/2022 3:35 PM CDT R/O C. diff 04/12/2022 04/11/2022 04/12/2022 3:26 PM CDT R/O C. diff 04/13/2023 04/12/2023 04/13/2023 2:29 PM CDT documented as of this encounter Care Teams Cutter In Relationship Specialty Start Date End Date Titi Cummings MD 4 [facility] [address] [place] [phone] PCP - General Family Practice 10/10/23 documented as of this encounter
--- OUTSIDE RECORDS SUMMARY | 2024-11-29 12:48 | XMS_ITS | Patient Health Summary ---
Author Organization [facility] Address [address] [facility] [place] [address] Care Team Providers Care Cylinder Die Machine Operator Name Role Phone Kyle Casas MD Primary Care Provider [phone] Note from [facility],non-owned Affiliates and Associated Physician Practices is amultiple site organization consisting of ambulatory clinics and hospital sitesin [place], [place], [place] and [place]. This disclosure is being madepursuant to the Care Everywhere program and may not contain all information available regarding this patient. Last updated 18.[facility] Active Problems Problem Noted Date Diagnosed Date [...] Vitamin B12 675 213 - 816 pg/mL [facility] Blood specimen (specimen) BLOOD SPECIMEN / Unknown 06/01/2015 12:10 PM CDT 06/01/2015 1:06 PM CDT Varun Phelps MD LAB - CHEMISTRY [facility] [address] [phone] * TSH (06/01/2015 12:10 PM CDT) TSH 1.455 0.350 - 4.940 uIU/mL [facility] Blood specimen (specimen) BLOOD SPECIMEN / Unknown 06/01/2015 12:10 PM CDT 06/01/2015 1:06 PM CDT Varun Phelps MD LAB - CHEMISTRY [facility] [address] [phone] Care Teams Cylinder Die Machine Operator Relationship Specialty Start Date End Date Kyle Casas MD PCP - General 10/27/08
--- OUTSIDE RECORDS SUMMARY | 2024-11-29 12:48 | XMS_ITS | Encounter Summary ---
Author Organization [facility] Address 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) Social History Tobacco Use Types Packs/Day Years Used Date Smoking Tobacco: Never Assessed Comments Unknown Sex and Gender Information Value Date Recorded Sex Assigned at Not on file Legal Sex Female 4:40 AM LEAD ADVISOR Gender Identity Not on file Sexual Orientation Not on file documented as of this encounter Plan of Treatment Upcoming Encounters Date Type Department Care Team (Late st Contact Info) Description 12/16/2024 11:00 AM LEAD ADVISOR Office Visit [facility] Gynecologic Oncology [place] [address] [place] [address] Becky Walton MD [address] [place] [address] 12/16/2024 11:30 AM LEAD ADVISOR Appointment [facility] 2nd Fl [address] [place] [address] Infusion Chair 6, 2nd Floor [place] 12/28/2024 10:00 AM CDT Office Visit [facility] Neurology [address] [place] [address] Navi Stephens MD [address] [facility] [address] [address] documented as of this encounter Procedures Procedure Name Priority Date/Time Associated Diagnosis Comments CBC WITH DIFFERENTIAL Routine 07/19/2007 10:40 AM CDT CBC WITH DIFFERENTIAL Routine 07/19/2007 10:40 AM CDT COMPREHENSIVE METABOLIC PANEL Routine 07/19/2007 10:40 AM CDT documented in this encounter Results * CBC WITH DIFFERENTIAL (07/19/2007 10:40 AM CDT) NEUTROPHILS 54 45 - 70 % INTERFAC E SYSTEM LYMPHOCYTES 37 16 - 45 % INTERFAC E SYSTEM MONOCYTES 7 3 - 13 % INTERFACE SYSTEM EOSINOPHILS 1 0 - 7 % INTERFAC E SYSTEM BASOPHILS 0 0 - 2 % INTERFACE SYSTEM NEUTROPHIL ABSOLUTE 2.70 1.90 - 7.00 K/uL INTERFACE SYSTEM LYMPHOCYTE ABSOLUTE 1.85 0.70 - 4.50 K/uL INTERFACE SYSTEM MONOCYTE ABSOLUTE 0.36 0.10 - 1.30 K/uL INTERFACE SYSTEM EOSINOPHIL ABSOLUTE 0.04 0.00 - 0.70 K/uL INTERFACE SYSTEM BASOPHILS ABSOLUTE 0.01 0.00 - 0.20 K/uL INTERFACE SYSTEM 07/19/2007 10:4 0 AM CDT us Gibson Contreras MD HEMATOLOGY ORDERABLES Edited INTERFACE SYSTEM Refer to clinic/hospital department * CBC WITH DIFFERENTIAL (07/19/2007 10:40 AM CDT) WBC 5.0 4.0 - 9.8 K/uL INTERFACE SYSTEM RBC 4.19 3.90 - 4.90 M/uL INTERFACE SYSTEM HEMOGLOBIN 12.9 11.8 - 14.8 g/dL INTERFACE SYSTEM HEMATOCRIT 38.1 35.5 - 44.0 % INTERFACE SYSTEM MCV 90.9 82.0 - 99.0 fL INTERFACE SYSTEM MCH 30.8 27.2 - 32.6 pg INTERFACE SYSTEM MCHC 33.9 31.5 - 35.5 % INTERFACE SYSTEM RDW 13.9 11.5 - 14.5 % INTERFACE SYSTEM RDW-STDEV 45.7 37.1 - 48.7 fL INTERFACE SYSTEM PLATELETS 169 140 - 350 K/uL INTERFACE SYSTEM MPV 10.3 9.3 - 12.4 fL INTERFACE SYSTEM 07/19/2007 10:4 0 AM CDT Gibson Contreras MD HEMATOLOGY ORDERABLES Edited INTERFACE SYSTEM Refer to clinic/hospital department * COMPREHENSIVE METABOLIC PANEL (07/19/2007 10:40 AM CDT) GLUCOSE 93 65 - 99 mg/dL INTERFACE SYSTEM CREATININE 0.70 0.51 - 0.95 mg/dL INTERFACE SYSTEM CALCIUM 8.9 8.4 - 10.2 mg/dL INTERFACE SYSTEM ALKALINE PHOSPHATASE 55 35 - 104 U/L INTERFACE SYSTEM AST 21 12 - 32 U/L INTERFACE SYSTEM ALT 22 0 - 31 U/L INTERFACE SYSTEM TOTAL PROTEIN 6.7 6.3 - 8.6 g/dL INTERFACE SYSTEM ALBUMIN 4.3 3.4 - 4.8 g/dL INTERFACE SYSTEM BILIRUBIN TOTAL 0.3 0.2 - 1.0 mg/dL INTERFACE SYSTEM BUN 10 6 - 20 mg/dL INTERFACE SYSTEM SODIUM 143 135 - 145 mmol/L INTERFACE SYSTEM POTASSIUM 3.7 3.5 - 4.9 mmol/L INTERFACE SYSTEM CHLORIDE 108 96 - 108 mmol/L INTERFACE SYSTEM CO2 28 22 - 30 mmol/L INTERFACE SYSTEM GFR, >60 >=60 mL/min/1.7 sq meter INTERFACE SYSTEM GFR >60 >=60 mL/min/1.7 sq meter INTERFACE SYSTEM Comment: Estimated GFR rate interpretative information for both Americans and non- Americans is available on the [facility] Intranet at: [email or web address] Select: Lab Policies and Procedures Select: Reference Ranges - GFR 07/19/2007 10:4 0 AM CDT Gibson Contreras MD CHEMISTRY ORDERABLES [...] documented as of this encounter Care Teams Food Counter Worker Relationship Specialty Start Date End Date Titi Cummings MD [address] [phone] PCP - General Family Practice 10/10/23 documented as of this encounter
--- OUTSIDE RECORDS SUMMARY | 2024-11-29 12:48 | XMS_ITS | Continuity of Care Document ---
Author Organization [facility] Address [address] [place] [address] [address] [place] [address] Phone Care Team Providers Care Clerk Of Court Name Role Phone Jhon Oscar Unavailable Unavailable Procedures Procedure Date Eye Exam, New Patient Advance Directives Directive Yes / No Effective Date File Name No Information Encounters Encounter Description Practice Location Reason(s) For Visit Diagnoses Date Provider Providers Copied on Encounter [facility], [address] [place], [place], [id number], [place] tel:[phone] [facility] No Information [address], [place], [address], [place]. tel:[phone] Family History Family Member Type Diagnosis Age At Onset No Information Payers Payer name Insurance type Covered constitution party ID Authoriza tion(s) No Information Social History [...]
--- OUTSIDE RECORDS SUMMARY | 2024-11-29 12:48 | XMS_ITS | Encounter Summary ---
Author Organization [facility] Address [address] [place] [address] Care Team Providers Care Furniture Servicer Name Role Phone Titi Cummings MD Primary Care Provider Encounter Details Date Type Department Care Team (Latest Contact Info) Description 02/03/2008 Outpatient Historical HIS [facility] BRY Martines, Mehdi Rivera MD NO ADDRESS ON FILE Malignant Neoplasm of Breast (Female), Unspecified Site (CMS/HCC) Social History Tobacco Use Types Packs/Day Years Used Date Smoking Tobacco: Never Assessed Comments Unknown Sex and Gender Information Value Date Recorded Sex Assigned at Not on file Legal Sex Female 4:40 AM STONE DRILLER HELPER Gender Identity Not on file Sexual Orientation Not on file documented as of this encounter Plan of Treatment Upcoming Encounters Date Type Department Care Team (Late st Contact Info) Description 12/16/2024 11:00 AM STONE DRILLER HELPER Office Visit [facility] Gynecologic Oncology [place] [address] [place] [address] Becky Walton MD [address] [place] [address] 12/16/2024 11:30 AM STONE DRILLER HELPER Appointment [facility] 2nd Fl [address] [place] [address] Infusion Chair 6, 2nd Floor [place] 12/28/2024 10:00 AM CDT Office Visit [facility] Neurology [address] [place] [address] Navi Stephens MD [address] [address] documented as of this encounter Procedures Procedure Name Priority Date/Time Associated Diagnosis Comments XR CHEST PA AND LATERAL 2 VW Routine 02/03/2008 10:20 AM CDT CBC WITH DIFFERENTIAL Stat 02/03/2008 10:14 AM CDT COMPREHENSIVE METABOLIC PANEL Stat 02/03/2008 10:14 AM CDT documented in this encounter Results * XR CHEST PA AND LATERAL (02/03/2008 10:20 AM CDT) Anatomical Region Laterality Modality Chest Other 02/03/2008 10:2 0 AM CDT Narrative 02/03/2008 10:34 AM CDT [facility] [address], [place] [address] Admit Date: 02/03/2008 ELOISA DRAKE Sex: F Admit Prov: MEHDI MARTINES Date: 1950 Primary Care Prov: ARLYN VÁZQUEZ CMRN: [id number] Room: Michael SSN: [id number] IMAGING SERVICES Ordering Prov: N/A Accession Number: [id number] Interpretation Chest 2 views 02/03/2008. History: Breast cancer.. Findings: No infiltrate, pneumothorax or pleural effusion is noted. The cardiac and mediastinal silhouettes are within normal limits. The visualized bony structures are unremarkable. Impression: Unremarkable study. No interval change from the previous study of 02/01/2007. . Dictated by: FANNY MCBRIDE 02/03/2008 10:33 Electronically signed by: FANNY MCBRIDE 02/03/2008 10:34 Procedure Note Fanny Mcbride - 02/03/2008 [facility] [address], [place] [address] Admit Date: 02/03/2008 ELOISA DRAKE Sex: F Admit Prov: MEHDI MARTINES Date: 1950 Primary Care Prov: ARLYN VÁZQUEZ CMRN: [id number] Room: LC SSN: [id number] IMAGING SERVICES Ordering Prov: N/A Interpretation Chest 2 views 02/03/2008. History: Breast cancer.. Findings: No infiltrate, pneumothorax or pleural effusion is noted.The cardiac and mediastinal silhouettes are within normal limits. The visualized bony structures are unremarkable. Impression: Unremarkable study. No interval change from the previousstudy of 02/01/2007. . Dictated by: FANNY MCBRIDE 02/03/2008 10:33 Electronically signed by: FANNY MCBRIDE 02/03/2008 10:34 us Mehdi Martines MD DIAGNOSTIC IMAGING ORDERABLE S Final Result * COMPREHENSIVE METABOLIC PANEL (02/03/2008 10:14 AM CDT) ALKALINE PHOSPHATASE 58 35 - 104 U/L [facility] BILIRUBIN TOTAL 0.2 0.2 - 1.0 mg/dL [facility] CO2 27 22 - 30 mmol/L [facility] TOTAL PROTEIN 7.1 6.3 - 8.6 g/dL [facility] POTASSIUM 4.0 3.5 - 4.9 mmol/L [facility] GLUCOSE 92 65 - 99 mg/dL [facility] AST 26 12 - 32 U/L [facility] BUN 12 6 - 20 mg/dL [facility] CALCIUM 8.6 8.4 - 10.2 mg/dL [facility] CHLORIDE 105 96 - 108 mmol/L [facility] ALBUMIN 4.4 3.4 - 4.8 g/dL [facility] CREATININE 0.68 0.51 - 0.95 mg/dL [facility] SODIUM 140 135 - 145 mmol/L [facility] ALT 23 0 - 31 U/L [facility] GFR, >60 >=60 mL/min/1.7 sq meter [facility] GFR >60 >=60 mL/min/1.7 sq meter [facility] Comment: Estimated GFR rate interpretative information for both Americans and non- Americans is available on the [facility] Intranet at: [email or web address] Select: Lab Policies and Procedures Select: Reference Ranges - GFR Blood specimen (specimen) 02/03/2008 10:14 AM CDT 02/03/2008 10:24 AM CDT us Mehdi Martines MD CHEMISTRY ORDERABLES Edited [facility] [address] [place] [address] * CBC WITH DIFFERENTIAL (02/03/2008 10:14 AM CDT) HEMOGLOBIN 13.2 11.8 - 14.8 g/dL [facility] RDW 14.2 11.5 - 14.5 % [facility] WBC 5.7 4.0 - 9.8 K/uL [facility] MCH 30.9 27.2 - 32.6 pg [facility] MPV 10.5 9.3 - 12.4 fL [facility] HEMATOCRIT 39.8 35.5 - 44.0 % [facility] RDW-STDEV 48.1 37.1 - 48.7 fL [facility] RBC 4.27 3.90 - 4.90 M/uL [facility] MCHC 33.2 31.5 - 35.5 % [facility] MCV 93.2 82.0 - 99.0 fL [facility] PLATELETS 180 140 - 350 K/uL [facility] LYMPHOCYTES 29 16 - 45 % [facility] LYMPHOCYTE ABSOLUTE 1.67 0.70 - 4.50 K/uL [facility] BASOPHILS 0 0 - 2 % [facility] BASOPHILS ABSOLUTE 0.01 0.00 - 0.20 K/uL [facility] MONOCYTES 6 3 - 13 % [facility] MONOCYTE ABSOLUTE 0.35 0.10 - 1.30 K/uL [facility] NEUTROPHILS 64 45 - 70 % [facility] NEUTROPHIL ABSOLUTE 3.67 1.90 - 7.00 K/uL [facility] EOSINOPHILS 1 0 - 7 % [facility] EOSINOPHIL ABSOLUTE 0.04 0.00 - 0.70 K/uL [facility] Blood specimen (specimen) 02/03/2008 10:14 AM CDT 02/03/2008 10:24 AM CDT us Mehdi Martines MD HEMATOLOGY ORDERABLES Edited INTERFACE SYSTEM Refer to clinic/hospital department [facility] [address] [place] [address] documented in this encounter Visit Diagnoses Diagnosis [...] documented as of this encounter Care Teams Furniture Servicer Relationship Specialty Start Date End Date Titi Cummings MD [address] [phone] PCP - General Family Practice 10/10/23 documented as of this encounter
--- OUTSIDE RECORDS SUMMARY | 2024-11-29 12:48 | XMS_ITS | Clinical Summary ---
Author Organization [facility] Address [address] [place] [address] Care Team Providers Care Rotary Shear Worker Helper Name Role Phone Kyle Casas MD Primary Care Provider [phone] Source Comments [facility],non-[facility] Affiliates and Associated Physician Practices is amultiple site organization consisting of ambulatory clinics and hospital sitesin [place], [place], [place] and [place]. This disclosure is being madepursuant to the Care Everywhere program and may not contain all information available regarding this patient. Last updated 18.[facility] [employer] Active Problems Problem Noted Date Diagnosed Date [...] age to complete this topic Care Teams Rotary Shear Worker Helper Relationship Specialty Start Date End Date Kyle Casas MD PCP - General 10/27/08
--- OUTSIDE RECORDS SUMMARY | 2024-11-29 12:48 | XMS_ITS | Encounter Summary ---
Author Organization [facility] Address 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) Social History Tobacco Use Types Packs/Day Years Used Date Smoking Tobacco: Never Assessed Comments Unknown Sex and Gender Information Value Date Recorded Sex Assigned at Not on file Legal Sex Female 4:40 AM AIRCRAFT FUSELAGE FRAMER Gender Identity Not on file Sexual Orientation Not on file documented as of this encounter Plan of Treatment Upcoming Encounters Date Type Department Care Team (Late st Contact Info) Description 12/16/2024 11:00 AM AIRCRAFT FUSELAGE FRAMER Office Visit [facility] Gynecologic Oncology [place] [address] [place] [address] Becky Walton MD [address] [place] [address] 12/16/2024 11:30 AM AIRCRAFT FUSELAGE FRAMER Appointment [facility] 2nd Fl [address] [place] [address] Infusion Chair 6, 2nd Floor [place] 12/28/2024 10:00 AM CDT Office Visit [facility] Neurology [address] [place] [address] Navi Stephens MD [address] [facility] [address] [address] documented as of this encounter Procedures Procedure Name Priority Date/Time Associated Diagnosis Comments MAMMO DIAGNOSTIC BILATERAL W OR WO CAD Timed Study 02/03/2008 11:50 AM CDT documented in this encounter Results * MAMMO DIGITAL DIAG BILAT (02/03/2008 11:50 AM CDT) Anatomical Region Laterality Modality Breast Bilateral Other 02/03/2008 11:5 0 AM CDT Narrative 02/03/2008 3:43 PM CDT [place] [address] [place], [place] [address] Admit Date: 02/03/2008 ELOISA DRAKE Michael Sex: F Admit Prov: MEHDI MARTINES Date: 1950 Primary Care Prov: ARLYN VÁZQUEZ CMRN: [id number] Room: [facility] SSN: [id number] IMAGING SERVICES Ordering Prov: MEHDI MARTINES Accession Number: [id number] Interpretation Bilateral diagnostic digital mammograms with computer-assisted diagnosis. 02/03/2008 Reason for this examination: Annual mammogram. Clinical History: Left lumpectomy and radiation for carcinoma in 1996. Family history of breast cancer, mother at age 56 Findings: The parenchyma is moderately dense bilaterally. There are post operative changes on the left. There is no mass, malignant calcification, lymphadenopathy or other sign of malignancy. Since 02/01/2007, there has been no significant change. Conclusion: No mammographic evidence of malignancy Assessment BIRADS: 1-Negative Recommendation: Normal interval follow-up Dictated by: TOI SHAH Electronically signed by: TOI SHAH 02/03/2008 15:43 Transcribed: 02/03/2008 15:04 AMK Procedure Note Toi Shah MD - 02/03/2008 [facility] [address] [address] Admit Date: 02/03/2008 ELOISA DRAKE Sex: F Admit Prov: MEHDI MARTINES Date: 1950 Primary Care Prov: ARLYN VÁZQUEZ CMRN: [id number] Room: JAIROMichael SSN: [id number] IMAGING SERVICES Ordering Prov: MEHDI MARTINES Interpretation Bilateral diagnostic digital mammograms with computer-assisteddiagnosis. 02/03/2008 Reason for this examination: Annual mammogram. Clinical History: Left lumpectomy and radiation for carcinoma [id number]. Family history of breast cancer, mother at age 56 Findings: The parenchyma is moderately dense bilaterally. There arepost operative changes on the left. There is no mass, malignantcalcification, lymphadenopathy or other sign of malignancy. Since 02/01/2007, there has been no significant change. Conclusion: No mammographic evidence of malignancy Assessment BIRADS: 1-Negative Recommendation: Normal interval follow-up Dictated by: TOI SHAH Electronically signed by: TOI SHAH 02/03/2008 15:43 Transcribed: 02/03/2008 15:04 AMK Mehdi Martines MD MAMMO ORDERABLES Final Resul t documented in this encounter Visit Diagnoses Diagnosis Other screening mammogram Malignant neoplasm of upper-outer quadrant of female [...] documented as of this encounter Care Teams Delivery Recruiter Relationship Specialty Start Date End Date Titi Cummings MD [address] [address] PCP - General Family Practice 10/10/23 documented as of this encounter
--- OUTSIDE RECORDS SUMMARY | 2024-11-29 12:48 | XMS_ITS | Encounter Summary ---
Author Organization [facility] Address 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) Social History Tobacco Use Types Packs/Day Years Used Date Smoking Tobacco: Never Assessed Comments Unknown Sex and Gender Information Value Date Recorded Sex Assigned at Not on file Legal Sex Female 4:40 AM DRAFTER TOOL DESIGN Gender Identity Not on file Sexual Orientation Not on file documented as of this encounter Plan of Treatment Upcoming Encounters Date Type Department Care Team (Late st Contact Info) Description 12/16/2024 11:00 AM DRAFTER TOOL DESIGN Office Visit [facility] Gynecologic Oncology [place] [address] [place] [address] Becky Walton MD [address] [place] [address] 12/16/2024 11:30 AM DRAFTER TOOL DESIGN Appointment [facility] 2nd Fl [address] [place] [address] Infusion Chair 6, 2nd Floor [place] 12/28/2024 10:00 AM CDT Office Visit [facility] Neurology [address] [place] [address] Navi Stephens MD [address] [facility] [address] [address] documented as of this encounter Procedures Procedure Name Priority Date/Time Associated Diagnosis Comments CBC WITH DIFFERENTIAL Stat 08/07/2008 9:32 AM CDT COMPREHENSIVE METABOLIC PANEL Stat 08/07/2008 9:32 AM CDT documented in this encounter Results * COMPREHENSIVE METABOLIC PANEL (08/07/2008 9:32 AM CDT) GLUCOSE 86 65 - 99 mg/dL [facility] AST 28 12 - 32 U/L [facility] BUN 10 6 - 20 mg/dL [facility] CALCIUM 9.3 8.6 - 10.2 mg/dL [facility] ALBUMIN 4.3 3.4 - 4.8 g/dL [facility] CHLORIDE 106 96 - 108 mmol/L [facility] CREATININE 0.67 0.51 - 0.95 mg/dL [facility] ALT 29 0 - 31 U/L [facility] SODIUM 142 135 - 145 mmol/L [facility] ALKALINE PHOSPHATASE 62 35 - 104 U/L [facility] CO2 26 22 - 30 mmol/L [facility] BILIRUBIN TOTAL 0.2 0.2 - 1.0 mg/dL [facility] POTASSIUM 3.8 3.5 - 4.9 mmol/L [facility] TOTAL PROTEIN 6.8 6.3 - 8.6 g/dL [facility] GFR, >60 >=60 mL/min/1.7 sq meter [facility] GFR >60 >=60 mL/min/1.7 sq meter [facility] Comment: Modification of Diet in Renal Disease (MDRD) study formula. Estimated GFR rate interpretative information for both Americans and non- Americans is available on the [facility] Intranet at: [email or web address] Select: Lab Policies and Procedures Select: Reference Ranges - GFR Blood specimen (specimen) 08/07/2008 9:32 AM CDT 08/07/2008 9:54 AM CDT us Gibson Contreras MD CHEMISTRY ORDERABLES Edited INTERFACE SYSTEM Refer to clinic/hospital department [facility] CLIA# [id number] [address] [place] [address] * CBC WITH DIFFERENTIAL (08/07/2008 9:32 AM CDT) WBC 6.0 4.0 - 9.8 K/uL [facility] MCH 30.8 27.2 - 32.6 pg [facility] MPV 10.4 9.3 - 12.4 fL [facility] HEMATOCRIT 40.1 35.5 - 44.0 % [facility] RDW-STDEV 47.3 37.1 - 48.7 fL [facility] RBC 4.29 3.90 - 4.90 M/uL [facility] MCHC 32.9 31.5 - 35.5 % [facility] MCV 93.5 82.0 - 99.0 fL [facility] PLATELETS 175 140 - 350 K/uL [facility] HEMOGLOBIN 13.2 11.8 - 14.8 g/dL [facility] RDW 14.1 11.5 - 14.5 % [facility] LYMPHOCYTES 30 16 - 45 % [facility] LYMPHOCYTE ABSOLUTE 1.80 0.70 - 4.50 K/uL [facility] BASOPHILS 0 0 - 2 % [facility] BASOPHILS ABSOLUTE 0.01 0.00 - 0.20 K/uL [facility] MONOCYTES 8 3 - 13 % [facility] MONOCYTE ABSOLUTE 0.48 0.10 - 1.30 K/uL [facility] NEUTROPHILS 61 45 - 70 % [facility] NEUTROPHIL ABSOLUTE 3.65 1.90 - 7.00 K/uL [facility] EOSINOPHILS 1 0 - 7 % [facility] EOSINOPHIL ABSOLUTE 0.06 0.00 - 0.70 K/uL [facility] Blood specimen (specimen) 08/07/2008 9:32 AM CDT 08/07/2008 9:54 AM CDT Gibson Contreras MD HEMATOLOGY ORDERABLES Edited INTERFACE SYSTEM Refer to clinic/hospital department [facility] CLIA# [id number] [address] [facility] [address] [place] [address] documented in this encounter Visit Diagnoses Diagnosis [...] documented as of this encounter Care Teams Staff Radiologist Relationship Specialty Start Date End Date Titi Cummings MD [address] [place] [address] PCP - General Family Practice 10/10/23 documented as of this encounter
--- OUTSIDE RECORDS SUMMARY | 2024-11-29 12:48 | XMS_ITS | Referral Summary ---
Author Organization [facility] Address [address] [facility] [place] [address] Care Team Providers Care Manager In Home Name Role Phone Kyle Casas MD Primary Care Provider [phone] Source Comments [facility] Affiliates and Associated Physician Practices is amultiple site organization consisting of ambulatory clinics and hospital sitesin [place], [place], [place] and [place]. This disclosure is being madepursuant to the Care Everywhere program and may not contain all information available regarding this patient. Last updated 18.[facility] [employer] Active Problems Problem Noted Date Diagnosed Date [...] of Treatment Not on file Care Teams Manager In Home Relationship Specialty Start Date End Date Kyle Casas MD PCP - General 10/27/08
--- OUTSIDE RECORDS SUMMARY | 2024-11-29 12:48 | XMS_ITS | Encounter Summary ---
Author Organization [facility] Address [address] [place] [address] Care Team Providers Care Nuclear Security Officer Name Role Phone Titi Cummings MD Primary Care Provider Encounter Details Date Type Department Care Team (Latest Contact Info) Description 02/23/2009 Outpatient Historical HIS [facility] BRY Martines, Mehdi Rivera MD NO ADDRESS ON FILE Other Screening Mammogram Social History Tobacco Use Types Packs/Day Years Used Date Smoking Tobacco: Never Assessed Comments Unknown Sex and Gender Information Value Date Recorded Sex Assigned at Not on file Legal Sex Female 4:40 AM REFERRAL MANAGER Gender Identity Not on file Sexual Orientation Not on file documented as of this encounter Plan of Treatment Upcoming Encounters Date Type Department Care Team (Late st Contact Info) Description 12/16/2024 11:00 AM REFERRAL MANAGER Office Visit [facility] Gynecologic Oncology [place] [address] [place] [address] Becky Walton MD [address] [place] [address] 12/16/2024 11:30 AM REFERRAL MANAGER Appointment [facility] 2nd Fl [address] [place] [address] Infusion Chair 6, 2nd Floor [place] 12/28/2024 10:00 AM CDT Office Visit [facility] Neurology [address] [place] [address] Navi Stephens MD [address] [address] documented as of this encounter Procedures Procedure Name Priority Date/Time Associated Diagnosis Comments MAMMO DIAGNOSTIC BILATERAL W OR WO CAD Routine 02/23/2009 8:28 AM CDT documented in this encounter Results * MAMMO DIGITAL DIAG BILAT (02/23/2009 8:28 AM CDT) Anatomical Region Laterality Modality Breast Bilateral Other 02/23/2009 8:28 AM CDT Narrative 02/23/2009 11:28 AM CDT [facility] [address] [place], [place] [address] Admit Date: 02/23/2009 ELOISA DRAKE Sex: F Admit Prov: MEHDI MARTINES Date: 1950 Primary Care Prov: ARLYN VÁZQUEZ CMRN: [id number] Room: LC SSN: [id number] IMAGING SERVICES Ordering Prov: MEHDI MARTINES Accession Number: [id number] Interpretation BILATERAL DIAGNOSTIC DIGITAL MAMMOGRAMS WITH COMPUTER ASSISTED DIAGNOSIS 02/23/2009 Reason for this examination: Annual study Clinical History: Left lumpectomy and radiation for carcinoma in 1996 Findings: There are postoperative changes on the left. There is no mass, malignant calcification or other sign of malignancy. Since 02/03/08, there has been no significant change. The images were reviewed using the CAD system. Conclusion: No mammographic evidence of malignancy Overall assessment: BIRADS category 2 - Benign findings Assessment BIRADS: 2-Benign finding Recommendation: Normal interval follow-up Dictated by: TOI SHAH Electronically signed by: TOI SHAH 02/23/2009 11:27 Transcribed: 02/23/2009 09:22 AMK Procedure Note Toi Shah MD - 02/23/2009 [facility] [address] [place], [place] [address] Admit Date: 02/23/2009 ELOISA DRAKE Sex: F Admit Prov: MEHDI MARTINES Date: 1950 Primary Care Prov: ARLYN VÁZQUEZ CMRN: [id number] Room: LC SSN: [id number] IMAGING SERVICES Ordering Prov: MEHDI MARTINES Interpretation BILATERAL DIAGNOSTIC DIGITAL MAMMOGRAMS WITH COMPUTER ASSISTEDDIAGNOSIS 02/23/2009 Reason for this examination: Annual study Clinical History: Left lumpectomy and radiation for carcinoma [id number] Findings: There are postoperative changes on the left. There is nomass, malignant calcification or other sign of malignancy. Since 02/03/08, there has been no significant change. The imageswere reviewed using the CAD system. Conclusion: No mammographic evidence of malignancy Overall assessment: BIRADS category 2 - Benign findings Assessment BIRADS: 2-Benign finding Recommendation: Normal interval follow-up Dictated by: TOI SHAH Electronically signed by: TOI SHAH 02/23/2009 11:27 Transcribed: 02/23/2009 09:22 AMK Mehdi Martines MD MAMMO ORDERABLES Final Resul t documented in this encounter Visit Diagnoses Diagnosis Other screening mammogram documented in this encounter Additional Health Concerns Infection Onset Date Last Indicated Resolved Time R/O C. diff 03/28/2022 03/27/2022 03/28/2022 3:35 PM CDT R/O C. diff 04/12/2022 04/11/2022 04/12/2022 3:26 PM CDT R/O C. diff 04/13/2023 04/12/2023 04/13/2023 2:29 PM CDT documented as of this encounter Care Teams Nuclear Security Officer Relationship Specialty Start Date End Date Titi Cummings MD [address] [address] PCP - General Family Practice 10/10/23 documented as of this encounter
== END 2024-11-29 12:40 | disposition left against medical advice (07) ==
DX: M25.532 Pain in left wrist (principal)
CPT/HCPCS: 99199

== ENCOUNTER 2025-09-23 10:00 | Emergency (ER) | payer MEDICARE, SELFPAY ==
--- NOTE | ~2025-09-23 | XR_ITS ---
Examination: XR hip RT min 3V w AP pelvis Clinical History: PT STATES SHE FELL 09/19/25 Comparison: CT abdomen pelvis 11/12/2021 Technique: 3 views right hip with AP pelvis Findings/impression: 1. No fracture or dislocation right hip. 2. No pelvic fracture identified. Reviewed, dictated and finalized at location R. NA MANAGER
[2025-09-23 10:31] VITALS: BP 112/67; PULSE 96; RESP 16; TEMP 36.9; O2SAT 99
--- OUTSIDE RECORDS SUMMARY | 2025-09-23 10:59 | XMS_ITS | Encounter Summary ---
Author Organization [facility] Address [address] [place] [address] Care Team Providers Care Night Clerk Name Role Phone Titi Cummings MD Primary Care Provider Encounter Details Date Type Department Care Team (Latest Contact Info) Description 02/03/2000 Outpatient Historical HIS [facility] BRY Contreras, Gibson Rivera MD NO ADDRESS ON FILE Malignant neoplasm of upper-outer quadrant of female breast (CMS/HCC) (Primary Dx) Social History Tobacco Use Types Packs/Day Years Used Date Smoking Tobacco: Never Assessed Comments Unknown Sex and Gender Information Value Date Recorded Sex Assigned at Not on file Legal Sex Female 4:40 AM GASTROINTESTINAL TECHNICIAN Gender Identity Not on file Sexual Orientation Not on file documented as of this encounter Plan of Treatment Upcoming Encounters Date Type Department Care Team (Late st Contact Info) Description 09/29/2025 11:30 AM GASTROINTESTINAL TECHNICIAN Office Visit [facility] Gynecologic Oncology [place] [address] [place] [address] Avani Fong, TORRI [address] [place] [address] 09/29/2025 12:00 PM GASTROINTESTINAL TECHNICIAN Hospital Encounter [facility] 2nd Fl [address] [place] [address] Infusion Chair 6, 2nd Floor [place] 10/12/2025 1:30 PM GASTROINTESTINAL TECHNICIAN Office Visit [facility] Neurology [address] [place] [address] Navi Stephens MD [address] [address] 10/20/2025 11:00 AM GASTROINTESTINAL TECHNICIAN Office Visit [facility] Gynecologic Oncology [place] [address] [place] [address] Becky Walton MD [address] [place] [address] 10/20/2025 11:30 AM GASTROINTESTINAL TECHNICIAN Appointment [facility] 2nd Fl [address] [place] [address] Infusion Chair 6, 2nd Floor [place] documented as of this encounter Visit Diagnoses [...] diff 04/13/2023 04/12/2023 04/13/2023 2:29 PM CDT R/O GI Pathogen 04/07/2025 04/08/2025 04/08/2025 6 :24 AM CDT R/O Respiratory 04/07/2025 04/07/2025 04/07/2025 7 :19 PM CDT documented as of this encounter Care Teams Night Clerk Relationship Specialty Start Date End Date Titi Cummings MD [address] [place] [phone] PCP - General Family Practice 10/10/23 documented as of this encounter
--- OUTSIDE RECORDS SUMMARY | 2025-09-23 10:59 | XMS_ITS | Encounter Summary ---
Author Organization [facility] Address [address] [place] [address] Care Team Providers Care Chemical Production Technician Name Role Phone Titi Cummings MD Primary Care Provider Encounter Details Date Type Department Care Team (Latest Contact Info) Description 02/26/2001 Outpatient Historical HIS [facility] BRY Contreras, Gibson Rivera MD NO ADDRESS ON FILE Malignant neoplasm of upper-outer quadrant of female breast (CMS/HCC) (Primary Dx) Social History Tobacco Use Types Packs/Day Years Used Date Smoking Tobacco: Never Assessed Comments Unknown Sex and Gender Information Value Date Recorded Sex Assigned at Not on file Legal Sex Female 4:40 AM EMPLOYMENT MANAGER Gender Identity Not on file Sexual Orientation Not on file documented as of this encounter Plan of Treatment Upcoming Encounters Date Type Department Care Team (Late st Contact Info) Description 09/29/2025 11:30 AM EMPLOYMENT MANAGER Office Visit [facility] Gynecologic Oncology [place] [address] [place] [address] Avani Fong, TORRI [address] [place] [address] 09/29/2025 12:00 PM EMPLOYMENT MANAGER Hospital Encounter [facility] 2nd Fl [address] [place] [address] Infusion Chair 6, 2nd Floor [place] 10/12/2025 1:30 PM EMPLOYMENT MANAGER Office Visit [facility] Neurology [address] [place] [address] Navi Stephens MD [address] [address] 10/20/2025 11:00 AM EMPLOYMENT MANAGER Office Visit [facility] Gynecologic Oncology [place] [address] [place] [address] Becky Walton MD [address] [place] [address] 10/20/2025 11:30 AM EMPLOYMENT MANAGER Appointment [facility] 2nd Fl [address] [place] [address] Infusion Chair 6, 2nd Floor [place] documented as of this encounter Visit Diagnoses [...] documented as of this encounter Care Teams Chemical Production Technician Relationship Specialty Start Date End Date Titi Cummings MD [address] [place] [phone] PCP - General Family Practice 10/10/23 documented as of this encounter
--- OUTSIDE RECORDS SUMMARY | 2025-09-23 10:59 | XMS_ITS | Encounter Summary ---
Author Organization [facility] Address [address] [place] [address] Care Team Providers Care Bit Setter Name Role Phone Titi Cummings MD Primary Care Provider Encounter Details Date Type Department Care Team (Latest Contact Info) Description 10/01/1998 Outpatient Historical HIS [facility] BRY Contreras, Gibson Rivera MD NO ADDRESS ON FILE Malignant neoplasm of upper-outer quadrant of female breast (CMS/HCC) (Primary Dx) Social History Tobacco Use Types Packs/Day Years Used Date Smoking Tobacco: Never Assessed Comments Unknown Sex and Gender Information Value Date Recorded Sex Assigned at Not on file Legal Sex Female 4:40 AM COGENERATION TECHNICIAN Gender Identity Not on file Sexual Orientation Not on file documented as of this encounter Plan of Treatment Upcoming Encounters Date Type Department Care Team (Late st Contact Info) Description 09/29/2025 11:30 AM COGENERATION TECHNICIAN Office Visit [facility] Gynecologic Oncology [place] [address] [place] [address] Avani Fong, TORRI [address] [place] [address] 09/29/2025 12:00 PM COGENERATION TECHNICIAN Hospital Encounter [facility] 2nd Fl [address] [place] [address] Infusion Chair 6, 2nd Floor [place] 10/12/2025 1:30 PM COGENERATION TECHNICIAN Office Visit [facility] Neurology [address] [place] [address] Navi Stephens MD [address] [address] 10/20/2025 11:00 AM COGENERATION TECHNICIAN Office Visit [facility] Gynecologic Oncology [place] [address] [address] [place] [address] Becky Walton MD [address] [place] [address] 10/20/2025 11:30 AM COGENERATION TECHNICIAN Appointment [facility] 2nd Fl [address] [place] [address] Infusion Chair 6, 2nd Floor [place] documented as of this encounter Visit Diagnoses [...] documented as of this encounter Care Teams Bit Setter Relationship Specialty Start Date End Date Titi Cummings MD [address] [place] [phone] PCP - General Family Practice 10/10/23 documented as of this encounter
--- OUTSIDE RECORDS SUMMARY | 2025-09-23 11:00 | XMS_ITS | Encounter Summary ---
Author Organization [facility] Address [address] [place] [address] Care Team Providers Care Bakery Supervisor Name Role Phone Titi Cummings MD Primary Care Provider Encounter Details Date Type Department Care Team (Latest Contact Info) Description 01/21/1999 Outpatient Historical HIS [facility] BRY Contreras, Gibson Rivera MD NO ADDRESS ON FILE Malignant neoplasm of upper-outer quadrant of female breast (CMS/HCC) (Primary Dx) Social History Tobacco Use Types Packs/Day Years Used Date Smoking Tobacco: Never Assessed Comments Unknown Sex and Gender Information Value Date Recorded Sex Assigned at Not on file Legal Sex Female 4:40 AM HYDRAULIC PRESS OPERATOR Gender Identity Not on file Sexual Orientation Not on file documented as of this encounter Plan of Treatment Upcoming Encounters Date Type Department Care Team (Late st Contact Info) Description 09/29/2025 11:30 AM HYDRAULIC PRESS OPERATOR Office Visit [facility] Gynecologic Oncology [place] [address] [place] [address] Avani Fong, TORRI [address] [place] [address] 09/29/2025 12:00 PM HYDRAULIC PRESS OPERATOR Hospital Encounter [facility] 2nd Fl [address] [place] [address] Infusion Chair 6, 2nd Floor [place] 10/12/2025 1:30 PM HYDRAULIC PRESS OPERATOR Office Visit [facility] Neurology [address] [place] [address] Navi Stephens MD [address] [address] 10/20/2025 11:00 AM HYDRAULIC PRESS OPERATOR Office Visit [facility] Gynecologic Oncology [place] [address] [place] [address] Becky Walton MD [address] [place] [address] 10/20/2025 11:30 AM HYDRAULIC PRESS OPERATOR Appointment [facility] 2nd Fl [address] [place] [address] Infusion Chair 6, 2nd Floor [place] documented as of this encounter Visit Diagnoses [...] documented as of this encounter Care Teams Bakery Supervisor Relationship Specialty Start Date End Date Titi Cummings MD [address] [place] [phone] PCP - General Family Practice 10/10/23 documented as of this encounter
--- OUTSIDE RECORDS SUMMARY | 2025-09-23 11:00 | XMS_ITS | Encounter Summary ---
Author Organization [facility] Address [address] [place] [address] Care Team Providers Care Boiler Testing Technician Name Role Phone Ttii Cummings MD Primary Care Provider Encounter Details Date Type Department Care Team (Late Contact Info) Description 04/28/1999 Outpatient Historical HIS [facility] JluisorrJose Daniel araujo MD [address] [place] [address] [address] [place] [address] Diarrhea (Primary Dx) Social History Tobacco Use Types Packs/Day Years Used Date Smoking Tobacco: Never Assessed Comments Unknown Sex and Gender Information Value Date Recorded Sex Assigned at Not on file Legal Sex Female 4:40 AM VULCANIZED FIBER UNIT OPERATOR Gender Identity Not on file Sexual Orientation Not on file documented as of this encounter Plan of Treatment Upcoming Encounters Date Type Department Care Team (Late Contact Info) Description 09/29/2025 11:30 AM VULCANIZED FIBER UNIT OPERATOR Office Visit [facility] Gynecologic Oncology [place] [address] [facility] [address] [place] [address] Avani Fong, TORRI [address] [facility] [address] [place] [address] 09/29/2025 12:00 PM VULCANIZED FIBER UNIT OPERATOR Hospital Encounter [facility] 2nd Fl [address] [place] [address] Infusion Chair 6, 2nd Floor [place] 10/12/2025 1:30 PM VULCANIZED FIBER UNIT OPERATOR Office Visit [facility] Neurology [address] [place] [address] Navi Stephens MD [address] [address] 10/20/2025 11:00 AM VULCANIZED FIBER UNIT OPERATOR Office Visit [facility] Gynecologic Oncology [place] [address] [place] [address] Becky Walton MD [address] [place] [address] 10/20/2025 11:30 AM VULCANIZED FIBER UNIT OPERATOR Appointment [facility] 2nd Fl [address] [place] [address] Infusion Chair 6, 2nd Floor [place] documented as of this encounter Visit Diagnoses [...] documented as of this encounter Care Teams Boiler Testing Technician Relationship Specialty Start Date End Date Titi Cummings MD [address] [place] [phone] PCP - General Family Practice 10/10/23 documented as of this encounter
--- OUTSIDE RECORDS SUMMARY | 2025-09-23 11:00 | XMS_ITS | Encounter Summary ---
Author Organization [facility] Address [address] [place] [address] Care Team Providers Care Honest John Rocket Crew Member Name Role Phone Titi Cummings MD Primary Care Provider Encounter Details Date Type Department Care Team (Latest Contact Info) Description 07/20/2000 Outpatient Historical HIS [facility] BRY Contreras, Gibson Rivera MD NO ADDRESS ON FILE Malignant neoplasm of upper-outer quadrant of female breast (CMS/HCC) (Primary Dx) Social History Tobacco Use Types Packs/Day Years Used Date Smoking Tobacco: Never Assessed Comments Unknown Sex and Gender Information Value Date Recorded Sex Assigned at Not on file Legal Sex Female 4:40 AM BUSINESS SERVICES ASSOCIATE Gender Identity Not on file Sexual Orientation Not on file documented as of this encounter Plan of Treatment Upcoming Encounters Date Type Department Care Team (Late st Contact Info) Description 09/29/2025 11:30 AM BUSINESS SERVICES ASSOCIATE Office Visit [facility] Gynecologic Oncology [place] [address] [place] [address] Avani Fong, TORRI [address] [place] [address] 09/29/2025 12:00 PM BUSINESS SERVICES ASSOCIATE Hospital Encounter [facility] 2nd Fl [address] [place] [address] Infusion Chair 6, 2nd Floor [place] 10/12/2025 1:30 PM BUSINESS SERVICES ASSOCIATE Office Visit [facility] Neurology [address] [place] [address] Navi Stephens MD [address] [address] 10/20/2025 11:00 AM BUSINESS SERVICES ASSOCIATE Office Visit [facility] Gynecologic Oncology [place] [address] [place] [address] Becky Walton MD [address] [place] [address] 10/20/2025 11:30 AM BUSINESS SERVICES ASSOCIATE Appointment [facility] 2nd Fl [address] [place] [address] Infusion Chair 6, 2nd Floor [place] documented as of this encounter Visit Diagnoses [...] documented as of this encounter Care Teams Honest John Rocket Crew Member Relationship Specialty Start Date End Date Titi Cummings MD [address] [place] [phone] PCP - General Family Practice 10/10/23 documented as of this encounter
--- OUTSIDE RECORDS SUMMARY | 2025-09-23 11:00 | XMS_ITS | Encounter Summary ---
Author Organization [facility] Address [address] [place] [address] Care Team Providers Care Cocoa Butter Filter Operator Name Role Phone Titi Cummings MD Primary Care Provider Encounter Details Date Type Department Care Team (Late Contact Info) Description 09/22/2025 External Device Data ST[facility] ABSTRACTION Provider, Abstract NO ADDRESS ON FILE Social History Tobacco Use Types Packs/Day Years Used Date Smoking Tobacco: Never Smokeless Tobacco: Never Alcohol Use Standard Drinks/Week Comments Not Currently 0 (1 standard drink = 0.6 oz pur e alcohol) Feeling Safe Answer Date Recorded Are you in a relationship wi th someone who hurts you emotionally and/or physically? No 08/25/2025 Food Insecurity Answer Date Recorded Patient needs follow up regardin 04/07/2025 Transportation Needs Answer Date Record ed Patient needs follow up regardin 04/07/2025 Utility Needs Answer Date Recorded Patient needs follow up regardin 04/07/2025 Comments No Sex and Gender Information Value Date Recorded Sex Assigned at Not on file Legal Sex Female 4:40 AM CAR PORTER Gender Identity Not on file Sexual Orientation Not on file Occupation Industry Job Start Date Job End Date Not on file Not on file Not on file Not on file documented as of this encounter Plan of Treatment Upcoming Encounters Date Type Department Care Team (Late Contact Info) Description 09/29/2025 11:30 AM CAR PORTER Office Visit [facility] Gynecologic Oncology [place] [address] [place] [address] Avani Fong, TORRI [address] [place] [address] 09/29/2025 12:00 PM CAR PORTER Hospital Encounter [facility] 2nd Fl [address] [place] [address] Infusion Chair 6, 2nd Floor [place] 10/12/2025 1:30 PM CAR PORTER Office Visit [facility] Neurology [address] [place] [address] Navi Stephens MD [address] [address] 10/20/2025 11:00 AM CAR PORTER Office Visit [facility] Gynecologic Oncology [place] [address] [place] [address] Becky Walton MD [address] [facility] [address] [place] [address] 10/20/2025 11:30 AM CAR PORTER Appointment [facility] 2nd Fl [address] [place] [address] Infusion Chair 6, 2nd [facility] documented as of this encounter Visit Diagnoses Not on filedocumented in this encounter Additional Health Concerns Assessment Noted Time PHQ-9 Depression Total Score: 4 10/02/20 24 12:00 PM CAR PORTER documented as of this encounter Care Teams Cocoa Butter Filter Operator Relationship Specialty Start Date End Date Titi Cummings MD [address] [phone] PCP - General Family Practice 10/10/23 documented as of this encounter
--- OUTSIDE RECORDS SUMMARY | 2025-09-23 11:00 | XMS_ITS | Encounter Summary ---
Author Organization [facility] Address [address] [place] [address] Care Team Providers Care Command And Control Systems Integrator Name Role Phone Titi Cummings MD Primary Care Provider Encounter Details Date Type Department Care Team (Latest Contact Info) Description 01/25/2001 Outpatient Historical HIS [facility] BRY Contreras, Gibson Rivera MD NO ADDRESS ON FILE Malignant neoplasm of upper-outer quadrant of female breast (CMS/HCC) (Primary Dx) Social History Tobacco Use Types Packs/Day Years Used Date Smoking Tobacco: Never Assessed Comments Unknown Sex and Gender Information Value Date Recorded Sex Assigned at Not on file Legal Sex Female 4:40 AM POT BUILDER Gender Identity Not on file Sexual Orientation Not on file documented as of this encounter Plan of Treatment Upcoming Encounters Date Type Department Care Team (Late st Contact Info) Description 09/29/2025 11:30 AM POT BUILDER Office Visit [facility] Gynecologic Oncology [place] [address] [place] [address] Avani Fong, TORRI [address] [place] [address] 09/29/2025 12:00 PM POT BUILDER Hospital Encounter [facility] 2nd Fl [address] [place] [address] Infusion Chair 6, 2nd Floor [place] 10/12/2025 1:30 PM POT BUILDER Office Visit [facility] Neurology [address] [place] [address] Navi Stephens MD [address] [place] [address] 10/20/2025 11:00 AM POT BUILDER Office Visit [facility] Gynecologic Oncology [place] [address] [place] [address] Becky Walton MD [address] [place] [address] 10/20/2025 11:30 AM POT BUILDER Appointment [facility] 2nd Fl [address] [place] [address] Infusion Chair 6, 2nd Floor [place] documented as of this encounter Visit Diagnoses [...] documented as of this encounter Care Teams Command And Control Systems Integrator Relationship Specialty Start Date End Date Titi Cummings MD [address] [place] [phone] PCP - General Family Practice 10/10/23 documented as of this encounter
--- OUTSIDE RECORDS SUMMARY | 2025-09-23 11:00 | XMS_ITS | Encounter Summary ---
Author Organization [facility] Healthcare Address [address] [place] [address] Care Team Providers Care Industrial Machine Assembler Name Role Phone Titi Cummings MD Primary Care Provider Tomás Garcia MD Unavailable Gautam Stoll MD Unavailable Steve Murphy MD Unavailable China Reynoso NP Unavailable + Yariel Stephens MD Unavailable Reason for Visit * Reason Onset Date Comments Hip Injury 09/22/2025 Encounter Details Date Type Department Care Team (Late st Contact Info) Description 09/22/2025 Nurse Triage [facility] Primary Care at [address] [address] Titi Cummings MD [address] [place] [address] [address] [place] [address] Social History Tobacco Use Types Packs/Day Years Used Date Smoking Tobacco: Never Smokeless Tobacco: Never AUDIT-C Answer Date Recorded Q1: How often [...] points, staff should administer the PHQ-9) 0 04/15/2025 Comments No Sex and Gender Information Value Date Recorded Sex Assigned at Not on file Legal Sex Female 1:46 PM LEAD CASHIER Gender Identity Female 07/25/2023 8:58 AM CDT Sexual Orientation Straight 07/25/2023 8: 58 AM CDT documented as of this encounter Miscellaneous Notes * Telephone Encounter - Pratima Herbert RN - 09/22/2025 11:02 AM CST Reason for Conversation Hip Injury Background Pt was taking out the trash on Saturday and fell on the driveway. Denies hitting head, landed on her butt. Pt has pain persisting where her butt meets the leg on the backside. Pt took her Tramadol and it helps. Pt is not able to walk normal, she has to hobble. Pain is rated mild. Pt can bear weighton leg but it is uncomfortable. No redness, warmth or cuts. No numbness or loss of sensation. Pt states she is calling because her wanted her to call. No appts avail in office today. Offered CC but pt is afraid to go out today and wants to give it one more day to see if it gets better. RN encouraged her to be seen today but pt declines. Forwarding to office as FYI Pt will call back for persistent pain tomorrow. Pt aware to call back for worsening pain, inability to bear weight on leg. Ice ot affected area. Disposition See Today or Tomorrow in Office Reason for Disposition MODERATE pain (e.g., interferes with normal activities, limping) and high-risk adult (e.g., age > 60 years, osteoporosis, chronic steroid use) Protocols Used Hip [id number]-[place] CASHIER * Telephone Encounter - Pratima Herbert RN - 09/22/2025 10:58 AM CST Regarding: Fall ----- Message from Анна Rivera sent at 09/22/2025 10:57 AM LEAD CASHIER ----- Symptom Based Call Chief Complaint(s): Fall Duration: Happened on Saturday What type of symptom(s) is the patient experiencing? Red Flag. Is the patient concerned they are experiencing a medical emergency requiring an ambulance? No Additional Comments: Pt states she's taking tramadol for pain, says no injuries just pain between he bottom and her hip. Does message need to be routed? Yes-Action Needed CASHIER documented in this encounter Plan of Treatment Not on file documented as of this encounter Visit Diagnoses Not on filedocumented in this encounter Care Teams Industrial Machine Assembler Relationship Specialty Start Date End Date Titi Cummings MD [address] [facility] [address] [place] [address] PCP - General Family Medicine 09/24/23 Tomás Garcia MD [address] [place] [address] [address] [place], [place] [id number] Referring Physician Neurosurgery 09/24/23 Gautam Stoll MD [address] [place] [phone] Consulting Physician Obstetrics and Gynecology 09/24/23 Steve Murphy MD [address] [place] [address] Gynecologic Oncology 09/24/23 China Reynoso NP [address] [place] [address] [address] [place] [address] Nurse Practitioner Neurology 09/24/23 Yariel Stephens MD [address] [place] [address] [facility] [address] [place] [address] Referring Physician Neurology 09/24/23 documented as of this encounter
--- OUTSIDE RECORDS SUMMARY | 2025-09-23 11:00 | XMS_ITS | Encounter Summary ---
Author Organization [facility] Address [address] [place] [address] Care Team Providers Care Senior Underwriting Assistant Name Role Phone Titi Cummings MD Primary Care Provider Encounter Details Date Type Department Care Team (Latest Contact Info) Description 05/27/1999 Outpatient Historical HIS [facility] BRY Contreras, Gibson Rivera MD NO ADDRESS ON FILE Malignant neoplasm of upper-outer quadrant of female breast (CMS/HCC) (Primary Dx) Social History Tobacco Use Types Packs/Day Years Used Date Smoking Tobacco: Never Assessed Comments Unknown Sex and Gender Information Value Date Recorded Sex Assigned at Not on file Legal Sex Female 4:40 AM SUPPLIER MANAGER Gender Identity Not on file Sexual Orientation Not on file documented as of this encounter Plan of Treatment Upcoming Encounters Date Type Department Care Team (Late st Contact Info) Description 09/29/2025 11:30 AM SUPPLIER MANAGER Office Visit [facility] Gynecologic Oncology [place] [address] [place] [address] Avani Fong, TORRI [address] [place] [address] 09/29/2025 12:00 PM SUPPLIER MANAGER Hospital Encounter [facility] 2nd Fl [address] [place] [address] Infusion Chair 6, 2nd Floor [place] 10/12/2025 1:30 PM SUPPLIER MANAGER Office Visit [facility] Neurology [address] [place] [address] Navi Stephens MD [address] [address] 10/20/2025 11:00 AM SUPPLIER MANAGER Office Visit [facility] Gynecologic Oncology [place] [address] [place] [address] Becky Walton MD [address] [place] [address] 10/20/2025 11:30 AM SUPPLIER MANAGER Appointment [facility] 2nd Fl [address] [place] [address] Infusion Chair 6, 2nd Floor [place] documented as of this encounter Visit Diagnoses [...] documented as of this encounter Care Teams Senior Underwriting Assistant Relationship Specialty Start Date End Date Titi Cummings MD [address] [place] [phone] PCP - General Family Practice 10/10/23 documented as of this encounter
--- OUTSIDE RECORDS SUMMARY | 2025-09-23 11:00 | XMS_ITS | Encounter Summary ---
Author Organization [facility] Address [address] [place] [address] Care Team Providers Care Auto Suspension And Steering Mechanic Name Role Phone Titi Cummings MD Primary Care Provider Encounter Details Date Type Department Care Team (Latest Contact Info) Description 04/13/1999 Outpatient Historical HIS [facility] BRY Contreras, Gibson Rivera MD NO ADDRESS ON FILE Malignant neoplasm of upper-outer quadrant of female breast (CMS/HCC) (Primary Dx) Social History Tobacco Use Types Packs/Day Years Used Date Smoking Tobacco: Never Assessed Comments Unknown Sex and Gender Information Value Date Recorded Sex Assigned at Not on file Legal Sex Female 4:40 AM CASINO SUPERVISOR Gender Identity Not on file Sexual Orientation Not on file documented as of this encounter Plan of Treatment Upcoming Encounters Date Type Department Care Team (Late st Contact Info) Description 09/29/2025 11:30 AM CASINO SUPERVISOR Office Visit [facility] Gynecologic Oncology [place] [address] [place] [address] Avani Fong, TORRI [address] [place] [address] 09/29/2025 12:00 PM CASINO SUPERVISOR Hospital Encounter [facility] 2nd Fl [address] [place] [address] Infusion Chair 6, 2nd Floor [place] 10/12/2025 1:30 PM CASINO SUPERVISOR Office Visit [facility] Neurology [address] [place] [address] Navi Stephens MD [address] [address] 10/20/2025 11:00 AM CASINO SUPERVISOR Office Visit [facility] Gynecologic Oncology [place] [address] [place] [address] Becky Walton MD [address] [place] [address] 10/20/2025 11:30 AM CASINO SUPERVISOR Appointment [facility] 2nd Fl [address] [place] [address] Infusion Chair 6, 2nd Floor [place] documented as of this encounter Visit Diagnoses [...] documented as of this encounter Care Teams Auto Suspension And Steering Mechanic Relationship Specialty Start Date End Date Titi Cummings MD [address] [place] [phone] PCP - General Family Practice 10/10/23 documented as of this encounter
--- OUTSIDE RECORDS SUMMARY | 2025-09-23 11:00 | XMS_ITS | Encounter Summary ---
Author Organization [facility] Address [address] [place] [address] Care Team Providers Care Tracer Powder Blender Name Role Phone Titi Cummings MD Primary Care Provider Encounter Details Date Type Department Care Team (Late Contact Info) Description 09/23/2025 External Device Data STL ABSTRACTION Provider, Abstract [...] on file Legal Sex Female 4:40 AM REGIONAL MEDICAL DIRECTOR Gender Identity Not on file Sexual Orientation Not on file Occupation Industry Job Start Date Job End Date Not on file Not on file Not on file Not on file documented as of this encounter Plan of Treatment Upcoming Encounters Date Type Department Care Team (Late Contact Info) Description 09/29/2025 11:30 AM REGIONAL MEDICAL DIRECTOR Office Visit [facility] Gynecologic Oncology [place] [address] [place] [address] Avani Fong, TORRI [address] [place] [address] 09/29/2025 12:00 PM REGIONAL MEDICAL DIRECTOR Hospital Encounter [facility] 2nd Fl [address] [place] [address] Infusion Chair 6, 2nd Floor [place] 10/12/2025 1:30 PM REGIONAL MEDICAL DIRECTOR Office Visit [facility] Neurology [address] [place] [address] Navi Stephens MD [address] [address] 10/20/2025 11:00 AM REGIONAL MEDICAL DIRECTOR Office Visit [facility] Gynecologic Oncology [place] [address] [place] [address] Becky Walton MD [address] [facility] [address] [place] [address] 10/20/2025 11:30 AM REGIONAL MEDICAL DIRECTOR Appointment [facility] 2nd Fl [address] [place] [address] Infusion Chair 6, 2nd [facility] documented as of this encounter Visit Diagnoses Not on filedocumented in this encounter Additional Health Concerns Assessment Noted Time PHQ-9 Depression Total Score: 4 10/02/20 24 12:00 PM REGIONAL MEDICAL DIRECTOR documented as of this encounter Care Teams Tracer Powder Blender Relationship Specialty Start Date End Date Titi Cummings MD [address] [phone] PCP - General Family Practice 10/10/23 documented as of this encounter
--- OUTSIDE RECORDS SUMMARY | 2025-09-23 11:00 | XMS_ITS | Encounter Summary ---
Author Organization [facility] Address [address] [place] [address] Care Team Providers Care Buffing And Polishing Wheel Repairer Name Role Phone Titi Cummings MD Primary [...] on file Legal Sex Female 4:40 AM LABORER HOISTING Gender Identity Not on file Sexual Orientation Not on file Occupation Industry Job Start Date Job End Date Not on file Not on file Not on file Not on file documented as of this encounter Plan of Treatment Upcoming Encounters Date Type Department Care Team (Late Contact Info) Description 09/29/2025 11:30 AM LABORER HOISTING Office Visit [facility] Gynecologic Oncology [place] [address] [place] [address] Avani Fong, TORRI [address] [place] [address] 09/29/2025 12:00 PM LABORER HOISTING Hospital Encounter [facility] 2nd Fl [address] [place] [address] Infusion Chair 6, 2nd Floor [place] 10/12/2025 1:30 PM LABORER HOISTING Office Visit [facility] Neurology [address] [place] [address] Navi Stephens MD [address] [facility] [address] [address] 10/20/2025 11:00 AM LABORER HOISTING Office Visit [facility] Gynecologic Oncology [place] [address] [place] [address] Becky Walton MD [address] [facility] [address] [place] [address] 10/20/2025 11:30 AM LABORER HOISTING Appointment [facility] 2nd Fl [address] [place] [address] Infusion Chair 6, 2nd [facility] documented as of this encounter Visit Diagnoses Not on filedocumented in this encounter Additional Health Concerns Assessment Noted Time PHQ-9 Depression Total Score: 4 10/02/20 24 12:00 PM LABORER HOISTING documented as of this encounter Care Teams Buffing And Polishing Wheel Repairer Relationship Specialty Start Date End Date Titi Cummings MD [address] [phone] PCP - General Family Practice 10/10/23 documented as of this encounter
--- OUTSIDE RECORDS SUMMARY | 2025-09-23 11:00 | XMS_ITS | Encounter Summary ---
Author Organization [facility] Address [address] [place] [address] Care Team Providers Care Hob Machine Operator Name Role Phone Titi Cummings MD Primary Care Provider Encounter Details Date Type Department Care Team (Latest Contact Info) Description 09/23/1999 Outpatient Historical HIS [facility] BRY Contreras, Gibson Rivera MD NO ADDRESS ON FILE Malignant neoplasm of upper-outer quadrant of female breast (CMS/HCC) (Primary Dx) Social History Tobacco Use Types Packs/Day Years Used Date Smoking Tobacco: Never Assessed Comments Unknown Sex and Gender Information Value Date Recorded Sex Assigned at Not on file Legal Sex Female 4:40 AM RIM ROLLER OPERATOR Gender Identity Not on file Sexual Orientation Not on file documented as of this encounter Plan of Treatment Upcoming Encounters Date Type Department Care Team (Late st Contact Info) Description 09/29/2025 11:30 AM RIM ROLLER OPERATOR Office Visit [facility] Gynecologic Oncology [place] [address] [place] [address] Avani Fong, TORRI [address] [place] [address] 09/29/2025 12:00 PM RIM ROLLER OPERATOR Hospital Encounter [facility] 2nd Fl [address] [place] [address] Infusion Chair 6, 2nd Floor [place] 10/12/2025 1:30 PM RIM ROLLER OPERATOR Office Visit [facility] Neurology [address] [place] [address] Navi Stephens MD [address] [address] 10/20/2025 11:00 AM RIM ROLLER OPERATOR Office Visit [facility] Gynecologic Oncology [place] [address] [address] [place] [address] Becky Walton MD [address] [place] [address] 10/20/2025 11:30 AM RIM ROLLER OPERATOR Appointment [facility] 2nd Fl [address] [place] [address] Infusion Chair 6, 2nd Floor [place] documented as of this encounter Visit Diagnoses [...] documented as of this encounter Care Teams Hob Machine Operator Relationship Specialty Start Date End Date Titi Cummings MD [address] [place] [phone] PCP - General Family Practice 10/10/23 documented as of this encounter
--- OUTSIDE RECORDS SUMMARY | 2025-09-23 11:00 | XMS_ITS | Encounter Summary ---
Author Organization [facility] Address [address] [place] [address] Care Team Providers Care Compounder Flavorings Name Role Phone Titi Cummings MD Primary [...] on file Legal Sex Female 4:40 AM WOOD STOCK BLANK HANDLER Gender Identity Not on file Sexual Orientation Not on file Occupation Industry Job Start Date Job End Date Not on file Not on file Not on file Not on file documented as of this encounter Plan of Treatment Upcoming Encounters Date Type Department Care Team (Late Contact Info) Description 09/29/2025 11:30 AM WOOD STOCK BLANK HANDLER Office Visit [facility] Gynecologic Oncology [place] [address] [place] [address] Avani Fong, TORRI [address] [place] [address] 09/29/2025 12:00 PM WOOD STOCK BLANK HANDLER Hospital Encounter [facility] 2nd Fl [address] [place] [address] Infusion Chair 6, 2nd Floor [place] 10/12/2025 1:30 PM WOOD STOCK BLANK HANDLER Office Visit [facility] Neurology [address] [address] [place] [address] Navi Stephens MD [address] [address] 10/20/2025 11:00 AM WOOD STOCK BLANK HANDLER Office Visit [facility] Gynecologic Oncology [place] [address] [facility] [address] [place] [address] Becky Walton MD [address] [facility] [address] [place] [address] 10/20/2025 11:30 AM WOOD STOCK BLANK HANDLER Appointment [facility] 2nd Fl [address] [place] [address] Infusion Chair 6, 2nd [facility] documented as of this encounter Visit Diagnoses Not on filedocumented in this encounter Additional Health Concerns Assessment Noted Time PHQ-9 Depression Total Score: 4 10/02/20 24 12:00 PM WOOD STOCK BLANK HANDLER documented as of this encounter Care Teams Compounder Flavorings Relationship Specialty Start Date End Date Titi Cummings MD [address] [phone] PCP - General Family Practice 10/10/23 documented as of this encounter
--- OUTSIDE RECORDS SUMMARY | 2025-09-23 11:00 | XMS_ITS | Encounter Summary ---
Author Organization [facility] Address [address] [place] [address] Care Team Providers Care Health Screener Name Role Phone Titi Cummings MD Primary Care Provider Encounter Details Date Type Department Care Team (Latest Contact Info) Description 02/06/2001 Outpatient Historical [facility] Daron French MD NO ADDRESS ON FILE Special screening for osteoporosis (Primary Dx) Social History Tobacco Use Types Packs/Day Years Used Date Smoking Tobacco: Never Assessed Comments Unknown Sex and Gender Information Value Date Recorded Sex Assigned at Not on file Legal Sex Female 4:40 AM CONTROL SYSTEMS ENGINEER Gender Identity Not on file Sexual Orientation Not on file documented as of this encounter Plan of Treatment Upcoming Encounters Date Type Department Care Team (Late st Contact Info) Description 09/29/2025 11:30 AM CONTROL SYSTEMS ENGINEER Office Visit [facility] Gynecologic Oncology [place] [address] [place] [address] Avani Fong, TORRI [address] [place] [address] 09/29/2025 12:00 PM CONTROL SYSTEMS ENGINEER Hospital Encounter [facility] 2nd Fl [address] [place] [address] Infusion Chair 6, 2nd Floor [place] 10/12/2025 1:30 PM CONTROL SYSTEMS ENGINEER Office Visit [facility] Neurology [address] [place] [address] Navi Stephens MD [address] [address] 10/20/2025 11:00 AM CONTROL SYSTEMS ENGINEER Office Visit [facility] Gynecologic Oncology [place] [address] [place] [address] Becky Walton MD [address] [place] [address] 10/20/2025 11:30 AM CONTROL SYSTEMS ENGINEER Appointment [facility] 2nd Fl [address] [place] [address] Infusion Chair 6, 2nd Floor [place] documented as of this encounter Visit Diagnoses [...] documented as of this encounter Care Teams Health Screener Relationship Specialty Start Date End Date Titi Cummings MD 4 [facility] [address] [place] [phone] PCP - General Family Practice 10/10/23 documented as of this encounter
--- OUTSIDE RECORDS SUMMARY | 2025-09-23 11:01 | XMS_ITS | Encounter Summary ---
Author Organization [facility] Address [address] [place] [address] Care Team Providers Care Tail Sawyer Name Role Phone Titi Cummings MD Primary Care Provider Encounter Details Date Type Department Care Team (Latest Contact Info) Description 01/02/2002 Outpatient Historical [facility] Daron French MD NO ADDRESS ON FILE SCREENING FOR OSTEOPOROSIS (Primary Dx) Social History Tobacco Use Types Packs/Day Years Used Date Smoking Tobacco: Never Assessed Comments Unknown Sex and Gender Information Value Date Recorded Sex Assigned at Not on file Legal Sex Female 4:40 AM GRADE RECORDER Gender Identity Not on file Sexual Orientation Not on file documented as of this encounter Plan of Treatment Upcoming Encounters Date Type Department Care Team (Late st Contact Info) Description 09/29/2025 11:30 AM GRADE RECORDER Office Visit [facility] Gynecologic Oncology [place] [address] [place] [address] Avani Fogn, TORRI [address] [place] [address] 09/29/2025 12:00 PM GRADE RECORDER Hospital Encounter [facility] 2nd Fl [address] [place] [address] Infusion Chair 6, 2nd Floor [place] 10/12/2025 1:30 PM GRADE RECORDER Office Visit [facility] Neurology [address] [place] [address] Navi Stephens MD [address] [address] 10/20/2025 11:00 AM GRADE RECORDER Office Visit [facility] Gynecologic Oncology [place] [address] [place] [address] Becky Walton MD [address] [place] [address] 10/20/2025 11:30 AM GRADE RECORDER Appointment [facility] 2nd Fl [address] [place] [address] Infusion Chair 6, 2nd Floor [place] documented as of this encounter Visit Diagnoses [...] documented as of this encounter Care Teams Tail Sawyer Relationship Specialty Start Date End Date Titi Cummings MD 4 [facility] [address] [place] [phone] PCP - General Family Practice 10/10/23 documented as of this encounter
--- OUTSIDE RECORDS SUMMARY | 2025-09-23 11:01 | XMS_ITS | Encounter Summary ---
Author Organization [facility] Address [address] [place] [address] Care Team Providers Care Tailing Machine Operator Name Role Phone Titi Cummings MD Primary Care Provider Encounter Details Date Type Department Care Team (Latest Contact Info) Description 08/20/2001 Outpatient Historical [facility] BRY Contreras, Gibson Rivera MD NO ADDRESS ON FILE PERS HX OF BREAST MALIGNANCY (Primary Dx) Social History Tobacco Use Types Packs/Day Years Used Date Smoking Tobacco: Never Assessed Comments Unknown Sex and Gender Information Value Date Recorded Sex Assigned at Not on file Legal Sex Female 4:40 AM MALT HOUSE OPERATOR Gender Identity Not on file Sexual Orientation Not on file documented as of this encounter Plan of Treatment Upcoming Encounters Date Type Department Care Team (Late st Contact Info) Description 09/29/2025 11:30 AM MALT HOUSE OPERATOR Office Visit [facility] Gynecologic Oncology [place] [address] [place] [address] Avani Fong, TORRI [address] [place] [address] 09/29/2025 12:00 PM MALT HOUSE OPERATOR Hospital Encounter [facility] 2nd Fl [address] [place] [address] Infusion Chair 6, 2nd Floor [place] 10/12/2025 1:30 PM MALT HOUSE OPERATOR Office Visit [facility] Neurology [address] [place] [address] Navi Stephens MD [address] [address] 10/20/2025 11:00 AM MALT HOUSE OPERATOR Office Visit [facility] Gynecologic Oncology [place] [address] [place] [address] Becky Walton MD [address] [place] [address] 10/20/2025 11:30 AM MALT HOUSE OPERATOR Appointment [facility] 2nd Fl [address] [place] [address] Infusion Chair 6, 2nd Floor [place] documented as of this encounter Visit Diagnoses [...] documented as of this encounter Care Teams Tailing Machine Operator Relationship Specialty Start Date End Date Titi Cummings MD [address] [phone] PCP - General Family Practice 10/10/23 documented as of this encounter
--- OUTSIDE RECORDS SUMMARY | 2025-09-23 11:01 | XMS_ITS | Encounter Summary ---
Author Organization [facility] Address [address] [place] [address] Care Team Providers Care It Help Desk Manager Name Role Phone Titi Cummings MD Primary Care Provider Encounter Details Date Type Department Care Team (Latest Contact Info) Description 08/08/2003 Outpatient Historical [facility] [address] Gibson Contreras MD NO ADDRESS ON FILE ABNORMAL LIVER FUNCTION STUDY (Primary Dx) Social History Tobacco Use Types Packs/Day Years Used Date Smoking Tobacco: Never Assessed Comments Unknown Sex and Gender Information Value Date Recorded Sex Assigned at Not on file Legal Sex Female 4:40 AM WRAPPER OPENER Gender Identity Not on file Sexual Orientation Not on file documented as of this encounter Plan of Treatment Upcoming Encounters Date Type Department Care Team (Late st Contact Info) Description 09/29/2025 11:30 AM WRAPPER OPENER Office Visit [facility] Gynecologic Oncology [place] [address] [place] [address] Avani Fong, TORRI [address] [place] [address] 09/29/2025 12:00 PM WRAPPER OPENER Hospital Encounter [facility] 2nd Fl [address] [place] [address] Infusion Chair 6, 2nd Floor [place] 10/12/2025 1:30 PM WRAPPER OPENER Office Visit [facility] Neurology [address] [place] [address] Navi Stephens MD [address] [address] 10/20/2025 11:00 AM WRAPPER OPENER Office Visit [facility] Gynecologic Oncology [place] [address] [place] [address] Becky Walton MD [address] [place] [address] 10/20/2025 11:30 AM WRAPPER OPENER Appointment [facility] 2nd Fl [address] [place] [address] Infusion Chair 6, 2nd Floor [place] documented as of this encounter Visit Diagnoses [...] documented as of this encounter Care Teams It Help Desk Manager Relationship Specialty Start Date End Date Titi Cummings MD [address] [phone] PCP - General Family Practice 10/10/23 documented as of this encounter
--- OUTSIDE RECORDS SUMMARY | 2025-09-23 11:01 | XMS_ITS | Encounter Summary ---
Author Organization [facility] Address [address] [place] [address] Care Team Providers Care House Admin Name Role Phone Titi Cummings MD Primary Care Provider Encounter Details Date Type Department Care Team (Latest Contact Info) Description 08/15/2002 Outpatient Historical [facility] BRY Contreras, Gibson Rivera MD NO ADDRESS ON FILE MALIG NEOPLASM BREAST UP-OUTER (CMS/HCC) (Primary Dx) Social History Tobacco Use Types Packs/Day Years Used Date Smoking Tobacco: Never Assessed Comments Unknown Sex and Gender Information Value Date Recorded Sex Assigned at Not on file Legal Sex Female 4:40 AM MACHINING SUPERVISOR Gender Identity Not on file Sexual Orientation Not on file documented as of this encounter Plan of Treatment Upcoming Encounters Date Type Department Care Team (Late st Contact Info) Description 09/29/2025 11:30 AM MACHINING SUPERVISOR Office Visit [facility] Gynecologic Oncology [place] [address] [place] [address] Avani Fong, TORRI [address] [place] [address] 09/29/2025 12:00 PM MACHINING SUPERVISOR Hospital Encounter [facility] 2nd Fl [address] [place] [address] Infusion Chair 6, 2nd Floor [place] 10/12/2025 1:30 PM MACHINING SUPERVISOR Office Visit [facility] Neurology [address] [place] [address] Navi Stephens MD [address] [address] 10/20/2025 11:00 AM MACHINING SUPERVISOR Office Visit [facility] Gynecologic Oncology [place] [address] [place] [address] Becky Walton MD [address] [place] [address] 10/20/2025 11:30 AM MACHINING SUPERVISOR Appointment [facility] 2nd Fl [address] [place] [address] Infusion Chair 6, 2nd Floor [place] documented as of this encounter Visit Diagnoses [...] documented as of this encounter Care Teams House Admin Relationship Specialty Start Date End Date Titi Cummings MD [address] [place] [phone] PCP - General Family Practice 10/10/23 documented as of this encounter
--- OUTSIDE RECORDS SUMMARY | 2025-09-23 11:01 | XMS_ITS | Encounter Summary ---
Author Organization [facility] Address [address] [place] [address] Care Team Providers Care Farm Machinery Assembler Name Role Phone Titi Cummings MD Primary Care Provider Encounter Details Date Type Department Care Team ([facility] Contact Info) Description 08/20/2025 Results Follow-Up [facility] Gastroenterology [facility] [address] [address] Morenita Alexis MD [address] [facility] [address] [place] [address] PATHOLOGY Social History Tobacco Use Types Packs/Day Years Used Date Smoking Tobacco: Never Smokeless Tobacco: Never Alcohol Use Standard Drinks/Week Comments Not Currently 0 (1 standard drink = 0.6 oz pur e alcohol) Feeling Safe Answer Date Recorded Are you in a relationship wi th someone who hurts you emotionally and/or physically? No 08/17/2025 Food Insecurity Answer Date Recorded Patient needs follow up regardin 04/07/2025 Transportation Needs Answer Date Record ed Patient needs follow up regardin 04/07/2025 Utility Needs Answer Date Recorded Patient needs follow up regardin 04/07/2025 Comments No Sex and Gender Information Value Date Recorded Sex Assigned at Not on file Legal Sex Female 4:40 AM MOVING CONSULTANT Gender Identity Not on file Sexual Orientation Not on file Occupation Industry Job Start Date Job End Date Not on file Not on file Not on file Not on file documented as of this encounter Plan of Treatment Upcoming Encounters Date Type Department Care Team (Late st Contact Info) Description 09/29/2025 11:30 AM MOVING CONSULTANT Office Visit [facility] Gynecologic Oncology [place] [address] [place] [address] Avani Fong NP [address] [place] [address] 09/29/2025 12:00 PM MOVING CONSULTANT Hospital Encounter [facility] 2nd Fl [address] [place] [address] Infusion Chair 6, 2nd Floor [place] 10/12/2025 1:30 PM MOVING CONSULTANT Office Visit [facility] Neurology [address] [place] [address] Navi Stephens MD [address] [facility] [address] [address] 10/20/2025 11:00 AM MOVING CONSULTANT Office Visit [facility] Gynecologic Oncology [place] [address] [place] [address] Becky Walton MD [address] [facility] [address] [place] [address] 10/20/2025 11:30 AM MOVING CONSULTANT Appointment [facility] 2nd Fl [address] [place] [address] Infusion Chair 6, 2nd Floor [place] documented as of this encounter Visit Diagnoses Not on filedocumented in this encounter Additional Health Concerns Assessment Noted Time PHQ-9 Depression Total Score: 4 10/02/20 24 12:00 PM MOVING CONSULTANT documented as of this encounter Care Teams Farm Machinery Assembler Relationship Specialty Start Date End Date Titi Cummings MD 4 [facility] [address] [place] [phone] PCP - General Family Practice 10/10/23 documented as of this encounter
--- OUTSIDE RECORDS SUMMARY | 2025-09-23 11:01 | XMS_ITS | Encounter Summary ---
Author Organization [facility] Address [address] [place] [address] Care Team Providers Care Quality Assurance Consultant Name Role Phone Titi Cummings MD Primary Care Provider Encounter Details Date Type Department Care Team (Latest Contact Info) Description 07/26/2001 Outpatient Historical [facility] BRY Contreras, Gibson Rivera MD NO ADDRESS ON FILE Malignant neoplasm of upper-outer quadrant of female breast (CMS/HCC) (Primary Dx) Social History Tobacco Use Types Packs/Day Years Used Date Smoking Tobacco: Never Assessed Comments Unknown Sex and Gender Information Value Date Recorded Sex Assigned at Not on file Legal Sex Female 4:40 AM POTTER OR CERAMIC ARTIST Gender Identity Not on file Sexual Orientation Not on file documented as of this encounter Plan of Treatment Upcoming Encounters Date Type Department Care Team (Late st Contact Info) Description 09/29/2025 11:30 AM POTTER OR CERAMIC ARTIST Office Visit [facility] Gynecologic Oncology [place] [address] [place] [address] Avani Fong, TORRI [address] [place] [address] 09/29/2025 12:00 PM POTTER OR CERAMIC ARTIST Hospital Encounter [facility] 2nd Fl [address] [place] [address] Infusion Chair 6, 2nd Floor [place] 10/12/2025 1:30 PM POTTER OR CERAMIC ARTIST Office Visit [facility] Neurology [address] [place] [address] Navi Stephens MD [address] [address] 10/20/2025 11:00 AM POTTER OR CERAMIC ARTIST Office Visit [facility] Gynecologic Oncology [place] [address] [place] [address] Becky Walton MD [address] [facility] [address] [place] [address] 10/20/2025 11:30 AM POTTER OR CERAMIC ARTIST Appointment [facility] 2nd Fl [address] [place] [address] Infusion Chair 6, 2nd Floor [place] documented as of this encounter Visit Diagnoses [...] documented as of this encounter Care Teams Quality Assurance Consultant Relationship Specialty Start Date End Date Titi Cummings MD [address] [place] [phone] PCP - General Family Practice 10/10/23 documented as of this encounter
--- OUTSIDE RECORDS SUMMARY | 2025-09-23 11:01 | XMS_ITS | Clinical Summary ---
Author Organization [facility] Address [address] [place] [address] Phone Care Team Providers Care Sewage Reticulation Drafting Officer Name Role Phone Titi Cummings MD Primary Care Provider Allergies No known active allergies Medications lidocaine-pril ocaine (EMLA) 2.5-2.5 % Cream Apply to affected area see administration instructions. 30 Gram 3 022 Active doxorubicin HCl peg-liposomal (DOXIL IV) Inject by intravenous injection. Active traZODone (DESYREL) 50 mg tabletIndicati ons:Insomnia, unspecified type Take 1 Tablet (50 mg) by mouth daily at bedtime. 180 Tablet 1 025 Active VIT B COMP NO.3-FOLIC-C-B IOTIN ORAL Take 1 Dose by mouth daily. Active melatonin 5 mg Tablet Take 5 mg by mouth nightly as needed for Insomnia. Active donepeziL (ARICEPT) 10 mg tabletIndicati ons:Forgetfuln ess Take 1 Tablet (10 mg) by mouth daily at bedtime. 90 Tablet 6 025 Active nortriptyline (PAMELOR) 50 mg capsuleIndicat ions:Tension headache Take 1 Capsule (50 mg) by mouth daily at bedtime. NOTE change in dosage 90 Capsule 3 025 Active naloxone (NARCAN) 4 mg/spray Berkley, Non-Aerosol EMERGENCY USE ONLY: Administer 1 spray (4 mg) in one nostril one time. May repeat in alternating nostrils every 2-3 min until responsive or EMS arrives. 2 Each 3 025 Active cycloPHOSphami de (CYTOXAN) 50 mg capsule TAKE 1 CAPSULE BY MOUTH ONCE DAILY 30 Capsule 3 025 Active traMADol (ULTRAM) 50 mg tabletIndicati ons:Chemothera py management, encounter for,Peritoneal carcinoma (CMS/HCC) TAKE 1 TABLET(50 MG) BY MOUTH EVERY 6 HOURS NEEDED FOR PAIN 120 Tablet 025 Active potassium CHLORIDE (K-DUR,KLOR-CO N M20) 20 mEq Extended Release tablet Take 1 Tablet (20 mEq) by mouth 2 times daily. 30 Tablet 3 Active diphenoxylate- atropine 2.5-0.025 mg tablet TAKE 1 TABLET BY MOUTH FOUR TIMES DAILY NEEDED FOR DIARRHEA OR LOOSE STOOLS 30 Tablet 1 Active potassium CHLORIDE (K-DUR,KLOR-CO N M20) 20 mEq Extended Release tablet Take 1 Tablet (20 mEq) by mouth daily. 30 Tablet 3 025 2024 Discontinued(R eorder) diphenoxylate- atropine 2.5 mg-0.025 mg tablet Take 1 Tablet by mouth 4 times daily as needed for Diarrhea/Loose Stools. 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 The patient underwent the [employer] My Risk Genetic Testing for Hereditary Cancer [...] Hyperlipemia 02/17/2011 Anxiety 02/17/2011 Hydrocephalus Benign hypertension VICE CHAIR (ventriculoperitoneal) shunt status Gait abnormality Acute on chronic intracranial subdural hematoma Hypokalemia Acute encephalopathy Catheter-associated urinary tract infection Encounters Date Type Department Care Team Description 09/23/2025 External Device Data STL ABSTRACTION Provider, Abstract 09/23/2025 External Device Data STL ABSTRACTION Provider, Abstract 09/22/2025 External Device Data STL ABSTRACTION Provider, Abstract 09/22/2025 External Device Data STL ABSTRACTION Provider, Abstract 09/21/2025 External Device Data STL ABSTRACTION Provider, Abstract 09/21/2025 External Device Data STL ABSTRACTION Provider, Abstract 09/20/2025 [facility] Gynecologic Oncology [place] [address] [facility] [address] [place] [address] Avani Fong NP 09/20/2025 External Device Data STL ABSTRACTION Provider, Abstract 09/20/2025 External Device Data STL ABSTRACTION Provider, Abstract 09/19/2025 External Device Data STL ABSTRACTION Provider, Abstract 09/19/2025 External Device Data STL ABSTRACTION Provider, Abstract 09/18/2025 External Device Data STL ABSTRACTION Provider, Abstract 09/18/2025 External Device Data STL ABSTRACTION Provider, Abstract 09/17/2025 External Device Data STL ABSTRACTION Provider, Abstract 09/17/2025 External Device Data STL ABSTRACTION Provider, Abstract 09/16/2025 External Device Data STL ABSTRACTION Provider, Abstract 09/16/2025 External Device Data STL ABSTRACTION Provider, Abstract 09/15/2025 External Device Data STL ABSTRACTION Provider, Abstract 09/15/2025 External Device Data STL ABSTRACTION Provider, Abstract 09/14/2025 External Device Data STL ABSTRACTION Provider, Abstract 09/14/2025 External Device Data STL ABSTRACTION Provider, Abstract 09/13/2025 External Device Data STL ABSTRACTION Provider, Abstract 09/13/2025 External Device Data STL ABSTRACTION Provider, Abstract 09/12/2025 External Device Data STL ABSTRACTION Provider, Abstract 09/12/2025 External Device Data STL ABSTRACTION Provider, Abstract 09/11/2025 External Device Data STL ABSTRACTION Provider, Abstract 09/11/2025 External Device Data STL ABSTRACTION Provider, Abstract 09/10/2025 External Device Data STL ABSTRACTION Provider, Abstract 09/10/2025 External Device Data STL ABSTRACTION Provider, Abstract 09/08/2025 11:00 AM COLLAR SEPARATOR - 09/08/2025 11:59 PM COLLAR SEPARATOR Hospital Encounter [facility] 2nd Fl [address] [place] [address] Becky Walton MD Infusion Chair 10, 2nd [facility] Discharge Disposition: Home or Self Care 09/08/2025 9:30 AM COLLAR SEPARATOR - 09/08/2025 11:59 PM COLLAR SEPARATOR Hospital Encounter [facility] 2nd Fl [address] [place] [address] Becky Walton MD Discharge Disposition: Home or Self Care 09/08/2025 Chart Note [facility] 2nd Fl [address] [place] [address] Lexi Amezquita, GERARDO Follow Up (Nurse navigation ) 09/08/2025 External Device Data STL ABSTRACTION Provider, Abstract 09/08/2025 External Device Data STL ABSTRACTION Provider, Abstract 09/08/2025 External Device Data STL ABSTRACTION Provider, Abstract 09/08/2025 External Device Data STL ABSTRACTION Provider, Abstract 09/07/2025 External Device Data STL ABSTRACTION Provider, Abstract 09/07/2025 External Device Data STL ABSTRACTION Provider, Abstract 09/07/2025 External Device Data STL ABSTRACTION Provider, Abstract 09/07/2025 External Device Data STL ABSTRACTION Provider, Abstract 09/06/2025 External Device Data STL ABSTRACTION Provider, Abstract 09/06/2025 External Device Data STL ABSTRACTION Provider, Abstract 09/06/2025 External Device Data STL ABSTRACTION Provider, Abstract 09/06/2025 External Device Data STL ABSTRACTION Provider, Abstract 09/05/2025 External Device Data STL ABSTRACTION Provider, Abstract 09/05/2025 External Device Data STL ABSTRACTION Provider, Abstract 09/05/2025 External Device Data STL ABSTRACTION Provider, Abstract 09/05/2025 External Device Data STL ABSTRACTION Provider, Abstract 09/04/2025 Results Follow-Up [facility] G[facility]enterology [place] [address] [facility] [address] [place] [address] Yuly Alexis MD GIARDIA & CRYPTOSPORIDIUM ANTIGEN 09/04/2025 External Device Data STL ABSTRACTION Provider, Abstract 09/04/2025 External Device Data STL ABSTRACTION Provider, Abstract 09/04/2025 External Device Data STL ABSTRACTION Provider, Abstract 09/04/2025 External Device Data STL ABSTRACTION Provider, Abstract 09/03/2025 External Device Data STL ABSTRACTION Provider, Abstract 09/03/2025 External Device Data STL ABSTRACTION Provider, Abstract 09/03/2025 External Device Data STL ABSTRACTION Provider, Abstract 09/03/2025 External Device Data STL ABSTRACTION Provider, Abstract 09/02/2025 External Device Data STL ABSTRACTION Provider, Abstract 09/02/2025 External Device Data STL ABSTRACTION Provider, Abstract 09/02/2025 External Device Data STL ABSTRACTION Provider, Abstract 09/02/2025 External Device Data STL ABSTRACTION Provider, Abstract 09/01/2025 External Device Data STL ABSTRACTION Provider, Abstract 09/01/2025 External Device Data STL ABSTRACTION Provider, Abstract 09/01/2025 External Device Data STL ABSTRACTION Provider, Abstract 09/01/2025 External Device Data STL ABSTRACTION Provider, Abstract 08/31/2025 Chart Note [facility] Oncology Patient Navigation [address] [place] [address] Lexi Amezquita, RN Follow Up (Nurse navigation ) 08/31/2025 External Device Data STL ABSTRACTION Provider, Abstract 08/31/2025 External Device Data STL ABSTRACTION Provider, Abstract 08/31/2025 External Device Data STL ABSTRACTION Provider, Abstract 08/31/2025 External Device Data STL ABSTRACTION Provider, Abstract 08/30/2025 Chart Note [facility] Oncology Patient Navigation [address] [place] [address] Lexi Amezquita, RN Follow Up (Nurse navigation ) 08/30/2025 External Device Data STL ABSTRACTION Provider, Abstract 08/30/2025 External Device Data STL ABSTRACTION Provider, Abstract 08/30/2025 External Device Data STL ABSTRACTION Provider, Abstract 08/30/2025 External Device Data STL ABSTRACTION Provider, Abstract 08/29/2025 External Device Data STL ABSTRACTION Provider, Abstract 08/29/2025 External Device Data STL ABSTRACTION Provider, Abstract 08/29/2025 External Device Data STL ABSTRACTION Provider, Abstract 08/29/2025 External Device Data STL ABSTRACTION Provider, Abstract 08/28/2025 External Device Data STL ABSTRACTION Provider, Abstract 08/28/2025 External Device Data STL ABSTRACTION Provider, Abstract 08/28/2025 External Device Data STL ABSTRACTION Provider, Abstract 08/28/2025 External Device Data STL ABSTRACTION Provider, Abstract 08/27/2025 12:13 PM COLLAR SEPARATOR - 08/27/2025 11:59 PM COLLAR SEPARATOR Hospital Encounter [facility] [address] [place] [address] Avani Fong NP Infusion Chair 4, 2nd Floor [place] Discharge Disposition: Home or Self Care 08/27/2025 External Device Data STL ABSTRACTION Provider, Abstract 08/27/2025 External Device Data STL ABSTRACTION Provider, Abstract 08/27/2025 External Device Data STL ABSTRACTION Provider, Abstract 08/27/2025 External Device Data STL ABSTRACTION Provider, Abstract 08/26/2025 Chart Note [facility] Oncology Patient Navigation [address] [place] [address] Lexi Amezquita, RN Follow Up (Nurse n) 08/26/2025 Telephone [facility] [place] [address] [facility] [address] [place] [address] Yuly Alexis MD stool studies 08/26/2025 External Device Data STL ABSTRACTION Provider, Abstract 08/26/2025 External Device Data STL ABSTRACTION Provider, Abstract 08/26/2025 External Device Data STL ABSTRACTION Provider, Abstract 08/26/2025 External Device Data STL ABSTRACTION Provider, Abstract 08/25/2025 12:41 PM COLLAR SEPARATOR - 08/25/2025 11:59 PM COLLAR SEPARATOR Hospital Encounter [facility]fusion Center [facility] [address] [place] [address] Becky Walton MD Infusion Chair 4, 2nd Floor [place] Discharge Disposition: Home or Self Care 08/25/2025 11:00 AM COLLAR SEPARATOR Office Visit [facility] Gynecologic Oncology [place] [address] [facility] [address] [place] [address] Becky Walton MD Recurrent carcinoma of ovary, unspecified laterality (CMS/HCC) (Primary Dx); Chemotherapy management, encounter for; Diarrhea, unspecified type; Colitis; Hypokalemia; Primary peritoneal carcinomatosis (CMS/HCC) 08/25/2025 8:25 AM COLLAR SEPARATOR - 08/25/2025 11:59 PM COLLAR SEPARATOR Hospital Encounter [facility] Fl [address] [place] [address] Becky Walton MD Discharge Disposition: Home or Self Care 08/25/2025 Chart Note [facility] Oncology Patient Navigation [address] [place] [address] Lexi Amezquita, RN Follow Up (Nurse navigation ) 08/25/2025 External Device Data STL ABSTRACTION Provider, Abstract 08/25/2025 External Device Data STL ABSTRACTION Provider, Abstract 08/25/2025 External Device Data STL ABSTRACTION Provider, Abstract 08/25/2025 External Device Data STL ABSTRACTION Provider, Abstract 08/25/2025 Telephone [facility] Gynecologic Oncology [place] [address] [facility] [address] [place] [address] Becky Walton MD Follow Up 08/24/2025 External Device Data STL ABSTRACTION Provider, Abstract 08/24/2025 External Device Data STL ABSTRACTION Provider, Abstract 08/24/2025 External Device Data ST[facility] ABSTRACTION Provider, Abstract 08/24/2025 External Device Data STL ABSTRACTION Provider, Abstract 08/23/2025 External Device Data STL ABSTRACTION Provider, Abstract 08/23/2025 External Device Data STL ABSTRACTION Provider, Abstract 08/23/2025 External Device Data STL ABSTRACTION Provider, Abstract 08/23/2025 External Device Data STL ABSTRACTION Provider, Abstract 08/22/2025 External Device Data STL ABSTRACTION Provider, Abstract 08/22/2025 External Device Data STL ABSTRACTION Provider, Abstract 08/22/2025 External Device Data STL ABSTRACTION Provider, Abstract 08/22/2025 External Device Data STL ABSTRACTION Provider, Abstract 08/21/2025 External Device Data STL ABSTRACTION Provider, Abstract 08/21/2025 External Device Data STL ABSTRACTION Provider, Abstract 08/21/2025 External Device Data STL ABSTRACTION Provider, Abstract 08/21/2025 External Device Data STL ABSTRACTION Provider, Abstract 08/20/2025 External Device Data STL ABSTRACTION Provider, Abstract 08/20/2025 External Device Data STL ABSTRACTION Provider, Abstract 08/20/2025 External Device Data STL ABSTRACTION Provider, Abstract 08/20/2025 External Device Data STL ABSTRACTION Provider, Abstract 08/20/2025 Telephone [facility] Gastroenterology [facility] [address] [facility] [address] [place] [phone] Yuly Alexis MD Results; Additional testing 08/20/2025 Orders Only [facility] Gastroenterology [facility] [address] [facility] [address] [place] [phone] Yuly Alexis MD Acute colitis (Primary Dx); Chronic diarrhea 08/20/2025 Results Follow-Up [facility] Gastroenterology [facility] [address] [facility] [address] [place] [address] Yuly Alexis MD PATHOLOGY 08/19/2025 External Device Data STL ABSTRACTION Provider, Abstract 08/19/2025 External Device Data STL ABSTRACTION Provider, Abstract 08/19/2025 External Device Data STL ABSTRACTION Provider, Abstract 08/19/2025 External Device Data STL ABSTRACTION Provider, Abstract 08/18/2025 External Device Data STL ABSTRACTION Provider, Abstract 08/18/2025 External Device Data STL ABSTRACTION Provider, Abstract 08/18/2025 External Device Data STL ABSTRACTION Provider, Abstract 08/18/2025 External Device Data STL ABSTRACTION Provider, Abstract 08/17/2025 11:46 AM CDT Anesthesia Event [facility] [address] [place] [address] Gautam Dubon, DO Torres, Nathalie Berg, AA-C 08/17/2025 11:40 AM CDT - 08/17/2025 12:20 PM CDT Surgery [facility] [address] [place] [address] Yuly Alexis MD COLONOSCOPY 08/17/2025 9:48 AM CDT - 08/17/2025 2:59 PM CDT Hospital Encounter [facility] [address] [place] [address] Yuly Alexis MD Diarrhea, unspecified type Discharge Disposition: Home or Self Care 08/17/2025 External Device Data STL ABSTRACTION Provider, Abstract 08/17/2025 External Device Data STL ABSTRACTION Provider, Abstract 08/17/2025 External Device Data STL ABSTRACTION Provider, Abstract 08/17/2025 External Device Data STL ABSTRACTION Provider, Abstract 08/16/2025 External Device Data STL ABSTRACTION Provider, Abstract 08/16/2025 External Device Data STL ABSTRACTION Provider, Abstract 08/16/2025 External Device Data STL ABSTRACTION Provider, Abstract 08/16/2025 External Device Data STL ABSTRACTION Provider, Abstract 08/15/2025 External Device Data STL ABSTRACTION Provider, Abstract 08/15/2025 External Device Data STL ABSTRACTION Provider, Abstract 08/15/2025 External Device Data STL ABSTRACTION Provider, Abstract 08/15/2025 External Device Data STL ABSTRACTION Provider, Abstract 08/14/2025 External Device Data STL ABSTRACTION Provider, Abstract 08/14/2025 External Device Data STL ABSTRACTION Provider, Abstract 08/14/2025 External Device Data STL ABSTRACTION Provider, Abstract 08/14/2025 External Device Data STL ABSTRACTION Provider, Abstract 08/13/2025 External Device Data STL ABSTRACTION Provider, Abstract 08/13/2025 External Device Data STL ABSTRACTION Provider, Abstract 08/13/2025 External Device Data STL ABSTRACTION Provider, Abstract 08/13/2025 External Device Data STL ABSTRACTION Provider, Abstract 08/12/2025 External Device Data STL ABSTRACTION Provider, Abstract 08/12/2025 External Device Data STL ABSTRACTION Provider, Abstract 08/12/2025 External Device Data STL ABSTRACTION Provider, Abstract 08/12/2025 External Device Data STL ABSTRACTION Provider, Abstract 08/11/2025 External Device Data STL ABSTRACTION Provider, Abstract 08/11/2025 External Device Data STL ABSTRACTION Provider, Abstract 08/11/2025 External Device Data STL ABSTRACTION Provider, Abstract 08/11/2025 External Device Data STL ABSTRACTION Provider, Abstract 08/11/2025 External Device Data STL ABSTRACTION Provider, Abstract 08/11/2025 External Device Data STL ABSTRACTION Provider, Abstract 08/11/2025 External Device Data STL ABSTRACTION Provider, Abstract 08/11/2025 External Device Data STL ABSTRACTION Provider, Abstract 08/11/2025 External Device Data STL ABSTRACTION Provider, Abstract 08/11/2025 External Device Data STL ABSTRACTION Provider, Abstract 08/11/2025 External Device Data STL ABSTRACTION Provider, Abstract 08/11/2025 External Device Data STL ABSTRACTION Provider, Abstract 08/11/2025 External Device Data STL ABSTRACTION Provider, Abstract 08/11/2025 External Device Data STL ABSTRACTION Provider, Abstract 08/11/2025 External Device Data STL ABSTRACTION Provider, Abstract 08/11/2025 External Device Data STL ABSTRACTION Provider, Abstract 08/11/2025 External Device Data STL ABSTRACTION Provider, Abstract 08/11/2025 External Device Data STL ABSTRACTION Provider, Abstract 08/11/2025 External Device Data STL ABSTRACTION Provider, Abstract 08/11/2025 External Device Data STL ABSTRACTION Provider, Abstract 08/11/2025 External Device Data STL ABSTRACTION Provider, Abstract 08/11/2025 External Device Data STL ABSTRACTION Provider, Abstract 08/11/2025 External Device Data STL ABSTRACTION Provider, Abstract 08/11/2025 External Device Data STL ABSTRACTION Provider, Abstract 08/11/2025 External Device Data STL ABSTRACTION Provider, Abstract 08/11/2025 External Device Data STL ABSTRACTION Provider, Abstract 08/11/2025 External Device Data STL ABSTRACTION Provider, Abstract 08/11/2025 External Device Data STL ABSTRACTION Provider, Abstract 08/11/2025 External Device Data STL ABSTRACTION Provider, Abstract 08/11/2025 External Device Data STL ABSTRACTION Provider, Abstract 08/11/2025 External Device Data STL ABSTRACTION Provider, Abstract 08/11/2025 External Device Data STL ABSTRACTION Provider, Abstract 08/11/2025 External Device Data STL ABSTRACTION Provider, Abstract 08/11/2025 External Device Data STL ABSTRACTION Provider, Abstract 08/10/2025 External Device Data STL ABSTRACTION Provider, Abstract 08/10/2025 External Device Data STL ABSTRACTION Provider, Abstract 08/10/2025 External Device Data STL ABSTRACTION Provider, Abstract 08/10/2025 External Device Data STL ABSTRACTION Provider, Abstract 08/09/2025 Results Follow-Up [facility] Gynecologic Oncology [place] [address] [facility] [address] [place] [address] CHEST ABDOMEN PELVIS W CONT 08/09/2025 Orders Only [facility] Gynecologic Oncology [place] [address] [facility] [address] [place] [address] Avani Fong NP 08/09/2025 Telephone [facility] Gynecologic Oncology [place] [address] [facility] [address] [place] [address] Becky Walton MD Follow Up (Requesting CT results) 08/09/2025 External Device Data STL ABSTRACTION Provider, Abstract 08/09/2025 External Device Data STL ABSTRACTION Provider, Abstract 08/09/2025 External Device Data STL ABSTRACTION Provider, Abstract 08/09/2025 External Device Data STL ABSTRACTION Provider, Abstract 08/08/2025 External Device Data STL ABSTRACTION Provider, Abstract 08/08/2025 External Device Data STL ABSTRACTION Provider, Abstract 08/08/2025 External Device Data STL ABSTRACTION Provider, Abstract 08/08/2025 External Device Data STL ABSTRACTION Provider, Abstract 08/07/2025 External Device Data STL ABSTRACTION Provider, Abstract 08/07/2025 External Device Data STL ABSTRACTION Provider, Abstract 08/07/2025 External Device Data STL ABSTRACTION Provider, Abstract 08/07/2025 External Device Data STL ABSTRACTION Provider, Abstract 08/06/2025 7:34 AM CDT - 08/06/2025 11:59 PM CDT Hospital Encounter [facility] [address] [place] [address] Avani Fong NP Discharge Disposition: Home or Self Care 08/06/2025 External Device Data STL ABSTRACTION Provider, Abstract 08/06/2025 External Device Data STL ABSTRACTION Provider, Abstract 08/06/2025 External Device Data STL ABSTRACTION Provider, Abstract 08/06/2025 External Device Data STL ABSTRACTION Provider, Abstract 08/05/2025 Refill [facility] Palliative [facility] [place] [address] [facility] [address] [place] [address] Becky Walton MD Chemotherapy management, encounter for; Peritoneal carcinoma ([facility]/HCC) 08/05/2025 External Device Data STL ABSTRACTION Provider, Abstract 08/05/2025 External Device Data STL ABSTRACTION Provider, Abstract 08/04/2025 11:00 AM CDT Office Visit [facility] Gynecologic Oncology [place] [address] [facility] [address] [place] [address] Avani Fong NP Chemotherapy management, encounter for (Primary Dx); Recurrent carcinoma of ovary, unspecified laterality (CMS/HCC); Diarrhea, unspecified type 08/04/2025 10:56 AM CDT - 08/04/2025 11:59 PM CDT Hospital Encounter [facility] 2nd Fl [address] [place] [address] Avani Fong NP Infusion Chair 1, 2nd Floor [place] Discharge Disposition: Home or Self Care 08/04/2025 9:46 AM CDT - 08/04/2025 11:59 PM CDT Hospital Encounter [facility] 2nd Fl [address] [place] [address] Becky Walton MD Discharge Disposition: Home or Self Care 08/04/2025 Orders Only [facility] Gynecologic Oncology [place] [address] [facility] [address] [place] [address] Avani Fong NP Chemotherapy management, encounter for (Primary Dx) 08/04/2025 External Device Data STL ABSTRACTION Provider, Abstract 08/04/2025 External Device Data STL ABSTRACTION Provider, Abstract 08/03/2025 External Device Data STL ABSTRACTION Provider, Abstract 08/03/2025 External Device Data STL ABSTRACTION Provider, Abstract 08/02/2025 External Device Data STL ABSTRACTION Provider, Abstract 08/02/2025 External Device Data STL ABSTRACTION Provider, Abstract 08/01/2025 External Device Data STL ABSTRACTION Provider, Abstract 08/01/2025 External Device Data STL ABSTRACTION Provider, Abstract 07/31/2025 External Device Data STL ABSTRACTION Provider, Abstract 07/31/2025 External Device Data STL ABSTRACTION Provider, Abstract 07/30/2025 External Device Data STL ABSTRACTION Provider, Abstract 07/30/2025 External Device Data STL ABSTRACTION Provider, Abstract 07/29/2025 External Device Data STL ABSTRACTION Provider, Abstract 07/29/2025 External Device Data STL ABSTRACTION Provider, Abstract 07/28/2025 External Device Data STL ABSTRACTION Provider, Abstract 07/28/2025 External Device Data STL ABSTRACTION Provider, Abstract 07/27/2025 Refill [facility] Gynecologic Oncology [place] [address] [facility] [address] [place] [address] Becky Walton MD 07/27/2025 External Device Data STL ABSTRACTION Provider, Abstract 07/27/2025 External Device Data STL ABSTRACTION Provider, Abstract 07/26/2025 External Device Data STL ABSTRACTION Provider, Abstract 07/26/2025 External Device Data STL ABSTRACTION Provider, Abstract 07/25/2025 External Device Data STL ABSTRACTION Provider, Abstract 07/25/2025 External Device Data STL ABSTRACTION Provider, Abstract 07/24/2025 External Device Data STL ABSTRACTION Provider, Abstract 07/24/2025 External Device Data STL ABSTRACTION Provider, Abstract 07/23/2025 Telephone [facility] Gynecologic Oncology [place] [address] [facility] [address] [place] [address] Becky Walton MD Follow Up (Opium tincture, diarrhea) 07/23/2025 External Device Data STL ABSTRACTION Provider, Abstract 07/23/2025 External Device Data STL ABSTRACTION Provider, Abstract 07/22/2025 External Device Data STL ABSTRACTION Provider, Abstract 07/22/2025 External Device Data STL ABSTRACTION Provider, Abstract 07/21/2025 External Device Data STL ABSTRACTION Provider, Abstract 07/21/2025 External Device Data STL ABSTRACTION Provider, Abstract 07/21/2025 External Device Data STL ABSTRACTION Provider, Abstract 07/20/2025 External Device Data STL ABSTRACTION Provider, Abstract 07/20/2025 External Device Data STL ABSTRACTION Provider, Abstract 07/20/2025 External Device Data STL ABSTRACTION Provider, Abstract 07/20/2025 External Device Data STL ABSTRACTION Provider, Abstract 07/19/2025 External Device Data STL ABSTRACTION Provider, Abstract 07/19/2025 External Device Data STL ABSTRACTION Provider, Abstract 07/19/2025 External Device Data STL ABSTRACTION Provider, Abstract 07/18/2025 External Device Data STL ABSTRACTION Provider, Abstract 07/18/2025 External Device Data STL ABSTRACTION Provider, Abstract 07/17/2025 External Device Data STL ABSTRACTION Provider, Abstract 07/17/2025 External Device Data STL ABSTRACTION Provider, Abstract 07/16/2025 Telephone [facility] Gynecologic Oncology [place] [address] [place] [address] Becky Walton MD Question (Opium tincture ) 07/16/2025 External Device Data STL ABSTRACTION Provider, Abstract 07/16/2025 External Device Data STL ABSTRACTION Provider, Abstract 07/16/2025 External Device Data STL ABSTRACTION Provider, Abstract 07/15/2025 Telephone [facility] Gynecologic Oncology [place] [address] [address] Becky Walton MD Follow Up (Opium tincture) 07/15/2025 External Device Data STL ABSTRACTION Provider, Abstract 07/15/2025 External Device Data STL ABSTRACTION Provider, Abstract 07/14/2025 11:20 AM CDT - 07/14/2025 11:59 PM CDT Hospital Encounter [facility] Ar [address] [place] [address] Becky Walton MD Infusion Chair 8, 2nd Floor [place] Discharge Disposition: Home or Self Care 07/14/2025 11:00 AM CDT Office Visit [facility] Gynecologic Oncology [place] [address] [facility] [address] [place] [address] Becky Walton MD Diarrhea, unspecified type (Primary Dx); Chemotherapy management, encounter for; Recurrent carcinoma of ovary, unspecified laterality (CMS/HCC) 07/14/2025 7:00 AM CDT - 07/14/2025 11:59 PM CDT Hospital Encounter [facility] 2nd Fl [address] [place] [address] Becky Walton MD Discharge Disposition: Home or Self Care 07/14/2025 External Device Data STL ABSTRACTION Provider, Abstract 07/14/2025 External Device Data STL ABSTRACTION Provider, Abstract 07/13/2025 External Device Data STL ABSTRACTION Provider, Abstract 07/13/2025 External Device Data STL ABSTRACTION Provider, Abstract 07/12/2025 External Device Data STL ABSTRACTION Provider, Abstract 07/12/2025 External Device Data STL ABSTRACTION Provider, Abstract 07/11/2025 External Device Data STL ABSTRACTION Provider, Abstract 07/11/2025 External Device Data STL ABSTRACTION Provider, Abstract 07/10/2025 External Device Data STL ABSTRACTION Provider, Abstract 07/10/2025 External Device Data STL ABSTRACTION Provider, Abstract 07/09/2025 Telephone [facility] Gynecologic Oncology [place] [address] [facility] [address] [place] [address] Becky Walton MD Question (macrobid) 07/09/2025 External Device Data STL ABSTRACTION Provider, Abstract 07/09/2025 External Device Data STL ABSTRACTION Provider, Abstract 07/08/2025 External Device Data STL ABSTRACTION Provider, Abstract 07/08/2025 External Device Data STL ABSTRACTION Provider, Abstract 07/07/2025 External Device Data STL ABSTRACTION Provider, Abstract 07/07/2025 External Device Data STL ABSTRACTION Provider, Abstract 07/06/2025 2:37 PM CDT - 07/06/2025 11:59 PM CDT Hospital Encounter [facility] 2nd Fl [address] [place] [address] Becky Walton MD Infusion Chair 5, 2nd Floor [place] Discharge Disposition: Home or Self Care 07/06/2025 2:15 PM CDT - 07/06/2025 11:59 PM CDT Hospital Encounter [facility] 2nd Fl [address] [place] [address] Becky Walton MD Discharge Disposition: Home or Self Care 07/06/2025 External Device Data STL ABSTRACTION Provider, Abstract 07/06/2025 [facility] Gynecologic Oncology [place] [address] [facility] [address] [place] [address] [place] [address] Becky Walton MD Follow Up (fatigue) 07/06/2025 External Device Data STL ABSTRACTION Provider, Abstract 07/06/2025 External Device Data STL ABSTRACTION Provider, Abstract 07/05/2025 External Device Data STL ABSTRACTION Provider, Abstract 07/05/2025 External Device Data STL ABSTRACTION Provider, Abstract 07/04/2025 External Device Data STL ABSTRACTION Provider, Abstract 07/04/2025 External Device Data STL ABSTRACTION Provider, Abstract 07/03/2025 External Device Data STL ABSTRACTION Provider, Abstract 07/03/2025 External Device Data STL ABSTRACTION Provider, Abstract 07/02/2025 External Device Data STL ABSTRACTION Provider, Abstract 07/02/2025 External Device Data STL ABSTRACTION Provider, Abstract 07/01/2025 External Device Data STL ABSTRACTION Provider, Abstract 07/01/2025 External Device Data STL ABSTRACTION Provider, Abstract 06/30/2025 External Device Data STL ABSTRACTION Provider, Abstract 06/30/2025 External Device Data STL ABSTRACTION Provider, Abstract 06/30/2025 External Device Data STL ABSTRACTION Provider, Abstract 06/30/2025 External Device Data STL ABSTRACTION Provider, Abstract 06/29/2025 External Device Data STL ABSTRACTION Provider, Abstract 06/29/2025 External Device Data STL ABSTRACTION Provider, Abstract 06/29/2025 External Device Data STL ABSTRACTION Provider, Abstract 06/29/2025 External Device Data STL ABSTRACTION Provider, Abstract 06/28/2025 External Device Data STL ABSTRACTION Provider, Abstract 06/28/2025 External Device Data STL ABSTRACTION Provider, Abstract 06/28/2025 External Device Data STL ABSTRACTION Provider, Abstract 06/28/2025 External Device Data STL ABSTRACTION Provider, Abstract 06/28/2025 External Device Data STL ABSTRACTION Provider, Abstract 06/27/2025 External Device Data STL ABSTRACTION Provider, Abstract 06/27/2025 External Device Data STL ABSTRACTION Provider, Abstract 06/26/2025 External Device Data STL ABSTRACTION Provider, Abstract 06/26/2025 External Device Data STL ABSTRACTION Provider, Abstract 06/25/2025 External Device Data STL ABSTRACTION Provider, Abstract 06/25/2025 External Device Data STL ABSTRACTION Provider, Abstract 06/25/2025 External Device Data STL ABSTRACTION Provider, Abstract 06/25/2025 External Device Data STL ABSTRACTION Provider, Abstract 06/24/2025 External Device Data STL ABSTRACTION Provider, Abstract 06/24/2025 External Device Data STL ABSTRACTION Provider, Abstract [...] Ovarian Cancer Sister 1 Healthy Sister 2 Colon Cancer Neg Hx Relation Name Status Comments Brother Alive Daughter [...] on file Legal Sex Female 4:40 AM COLLAR SEPARATOR Gender Identity Not on file Sexual Orientation Not on file Occupation Industry Job Start Date Job End Date Not on file Not on file Not on file Not on file Last Filed Vital Signs Vital Sign Reading Time Taken Comments Blood Pressure 121/75 09/08/2025 12:04 PM COLLAR SEPARATOR Pulse 93 09/08/2025 12:04 PM COLLAR SEPARATOR Temperature 36.5 C (97.7 F) 08/25/2025 10:37 AM COLLAR SEPARATOR Respiratory Rate 18 08/17/2025 2:35 PM CDT Oxygen Saturation 90% 08/25/2025 10:37 AM COLLAR SEPARATOR Inhaled Oxygen Concentration - - Weight 45.9 kg (101 lb 2 oz) 08/25/2025 10:37 AM COLLAR SEPARATOR Height 157.5 cm (5' 2) 08/25/2025 10:37 AM COLLAR SEPARATOR Body Mass Index 18.5 08/25/2025 10:37 AM COLLAR SEPARATOR Plan of Treatment Upcoming Encounters Date Type Department Care Team (Late st Contact Info) Description 09/29/2025 11:30 AM COLLAR SEPARATOR Office Visit [facility] Gynecologic Oncology [place] [address] [facility] [address] [place] [address] Avani Fong NP [address] [facility] [address] [place] [address] 09/29/2025 12:00 PM COLLAR SEPARATOR Hospital Encounter [facility] 2nd Fl [address] [place] [address] Infusion [address] 6, 2nd Floor [place] 10/12/2025 1:30 PM COLLAR SEPARATOR Office Visit [facility] Neurology [address] [facility] [address] [place] [address] Navi Stephens MD [address] [facility] [address] [address] 10/20/2025 11:00 AM COLLAR SEPARATOR Office Visit [facility] Gynecologic Oncology [place] [address] [facility] [address] [place] [address] Becky Walton MD [address] [facility] [address] [place] [address] 10/20/2025 11:30 AM COLLAR SEPARATOR Appointment [facility] 2nd Fl [address] [place] [address] Infusion [address] 6, 2nd Floor [place] [facility] Maintenance Due Date Last Done Comments DTAP/TDAP/TD VACCINES (1 - Tdap) 1971 FIT-DNA Q 3 years 1997 FIT/FOBT Q 1 year 1997 Flex Sig/CT Colonography Q 5 years 1997 RSV VACCINE (60+ or ) (1 - Risk 50-74 years 1-dose series) 2002 ZOSTER VACCINE (1 of 2) 10/09/2013 08/14/2013 COVID-19 Vaccine (3 - Modern a risk series) 02/09/2021 01/12/2021, 12/15/2020 BREAST CANCER SCREENING 11/02/2023 11/02/19, 06/01/2021, 07/08/2019, Additional history exists INFLUENZA VACCINE (#1) 2025 3, 08/17/2021, 07/23/2020, Additional history exists OSTEOPOROSIS SCREENING 05/14/2028 3, 05/14/2023, 08/25/2020, Additional history exists COLORECTAL SCREENING 08/17/2030 08/17/2025, 08/17/2025, 07/02/2022, Additional history exists Colorectal Cancer Screening 08/17/2030 PNEUMOCOCCAL VACCINE 50+ YEARS Completed 03/25/2024 Medical Devices Implanted Type Area Mail Sorter Device Identifier Shelf Expiration Date Model / Serial / Lot Cath Pert Bactiseal [id number] - [id number] Implanted:Qty: 1 on 08/25/2015 by Tomás Garcia MD at [facility] Catheter [employer] 01/19/2016 [id number] / [id number] / [id number] Port-12/20/2021 Implanted:Qty: 1 on 12/20/2021 by Dameon Smith MD Port Chest Wall [id number] 01/18/2023 [id number] / / [id number] Sealant Floseal W/ Apdtr 5ml [id number] - [id number] Implanted:Qty: 1 on 07/19/2015 by Tomás Garcia MD at [facility] Sealant N/A: Cranial GARCIA[employer] 06/20/2016 [id number] / / [id number] Cath Ventricular Bactiseal 82-3072 - [id number] Implanted:Qty: 1 on 07/19/2015 by Tomás Garcia MD at [facility] Shunt N/A: Brain [employer] 01/19/2016 [id number] / / [id number] Connector Shunt Ss Str [id number] - [id number] Implanted:Qty: 1 on 08/25/2015 by Tomás Garcia MD at [facility] Shunt [employer] 01/23/2018 [id number] / / [id number] Valve Strata Reg Programmable [id number] - [id number] Implanted:Qty: 1 on 08/25/2015 by Tomás Garcia MD at [facility] Valve [employer]- NEUROSURGERY 03/20/2018 [id number] / / [id number] Explanted Type Area Mail Sorter Device Identifier Shelf Expiration Date Model / Serial / Lot Valve Strata Reg Programmable [id number] - [id number] Implanted:Qty: 1 on 07/19/2015 by Tomás Garcia MD at [facility] Explanted:Qty: 1 on 08/25/2015 by Tomás Garcia MD at [facility] Valve N/A: Brain [employer]- NEUROSURGERY 03/20/2018 [id number] / / [id number] Procedures Procedure Name Priority Date/Time Associated Diagnosis Comments URINALYSIS W/REFLEX MICROSCOPIC Stat 09/08/2025 9:43 AM COLLAR SEPARATOR Primary peritoneal carcinomatosis (CMS/HCC) Recurrent carcinoma of ovary, unspecified laterality (CMS/HCC) COMPREHENSIVE METABOLIC PANEL Stat 09/08/2025 9:43 AM COLLAR SEPARATOR Primary peritoneal carcinomatosis (CMS/HCC) Recurrent carcinoma of ovary, unspecified laterality (CMS/HCC) CBC WITH DIFFERENTIAL Stat 09/08/2025 9:43 AM COLLAR SEPARATOR Primary peritoneal carcinomatosis (CMS/HCC) Recurrent carcinoma of ovary, unspecified laterality (CMS/HCC) TSH REFLEXIVE Routine 09/08/2025 9:43 AM COLLAR SEPARATOR Primary peritoneal carcinomatosis (CMS/HCC) Recurrent carcinoma of ovary, unspecified laterality (CMS/HCC) OVA AND PARASITE SCREEN Routine 08/27/2025 11:48 AM COLLAR SEPARATOR Acute colitis Chronic diarrhea GIARDIA & CRYPTOSPORIDIUM ANTIGEN Routine 08/27/2025 11:48 AM COLLAR SEPARATOR Acute colitis Chronic diarrhea CANCER ANTIGEN 125 Routine 08/25/2025 8: 40 AM COLLAR SEPARATOR Primary peritoneal carcinomatosis (CMS/HCC) COMPREHENSIVE METABOLIC PANEL Stat 08/25/2025 8:40 AM COLLAR SEPARATOR Primary peritoneal carcinomatosis (CMS/HCC) CBC WITH DIFFERENTIAL Stat 08/25/2025 8:40 AM COLLAR SEPARATOR Primary peritoneal carcinomatosis (CMS/HCC) URINALYSIS W/REFLEX MICROSCOPIC Stat 08/25/2025 8:40 AM COLLAR SEPARATOR Peritoneal carcinomatosis (CMS/HCC) XR CHEST PA OR AP 1 VW Stat 2:41 PM CDT EKG 12-LEAD Routine 08/17/2025 12:49 PM CDT COLONOSCOPY REPORT 08/17/2025 12 :46 PM CDT PATHOLOGY Pathology 08/17/2025 12:42 PM CDT Diarrhea, unspecified type Colitis ID COLONOSCOPY FLX DX W/COLLJ SPEC WHEN PFRMD 08/17/2025 11:40 AM CDT Diarrhea, unspecified type Colitis CT CHEST ABDOMEN PELVIS W CONT Stat 08/06/2025 9:18 AM CDT Recurrent carcinoma of ovary, unspecified laterality (CMS/HCC) COMPREHENSIVE METABOLIC PANEL Stat 08/04/2025 10:04 AM CDT Primary peritoneal carcinomatosis (CMS/HCC) CBC WITH DIFFERENTIAL Stat 08/04/2025 10:04 AM CDT Primary peritoneal carcinomatosis (CMS/HCC) CANCER ANTIGEN 125 Routine 08/04/2025 10 :04 AM CDT Primary peritoneal carcinomatosis (CMS/HCC) URINALYSIS WITH REFLEX CULTURE Stat 08/04/2025 10:04 AM CDT Primary peritoneal carcinomatosis (CMS/HCC) URINE CULTURE Routine 08/04/2025 10:04 AM CDT Primary peritoneal carcinomatosis (CMS/HCC) URINALYSIS WITH REFLEX CULTURE Stat 07/14/2025 9:21 AM CDT Primary peritoneal carcinomatosis (CMS/HCC) COMPREHENSIVE METABOLIC PANEL Stat 07/14/2025 9:21 AM CDT Primary peritoneal carcinomatosis (CMS/HCC) CBC WITH DIFFERENTIAL Stat 07/14/2025 9:21 AM CDT Primary peritoneal carcinomatosis (CMS/HCC) CANCER ANTIGEN 125 Routine 07/14/2025 9: 21 AM CDT Primary peritoneal carcinomatosis (CMS/HCC) URINE CULTURE Routine 07/14/2025 9:21 AM CDT Primary peritoneal carcinomatosis (CMS/HCC) EXTRA TUBE Stat 07/06/2025 2:21 PM CDT URINALYSIS WITH REFLEX CULTURE Stat 07/06/2025 2:21 PM CDT Fatigue, unspecified type COMPREHENSIVE METABOLIC PANEL Stat 07/06/2025 2:21 PM CDT Fatigue, unspecified type CBC WITH DIFFERENTIAL Stat 07/06/2025 2:21 PM CDT Fatigue, unspecified type MAGNESIUM LEVEL Stat 07/06/2025 2:21 PM CDT Fatigue, unspecified type URINE CULTURE Stat 07/06/2025 2:21 PM CDT XR DEXA BONE DENSITY AXIAL 1 OR MORE SITES Routine 05/14/2023 11:47 AM CDT Other specified menopausal and perimenopausal disorders MAMMO SCREEN BILAT W OR WO CAD Routine 11/02/2022 11:05 AM COLLAR SEPARATOR Breast cancer screening by mammogram History of breast cancer from Last 3 Months or Most Recently Relevant to Health Maintenance Results * (ABNORMAL) TSH REFLEXIVE (09/08/2025 9:43 AM COLLAR SEPARATOR) TSH 4.96(H) 0.40 - 4.50 mIU/L [employer] chelsey Montaño T4 FREE 1.1 0.8 - 1.8 ng/dL Rust Tatango chelsey Montaño Comment: [facility] [address] [place] [address] Joana-Luly Thi Vo Blood 09/08/2025 9:43 AM COLLAR SEPARATOR 09/08/2025 9:49 AM COLLAR SEPARATOR us Becky Walton MD CHEMISTRY ORDERABLES Final Re sult [facility] [phone] [facility] [address] [place] [address] * (ABNORMAL) CBC WITH DIFFERENTIAL (09/08/2025 9:43 AM COLLAR SEPARATOR) Only the most recent of5 resultswithin the time period is included. WBC 2.8(L) 4.0 - 9.8 K/uL 09/08/2025 9:55 AM COLLAR SEPARATOR [facility] - . [place] RBC 3.51(L) 3.90 - 4.90 M/uL 09/08/2025 9:55 AM [facility] - . [facility] HEMOGLOBIN 11.0(L) 11.8 - 14.8 g/dL 09/08/2025 9:55 AM [facility] . [place] HEMATOCRIT 33.3(L) 35.5 - 44.0 % 09/08/2025 9:55 AM [facility] - . [facility] MCV 94.9 82.0 - 99.0 fL 09/08/2025 9:55 AM COLLAR SEPARATOR [facility] - . [facility] MCH 31.3 27.2 - 32.6 pg 09/08/2025 9:55 AM [facility] - . [facility] MCHC 33.0 31.5 - 35.5 g/dL 09/08/2025 9:55 AM [facility] - . [place] RDW 18.5(H) 11.5 - 14.5 % 09/08/2025 9:55 AM [facility] - . [facility] RDW-STDEV 62.9(H) 37.1 - 48.7 fL 09/08/2025 9:55 AM [facility] - . [facility] PLATELETS 108(L) 140 - 350 K/uL 09/08/2025 9:55 AM [facility] - . [facility] MPV 8.4(L) 9.3 - 12.4 fL 09/08/2025 9:55 AM COLLAR SEPARATOR [facility] - . [facility] NEUTROPHILS 73 % 09/08/2025 9:55 AM [facility] LYMPHOCYTES 12 % 09/08/2025 9:55 AM [facility] MONOCYTES 14 % 09/08/2025 9:55 AM [facility] EOSINOPHILS 0 % 09/08/2025 9:55 AM [facility] BASOPHILS 0 % 09/08/2025 9:55 AM [facility] IMMATURE GRANULOCYTES 1 % 09/08/2025 9:55 AM [facility] Comment:IG (Immature Granulo cyte) count includes Metamyelocytes, Myelocytes, and Promyelocytes NEUTROPHIL ABSOLUTE 2.03 1.90 - 7.00 K/uL 09/08/2025 9:55 AM [facility] LYMPHOCYTE ABSOLUTE 0.33(L) 0.70 - 4.50 K/uL 09/08/2025 9:55 AM [facility] MONOCYTE ABSOLUTE 0.38 0.10 - 1.30 K/uL 09/08/2025 9:55 AM [facility] EOSINOPHIL ABSOLUTE 0.01 0.00 - 0.70 K/uL 09/08/2025 9:55 AM [facility] BASOPHILS ABSOLUTE 0.01 0.00 - 0.20 K/uL 09/08/2025 9:55 AM [facility] IMMATURE GRANULOCYTES ABSOLUTE 0.02 0.00 - 0.03 K/uL 09/08/2025 9:55 AM [facility] Blood Collection / Unknown 09/08/2025 9:43 AM COLLAR SEPARATOR 09/08/2025 9:52 AM COLLAR SEPARATOR us Becky Walton MD HEMATOLOGY ORDERABLES Final R esult [facility] CLIA# [id number] [address] [facility] [place] [address] * (ABNORMAL) URINALYSIS WITH REFLEX MICROSCOPIC (09/08/2025 9:43 AM COLLAR SEPARATOR) Only the most recent of2 resultswithin the time period is included. COLOR UA Yellow Pale to Dark Yellow 09/08/2025 10:43 AM [facility] [employer] [facility] CLARITY UA Cloudy(A) Clear 09/08/2025 10:43 AM [facility] [employer] [facility] SPECIFIC GRAVITY UA 1.012 1.003 - 1.035 09/08/2025 10:43 AM [facility] [employer] [facility] PH UA 5.0 5.0 - 8.0 09/08/2025 10:43 AM [facility] [employer] [facility] LEUKOCYTE ESTERASE UA 3+(A) Negative 09/08/2025 10:43 AM [facility] [employer] [facility] NITRITE UA Negative Negative 09/08/2025 10:43 AM [facility] [employer] [facility] PROTEIN UA 1+(A) Negative 09/08/2025 10:43 AM [facility] [employer] [facility] GLUCOSE UA Negative Negative 09/08/2025 10:43 AM [facility] [employer] [facility] KETONES UA Negative Negative 09/08/2025 10:43 AM [facility] [facility] UROBILINOGEN UA Normal <2.0 mg/dL 10:43 AM [facility] [employer] [facility] BILIRUBIN UA Negative Negative 09/08/2025 10:43 AM [facility] [facility] BLOOD UA Negative Negative 09/08/2025 10:43 AM [facility] [facility] WBC UA >100(A) 0 - 2 /hpf 09/08/2025 10:43 AM COLLAR SEPARATOR [facility] LABORAT[facility]. [facility] RBC UA 0-2 0 - 2 /hpf 09/08/2025 10:43 AM COLLAR SEPARATOR [facility]. [facility] BACTERIA UA 1+(A) Negative /hpf 09/08/2025 10:43 AM COLLAR SEPARATOR [employer] [facility] EPITHELIAL CELLS, URINE 0-5 0 - 5 /hpf 09/08/2025 10:43 AM [facility] HYALINE CAST 6-10(A) None Seen, 0-2 /lpf 09/08/2025 10:43 AM [facility] [facility] WBC CLUMPS Present(A) Absent 09/08/2025 10:43 AM [facility] [employer] [facility] - . [facility] Urine URINE SPECIMEN OBTAINED BY CLEAN CATCH PROCEDURE / Unknown Collection / Unknown 09/08/2025 9:43 AM COLLAR SEPARATOR 09/08/2025 10:23 AM COLLAR SEPARATOR Becky Walton MD URINE ORDERABLES Final Result [facility] CLIA# [id number] [address] [place] [address] * (ABNORMAL) COMPREHENSIVE METABOLIC PANEL (09/08/2025 9:43 AM COLLAR SEPARATOR) Only the most recent of5 resultswithin the time period is included. SODIUM 135(L) 136 - 145 mmol/L 09/08/2025 10:43 AM [facility] [employer] SERVICES - . [facility] POTASSIUM 3.9 3.5 - 5.0 mmol/L 09/08/2025 10:43 AM [facility] [employer] SERVICES - . [facility] CHLORIDE 103 98 - 107 mmol/L 09/08/2025 10:43 AM [facility] [employer] [facility] - [facility] CO2 24 22 - 29 mmol/L 09/08/2025 10:43 AM [facility] [employer] SERVICES - . [facility] CALCIUM 8.7 8.6 - 10.2 mg/dL 09/08/2025 10:43 AM [facility] [employer] SERVICES [facility]. [facility] BUN 7(L) 8 - 23 mg/dL 09/08/2025 10:43 AM [facility] [employer] SERVICES - . [facility] CREATININE 0.68 0.51 - 0.95 mg/dL 09/08/2025 10:43 AM [facility] Comment:The GFR result is no t clinically significant on patients <18 or >70 years of age. GLUCOSE 117(H) 74 - 99 mg/dL 09/08/2025 10:43 AM [facility] [employer] SERVICES [facility]. [facility] TOTAL PROTEIN 6.5(L) 6.7 - 8.6 g/dL 09/08/2025 10:43 AM [facility] - . [facility] ALBUMIN 3.7 3.5 - 5.2 g/dL 09/08/2025 10:43 AM [facility] BILIRUBIN TOTAL 0.4 0.0 - 1.1 mg/dL 09/08/2025 10:43 AM [facility] ALKALINE PHOSPHATASE 86 35 - 104 U/L 09/08/2025 10:43 AM [facility] AST 33(H) <33 U/L 09/08/2025 10:43 AM [facility] ALT 21 <34 U/L 09/08/2025 10:43 AM [facility] GFR >60 mL/min/1.7 3 sq meter 09/08/2025 10:43 AM [facility] Comment:eGFR calculated with 2020 CKD-EPI equation. Vegetarian diet, extremely high or low muscle mass, and may affect results. Cystatin C with Glomerular Filtration Rate is a suitable alternative for these patients. ANION GAP 8 8 - 16 mmol/L 09/08/2025 10:43 AM [facility] Blood Collection / Unknown 09/08/2025 9:43 AM COLLAR SEPARATOR 09/08/2025 10:20 AM [facility] - 09/08/2025 10:43 AM [facility] Samples containing indocyanine green cause interferences on Total and/or Direct Bilirubin and must not be measured. Becky Walton MD CHEMISTRY ORDERABLES Final Re sult [facility]# [id number] [address] [facility] [place] [address] * GIARDIA & CRYPTOSPORIDIUM ANTIGEN (08/27/2025 11:48 AM COLLAR SEPARATOR) CRYPTOSPORIDIUM AG SEE NOTE [facility] Comment: CRYPTOSPORIDIUM ANTIGEN, EIA Micro Number: [id number] Test Status: Final Specimen Source: Stool Specimen Quality: Adequate Cryptosporidium: Not Detected Reference Range: Not Detected NOTE: Due to intermittent shedding, one negative sample does not necessarily rule out the presence of a parasitic infection. GIARDIA AG SEE NOTE [facility] Comment: GIARDIA AG, EIA, STOOL Micro Number: [id number] Test Status: Final Specimen Source: Stool Specimen Quality: Adequate Giardia Result 1: Not Detected Reference Range: Not Detected NOTE: Due to intermittent shedding, one negative sample does not necessarily rule out the presence of a parasitic infection. Test Performed at: [place] [address] [address] [place] [address] Ruddy Pradhan Stool STOOL SPECIMEN / Unknown 08/27/2025 11:48 AM COLLAR SEPARATOR 08/27/2025 8:40 PM COLLAR SEPARATOR us Yuly Alexis MD MICROBIOLOGY - GENERAL ORDERABLES Final Result [facility] [phone] [place] [address] [address] [place] [address] * OVA AND PARASITE SCREEN (08/27/2025 11:48 AM COLLAR SEPARATOR) TRICHROME RESULT SEE NOTE [facility] Comment: OVA AND PARASITES, CONC AND PERM SMEAR Micro Number: [id number] Test Status: Final Specimen Source: Stool Specimen Quality: Adequate CONCENTRATION 1: No ova or parasites seen TRICHROME 1: No ova or parasites seen Routine Ova and Parasite exam may not detect some parasites that occasionally cause diarrheal illness. Cryptosporidium Antigen and/or Cyclospora and Isospora Exam may be ordered to detect these parasites. One negative sample does not necessarily rule out the presence of a parasitic infection. For additional information, please refer to https://education.MissingLINK/faq/JFR008 (This link is being provided for informational/ educational purposes only.) Test Performed at: [place] [address] [address] [place] [address] Ruddy Pradhan Stool STOOL SPECIMEN / Unknown 08/27/2025 11:48 AM COLLAR SEPARATOR 08/27/2025 8:40 PM COLLAR SEPARATOR us Yuly Alexis MD MICROBIOLOGY - GENERAL ORDERABLES Final Result [facility] [phone] [facility] [address] [place] [address] * CANCER ANTIGEN 125 (08/25/2025 8:40 AM COLLAR SEPARATOR) Only the most recent of3 resultswithin the time period is included. CA 125 21 <35 U/mL [facility] Comment: This test was performed using the Siemens Chemiluminescent method. Values obtained from different assay methods cannot be used interchangeably. CA 125 levels, regardless of value, should not be interpreted as absolute evidence of the presence or absence of disease. Test Performed at: [employer] [facility] [address] [place] [address] Ruddy Pradhan MD Blood 08/25/2025 8:40 AM COLLAR SEPARATOR 08/25/2025 9:11 AM COLLAR SEPARATOR Avani Fong NP CHEMISTRY ORDERABLES Final Resul t [facility] [phone] [facility] [address] [place] [address] * XR CHEST PA OR AP 1 VW (08/17/2025 2:41 PM CDT) Anatomical Region Laterality Modality Chest Computed Radiogr aphy 08/17/2025 2:41 PM CDT Impressions 08/17/2025 2:50 PM CDT IMPRESSION: 1. No radiographic evidence of acute cardiopulmonary disease. DICTATION LOCATION: Location 4 Narrative 08/17/2025 2:50 PM CDT CHEST SINGLE VIEW HISTORY: Chest Pain. 75-year-old female with chest pain DATE: 08/17/2025 at 1421 hours COMPARISON: 04/24/2022 FINDINGS: SUPPORT DEVICES: Right Port-A-Cath terminates in superior vena cava. Shunt catheter projects over the right chest. CHEST: Heart size and pulmonary vasculature are within normal limits. Aorta is atherosclerotic. No focal consolidation, pleural effusion or pneumothorax. Surgical clips in the right upper quadrant. Diffuse osteopenia. Thoracic spondylosis. Surgical clips in the left axilla. Procedure Note Tacho Arcos MD - 08/17/2025 CHEST SINGLE VIEW HISTORY: Chest Pain. 75-year-old female with chest pain DATE: 08/17/2025 at 1421 hours COMPARISON: 04/24/2022 FINDINGS: SUPPORT DEVICES: Right Port-A-Cath terminates in superior vena cava. Shunt catheter projects over the right chest. CHEST: Heart size and pulmonary vasculature are within normal limits. Aorta is atherosclerotic. No focal consolidation, pleural effusion or pneumothorax. Surgical clips in the right upper quadrant. Diffuse osteopenia. Thoracic spondylosis. Surgical clips in the left axilla. IMPRESSION: 1. No radiographic evidence of acute cardiopulmonary disease. DICTATION LOCATION: Location 4 us Yuly Alexis MD DIAGNOSTIC IMAGING ORDE RILEY Final Result * EKG 12-LEAD (08/17/2025 12:49 PM CDT) 08/17/2025 12:4 9 PM CDT Narrative INTERFACE SYSTEM - 08/17/2025 5:02 PM CDT [place] [phone] Test Date: 2025-08-17 Pat Name: ELOISA DRAKE Department: 37 Room: [facility] Gender: F Steamfitter Apprentice: celine : 1950 Requested By: YULY COREY Order Number: [id number] Reading MD: Arnold Peralta Measurements Intervals Bradley Rate: 81 P: 68 ID: [id number] QRS: -5 QRSD: 95 T: 165 QT: 399 QTc: 464 Interpretive Statements Sinus rhythm Low voltage, extremity leads Nonspecific T abnormalities, lateral leads Baseline wander in lead(s) V1,V2 Electronically Signed On 08-17-2025 17:02:33 CDT by Arnold Peralta Procedure Note Arnold Peralta MD - 08/17/[address] [address] Test Date: 2025-08-17 Pat Name: ELOISA DRAKE Department: 37 Room: [place] 1 Gender: F Steamfitter Apprentice: celine : 1950 Requested By: YULY COREY Order Number: [id number] Reading MD: Arnold Peralta Measurements Intervals Bradley Rate: 81 P: 68 ID: [id number] QRS: -5 QRSD: 95 T: 165 QT: 399 QTc: 464 Interpretive Statements Sinus rhythm Low voltage, extremity leads Nonspecific T abnormalities, lateral leads Baseline wander in lead(s) V1,V2 Electronically Signed On 08-17-2025 17:02:33 CDT by Arnold Peralta us Danielfavian Wright Ling DO ECG ORDERABLES Fi nal Result INTERFACE SYSTEM Refer to clinic/hospital department * COLONOSCOPY REPORT (08/17/2025 12:46 PM CDT) Narrative Procedure Note Yuly Alexis MD - 08/17/2025 12:46 PM CDT [facility] Endoscopy Patient Name: Eloisa Drake Procedure Date: 08/17/2025 Date of : 1950 Attending MD: Yuly Alexis MD, Procedure: Colonoscopy Indications: Chronic diarrhea, history of metastatic ovarian cancer s/p debulking surgery in 2021 (including terminal ileal resection). Recent CT images with worsening peritoneal metastatic disease and lymphadenopathy. Providers: Yuly Alexis MD Referring MD: Titi Cummings MD Medicines: Monitored Anesthesia Care Complications: No immediate complications. Procedure: Informed consent was obtained for the [...] through the anus and advanced to the distal ascending colon. The colonoscopy was technically difficult and complex due to abnormal anatomy, and restricted mobility of the sigmoid colon. Suspect that deformity and limited mobility of sigmoid colon may be related to extrinsic compression of sigmoid colon from peritoneal metastatic disease or adhesive disease. Adult colonoscope was switched to pediatric colonoscope and then ultimately a gastroscope to navigate abberant anatomy and turns and to examine as much colon as possible. Despite applying abdominal pressure and multiple changes in patient positioning, we were only able to reach the distal ascending colon. Estimated Blood Loss: Estimated blood loss: none. Findings: Somewhat granular mucosa noted throughout colon. Diminished vascular markings also noted. No obvious severe inflammation, masses or deep ulcerations. No evidence of inflammatory bowel disease. Biopsies for histology were taken with a cold forceps from the entire colon for evaluation of microscopic colitis. Many medium-mouthed and small-mouthed diverticula were found in the sigmoid colon. Non-bleeding internal hemorrhoids were found during retroflexion and during digital exam. The hemorrhoids were medium-sized. The exam was otherwise without abnormality. Impression: - Mild granularity and decreased vascular pattern in the entire examined colon. Biopsied. - Diverticulosis in the sigmoid colon. - Non-bleeding internal hemorrhoids. - The examination was otherwise normal. Recommendation: - Await pathology results. - Further abdominal imaging per oncology team and patient's surgical team if indicated or if obstructive symptoms develop in the future (nausea, bilious vomiting, abdominal pain and distension). - Recommend against further endoscopic procedures as risks likely outweigh benefit. - Depending on what biopsies show, we can consider addition of bile acid sequestrant to help with diarrhea. Repeat infectious work up may also be considered pending biopsy results. - Continue lomotil for now Yuly Alexis MD 08/17/2025 12:46:26 PM This report has been signed electronically. Number of Addenda: [address]; [place] [address] Yuly Alexis MD GI PROCEDURE ORDERABLES Final Result * PATHOLOGY (08/17/2025 12:42 PM CDT) CASE REPORT Surgical Pathology Report Case: [id number] Authorizing Provider: Yuly Alexis MD Collected: 08/17/2025 12:42 PM Ordering Location: [facility] GI [facility] [place] Received: 08/17/2025 02:07 PM Pathologist: Elen Sigala MD Specimen: Colon, bxs 12:21 PM T [facility] FINAL DIAGNOSIS Large intestine, site undesignated, biopsy: - Active colitis, very focal and minimal (see microscopic description). 12:21 PM T [facility] at 1221 CDT GROSS DESCRIPTION Received in one container labeled Eloisa Michael Quemado and colon biopsies are 9 pieces of pink-stinson tissue, ranging from 0.1 to 0.3 cm in greatest dimension. All are submitted in cassette A1. EL 12:21 PM T [facility] MICROSCOPIC DESCRIPTION Received are slides labeled [id number], Eloisa Drake. The submitted colon biopsy contains multiple pieces of colonic mucosa. The colonic open several of the sampled pieces appear mildly elongated and show regenerative changes, and there appears to be somewhat increased intracytoplasmic mucin and vague suggestion of serration of the superficial colonic epithelium. Intraepithelial and lamina propria inflammation in areas appear mildly increased, with slight prominence in eosinophils. Active inflammation is very focally identified. Features of chronicity, granulomas and thickening of the subepithelial basement membrane are not identified. The overall findings are nonspecific, but are most suggestive of an acute self-limited colitis. Clinical correlation with appropriate follow-up is recommended. 12:21 PM T [facility] OPERATIVE PROCEDURE 1: COLONOSCOPY 12:21 PM [facility] CLINICAL INFORMATION Chronic diarrhea. Please look for collagenous colitis, microscopic colitis. R19.7-Diarrhea, unspecified type K52.9-Colitis 12:21 PM T [facility] COMMENT Special stain, immunohistochemical, and/or in situ hybridization results are interpreted with controls that demonstrate appropriate staining reactions. Note on use of immunohistochemistry reagents and in situ hybridization probes: These tests were developed and their performance characteristics determined by [facility], Department of Laboratory Medicine. It has not been cleared or approved by the U.S. Food and Drug Administration. The FDA has determined that such clearance or approval is not necessary. The test is used for clinical purposes. It should not be regarded as investigational or for research. This laboratory is certified to perform high complexity testing. Frozen section/operating room consultation, gross examination and dissection, and case sign out may have been performed in part or completely in the following laboratories: [facility], [place] #[id number] [address] [place] [address] [facility], [place] #[id number] [address] [place] [address] [facility], [place] #[id number] [address] [place] [address] This report was created with the [employer] voice-activated dictation system. Inherent to this system is the possibility of syntax, grammar, punctuation and other errors that could impact the interpretation of the report. If there are interpretative questions about aspects of this report, please contact the performing pathologist. 12:21 PM CDT [facility] Tissue SPECIMEN FROM COLON / Unknown Collection / Unknown 08/17/2025 12:42 PM CDT 08/17/2025 2:07 PM CDT Comment:Chronic diarrhea. Pl ease look for collagenous colitis, microscopic colitis. Yuly Alexis MD PATHOLOGY/CYTOLOGY MARIA VICTORIA LIN Final Result [facility]# [id number] [address] [place] [address] * CT CHEST ABDOMEN PELVIS W CONT (08/06/2025 9:18 AM CDT) Anatomical Region Laterality Modality Chest Computed Tomogra phy 08/06/2025 9:03 AM CDT Impressions 08/06/2025 9:42 AM CDT IMPRESSION: 1. Abnormal colonic wall thickening and mucosal hyperenhancement suspicious for acute infectious/inflammatory colitis. 2. Moderate circumferential urinary bladder wall thickening with mucosal hyperenhancement suggestive of acute infectious or treatment-related cystitis. 3. Interval progression of peritoneal metastatic disease and metastatic mesenteric lymphadenopathy. 4. No supradiaphragmatic sites of metastatic disease. [facility] Narrative 08/06/2025 9:42 AM CDT EXAMINATION: CT CHEST ABDOMEN PELVIS W CONT DATE: 08/06/2025 9:18 AM HISTORY: Metastatic disease evaluation, rectal bleeding Recurrent carcinoma of ovary, unspecified laterality TECHNIQUE: Computed tomography of the chest, abdomen, and pelvis was performed following the uneventful administration of intravenous contrast (IOPAMIDOL 61 % INTRAVENOUS SOLUTION (MULTI-DOSE BULK PACK) Given:90 mL) according to standard protocol. The examination was performed with the adjustment of mA according to the patient size and/or the use of Iterative Reconstruction Technique. FINDINGS: Comparison made with the prior exam from 03/16/2025, 11/20/2024, and PET/CT from 07/23/2024. Chest: LINES/TUBES: Right IJ port catheter tip terminates in the SVC. Ventriculoperitoneal shunt catheter tubing courses along the anterior chest and abdomen. HEART AND MEDIASTINUM: The heart is normal in size without pericardial effusion. No significant coronary atherosclerotic calcifications are seen. The ascending aorta and main pulmonary artery are nondilated. No enlarged mediastinal or hilar lymph nodes are seen. LUNGS AND AIRWAYS: The central airways are patent. The lungs are free of focal consolidation. Biapical pleural-parenchymal scarring is unchanged. Stable scattered benign calcified granulomas. Stable 3 mm noncalcified nodule in the lateral basal left lower lobe (series 304, image 244). No new or enlarging pulmonary nodule suspicious for metastatic disease. PLEURA: No pleural effusion or pneumothorax is seen. LOWER NECK AND SOFT TISSUES: The imaged thyroid gland appears normal. Stable breast conservation therapy changes on the left. No axillary or subpectoral lymphadenopathy. Abdomen and pelvis: LIVER: A 1.2 cm hypodense lesion at the caudate lobe has decreased from 1.5 cm on the prior. No significant change in a irregular soft tissue density at the capsular surface of the posterior right hemiliver measuring 1.6 cm TV. Increased nonspecific periportal edema. BILE DUCTS: Nondilated. GALLBLADDER: Surgically absent. SPLEEN: New 10 mm hyperattenuating density at the splenic hilum suspicious for progression of peritoneal metastatic disease. PANCREAS: Within normal limits. ADRENALS: Bilateral adrenal thickening is unchanged from prior exams. KIDNEYS/URETERS: Benign simple renal cortical cysts bilaterally. No hydronephrosis or hydroureter. BOWEL: There is new abnormal wall thickening and mucosal hyperenhancement throughout colonic loops extending from the cecum through the rectum suggestive of infectious/inflammatory colitis. Abnormal clustering, wall thickening and mucosal hyperenhancement of distal small bowel loops in the right lower quadrant. Increased conspicuity of a 1.3 cm soft tissue density along the anterior wall of the ascending colon suspicious for progression of peritoneal metastatic disease. PERITONEUM/RETROPERITONEUM: Increased small volume abdominopelvic ascites. Increased conspicuity of peritoneal enhancement along the diaphragmatic surface of the right hemiliver mild peritoneal thickening in the right paracolic gutter. Enlarged ileocolic mesenteric lymph node in the right lower quadrant measures 2.1 x 1.3 cm increased from 0.9 cm short axis on the prior. Ventriculoperitoneal shunt catheter tubing enters the right hemiabdomen and terminates in the left hemipelvis. PELVIC ORGANS: Hysterectomy. Urinary bladder is underdistended with moderate circumferential wall thickening and mucosal hyperenhancement. No dominant pelvic lymphadenopathy. Scattered small pelvic lymph nodes are considered reactive. VESSELS: Abdominal aorta is moderately atherosclerotic but normal in caliber. ABDOMINAL WALL: Within normal limits. BONES: No suspicious lytic or blastic lesions. INCIDENTAL FINDINGS: None. Procedure Note Jose M Patel, DO - 08/06/2025 EXAMINATION: CT CHEST ABDOMEN PELVIS W CONT DATE: 08/06/2025 9:18 AM HISTORY: Metastatic disease evaluation, rectal bleeding Recurrent carcinoma of ovary, unspecified laterality TECHNIQUE: Computed tomography of the chest, abdomen, and pelvis was performed following the uneventful administration of intravenous contrast (IOPAMIDOL 61 % INTRAVENOUS SOLUTION (MULTI-DOSE BULK PACK) Given:90 mL) according to standard protocol. The examination was performed with the adjustment of mA according to the patient size and/or the use of Iterative Reconstruction Technique. FINDINGS: Comparison made with the prior exam from 03/16/2025, 11/20/2024, and PET/CT from 07/23/2024. Chest: LINES/TUBES: Right IJ port catheter tip terminates in the SVC. Ventriculoperitoneal shunt catheter tubing courses along the anterior chest and abdomen. HEART AND MEDIASTINUM: The heart is normal in size without pericardial effusion. No significant coronary atherosclerotic calcifications are seen. The ascending aorta and main pulmonary artery are nondilated. No enlarged mediastinal or hilar lymph nodes are seen. LUNGS AND AIRWAYS: The central airways are patent. The lungs are free of focal consolidation. Biapical pleural-parenchymal scarring is unchanged. Stable scattered benign calcified granulomas. Stable 3 mm noncalcified nodule in the lateral basal left lower lobe (series 304, image 244). No new or enlarging pulmonary nodule suspicious for metastatic disease. PLEURA: No pleural effusion or pneumothorax is seen. LOWER NECK AND SOFT TISSUES: The imaged thyroid gland appears normal. Stable breast conservation therapy changes on the left. No axillary or subpectoral lymphadenopathy. Abdomen and pelvis: LIVER: A 1.2 cm hypodense lesion at the caudate lobe has decreased from 1.5 cm on the prior. No significant change in a irregular soft tissue density at the capsular surface of the posterior right hemiliver measuring 1.6 cm TV. Increased nonspecific periportal edema. BILE DUCTS: Nondilated. GALLBLADDER: Surgically absent. SPLEEN: New 10 mm hyperattenuating density at the splenic hilum suspicious for progression of peritoneal metastatic disease. PANCREAS: Within normal limits. ADRENALS: Bilateral adrenal thickening is unchanged from prior exams. KIDNEYS/URETERS: Benign simple renal cortical cysts bilaterally. No hydronephrosis or hydroureter. BOWEL: There is new abnormal wall thickening and mucosal hyperenhancement throughout colonic loops extending from the cecum through the rectum suggestive of infectious/inflammatory colitis. Abnormal clustering, wall thickening and mucosal hyperenhancement of distal small bowel loops in the right lower quadrant. Increased conspicuity of a 1.3 cm soft tissue density along the anterior wall of the ascending colon suspicious for progression of peritoneal metastatic disease. PERITONEUM/RETROPERITONEUM: Increased small volume abdominopelvic ascites. Increased conspicuity of peritoneal enhancement along the diaphragmatic surface of the right hemiliver mild peritoneal thickening in the right paracolic gutter. Enlarged ileocolic mesenteric lymph node in the right lower quadrant measures 2.1 x 1.3 cm increased from 0.9 cm short axis on the prior. Ventriculoperitoneal shunt catheter tubing enters the right hemiabdomen and terminates in the left hemipelvis. PELVIC ORGANS: Hysterectomy. Urinary bladder is underdistended with moderate circumferential wall thickening and mucosal hyperenhancement. No dominant pelvic lymphadenopathy. Scattered small pelvic lymph nodes are considered reactive. VESSELS: Abdominal aorta is moderately atherosclerotic but normal in caliber. ABDOMINAL WALL: Within normal limits. BONES: No suspicious lytic or blastic lesions. INCIDENTAL FINDINGS: None. IMPRESSION: 1. Abnormal colonic wall thickening and mucosal hyperenhancement suspicious for acute infectious/inflammatory colitis. 2. Moderate circumferential urinary bladder wall thickening with mucosal hyperenhancement suggestive of acute infectious or treatment-related cystitis. 3. Interval progression of peritoneal metastatic disease and metastatic mesenteric lymphadenopathy. 4. No supradiaphragmatic sites of metastatic disease. DICTATION LOCATION: Location 1 - [facility] Avani Fong CT ORDERABLES Final Result * (ABNORMAL) URINALYSIS WITH REFLEX CULTURE (08/04/2025 10:04 AM CDT) Only the most recent of3 resultswithin the time period is included. COLOR UA Yellow Pale to Dark Yellow 08/06/2025 9:[address] [facility] LABORATORY SERVICES - [facility] CLARITY UA Cloudy(A) Clear 08/06/2025 9:54 AM [facility] SPECIFIC GRAVITY UA 1.005 1.003 - 1.035 08/06/2025 9:[address] [facility] LABORATORY SERVICES [facility] PH UA 5.0 5.0 - 8.0 08/06/2025 9:54 AM [facility] [employer] [facility] LEUKOCYTE ESTERASE UA 3+(A) Negative 08/06/2025 9:54 AM [facility] LABORATORY [facility] NITRITE UA Negative Negative 08/06/2025 9:54 AM [facility] LABORATORY SERVICES [facility] PROTEIN UA Negative Negative 08/06/2025 9:54 AM [facility] GLUCOSE UA Negative Negative 08/06/2025 9:54 AM [facility] KETONES UA Negative Negative 08/06/2025 9:[address] [facility] LABORATORY SERVICES [facility] UROBILINOGEN UA Normal <2.0 mg/dL 9:[address] [facility] LABORATORY [facility] BILIRUBIN UA Negative Negative 08/06/2025 9:54 AM [facility] BLOOD UA 1+(A) Negative 08/06/2025 9:54 AM [facility] WBC UA >100(A) 0 - 2 /hpf 08/06/2025 9:54 AM CDT [facility] RBC UA 11-25(A) 0 - 2 /hpf 08/06/2025 9:54 AM CDT [facility] BACTERIA UA 2+(A) Negative /hpf 08/06/2025 9:54 AM CDT [facility] EPITHELIAL CELLS, URINE 0-5 0 - 5 /hpf 08/06/2025 9:54 AM CDT [facility] WBC CLUMPS Present(A) Absent 08/06/2025 9:54 AM CDT [facility] Urine URINE SPECIMEN OBTAINED BY CLEAN CATCH PROCEDURE / Unknown Collection / Unknown 08/04/2025 10:04 AM CDT 08/06/2025 9:39 AM CDT Narrative [facility] - 08/06/2025 9:54 AM CDT Based on results, a urine culture has been reflexed. Becky Waltno MD URINE ORDERABLES Final Result [facility]# [id number] [address] [place] [address] [id number] * (ABNORMAL) URINE CULTURE (08/04/2025 10:04 AM CDT) Only the most recent of3 resultswithin the time period is included. CULTURE >= 100,000 cfu/mL Kluyvera ascorbata(A) SIVAN MCG/ML 08/08/2025 10:17 AM CDT [facility] Urine URINE SPECIMEN OBTAINED BY CLEAN CATCH PROCEDURE / Unknown Collection / Unknown 08/04/2025 10:04 AM CDT 08/06/2025 9:54 AM CDT Narrative Organism Antibiotic Method Susceptibility Kluyvera ascorbata CEFAZOLIN SIVAN MCG/ML >=64 mcg/mL: Resistant Kluyvera ascorbata CEFTRIAXONE SIVAN MCG/ML <=1 mcg/mL: Susceptible Kluyvera ascorbata CEFTAZIDIME SIVAN MCG/ML <=1 mcg/mL: Susceptible Kluyvera ascorbata GENTAMICIN SIVAN MCG/ML <=1 mcg/mL: Susceptible Kluyvera ascorbata CIPROFLOXACIN SIVAN MCG/ML <=0.25 mcg/mL: Susceptible Kluyvera ascorbata TRIMETHOPRIM/ SULFAMETHOXAZOLE SIVAN MCG/ML <=20 mcg/mL: Susceptible Kluyvera ascorbata NITROFURANTOIN SIVAN MCG/ML 64 mcg/mL: Intermediate Kluyvera ascorbata AMPICILLIN SIVAN MCG/ML 16 mcg/mL: Intermediate Kluyvera ascorbata AMPICILLIN/ SULBACTAM SIVAN MCG/ML <=2 mcg/mL: Susceptible Comment:Aminoglycosides shou ld not be used as monotherapy for infections outside the urinary tract. Consultation with an infectious diseases specialist is recommended. Becky Walton MD MICROBIOLOGY - GENERAL ORDERA BLES Final Result [facility]# [id number] [address] [facility] [place] [address] * EXTRA TUBE (07/06/2025 2:21 PM CDT) EXTRA TUBE RECEIVED [employer]aima Montaño Comment: An extra tube was received without a test specified. We will hold this specimen in our cold storage in the event additional testing is requested. Please contact your local client relationship executive for further assistance. SPECIMEN TYPE [employer]rapeutics[facility]aima Montaño Comment: Test Performed at: [facility] [address] [place] [address] Ruddy Prince Vo 07/06/2025 2:21 PM CDT 07/06/2025 2:32 PM CDT Becky Walton MD CHEMISTRY ORDERABLES Final Re sult Performing Organization Address City/[facility]/ZIP Code Phone Number [facility] [phone] [facility] [place] [address] [place] [address] * MAGNESIUM LEVEL (07/06/2025 2:21 PM CDT) MAGNESIUM 1.9 1.6 - 2.4 mg/dL 07/06/2025 3:20 PM CDT [facility] Blood Collection / Unknown 07/06/2025 2:21 PM CDT 07/06/2025 2:50 PM CDT Becky Walton MD CHEMISTRY ORDERABLES Final Re sult [facility] CLIA# [id number] [address] [place] [address] * XR DEXA BONE DENSITY AXIAL 1 OR MORE SITES (05/14/2023 11:47 AM CDT) Anatomical Region Laterality Modality Computed Radiogr aphy Narrative 05/14/2023 3:28 PM CDT Patient takes Evista due to breast cancer history. Her bone density is stable. FRAX is negative and there is no history of osteoporotic fracture. Continue the Evista and repeat the bone density in 2 years. Remberto Bhandari MD DIAGNOSTIC IMAGING ORDERABLE S Final Result * MAMMO SCREEN BILAT W OR WO CAD (11/02/2022 11:05 AM COLLAR SEPARATOR) Anatomical Region Laterality Modality Breast Bilateral Mammography 11/02/2022 11:0 6 AM COLLAR SEPARATOR Impressions 11/02/2022 11:29 AM COLLAR SEPARATOR IMPRESSION: No suspicious findings to suggest malignancy in either breast. Annual mammography is recommended. OVERALL FINAL ASSESSMENT: BI-RADS CATEGORY 2: Benign findings Narrative 11/02/2022 11:29 AM COLLAR SEPARATOR EXAM: BILATERAL SCREENING DIGITAL MAMMOGRAM WITH CAD DATE: 11/02/2022 11:05 AM HISTORY: Personal history of breast cancer with prior left conservation therapy. DICTATION LOCATION: [facility] COMPARISON: 06/01/2021 and older TECHNIQUE: Mediolateral oblique, mediolateral and craniocaudal views [...] with prior left conservation therapy. DICTATION LOCATION: [facility] COMPARISON: 06/01/2021 and older TECHNIQUE: Mediolateral oblique, mediolateral and craniocaudal views [...] BI-RADS CATEGORY 2: Benign findings Iram Naranjo MARINE SCIENTIST MAMMO ORDERABLES Final Result from Last 3 Months or Most Recently Relevant to Health Maintenance Insurance [employer] Medicare Part D Advance Directives For more information, please contact: [phone] * Full Code (Latest Code Status on File) Date Activated Date Inactivated Comments 08/17/2025 10:37 AM 08/17/2025 4:59 PM * Full Code Date Activated Date Inactivated Comments 04/07/2025 5:01 PM 04/08/2025 11:34 AM * Full Code Date Activated Date Inactivated Comments 04/24/2022 7:43 PM 04/25/2022 5:43 PM * Full Code Date Activated Date Inactivated Comments 03/12/2022 8:58 PM 03/20/2022 6:22 PM * Full Code Date Activated Date Inactivated Comments 11/21/2021 10:37 PM 11/25/2021 6:38 PM Care Teams Sewage Reticulation Drafting Officer Relationship Specialty Start Date End Date Titi Cummings MD [address] [place] [address] [phone] PCP - General Family Practice 10/10/23
--- OUTSIDE RECORDS SUMMARY | 2025-09-23 11:01 | XMS_ITS | Encounter Summary ---
Author Organization [facility] Address [address] [place] [address] Care Team Providers Care Clip Baker Name Role Phone Titi Cummings MD Primary Care Provider Encounter Details Date Type Department Care Team (Latest Contact Info) Description 01/16/2003 Outpatient Historical HIS [facility] BRY Contreras, Gibson Rivera MD NO ADDRESS ON FILE PERS HX OF BREAST MALIGNANCY (Primary Dx) Social History Tobacco Use Types Packs/Day Years Used Date Smoking Tobacco: Never Assessed Comments Unknown Sex and Gender Information Value Date Recorded Sex Assigned at Not on file Legal Sex Female 4:40 AM TREAD TUBER MACHINE OPERATOR Gender Identity Not on file Sexual Orientation Not on file documented as of this encounter Plan of Treatment Upcoming Encounters Date Type Department Care Team (Late st Contact Info) Description 09/29/2025 11:30 AM TREAD TUBER MACHINE OPERATOR Office Visit [facility] Gynecologic Oncology [place] [address] [place] [address] Avani Fong, TORRI [address] [place] [address] 09/29/2025 12:00 PM TREAD TUBER MACHINE OPERATOR Hospital Encounter [facility] 2nd Fl [address] [place] [address] Infusion Chair 6, 2nd Floor [place] 10/12/2025 1:30 PM TREAD TUBER MACHINE OPERATOR Office Visit [facility] Neurology [address] [place] [address] Navi Stephens MD [address] [address] 10/20/2025 11:00 AM TREAD TUBER MACHINE OPERATOR Office Visit [facility] Gynecologic Oncology [place] [address] [place] [address] Becky Walton MD [address] [place] [address] 10/20/2025 11:30 AM TREAD TUBER MACHINE OPERATOR Appointment [facility] 2nd Fl [address] [place] [address] Infusion Chair 6, 2nd [...] documented as of this encounter Care Teams Clip Baker Relationship Specialty Start Date End Date Titi Cummings MD [address] [phone] PCP - General Family Practice 10/10/23 documented as of this encounter
--- OUTSIDE RECORDS SUMMARY | 2025-09-23 11:01 | XMS_ITS | Encounter Summary ---
Author Organization [facility] Address [address] [place] [address] Care Team Providers Care Construction Sales Manager Name Role Phone Titi Cummings MD Primary Care Provider Encounter Details Date Type Department Care Team (Latest Contact Info) Description 01/31/[address] [facility] BRY Contreras, Gibson Rivera MD NO ADDRESS ON FILE MALIG NEOPLASM BREAST UP-OUTER (CMS/HCC) (Primary Dx) Social History Tobacco Use Types Packs/Day Years Used Date Smoking Tobacco: Never Assessed Comments Unknown Sex and Gender Information Value Date Recorded Sex Assigned at Not on file Legal Sex Female 4:40 AM INSTRUCTOR BALLROOM DANCING Gender Identity Not on file Sexual Orientation Not on file documented as of this encounter Plan of Treatment Upcoming Encounters Date Type Department Care Team (Late st Contact Info) Description 09/29/2025 11:30 AM INSTRUCTOR BALLROOM DANCING Office Visit [facility] Gynecologic Oncology [place] [address] [place] [address] Avani Fong, TORRI [address] [place] [address] 09/29/2025 12:00 PM INSTRUCTOR BALLROOM DANCING Hospital Encounter [facility] 2nd Fl [address] [place] [address] Infusion Chair 6, 2nd Floor [place] 10/12/2025 1:30 PM INSTRUCTOR BALLROOM DANCING Office Visit [facility] Neurology [address] [place] [address] Navi Stephens MD [address] [address] 10/20/2025 11:00 AM INSTRUCTOR BALLROOM DANCING Office Visit [facility] Gynecologic Oncology [place] [address] [place] [address] Becky Walton MD [address] [place] [address] 10/20/2025 11:30 AM INSTRUCTOR BALLROOM DANCING Appointment [facility] 2nd Fl [address] [place] [address] Infusion Chair 6, 2nd Floor [place] documented as of this encounter Visit Diagnoses [...] documented as of this encounter Care Teams Construction Sales Manager Relationship Specialty Start Date End Date Titi Cummings MD [address] [place] [phone] PCP - General Family Practice 10/10/23 documented as of this encounter
--- OUTSIDE RECORDS SUMMARY | 2025-09-23 11:01 | XMS_ITS | Encounter Summary ---
Author Organization [facility] Address [address] [place] [address] Care Team Providers Care Panama Hat Smearer Name Role Phone Titi Cummings MD Primary Care Provider Encounter Details Date Type Department Care Team (Latest Contact Info) Description 01/16/2003 Outpatient Historical HIS [facility] BRY Contreras, Gibson Rivera MD NO ADDRESS ON FILE MALIG NEOPLASM BREAST UP-OUTER (CMS/HCC) (Primary Dx) Social History Tobacco Use Types Packs/Day Years Used Date Smoking Tobacco: Never Assessed Comments Unknown Sex and Gender Information Value Date Recorded Sex Assigned at Not on file Legal Sex Female 4:40 AM CLINICAL SOCIOLOGIST Gender Identity Not on file Sexual Orientation Not on file documented as of this encounter Plan of Treatment Upcoming Encounters Date Type Department Care Team (Late st Contact Info) Description 09/29/2025 11:30 AM CLINICAL SOCIOLOGIST Office Visit [facility] Gynecologic Oncology [place] [address] [place] [address] Avani Fong, TORRI [address] [place] [address] 09/29/2025 12:00 PM CLINICAL SOCIOLOGIST Hospital Encounter [facility] 2nd Fl [address] [place] [address] Infusion Chair 6, 2nd Floor [place] 10/12/2025 1:30 PM CLINICAL SOCIOLOGIST Office Visit [facility] Neurology [address] [place] [address] Navi Stephens MD [address] [address] 10/20/2025 11:00 AM CLINICAL SOCIOLOGIST Office Visit [facility] Gynecologic Oncology [place] [address] [place] [address] Becky Walton MD [address] [place] [address] 10/20/2025 11:30 AM CLINICAL SOCIOLOGIST Appointment [facility] 2nd Fl [address] [place] [address] Infusion Chair 6, 2nd Floor [place] documented as of this encounter Visit Diagnoses [...] documented as of this encounter Care Teams Panama Hat Smearer Relationship Specialty Start Date End Date Titi Cummings MD [address] [place] [address] [phone] PCP - General Family Practice 10/10/23 documented as of this encounter
--- OUTSIDE RECORDS SUMMARY | 2025-09-23 11:01 | XMS_ITS | Encounter Summary ---
Author Organization [facility] Address [address] [place] [address] Care Team Providers Care Band Instrument Repairer Name Role Phone Titi Cummings MD Primary Care Provider Encounter Details Date Type Department Care Team (Latest Contact Info) Description 01/15/2004 Outpatient Historical HIS [facility] BRY Contreras, Gibson Rivera MD NO ADDRESS ON FILE MALIG NEOPLASM BREAST UP-OUTER (CMS/HCC) (Primary Dx) Social History Tobacco Use Types Packs/Day Years Used Date Smoking Tobacco: Never Assessed Comments Unknown Sex and Gender Information Value Date Recorded Sex Assigned at Not on file Legal Sex Female 4:40 AM DIRECTOR BANKING Gender Identity Not on file Sexual Orientation Not on file documented as of this encounter Plan of Treatment Upcoming Encounters Date Type Department Care Team (Late st Contact Info) Description 09/29/2025 11:30 AM DIRECTOR BANKING Office Visit [facility] Gynecologic Oncology [place] [address] [place] [address] Avani Fong, TORRI [address] [place] [address] 09/29/2025 12:00 PM DIRECTOR BANKING Hospital Encounter [facility] 2nd Fl [address] [place] [address] Infusion Chair 6, 2nd Floor [place] 10/12/2025 1:30 PM DIRECTOR BANKING Office Visit [facility] Neurology [address] [place] [address] Navi Stephens MD [address] [address] 10/20/2025 11:00 AM DIRECTOR BANKING Office Visit [facility] Gynecologic Oncology [place] [address] [place] [address] Becky Walton MD [address] [place] [address] 10/20/2025 11:30 AM DIRECTOR BANKING Appointment [facility] 2nd Fl [address] [place] [address] Infusion Chair 6, 2nd Floor [place] documented as of this encounter Visit Diagnoses [...] documented as of this encounter Care Teams Band Instrument Repairer Relationship Specialty Start Date End Date Titi Cummings MD [address] [place] [address] [phone] PCP - General Family Practice 10/10/23 documented as of this encounter
--- OUTSIDE RECORDS SUMMARY | 2025-09-23 11:01 | XMS_ITS ---
Author Organization [facility] Address [address] [place] [address] Phone Care Team Providers Care Change Director Name Role Phone Titi Cummings MD [...] NEGATIVE genetic testing. 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, unspecified laterality (CMS/HCC) Treatment Medications Current Day (Day 1 , Cycle 2 - Planned for 09/29/2025) Next Day (Day 1, Cycle 3 - Planned for 10/20/2025) bevacizumab or biosimilarbevacizumab-awwb (MVASI) IVPBcycloPHOSphamide (CYTOXAN)pembrolizumab (KEYTRUDA) bevacizumab-awwb (MVASI) 689 mg in sodium chloride 0.9 % 100 mL IVPBcycloPHOSphamide (CYTOXAN) 50 mg capsulepembrolizumab (KEYTRUDA) 200 mg in sodium chloride 0.9% 108 mL IVPB (PREMIX) bevacizumab-awwb (MVASI) 689 mg in sodium chloride 0.9 % 100 mL IVPBcycloPHOSphamide (CYTOXAN) 50 mg capsulepembrolizumab (KEYTRUDA) 200 mg in sodium chloride 0.9% 108 mL IVPB (PREMIX) Other Current Plans OP ONC HYDRATION* Plan Start Date:03/04/2025 Plan Provider:Avani Fong NP Linked Problems Dizziness Treatment Medications No medications scheduled. Past Treatment and Therapy Plans ONCOLOGY THERAPY PLAN Plan Name Start Date Discontinue Date Treatment Medications Discontinue Reason Plan Provider BLANK SUPPORTIVE CARE THERAPY PLAN & OP FLUSH PROTOCOL CENTRAL LINES (PICC, CVC, IMPLANTED PORT) 03/26/2022 03/21/2025 No medications scheduled. Other Avani Fong NP ONCOLOGY TREATMENT Plan Name Start Date Discontinue Date Treatment Medications Discontinue Reason Plan Provider Cycles OP ONC PPC_BE VACIZU MAB_CY TOXAN_ EVERY 21 DAYS 024 08/26/2025 bevacizumab-awwb (MVASI) IVPB Progression Becky Walton MD 16 of 19 cycles started OP ONC OVARIA N_LIPO SOMAL DOXORU BICIN_ [...] (TAXOL) IVPB Therapy Complete Maggy West V., 6 of 6 cycles started Lifetime Dose Tracking * Chemical Lifetime Dose Automatic Entry Manual Entr y doxorubicin 141.338 mg/m2 (226 mg) 141.338 mg/m2 (226 mg) 0 mg/m2 (0 mg) Effective Dose 273.82 mSv 273.82 mSv 0 mSv Total DLP 22,970.88 DLP 22,970.88 DLP 0 DLP CTDIvol Max 827.47 mGy 827.47 mGy 0 mGy CTDIvol Min 688.76 mGy 688.76 mGy 0 mGy
--- OUTSIDE RECORDS SUMMARY | 2025-09-23 11:01 | XMS_ITS | Encounter Summary ---
Author Organization [facility] Address [address] [place] [address] Care Team Providers Care Beater Room Helper Name Role Phone Titi Cummings MD Primary Care Provider Encounter Details Date Type Department Care Team (Latest Contact Info) Description 09/04/2025 Results Follow-Up [facility] Gastroenterology [facility] [address] [facility] [address] [place] [address] Morenita Alexis MD [address] [facility] [address] [place] [address] GIARDIA & CRYPTOSPORIDIUM ANTIGEN Social History Tobacco Use Types Packs/Day Years [...] on file Legal Sex Female 4:40 AM FARM GENERAL MANAGER Gender Identity Not on file Sexual Orientation Not on file Occupation Industry Job Start Date Job End Date Not on file Not on file Not on file Not on file documented as of this encounter Plan of Treatment Upcoming Encounters Date Type Department Care Team ( Contact Info) Description 09/29/2025 11:30 AM FARM GENERAL MANAGER Office Visit [facility] Gynecologic Oncology [place] [address] [place] [address] Avani Fong, TORRI [address] [place] [address] 09/29/2025 12:00 PM FARM GENERAL MANAGER Hospital Encounter [facility] 2nd Fl [address] [place] [address] Infusion Chair 6, 2nd Floor [place] 10/12/2025 1:30 PM FARM GENERAL MANAGER Office Visit [facility] [address] [place] [address] Navi Stephens MD [address] [facility] [address] [address] 10/20/2025 11:00 AM FARM GENERAL MANAGER Office Visit [facility] Gynecologic Oncology [place] [address] [place] [address] Becky Walton MD [address] [facility] [address] [place] [address] 10/20/2025 11:30 AM FARM GENERAL MANAGER Appointment [facility] 2nd Fl [address] [place] [address] Infusion Chair 6, 2nd Floor [place] documented as of this encounter Visit Diagnoses Not on filedocumented in this encounter Additional Health Concerns Assessment Noted Time PHQ-9 Depression Total Score: 4 10/02/20 24 12:00 PM FARM GENERAL MANAGER documented as of this encounter Care Teams Beater Room Helper Relationship Specialty Start Date End Date Titi Cummings MD [address] [facility] [address] [place] [phone] PCP - General Family Practice 10/10/23 documented as of this encounter
--- OUTSIDE RECORDS SUMMARY | 2025-09-23 11:01 | XMS_ITS | Clinical Summary ---
Author Organization [facility] [address] Address [address] [place] [address] Care Team Providers Care Handle Bar Assembler Name Role Phone Titi Cummings MD Primary Care Provider Tomás Garcia MD Unavailable Gautam Stoll MD Unavailable Steve Murphy MD Unavailable [phone] China Reynoso NP Unavailable + Yariel Stephens MD Unavailable Allergies No known active allergies Medications hydroCHLOROthia zide (MICROZIDE) 12.5 mg capsule Take 1 capsule (12.5 mg total) by mouth every morning 11/25/2020 Active FLUoxetine (PROzac) 40 mg capsule daily 09/20/2020 Active atorvastatin (LIPITOR) 40 mg tablet Take 1 tablet (40 mg total) by mouth daily 10/31/2020 Active donepeziL (ARICEPT) 10 mg tablet 0.5 tablets (5 mg total) daily 12/01/2020 Active traZODone (DESYREL) 50 mg tablet 1 tablet (50 mg total) every evening 11/30/2020 Active lisinopriL (PRINIVIL,ZESTR IL) 20 mg tablet 1 tablet (20 mg total) daily 12/13/2020 Active budesonide EC (ENTOCORT EC) 3 mg 24 hr capsule Take 2 capsules (6 mg total) by mouth every morning Active nortriptyline (PAMELOR) 50 mg capsule 10/02/[address] (PROTONIX) 40 mg EC tablet Take 1 tablet (40 mg total) by mouth daily 30 tablet 11 10/07/2023 Active doxorubicin HCl (DOXORUBICIN IV) Infuse into a venous catheter Active potassium chloride ER 20 mEq CR tablet 12/18/2023 Activ e cycloPHOSphamid e (CYTOXAN) 50 mg capsule 11/03/2024 Active sulfamethoxazol e-trimethoprim (BACTRIM DS) 800-160 mg per tablet 09/23/2024 Active traMADoL (ULTRAM) 50 mg tablet 11/10/2024 Active diphenoxylate-a tropine (LOMOTIL) 2.5-0.025 mg per tablet TAKE 1 TABLET BY MOUTH FOUR TIMES DAILY NEEDED FOR DIARRHEA 30 tablet 1 06/07/2025 Active Active Problems Problem Noted Date Diagnosed Date Leukopenia 04/07/2025 Prolonged Q-T interval on ECG 04/07/2025 Dizziness 03/04/2025 Cancer cachexia 10/02/2024 Chronic right shoulder pain 10/02/2024 Nephrolithiasis 10/12/2023 Assessment & Plan (10/12/2023 11:42 AM NANOTECHNOLOGIST): Re-imaging kidney stone Nuclear stress test ordered, [...] 09/24/2023 Assessment & Plan (09/24/2023 11:21 AM NANOTECHNOLOGIST): A(n) initial Medicare Annual Wellness Visit has been performed today. Michelle Rodriguez Noelle is not up to date on screening [...] in 6 months Malfunction of ventriculoperitoneal shunt 2021 Pure hypercholesterolemia 09/25/2022 Tremor 09/25/2022 Orthostatic syncope 04/24/2022 Sepsis 04/24/2022 Protein-calorie malnutrition, moderate 2 Increased anion gap metabolic acidosis 2 Peritoneal carcinoma 11/21/2021 Abdominal pain 11/21/2021 Esophagitis 04/12/2020 Insomnia 05/02/2017 Right sided weakness 10/28/2015 Chronic intracranial subdural hematoma 5 NPH (normal pressure hydrocephalus) 07/19/2015 Other specified disorders of brain 06/07/2015 Microscopic colitis 01/18/2015 Diarrhea 12/01/2014 Malignant neoplasm of female breast 05/05/2014 Anxiety 02/17/2011 Chest pain 02/17/2011 Hyperlipemia 02/17/2011 Disorder of lip 11/22/2010 Encounters Date Type Department Care Team Description 09/22/2025 Nurse Triage [facility] Primary Care at [address] [address] Titi Cummings MD from Last 3 Months Immunizations Immunization Administration Dates Next Due Influenza, Quadrivalent, Hig [...] History Date Comments Hyperlipidemia Hypertension Arthritis Hydrocephalus GERD (gastroesophageal reflux disease) Anxiety and depression [...] on file Legal Sex Female 1:46 PM NANOTECHNOLOGIST Gender Identity Female 07/25/2023 8:58 AM CDT Sexual Orientation Straight 07/25/2023 8: 58 AM CDT Last Filed Vital Signs Vital Sign Reading Time Taken Comments Blood Pressure 120/80 04/15/2025 1:32 PM CDT Pulse 92 04/15/2025 1:32 PM CDT Temperature 36.9 C (98.4 F) 04/15/2025 1:32 PM CDT Respiratory Rate 16 12/01/2024 11:46 AM NANOTECHNOLOGIST Oxygen Saturation 98% 04/15/2025 1:32 PM CDT Inhaled Oxygen Concentration - - Weight 52.6 kg (116 lb) 04/15/2025 1:32 PM CDT Height 157.5 cm (5' 2) 04/15/2025 1:32 PM CDT Body Mass Index 21.22 04/15/2025 1:32 PM CDT Plan of Treatment Health Maintenance Due Date Last Done Comments DTaP/Tdap/Td Vaccine (1 - Tdap) 1961 Zoster Vaccine (1 of 2) 10/09/2013 08/14/2013 Well Visit 65+ 09/24/2024 09/24/2023 Covid-19 Vaccine (7 - season) 2025 07/13/2022, 08/25/2021, 01/12/2021, Additional history exists Influenza Vaccine (#1) 2025 , 07/22/2023, 08/17/2021, Additional history exists Breast Cancer Screening-Mammogram 12/21/2025 12/21/2024, 11/02/2022, 11/02/2022, Additional history exists Depression Screening 04/15/2026 04/15/2025, 08/06/2024, 03/25/2024, Additional history exists Fall Risk Assessment 04/15/2026 04/15/2025, 09/24/20 Osteoporosis Screening-Bone Density Scan 04/15/2026 05/14/2023, 05/14/2023, 05/14/2023, Additional history exists Postponed from 05/14/2025 (Patient declined, but will receive in the future) Colon Cancer Screening-Colonoscopy 07/02/2032 07/02/2022 Hepatitis C Screening Completed 09/24/2023 Pneumococcal vaccine 65+ Completed 03/25/2024 Hepatitis B Screening Completed 12/01/2024 Procedures Procedure Name Priority Date/Time Associated Diagnosis Comments HEPATITIS C ANTIBODY Routine 09/24/2023 12:11 PM NANOTECHNOLOGIST Encounter for hepatitis C virus screening test for high risk patient from Last 3 Months or Most Recently Relevant to Health Maintenance Results * Hepatitis C antibody Blood (09/24/2023 12:11 PM NANOTECHNOLOGIST) Hep C Ab Nonreactive Nonreactive [facility] TRIMBLE [...] on 2020. Blood 09/24/2023 12:1 1 PM NANOTECHNOLOGIST 09/24/2023 6:41 PM NANOTECHNOLOGIST us Titi Cummings MD LAB MICROBIOLOGY - GENERAL ORDERABLES Edited Result - Final [facility] [address] [place] [address] from Last 3 Months or Most Recently Relevant to Health Maintenance Insurance [employer] MEDICARE PPO Care Teams Handle Bar Assembler Relationship Specialty Start Date End Date Titi Cummings MD [address] [place] [address] PCP - General Family Medicine 09/24/23 Tomás Garcia MD [address] [facility] [address] [place] [address] Referring Physician Neurosurgery 09/24/23 Gautam Stoll MD 1 [facility] [address] [place] [address] Consulting Physician Obstetrics and Gynecology 09/24/23 Steve Murphy MD 1 [facility] [address] [place] [address] Gynecologic Oncology 09/24/23 China Reynoso NP [address] [facility] [address] [place] [address] Nurse Practitioner Neurology 09/24/23 Yariel Stephens MD [address] [facility] [address] [place], [place] [id number] Referring Physician Neurology 09/24/23
--- OUTSIDE RECORDS SUMMARY | 2025-09-23 11:01 | XMS_ITS | Encounter Summary ---
Author Organization [facility] Address [address] [place] [address] Care Team Providers Care Advertising Sales Executive Name Role Phone Titi Cummings MD Primary Care Provider Encounter Details Date Type Department Care Team (Latest Contact Info) Description 01/15/2004 Outpatient Historical HIS [facility] BRY Contreras, Gibson Rivera MD NO ADDRESS ON FILE PERS HX OF BREAST MALIGNANCY (Primary Dx) Social History Tobacco Use Types Packs/Day Years Used Date Smoking Tobacco: Never Assessed Comments Unknown Sex and Gender Information Value Date Recorded Sex Assigned at Not on file Legal Sex Female 4:40 AM FPGA ENGINEER Gender Identity Not on file Sexual Orientation Not on file documented as of this encounter Plan of Treatment Upcoming Encounters Date Type Department Care Team (Late st Contact Info) Description 09/29/2025 11:30 AM FPGA ENGINEER [facility] Gynecologic Oncology [place] [address] [place] [address] Avani Fong, TORRI [address] [place] [address] 09/29/2025 12:00 PM FPGA ENGINEER Hospital Encounter [facility] 2nd Fl [address] [place] [address] Infusion [address] 6, 2nd Floor [place] 10/12/2025 1:30 PM FPGA ENGINEER Office Visit [facility] Neurology [address] [place] [address] Navi Stephens MD [address] [address] 10/20/2025 11:00 AM FPGA ENGINEER Office Visit [facility] Gynecologic Oncology [place] [address] [place] [address] Becky aWlton MD [address] [place] [address] 10/20/2025 11:30 AM FPGA ENGINEER Appointment [facility] 2nd Fl [address] [place] [address] Infusion Chair 6, 2nd Floor [...] documented as of this encounter Care Teams Advertising Sales Executive Relationship Specialty Start Date End Date Titi Cummings MD [address] [phone] PCP - General Family Practice 10/10/23 documented as of this encounter
--- OUTSIDE RECORDS SUMMARY | 2025-09-23 11:02 | XMS_ITS | Encounter Summary ---
Author Organization [facility] Address [address] [place] [address] Care Team Providers Care Supervisor Dry Paste Name Role Phone Titi Cummings MD Primary Care Provider Encounter Details Date Type Department Care Team (Latest Contact Info) Description 07/28/2005 Outpatient Historical HIS [facility] BRY Contreras, Gibson Rivera MD NO ADDRESS ON FILE MALIG NEOPLASM BREAST UP-OUTER (CMS/HCC) (Primary Dx) Social History Tobacco Use Types Packs/Day Years Used Date Smoking Tobacco: Never Assessed Comments Unknown Sex and Gender Information Value Date Recorded Sex Assigned at Not on file Legal Sex Female 4:40 AM FRAUD MANAGER Gender Identity Not on file Sexual Orientation Not on file documented as of this encounter Plan of Treatment Upcoming Encounters Date Type Department Care Team (Late st Contact Info) Description 09/29/2025 11:30 AM FRAUD MANAGER Office Visit [facility] Gynecologic Oncology [place] [address] [place] [address] Avani Fong, TORRI [address] [place] [address] 09/29/2025 12:00 PM FRAUD MANAGER Hospital Encounter [facility] 2nd Fl [address] [place] [address] Infusion Chair 6, 2nd Floor [place] 10/12/2025 1:30 PM FRAUD MANAGER Office Visit [facility] Neurology [address] [place] [address] Navi Stephens MD [address] [address] 10/20/2025 11:00 AM FRAUD MANAGER Office Visit [facility] Gynecologic Oncology [place] [address] [place] [address] Becky Walton MD [address] [facility] [address] [place] [address] 10/20/2025 11:30 AM FRAUD MANAGER Appointment [facility] 2nd Fl [address] [place] [address] Infusion Chair 6, 2nd Floor [place] documented as of this encounter Procedures Procedure [...] Organization Address [facility] de Phone Number INTERFACE SYSTEM Refer [...] Organization Address [facility] de Phone Number INTERFACE SYSTEM Refer [...] 3 AM CDT us Gibson Contreras MD CHEMISTRY ORDERABLES Final R esult INTERFACE SYSTEM Refer to clinic/hospital department documented [...] documented as of this encounter Care Teams Supervisor Dry Paste Relationship Specialty Start Date End Date Titi Cummings MD [address] [place] [phone] PCP - General Family Practice 10/10/23 documented as of this encounter
--- OUTSIDE RECORDS SUMMARY | 2025-09-23 11:02 | XMS_ITS | Encounter Summary ---
Author Organization [facility] Address [address] [place] [address] Care Team Providers Care Project Geophysicist Name Role Phone Titi Cummings MD Primary Care Provider Encounter Details Date Type Department Care Team (Latest Contact Info) Description 01/05/2005 Outpatient Historical HIS [facility] BRY Contreras, Gibson Rivera MD NO ADDRESS ON FILE SURGERY FOLLOWUP, OTHER (Primary Dx) Social History Tobacco Use Types Packs/Day Years Used Date Smoking Tobacco: Never Assessed Comments Unknown Sex and Gender Information Value Date Recorded Sex Assigned at Not on file Legal Sex Female 4:40 AM DENTAL SURGEON Gender Identity Not on file Sexual Orientation Not on file documented as of this encounter Plan of Treatment Upcoming Encounters Date Type Department Care Team (Late st Contact Info) Description 09/29/2025 11:30 AM DENTAL SURGEON Office Visit [facility] Gynecologic Oncology [place] [address] [place] [address] Avani Fong, TORRI [address] [place] [address] 09/29/2025 12:00 PM DENTAL SURGEON Hospital Encounter [facility] 2nd Fl [address] [place] [address] Infusion Chair 6, 2nd Floor [place] 10/12/2025 1:30 PM DENTAL SURGEON Office Visit [facility] Neurology [address] [place] [address] Navi Stephens MD [address] [address] 10/20/2025 11:00 AM DENTAL SURGEON Office Visit [facility] Gynecologic Oncology [place] [address] [place] [address] Becky Walton MD [address] [place] [address] 10/20/2025 11:30 AM DENTAL SURGEON Appointment [facility] 2nd Fl [address] [place] [address] Infusion Chair 6, 2nd Floor [place] documented as of this encounter Procedures Procedure Name Priority Date/Time Associated Diagnosis Comments CBC WITH DIFFERENTIAL Routine 01/05/2005 11:07 AM DENTAL SURGEON CBC WITH DIFFERENTIAL Routine 01/05/2005 11:07 AM DENTAL SURGEON COMPREHENSIVE METABOLIC PANEL Routine 01/05/2005 11:07 AM DENTAL SURGEON documented in this encounter Results * CBC WITH DIFFERENTIAL (01/05/2005 11:07 AM DENTAL SURGEON) NEUTROPHILS 63 45 - 70 % INTERFAC [...] K/uL INTERFACE SYSTEM 01/05/2005 11:0 7 AM DENTAL SURGEON Gibson Contreras MD HEMATOLOGY ORDERABLES Final Result INTERFACE SYSTEM Refer to clinic/hospital department * (ABNORMAL) CBC WITH DIFFERENTIAL (01/05/2005 11:07 AM DENTAL SURGEON) WBC 4.3 4.0 - 9.8 K/uL INTERFACE [...] fL INTERFACE SYSTEM 01/05/2005 11:0 7 AM DENTAL SURGEON Gibson Contreras MD HEMATOLOGY ORDERABLES Final Result Performing Organization Address [facility] Phone Number INTERFACE SYSTEM Refer to clinic/hospital department * (ABNORMAL) COMPREHENSIVE METABOLIC PANEL (01/05/2005 11:07 AM DENTAL SURGEON) GLUCOSE 90 65 - 109 mg/dL INTERFACE [...] mmol/L INTERFACE SYSTEM 01/05/2005 11:0 7 AM DENTAL SURGEON us Gibson Contreras MD CHEMISTRY ORDERABLES Final [...] documented as of this encounter Care Teams Project Geophysicist Relationship Specialty Start Date End Date Titi Cummings MD [address] [address] PCP - General Family Practice 10/10/23 documented as of this encounter
--- OUTSIDE RECORDS SUMMARY | 2025-09-23 11:02 | XMS_ITS | Encounter Summary ---
Author Organization [facility] Address 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) Social History Tobacco Use Types Packs/Day Years Used Date Smoking Tobacco: Never Assessed Comments Unknown Sex and Gender Information Value Date Recorded Sex Assigned at Not on file Legal Sex Female 4:40 AM ENGINEERING TEST SPECIALIST Gender Identity Not on file Sexual Orientation Not on file documented as of this encounter Plan of Treatment Upcoming Encounters Date Type Department Care Team (Late st Contact Info) Description 09/29/2025 11:30 AM ENGINEERING TEST SPECIALIST Office Visit [facility] Gynecologic Oncology [place] [address] [place] [address] Avani Fong, TORRI [address] [place] [address] 09/29/2025 12:00 PM ENGINEERING TEST SPECIALIST Hospital Encounter [facility] 2nd Fl [address] [place] [address] Infusion [address] 6, 2nd Floor [place] 10/12/2025 1:30 PM ENGINEERING TEST SPECIALIST Office Visit [facility] Neurology [address] [place] [address] Navi Stephens MD [address] [address] 10/20/2025 11:00 AM ENGINEERING TEST SPECIALIST Office Visit [facility] Gynecologic Oncology [place] [address] [place] [address] eBcky Walton MD [address] [place] [address] 10/20/2025 11:30 AM ENGINEERING TEST SPECIALIST Appointment [facility] 2nd Fl [address] [place] [address] Infusion [address] 6, 2nd Floor [place] documented as of this encounter Procedures Procedure [...] us Gibson Contreras MD HEMATOLOGY ORDERABLES Edited Performing Organization Address [facility] de Phone Number INTERFACE SYSTEM Refer [...] CDT Gibson Contreras MD HEMATOLOGY ORDERABLES Edited Performing Organization Address [facility] de Phone Number INTERFACE SYSTEM Refer [...] and non- Americans is available on the [facility] Intranet at: [email or web address] Select: Lab Policies and Procedures Select: Reference Ranges - GFR 07/19/2007 10:4 0 AM CDT us Gibson Contreras MD CHEMISTRY [...] documented as of this encounter Care Teams Production Pattern Maker Relationship Specialty Start Date End Date Titi Cummings MD [address] [address] PCP - General Family Practice 10/10/23 documented as of this encounter
--- OUTSIDE RECORDS SUMMARY | 2025-09-23 11:02 | XMS_ITS | Encounter Summary ---
Author Organization [facility] Address 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) Social History Tobacco Use Types Packs/Day Years Used Date Smoking Tobacco: Never Assessed Comments Unknown Sex and Gender Information Value Date Recorded Sex Assigned at Not on file Legal Sex Female 4:40 AM IRRIGATION EQUIPMENT MECHANIC Gender Identity Not on file Sexual Orientation Not on file documented as of this encounter Plan of Treatment Upcoming Encounters Date Type Department Care Team (Late st Contact Info) Description 09/29/2025 11:30 AM IRRIGATION EQUIPMENT MECHANIC Office Visit [facility] Gynecologic Oncology [place] [address] [place] [address] Avani Fong, TORRI [address] [place] [address] 09/29/2025 12:00 PM IRRIGATION EQUIPMENT MECHANIC Hospital Encounter [facility] 2nd Fl [address] [place] [address] Infusion Chair 6, 2nd Floor [place] 10/12/2025 1:30 PM IRRIGATION EQUIPMENT MECHANIC Office Visit [facility] Neurology [address] [place] [address] Navi Stephens MD [address] [facility] [address] [address] 10/20/2025 11:00 AM IRRIGATION EQUIPMENT MECHANIC Office Visit [facility] Gynecologic Oncology [place] [address] [place] [address] Becky Walton MD [address] [place] [address] 10/20/2025 11:30 AM IRRIGATION EQUIPMENT MECHANIC Appointment [facility] 2nd Fl [address] [place] [address] Infusion Chair 6, 2nd Floor [place] documented as of this encounter Procedures Procedure [...] AM CDT Narrative 02/12/2009 1:35 PM CDT [facility] [address], [place] [address] Admit Date: 02/12/2009 CHARLINE ELOISA A Sex: F Admit Prov: MEHDI MARTINES Date: 1950 Primary Care Prov: ARLYN VÁZQUEZ CMRN: [id number] Room: LC SSN: [id number] IMAGING SERVICES Ordering Prov: N/A Accession Number: [id number] Interpretation CHEST, PA AND LATERAL, 02/12/09 History: [...] Procedure Note Wander Chaves MD - 02/12/2009 [facility] [address] [place], [place] [address] Admit Date: 02/12/2009 ELOISA DRAKE Michael Sex: F Admit Prov: MEHDI MARTINES Date: 1950 Primary Care Prov: ARLYN VÁZQUEZ CMRN: [id number] Room: [facility] SSN: [id number] [id number] [address] IMAGING SERVICES Ordering Prov: N/A Interpretation CHEST, PA AND LATERAL, 02/12/09 History: Breast cancer. Findings: Surgical clips are noted in the left breast. There is no infiltrate, pleural effusion or pneumothorax. Heart size, mediastinumand pulmonary vascularity are normal. IMPRESSION: No active pulmonary disease. . Dictated by: WANDER CHAVES 02/12/2009 09:51 Electronically signed by: WANDER CHAVES 02/12/2009 13:33 Transcribed: 02/12/2009 10:21 LE Mehdi Martines MD DIAGNOSTIC IMAGING ORDERABLE S Final Result * COMPREHENSIVE METABOLIC PANEL (02/12/2009 9:09 AM CDT) ALKALINE PHOSPHATASE 60 35 - 104 U/L [facility] BILIRUBIN TOTAL 0.3 0.2 - 1.0 mg/dL [facility] CO2 24 22 - 30 mmol/L [facility] TOTAL PROTEIN 7.1 6.3 - 8.6 g/dL [facility] POTASSIUM 3.8 3.5 - 4.9 mmol/L [facility] GLUCOSE 90 65 - 99 mg/dL [facility] AST 26 12 - 32 U/L [facility] BUN 11 6 - 20 mg/dL [facility] CALCIUM 9.1 8.6 - 10.2 mg/dL [facility] CHLORIDE 105 96 - 108 mmol/L [facility] ALBUMIN 4.5 3.4 - 4.8 g/dL [facility] CREATININE 0.66 0.51 - 0.95 mg/dL [facility] SODIUM 141 135 - 145 mmol/L [facility] ALT 24 0 - 31 U/L [facility] GFR, >60 >=60 mL/min/1.7 sq meter [facility] GFR >60 >=60 mL/min/1.7 sq meter [facility] Comment: Modification of Diet in Renal Disease (MDRD) study formula. Estimated GFR rate interpretative information for both Americans and non- Americans is available on the [facility] Intranet at: [email or web address] Select: Lab Policies and Procedures Select: Reference Ranges - GFR Blood specimen (specimen) 02/12/2009 9:09 AM CDT 02/12/2009 9:35 AM CDT Narrative INTERFACE SYSTEM - 02/12/2009 11:09 AM CDT Results called to at 02/12/09 11:09 and read back verified. us Mehdi Martines MD CHEMISTRY ORDERABLES Edited INTERFACE SYSTEM Refer to clinic/hospital department [facility] CLIA# [id number] [address] [place] [address] * CBC WITH DIFFERENTIAL (02/12/2009 9:09 AM CDT) MCV 94.6 82.0 - 99.0 fL [facility] PLATELETS 170 140 - 350 K/uL [facility] HEMOGLOBIN 12.4 11.8 - 14.8 g/dL [facility] RDW 14.0 11.5 - 14.5 % [facility] WBC 4.8 4.0 - 9.8 K/uL [facility] MCH 30.7 27.2 - 32.6 pg [facility] MPV 10.2 9.3 - 12.4 fL [facility] HEMATOCRIT 38.2 35.5 - 44.0 % [facility] RDW-STDEV 48.2 37.1 - 48.7 fL [facility] RBC 4.04 3.90 - 4.90 M/uL [facility] MCHC 32.5 31.5 - 35.5 % [facility] NEUTROPHILS 56 45 - 70 % [facility] NEUTROPHIL ABSOLUTE 2.68 1.90 - 7.00 K/uL [facility] EOSINOPHILS 1 0 - 7 % [facility] EOSINOPHIL ABSOLUTE 0.07 0.00 - 0.70 K/uL [facility] LYMPHOCYTES 36 16 - 45 % [facility] LYMPHOCYTE ABSOLUTE 1.72 0.70 - 4.50 K/uL [facility] BASOPHILS 0 0 - 2 % [facility] BASOPHILS ABSOLUTE 0.01 0.00 - 0.20 K/uL [facility] MONOCYTES 7 3 - 13 % [facility] MONOCYTE ABSOLUTE 0.35 0.10 - 1.30 K/uL [facility] Blood specimen (specimen) 02/12/2009 9:09 AM CDT 02/12/2009 9:35 AM CDT Narrative INTERFACE SYSTEM - 02/12/2009 11:09 AM CDT Results called to at 02/12/09 11:09 and read back verified. us Mehdi Martines MD HEMATOLOGY ORDERABLES Edited INTERFACE SYSTEM Refer to clinic/hospital department [facility] CLIA# [id number] [address] [place] [place] [address] documented in this encounter Visit Diagnoses Diagnosis [...] documented as of this encounter Care Teams Aircraft Stress Analyst Relationship Specialty Start Date End Date Titi Cummings MD [address] [phone] PCP - General Family Practice 10/10/23 documented as of this encounter
--- OUTSIDE RECORDS SUMMARY | 2025-09-23 11:02 | XMS_ITS | Encounter Summary ---
Author Organization [facility] Address [address] [place] [address] Care Team Providers Care Pole Framer Machine Name Role Phone Titi Cummings MD Primary Care Provider Encounter Details Date Type Department Care Team (Latest Contact Info) Description 02/23/2009 Outpatient Historical HIS [facility] BRY Martines, Mehdi Rivera MD NO ADDRESS ON FILE Other Screening Mammogram Social History Tobacco Use Types Packs/Day Years Used Date Smoking Tobacco: Never Assessed Comments Unknown Sex and Gender Information Value Date Recorded Sex Assigned at Not on file Legal Sex Female 4:40 AM HEAD FILTER PRESS TENDER Gender Identity Not on file Sexual Orientation Not on file documented as of this encounter Plan of Treatment Upcoming Encounters Date Type Department Care Team (Late st Contact Info) Description 09/29/2025 11:30 AM HEAD FILTER PRESS TENDER Office Visit [facility] Gynecologic Oncology [place] [address] [place] [address] Avani Fong, TORRI [address] [place] [address] 09/29/2025 12:00 PM HEAD FILTER PRESS TENDER Hospital Encounter [facility] 2nd Fl [address] [place] [address] Infusion Chair 6, 2nd Floor [place] 10/12/2025 1:30 PM HEAD FILTER PRESS TENDER Office Visit [facility] Neurology [address] [place] [address] Navi Stephens MD [address] [address] 10/20/2025 11:00 AM HEAD FILTER PRESS TENDER Office Visit [facility] Gynecologic Oncology [place] [address] [place] [address] Becky Walton MD [address] [place] [address] 10/20/2025 11:30 AM HEAD FILTER PRESS TENDER Appointment [facility]fusion [facility] 2nd Fl [address] [place] [address] Infusion Chair 6, 2nd Floor [place] documented as of this encounter Procedures Procedure Name Priority Date/Time Associated Diagnosis Comments MAMMO DIAGNOSTIC BILATERAL W OR WO CAD Routine 02/23/2009 8:28 AM CDT documented in this encounter Results * MAMMO DIGITAL DIAG BILAT (02/23/2009 8:28 AM CDT) Anatomical Region Laterality Modality Breast Bilateral Other 02/23/2009 8:28 AM CDT Narrative 02/23/2009 11:28 AM CDT [facility] [address] [place], [place] [address] Admit Date: 02/23/2009 ELOISA DRAKE Sex: F Admit Prov: JESSICA MARTINESDAMIAN Rivera Date: 1950 Primary Care Prov: ARLYN VÁZQUEZ CMRN: [id number] [id number] [facility] Ordering Prov: MEHDI MARTINES Accession Number: [id number] Interpretation BILATERAL DIAGNOSTIC DIGITAL MAMMOGRAMS WITH COMPUTER [...] Procedure Note Toi Shah MD - 02/23/2009 [facility] [address] [place], [place] [address] Admit Date: 02/23/2009 ELOISA DRAKE Michael Sex: F Admit Prov: MEHDI MARTINES Date: 1950 Primary Care Prov: ARLYN VÁZQUEZ CMRN: [id number] Room: [facility] SSN: [id number] IMAGING SERVICES Ordering Prov: MEHDI MARTINES Interpretation BILATERAL DIAGNOSTIC DIGITAL MAMMOGRAMS WITH COMPUTER ASSISTEDDIAGNOSIS 02/23/2009 Reason for this examination: Annual study Clinical History: Left lumpectomy and radiation for carcinoma [id number] Findings: There are postoperative changes on the [...] documented as of this encounter Care Teams Pole Framer Machine Relationship Specialty Start Date End Date Titi Cummings MD [address] [place] [phone] PCP - General Family Practice 10/10/23 documented as of this encounter
--- OUTSIDE RECORDS SUMMARY | 2025-09-23 11:02 | XMS_ITS | Encounter Summary ---
Author Organization [facility] Address [address] [place] [address] Care Team Providers Care Zinc Furnace Charger Name Role Phone Titi Cummings MD Primary Care Provider Encounter Details Date Type Department Care Team (Latest Contact Info) Description 01/05/2005 Outpatient Historical HIS [facility] Contreras, Gibson Rivera MD NO ADDRESS ON FILE SURGERY FOLLOWUP, OTHER (Primary Dx) Social History Tobacco Use Types Packs/Day Years Used Date Smoking Tobacco: Never Assessed Comments Unknown Sex and Gender Information Value Date Recorded Sex Assigned at Not on file Legal Sex Female 4:40 AM MEDICAL REVIEW SPECIALIST Gender Identity Not on file Sexual Orientation Not on file documented as of this encounter Plan of Treatment Upcoming Encounters Date Type Department Care Team (Late st Contact Info) Description 09/29/2025 11:30 AM MEDICAL REVIEW SPECIALIST Office Visit [facility] Gynecologic Oncology [place] [address] [place] [address] Avani Fong, TORRI [address] [place] [address] 09/29/2025 12:00 PM MEDICAL REVIEW SPECIALIST Hospital Encounter [facility] 2nd Fl [address] [place] [address] Infusion Chair 6, 2nd Floor [place] 10/12/2025 1:30 PM MEDICAL REVIEW SPECIALIST Office Visit [facility] Neurology [address] [place] [address] Navi Stephens MD [address] [address] 10/20/2025 11:00 AM MEDICAL REVIEW SPECIALIST Office Visit [facility] Gynecologic Oncology [place] [address] [place] [address] Becky Walton MD [address] [place] [address] 10/20/2025 11:30 AM MEDICAL REVIEW SPECIALIST Appointment [facility] 2nd Fl [address] [place] [address] Infusion Chair 6, [...] documented as of this encounter Care Teams Zinc Furnace Charger Relationship Specialty Start Date End Date Titi Cummings MD [address] [phone] PCP - General Family Practice 10/10/23 documented as of this encounter
--- OUTSIDE RECORDS SUMMARY | 2025-09-23 11:02 | XMS_ITS | Encounter Summary ---
Author Organization [facility] Address 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) Social History Tobacco Use Types Packs/Day Years Used Date Smoking Tobacco: Never Assessed Comments Unknown Sex and Gender Information Value Date Recorded Sex Assigned at Not on file Legal Sex Female 4:40 AM COLORIST DYER Gender Identity Not on file Sexual Orientation Not on file documented as of this encounter Plan of Treatment Upcoming Encounters Date Type Department Care Team (Late st Contact Info) Description 09/29/2025 11:30 AM COLORIST DYER Office Visit [facility] Gynecologic Oncology [place] [address] [place] [address] Avani Fong, TORRI [address] [place] [address] 09/29/2025 12:00 PM COLORIST DYER Hospital Encounter [facility] 2nd Fl [address] [place] [address] Infusion Chair 6, 2nd Floor [place] 10/12/2025 1:30 PM COLORIST DYER Office Visit [facility] Neurology [address] [place] [address] Navi Stephens MD [address] [address] 10/20/2025 11:00 AM COLORIST DYER Office Visit [facility] Gynecologic Oncology [place] [address] [place] [address] Becky Walton MD [address] [facility] [address] [place] [address] 10/20/2025 11:30 AM COLORIST DYER Appointment [facility] 2nd Fl [address] [place] [address] Infusion Chair 6, 2nd Floor [place] documented as of this encounter Procedures Procedure Name Priority Date/Time Associated Diagnosis Comments CBC WITH DIFFERENTIAL Routine 01/05/2006 8:53 AM COLORIST DYER CBC WITH DIFFERENTIAL Routine 01/05/2006 8:53 AM COLORIST DYER COMPREHENSIVE METABOLIC PANEL Routine 01/05/2006 8:53 AM COLORIST DYER documented in this encounter Results * CBC WITH DIFFERENTIAL (01/05/2006 8:53 AM COLORIST DYER) NEUTROPHILS 66 45 - 70 % INTERFAC [...] 0.20 K/uL INTERFACE SYSTEM 01/05/2006 8:53 AM COLORIST DYER us Gibson Contreras MD HEMATOLOGY ORDERABLES Final Result Performing Organization Address [facility] de Phone Number INTERFACE SYSTEM Refer to clinic/hospital department * (ABNORMAL) CBC WITH DIFFERENTIAL (01/05/2006 8:53 AM COLORIST DYER) WBC 7.8 4.0 - 9.8 K/uL INTERFACE [...] 12.4 fL INTERFACE SYSTEM 01/05/2006 8:53 AM COLORIST DYER Gibson Contreras MD HEMATOLOGY ORDERABLES Final Result Performing Organization Address [facility] Phone Number INTERFACE SYSTEM Refer to clinic/hospital department * COMPREHENSIVE METABOLIC PANEL (01/05/2006 8:53 AM COLORIST DYER) GLUCOSE 81 65 - 109 mg/dL INTERFACE [...] 30 mmol/L INTERFACE SYSTEM 01/05/2006 8:53 AM COLORIST DYER us Gibson Contreras MD CHEMISTRY ORDERABLES Final [...] documented as of this encounter Care Teams Brake Operator Sheet Metal Relationship Specialty Start Date End Date Titi Cummings MD [address] [place] [phone] PCP - General Family Practice 10/10/23 documented as of this encounter
--- OUTSIDE RECORDS SUMMARY | 2025-09-23 11:02 | XMS_ITS | Encounter Summary ---
Author Organization [facility] Address [address] [place] [address] Care Team Providers Care Sales Representative Marine Supplies Name Role Phone Titi Cummings MD Primary Care Provider Encounter Details Date Type Department Care Team (Late st Contact Info) Description 03/16/2005 Outpatient Historical [facility] Support Serv. ([facility]) [address] [place] [address] Mehran Salgado MD NO ADDRESS ON FILE Social History Tobacco Use Types Packs/Day Years Used Date Smoking Tobacco: Never Assessed Comments Unknown Sex and Gender Information Value Date Recorded Sex Assigned at Not on file Legal Sex Female 4:40 AM HAIRSPRING STAKER Gender Identity Not on file Sexual Orientation Not on file documented as of this encounter Plan of Treatment Upcoming Encounters Date Type Department Care Team (Late Contact Info) Description 09/29/2025 11:30 AM HAIRSPRING STAKER Office Visit [facility] Gynecologic Oncology [place] [address] [facility] [address] [place] [address] Avani Fong, TORRI [address] [facility] [address] [place] [address] 09/29/2025 12:00 PM HAIRSPRING STAKER Hospital Encounter [facility] 2nd Fl [address] [place] [address] Infusion Chair 6, 2nd Floor [place] 10/12/2025 1:30 PM HAIRSPRING STAKER Office Visit [facility] Neurology [address] [place] [address] Navi Stephens MD [address] [address] 10/20/2025 11:00 AM HAIRSPRING STAKER Office Visit [facility]3] Gynecologic Oncology [place] [address] [place] [address] Becky Walton MD [address] [place] [address] 10/20/2025 11:30 AM HAIRSPRING STAKER Appointment [facility] 2nd In [address] [place] [address] Infusion Chair 6, 2nd Floor [place] documented as of this encounter Visit Diagnoses [...] documented as of this encounter Care Teams Sales Representative [employer] Supp[employer] Relationship Specialty Start Date End Date Titi Cummings MD [address] [place] [phone] PCP - General Family Practice 10/10/23 documented as of this encounter
--- OUTSIDE RECORDS SUMMARY | 2025-09-23 11:02 | XMS_ITS | Encounter Summary ---
Author Organization [facility] Address [address] [place] [address] Care Team Providers Care Applied Anthropologist Name Role Phone iTti Cummings MD Primary Care Provider Encounter Details Date Type Department Care Team (Latest Contact Info) Description 07/29/2004 Outpatient Historical HIS [facility] BRY Contreras, Gibson Rivera MD NO ADDRESS ON FILE MALIG NEOPLASM BREAST UP-OUTER (CMS/HCC) (Primary Dx) Social History Tobacco Use Types Packs/Day Years Used Date Smoking Tobacco: Never Assessed Comments Unknown Sex and Gender Information Value Date Recorded Sex Assigned at Not on file Legal Sex Female 4:40 AM CHILD AND ADOLESCENT PSYCHOLOGIST Gender Identity Not on file Sexual Orientation Not on file documented as of this encounter Plan of Treatment Upcoming Encounters Date Type Department Care Team (Late st Contact Info) Description 09/29/2025 11:30 AM CHILD AND ADOLESCENT PSYCHOLOGIST Office Visit [facility] Gynecologic Oncology [place] [address] [place] [address] Avani Fong, TORRI [address] [place] [address] 09/29/2025 12:00 PM CHILD AND ADOLESCENT PSYCHOLOGIST Hospital Encounter [facility] 2nd Fl [address] [place] [address] Infusion Chair 6, 2nd Floor [place] 10/12/2025 1:30 PM CHILD AND ADOLESCENT PSYCHOLOGIST Office Visit [facility] Neurology [address] [place] [address] Navi Stephens MD [address] [address] 10/20/2025 11:00 AM CHILD AND ADOLESCENT PSYCHOLOGIST Office Visit [facility] Gynecologic Oncology [place] [address] [address] [place] [address] Becky Walton MD [address] [place] [address] 10/20/2025 11:30 AM CHILD AND ADOLESCENT PSYCHOLOGIST Appointment [facility] 2nd Fl [address] [place] [address] Infusion Chair 6, 2nd Floor [place] documented as of this encounter Visit Diagnoses [...] documented as of this encounter Care Teams Applied Anthropologist Relationship Specialty Start Date End Date Titi Cummings MD [address] [place] [phone] PCP - General Family Practice 10/10/23 documented as of this encounter
--- OUTSIDE RECORDS SUMMARY | 2025-09-23 11:02 | XMS_ITS | Encounter Summary ---
Author Organization [facility] Address 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) Social History Tobacco Use Types Packs/Day Years Used Date Smoking Tobacco: Never Assessed Comments Unknown Sex and Gender Information Value Date Recorded Sex Assigned at Not on file Legal Sex Female 4:40 AM RAILROAD OPERATOR Gender Identity Not on file Sexual Orientation Not on file documented as of this encounter Plan of Treatment Upcoming Encounters Date Type Department Care Team (Late st Contact Info) Description 09/29/2025 11:30 AM RAILROAD OPERATOR Office Visit [facility] Gynecologic Oncology [place] [address] [place] [address] Avani Fong, TORRI [address] [place] [address] 09/29/2025 12:00 PM RAILROAD OPERATOR Hospital En[facility] 2nd Fl [address] [place] [address] Infusion Chair 6, 2nd Floor [place] 10/12/2025 1:30 PM RAILROAD OPERATOR Office Visit [facility] Neurology [address] [place] [address] Navi Stephens MD [address] [address] 10/20/2025 11:00 AM RAILROAD OPERATOR Office Visit [facility] Gynecologic Oncology [place] [address] [place] [address] Becky Walton MD [address] [place] [address] 10/20/2025 11:30 AM RAILROAD OPERATOR Appointment [facility] 2nd Fl [address] [place] [address] Infusion Chair 6, 2nd Floor [place] documented as of this encounter Procedures Procedure [...] K/uL INTERFACE SYSTEM 07/27/2006 9:21 AM CDT us Gibson Contreras MD HEMATOLOGY ORDERABLES Final Result Performing Organization Address [facility] Phone Number INTERFACE SYSTEM Refer to clinic/hospital [...] fL INTERFACE SYSTEM 07/27/2006 9:21 AM CDT Gibson Contreras MD HEMATOLOGY ORDERABLES Final Result Performing Organization Address [facility] Phone Number INTERFACE SYSTEM Refer to clinic/hospital [...] documented as of this encounter Care Teams Residential Energy Auditor Relationship Specialty Start Date End Date Titi Cummings MD [address] [place] [phone] PCP - General Family Practice 10/10/23 documented as of this encounter
--- OUTSIDE RECORDS SUMMARY | 2025-09-23 11:02 | XMS_ITS | Encounter Summary ---
Author Organization [facility] Address [address] [place] [address] Care Team Providers Care Gas Dispatcher Name Role Phone Titi Cummings MD Primary Care Provider Encounter Details Date Type Department Care Team (Late st Contact Info) Description 03/16/2005 Emergency HIS [facility] Sera Banuelos MD NO ADDRESS ON FILE Er, Authorized P NO ADDRESS ON FILE ABDOMINAL PAIN OTHER SPEC SITE (Primary Dx) Social History Tobacco Use Types Packs/Day Years Used Date Smoking Tobacco: Never Assessed Comments Unknown Sex and Gender Information Value Date Recorded Sex Assigned at Not on file Legal Sex Female 4:40 AM MERCHANDISING INTERNSHIP Gender Identity Not on file Sexual Orientation Not on file documented as of this encounter Plan of Treatment Upcoming Encounters Date Type Department Care Team (Late st Contact Info) Description 09/29/2025 11:30 AM MERCHANDISING INTERNSHIP Office Visit [facility] Gynecologic Oncology [place] [address] [place] [address] Avani Fong, TORRI [address] [place] [address] 09/29/2025 12:00 PM MERCHANDISING INTERNSHIP Hospital Encounter [facility] 2nd Fl [address] [place] [address] Infusion Chair 6, 2nd Floor [place] 10/12/2025 1:30 PM MERCHANDISING INTERNSHIP [facility] Visit [facility] Neurology [address] [place] [address] Navi Stephens MD [address] [address] 10/20/2025 11:00 AM MERCHANDISING INTERNSHIP Office Visit [facility] Gynecologic Oncology [place] [address] [place] [address] Becky Walton MD [address] [place] [address] 10/20/2025 11:30 AM MERCHANDISING INTERNSHIP Appointment [facility] 2nd Fl [address] [place] [address] Infusion Chair 6, 2nd Floor [place] documented as of this encounter Procedures Procedure [...] /HPF INTERFACE SYSTEM 03/16/2005 9:42 AM CDT Sera Banuelos MD URINE ORDERABLES Final Result Performing Organization Address [facility] Phone Number INTERFACE SYSTEM Refer to clinic/hospital [...] ORDERABLES Final Re sult Performing Organization Address [facility] Phone Number INTERFACE SYSTEM Refer to clinic/hospital [...] ORDERABLES Final Re sult Performing Organization Address [facility] Phone Number INTERFACE SYSTEM Refer to clinic/hospital department * LIPASE (03/16/2005 9:42 AM CDT) LIPASE 40 13 - 60 U/L INTERFAC E SYSTEM 03/16/2005 9:42 AM CDT Sera Banuelos MD CHEMISTRY ORDERABLES Final Res ult Performing Organization Address [facility] Phone Number INTERFACE SYSTEM Refer to clinic/hospital department * AMYLASE (03/16/2005 9:42 AM CDT) AMYLASE 42 28 - 100 U/L INTERFACE SYSTEM 03/16/2005 9:42 AM CDT Sera Banuelos MD CHEMISTRY ORDERABLES Final Res ult Performing Organization Address [facility] Phone Number INTERFACE SYSTEM Refer to clinic/hospital department * C-REACTIVE PROTEIN (03/16/2005 9:42 AM CDT) CRP <0.5 0.0 - 0.8 mg/dL INTERFACE SYSTEM 03/16/2005 9:42 AM CDT Sera Banuelos MD CHEMISTRY ORDERABLES Final Res ult Performing Organization Address [facility] de Phone Number INTERFACE SYSTEM Refer to clinic/hospital department * TROPONIN (W/REFLEX CKMB/CK) (03/16/2005 9:42 AM CDT) TROPONIN T <0.01 <=0.03 ng/mL INTERFACE SYSTEM TROPONIN T INTERP Negative INTERFACE SYSTEM 03/16/2005 9:42 AM CDT us Sera Banuelos MD CHEMISTRY ORDERABLES Final Res ult INTERFACE SYSTEM Refer to clinic/hospital department documented [...] as of this encounter Care Teams Gas Dispatcher Relationship Specialty Start Date End Date Titi Cummings MD [address] [place] [phone] PCP - General Family Practice 10/10/23 documented as of this encounter
--- OUTSIDE RECORDS SUMMARY | 2025-09-23 11:02 | XMS_ITS | Encounter Summary ---
Author Organization [facility] Address [address] [place] [address] Care Team Providers Care Liberal Arts Dean Name Role Phone Titi Cummings MD Primary Care Provider Encounter Details Date Type Department Care Team (Late st Contact Info) Description 12/12/2007 Outpatient Historical HIS [facility] Nia More MD [address] [address] Kyle Richardson MD [address] [place] [address] Social History Tobacco Use Types Packs/Day Years Used Date Smoking Tobacco: Never Assessed Comments Unknown Sex and Gender Information Value Date Recorded Sex Assigned at Not on file Legal Sex Female 4:40 AM PAINTING TRADES WORKER Gender Identity Not on file Sexual Orientation Not on file documented as of this encounter Plan of Treatment Upcoming Encounters Date Type Department Care Team (Late st Contact Info) Description 09/29/2025 11:30 AM PAINTING TRADES WORKER Office Visit [facility] Gynecologic Oncology Janene [id number] [place] [address] Avani Fong NP [address] [facility] [address] [place] [address] 09/29/2025 12:00 PM PAINTING TRADES WORKER Hospital Encounter [facility] Fl [address] [place] [phone] Infusion Chair 6, 2nd Floor [place] 10/12/2025 1:30 PM PAINTING TRADES WORKER Office Visit [facility] Neurology [address] [place] [address] Navi Stephens MD [address] [address] 10/20/2025 11:00 AM PAINTING TRADES WORKER Office Visit [facility] Gynecologic Oncology [place] [address] [place] [address] Becky Walton MD [address] [place] [address] 10/20/2025 11:30 AM PAINTING TRADES WORKER Appointment [facility] 2nd Fl [address] [place] [address] Infusion Chair 6, 2nd Floor [...] documented as of this encounter Care Teams Liberal Arts Dean Relationship Specialty Start Date End Date Titi Cummings MD [address] [phone] PCP - General Family Practice 10/10/23 documented as of this encounter
--- OUTSIDE RECORDS SUMMARY | 2025-09-23 11:02 | XMS_ITS | Encounter Summary ---
Author Organization [facility] Address [address] [place] [address] Care Team Providers Care Banking Manager Name Role Phone Titi Cummings MD Primary Care Provider Encounter Details Date Type Department Care Team (Latest Contact Info) Description 02/03/2008 Outpatient Historical HIS [facility] Martines, Mehdi Rivera MD NO ADDRESS ON FILE Other Screening Mammogram; Malignant Neoplasm of Upper-Outer Quadrant of Female Breast (CMS/HCC) Social History Tobacco Use Types Packs/Day Years Used Date Smoking Tobacco: Never Assessed Comments Unknown Sex and Gender Information Value Date Recorded Sex Assigned at Not on file Legal Sex Female 4:40 AM BEESWAX BLEACHER Gender Identity Not on file Sexual Orientation Not on file documented as of this encounter Plan of Treatment Upcoming Encounters Date Type Department Care Team (Late st Contact Info) Description 09/29/2025 11:30 AM BEESWAX BLEACHER Office Visit [facility] Gynecologic Oncology [place] [address] [place] [address] Avani Fong, TORRI [address] [place] [address] 09/29/2025 12:00 PM BEESWAX BLEACHER Hospital Encounter [facility] 2nd Fl [address] [place] [address] Infusion Chair 6, 2nd Floor [place] 10/12/2025 1:30 PM BEESWAX BLEACHER Office Visit [facility] Neurology [address] [place] [address] Navi Stephens MD [address] [facility] [address] [address] 10/20/2025 11:00 AM BEESWAX BLEACHER Office Visit [facility] Gynecologic Oncology [place] [address] [place] [address] Becky Walton MD [address] [place] [address] 10/20/2025 11:30 AM BEESWAX BLEACHER Appointment [facility] 2nd Fl [address] [place] [address] Infusion Chair 6, 2nd Floor [place] documented as of this encounter Procedures Procedure Name Priority Date/Time Associated Diagnosis Comments MAMMO DIAGNOSTIC BILATERAL W OR WO CAD Timed Study 02/03/2008 11:50 AM CDT documented in this encounter Results * MAMMO DIGITAL DIAG BILAT (02/03/2008 11:50 AM CDT) Anatomical Region Laterality Modality Breast Bilateral Other 02/03/2008 11:5 0 AM CDT Narrative 02/03/2008 3:43 PM CDT [facility] [address] [place], [place] [address] Admit Date: 02/03/2008 ELOISA DRAKE Sex: F Admit Prov: MEHDI MARTINES Date: 1950 Primary Care Prov: VÁZQUEZ ARLYN CMRN: [id number] Room: JAIROMichael SSN: [id number] IMAGING SERVICES Ordering Prov: MEHDI MARTINES Accession Number: [id number] Interpretation Bilateral diagnostic digital mammograms with computer-assisted [...] Procedure Note Toi Shah MD - 02/03/2008 [facility] [address] [place], [place] [address] Admit Date: 02/03/2008 CHARLINE ELOISA Michael Sex: F Admit Prov: MEHDI MARTINES Date: 1950 Primary Care Prov: ARLYN VÁZQUEZ CMRN: [id number] Room: [facility] SSN: [id number] IMAGING SERVICES Ordering Prov: MEHDI MARTINES Interpretation Bilateral diagnostic digital mammograms with computer-assisteddiagnosis. 02/03/2008 Reason for this examination: Annual mammogram. 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 Family history of breast cancer, mother at [...] SHAH 02/03/2008 15:43 Transcribed: 02/03/2008 15:04 AMK us Mehdi Martines MD MAMMO ORDERABLES Final Resul t documented in this encounter Visit Diagnoses Diagnosis Other screening mammogram Malignant neoplasm of upper-outer quadrant of female breast (CMS/HCC) Malignant neoplasm of upper-outer quadrant of female breast documented in this encounter Additional Health Concerns Infection Onset Date Last Indicated Resolved Time R/O C. diff 03/28/2022 03/27/202203/28/2022 3:35 PM CDT R/O C. diff 04/12/2022 04/11/2022 04/12/2022 3:26 PM CDT R/O C. diff 04/13/2023 04/12/2023 04/13/2023 2:29 PM CDT R/O GI Pathogen 04/07/2025 04/08/2025 04/08/2025 6 :24 AM CDT R/O Respiratory 04/07/2025 04/07/2025 04/07/2025 7 :19 PM CDT documented as of this encounter Care Teams Banking Manager Relationship Specialty Start Date End Date Titi Cummings MD [address] [phone] PCP - General Family Practice 10/10/23 documented as of this encounter
--- OUTSIDE RECORDS SUMMARY | 2025-09-23 11:02 | XMS_ITS | Encounter Summary ---
Author Organization [facility] Address [address] [place] [address] Care Team Providers Care Medical Aides Teacher Name Role Phone Titi Cummings MD Primary Care Provider Encounter Details Date Type Department Care Team (Late Contact Info) Description 03/28/2005 Outpatient Historical [facility] Nia More MD [address] [place] [address] [address] ATROPHIC GASTRITIS W/O HEMORRH (Primary Dx) Social History Tobacco Use Types Packs/Day Years Used Date Smoking Tobacco: Never Assessed Comments Unknown Sex and Gender Information Value Date Recorded Sex Assigned at Not on file Legal Sex Female 4:40 AM CUSTOMER OPERATIONS ASSOCIATE Gender Identity Not on file Sexual Orientation Not on file documented as of this encounter Plan of Treatment Upcoming Encounters Date Type Department Care Team (Late Contact Info) Description 09/29/2025 11:30 AM CUSTOMER OPERATIONS ASSOCIATE Office Visit [facility] Gynecologic Oncology [place] [address] [place] [address] Avani Fong, TORRI [address] [place] [address] 09/29/2025 12:00 PM CUSTOMER OPERATIONS ASSOCIATE Hospital Encounter [facility] 2nd Fl [address] [place] [address] Infusion Chair 6, 2nd Floor [place] 10/12/2025 1:30 PM CUSTOMER OPERATIONS ASSOCIATE Office Visit [facility] Neurology [address] [place] [address] Navi Stephens MD [address] [address] 10/20/2025 11:00 AM CUSTOMER OPERATIONS ASSOCIATE Office Visit [facility] Gynecologic Oncology [place] [address] [place] [address] Becky Walton MD [address] [place] [address] 10/20/2025 11:30 AM CUSTOMER OPERATIONS ASSOCIATE Appointment [facility] 2nd Fl [address] [place] [address] Infusion Chair 6, 2nd Floor [place] documented as of this encounter Visit Diagnoses [...] documented as of this encounter Care Teams Medical Aides Teacher Relationship Specialty Start Date End Date Titi Cummings MD [address] [phone] PCP - General Family Practice 10/10/23 documented as of this encounter
--- OUTSIDE RECORDS SUMMARY | 2025-09-23 11:02 | XMS_ITS | Encounter Summary ---
Author Organization [facility] Address [address] [place] [address] Care Team Providers Care Spud Sorter Name Role Phone Titi Cummings MD Primary Care Provider Encounter Details Date Type Department Care Team (Latest Contact Info) Description 01/15/2004 Outpatient Historical HIS [facility] BRY Contreras, Gibson Rivera MD NO ADDRESS ON FILE SCREENING MAMM-MAILG NEOPL-OTHER (Primary Dx) Social History Tobacco Use Types Packs/Day Years Used Date Smoking Tobacco: Never Assessed Comments Unknown Sex and Gender Information Value Date Recorded Sex Assigned at Not on file Legal Sex Female 4:40 AM ANALYTICS MANAGER Gender Identity Not on file Sexual Orientation Not on file documented as of this encounter Plan of Treatment Upcoming Encounters Date Type Department Care Team (Late st Contact Info) Description 09/29/2025 11:30 AM ANALYTICS MANAGER Office Visit [facility] Gynecologic Oncology [place] [address] [place] [address] Avani Fong, TORRI [address] [place] [address] 09/29/2025 12:00 PM ANALYTICS MANAGER Hospital Encounter [facility] 2nd Fl [address] [place] [address] Infusion Chair 6, 2nd Floor [place] 10/12/2025 1:30 PM ANALYTICS MANAGER Office Visit [facility] Neurology [address] [place] [address] Navi Stephens MD [address] [address] 10/20/2025 11:00 AM ANALYTICS MANAGER Office Visit [facility] Gynecologic Oncology [place] [address] [place] [address] Becky Walton MD [address] [place] [address] 10/20/2025 11:30 AM ANALYTICS MANAGER Appointment [facility] 2nd Fl [address] [place] [address] Infusion Chair 6, 2nd Floor [place] documented as of this encounter Visit Diagnoses [...] documented as of this encounter Care Teams Spud Sorter Relationship Specialty Start Date End Date Titi Cummings MD 4 [facility] [address] [place] [phone] PCP - General Family Practice 10/10/23 documented as of this encounter
--- OUTSIDE RECORDS SUMMARY | 2025-09-23 11:02 | XMS_ITS | Encounter Summary ---
Author Organization [facility] Address 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) Social History Tobacco Use Types Packs/Day Years Used Date Smoking Tobacco: Never Assessed Comments Unknown Sex and Gender Information Value Date Recorded Sex Assigned at Not on file Legal Sex Female 4:40 AM SOUS CHEF Gender Identity Not on file Sexual Orientation Not on file documented as of this encounter Plan of Treatment Upcoming Encounters Date Type Department Care Team (Late st Contact Info) Description 09/29/2025 11:30 AM SOUS CHEF Office Visit [facility] Gynecologic Oncology [place] [address] [place] [address] Avani Fong, TORRI [address] [place] [address] 09/29/2025 12:00 PM SOUS CHEF Hospital Encounter [facility] 2nd Fl [address] [place] [address] Infusion Chair 6, 2nd Floor [place] 10/12/2025 1:30 PM SOUS CHEF Office Visit [facility] Neurology [address] [place] [address] Navi Stephens MD [address] [address] 10/20/2025 11:00 AM SOUS CHEF Office Visit [facility] Gynecologic Oncology [place] [address] [place] [address] Becky Walton MD [address] [place] [address] 10/20/2025 11:30 AM SOUS CHEF Appointment [facility] 2nd Fl [address] [place] [address] Infusion Chair 6, 2nd Floor [place] documented as of this encounter Procedures Procedure [...] MD HEMATOLOGY ORDERABLES Edited Performing Organization Address [facility] de Phone Number INTERFACE SYSTEM Refer [...] MD HEMATOLOGY ORDERABLES Edited Performing Organization Address [facility] de Phone Number INTERFACE SYSTEM Refer [...] [facility] at: [email or web address] Select: Lab Policies and Procedures Select: Reference Ranges - GFR 02/01/2007 10:2 4 AM CDT us Gibson Contreras MD CHEMISTRY [...] as of this encounter Care Teams Gas Plant Operator Relationship Specialty Start Date End Date Titi Cummings MD [address] [place] [phone] PCP - General Family Practice 10/10/23 documented as of this encounter
--- OUTSIDE RECORDS SUMMARY | 2025-09-23 11:02 | XMS_ITS | Encounter Summary ---
Author Organization [facility] Address [address] [place] [address] Care Team Providers Care Auto Detailer Name Role Phone Titi Cummings MD Primary Care Provider Encounter Details Date Type Department Care Team (Late st Contact Info) Description 03/21/2005 Outpatient Historical HIS [facility] BR[facility] More, Nia Liang MD [address] [place] [phone] LUMBOSACRAL SPONDYLOSIS (Primary Dx) Social History Tobacco Use Types Packs/Day Years Used Date Smoking Tobacco: Never Assessed Comments Unknown Sex and Gender Information Value Date Recorded Sex Assigned at Not on file Legal Sex Female 4:40 AM MOLD ENGRAVER Gender Identity Not on file Sexual Orientation Not on file documented as of this encounter Plan of Treatment Upcoming Encounters Date Type Department Care Team (Late st Contact Info) Description 09/29/2025 11:30 AM MOLD ENGRAVER Office Visit [facility] Gynecologic On[facility] [place] [address] [facility] [address] [place] [address] Avani Fong, TORRI [address] [place] [id number] [place] [address] 09/29/2025 12:00 PM MOLD ENGRAVER Hospital Encounter [facility] 2nd Fl [address] [place] [address] Infusion Chair 6, 2nd Floor [place] 10/12/2025 1:30 PM MOLD ENGRAVER Office Visit [facility] Neurology [address] [place] [address] [place] [address] Navi Stephens MD [address] [address] 10/20/2025 11:00 AM MOLD ENGRAVER Office Visit [facility] Gynecologic Oncology [place] [address] [place] [address] [place] [address] Becky Walton MD [address] [place] [address] 10/20/2025 11:30 AM MOLD ENGRAVER Appointment [facility] 2nd Ri [address] [place] [address] Infusion Chair 6, 2nd Floor [place] documented as of this encounter Visit Diagnoses [...] as of this encounter Care Teams Auto Detailer Relationship Specialty Start Date End Date Titi Cummings MD [address] [phone] PCP - General Family Practice 10/10/23 documented as of this encounter
--- OUTSIDE RECORDS SUMMARY | 2025-09-23 11:02 | XMS_ITS | Encounter Summary ---
Author Organization [facility] Address [address] [place] [address] Care Team Providers Care Packaging Line Attendant Name Role Phone Titi Cummings MD Primary Care Provider Encounter Details Date Type Department Care Team (Latest Contact Info) Description 01/05/2005 Outpatient Historical HIS [facility] BRY French, Daron Guaman MD NO ADDRESS ON FILE ABNORMAL CLINICAL FINDING NEC (Primary Dx) Social History Tobacco Use Types Packs/Day Years Used Date Smoking Tobacco: Never Assessed Comments Unknown Sex and Gender Information Value Date Recorded Sex Assigned at Not on file Legal Sex Female 4:40 AM COMMUNITY RELATIONS ASSISTANT Gender Identity Not on file Sexual Orientation Not on file documented as of this encounter Plan of Treatment Upcoming Encounters Date Type Department Care Team (Late st Contact Info) Description 09/29/2025 11:30 AM COMMUNITY RELATIONS ASSISTANT Office Visit [facility] Gynecologic Oncology [place] [address] [place] [address] [place] [address] Avani Fong, NOODLE PRESS OPERATOR [address] [place] [address] [place] [address] 09/29/2025 12:00 PM COMMUNITY RELATIONS ASSISTANT Hospital Encounter [facility] 2nd Fl [address] [place] [address] Infusion Chair 6, 2nd Floor [place] 10/12/2025 1:30 PM COMMUNITY RELATIONS ASSISTANT Office Visit [facility] Neurology [address] [place] [address] [place] [address] Navi Stephens MD [address] [address] 10/20/2025 11:00 AM COMMUNITY RELATIONS ASSISTANT Office Visit [facility] Gynecologic Oncology [place] [address] [place] [address] [place] [address] Becky Walton MD [address] [place] [address] 10/20/2025 11:30 AM COMMUNITY RELATIONS ASSISTANT Appointment [facility] 2nd Fl [address] [place] [address] Infusion Chair 6, 2nd Floor [place] documented as of this encounter Procedures Procedure Name Priority Date/Time Associated Diagnosis Comments TSH Routine 01/05/2005 11:07 AM COMMUNITY RELATIONS ASSISTANT GLUCOSE LEVEL Routine 01/05/2005 11:07 AM COMMUNITY RELATIONS ASSISTANT LIPID PANEL Routine 01/05/2005 11:07 AM COMMUNITY RELATIONS ASSISTANT documented in this encounter Results * GLUCOSE LEVEL (01/05/2005 11:07 AM COMMUNITY RELATIONS ASSISTANT) GLUCOSE 91 65 - 109 mg/dL INTERFACE SYSTEM 01/05/2005 11:0 7 AM COMMUNITY RELATIONS ASSISTANT Daron French MD CHEMISTRY ORDERABLES Final Re sult Performing Organization Address City/[facility] de Phone Number INTERFACE SYSTEM Refer to clinic/hospital department * TSH (01/05/2005 11:07 AM COMMUNITY RELATIONS ASSISTANT) TSH 1.95 0.27 - 4.20 uU/mL INTERFACE SYSTEM 01/05/2005 11:0 7 AM COMMUNITY RELATIONS ASSISTANT Daron French MD CHEMISTRY ORDERABLES Final Re sult Performing Organization Address City/State/[facility] Co de Phone Number INTERFACE SYSTEM Refer to clinic/hospital department * (ABNORMAL) LIPID PANEL (01/05/2005 11:07 AM COMMUNITY RELATIONS ASSISTANT) CHOLESTEROL 221(H) 100 - 199 mg/dL INTERFACE [...] 129 High >=130 01/05/2005 11:0 7 AM COMMUNITY RELATIONS ASSISTANT us Daron French MD CHEMISTRY ORDERABLES Final [...] documented as of this encounter Care Teams Packaging Line Attendant Relationship Specialty Start Date End Date Titi Cummings MD [address] [address] PCP - General Family Practice 10/10/23 documented as of this encounter
--- OUTSIDE RECORDS SUMMARY | 2025-09-23 11:02 | XMS_ITS | Encounter Summary ---
Author Organization [facility] Address [address] [place] [address] Care Team Providers Care Utility System Repairer Name Role Phone Titi Cummings MD Primary Care Provider Encounter Details Date Type Department Care Team (Latest Contact Info) Description 03/21/2004 Outpatient Historical [facility] Gibson Contreras MD NO ADDRESS ON FILE MALIG NEOPLASM BREAST UP-OUTER (CMS/HCC) (Primary Dx) Social History Tobacco Use Types Packs/Day Years Used Date Smoking Tobacco: Never Assessed Comments Unknown Sex and Gender Information Value Date Recorded Sex Assigned at Not on file Legal Sex Female 4:40 AM SOCIAL MEDIA SENIOR ASSOCIATE Gender Identity Not on file Sexual Orientation Not on file documented as of this encounter Plan of Treatment Upcoming Encounters Date Type Department Care Team (Late st Contact Info) Description 09/29/2025 11:30 AM SOCIAL MEDIA SENIOR ASSOCIATE Office Visit [facility] Gynecologic Oncology [place] [address] [place] [address] [place] [address] Avani Fong, TORRI [address] [place] [address] [place] [address] 09/29/2025 12:00 PM SOCIAL MEDIA SENIOR ASSOCIATE Hospital Encounter [facility] 2nd Fl [address] [place] [address] Infusion Chair 6, 2nd Floor [place] 10/12/2025 1:30 PM SOCIAL MEDIA SENIOR ASSOCIATE Office Visit [facility] Neurology [address] [place] [address] [place] [address] Navi Stephens MD [address] [facility] [address] [address] 10/20/2025 11:00 AM SOCIAL MEDIA SENIOR ASSOCIATE Office Visit [facility] Gynecologic Oncology [place] [address] [address] [place] [address] [place] [address] Becky Walton MD [address] [facility] [address] [place] [address] 10/20/2025 11:30 AM SOCIAL MEDIA SENIOR ASSOCIATE Appointment [facility] 2nd Fl [address] [place] [address] Infusion Chair 6, 2nd Floor [place] documented as of this encounter Visit Diagnoses [...] documented as of this encounter Care Teams Utility System Repairer Relationship Specialty Start Date End Date Titi Cummings MD [address] [place] [phone] PCP - General Family Practice 10/10/23 documented as of this encounter
--- OUTSIDE RECORDS SUMMARY | 2025-09-23 11:02 | XMS_ITS | Encounter Summary ---
Author Organization [facility] Address [address] [place] [address] Care Team Providers Care Survey Rodman Name Role Phone Titi Cummings MD Primary Care Provider Encounter Details Date Type Department Care Team (Latest Contact Info) Description 02/03/2008 Outpatient Historical HIS [facility] BRY Martines, Mehdi Rivera MD NO ADDRESS ON FILE Malignant Neoplasm of Breast (Female), Unspecified Site (CMS/HCC) Social History Tobacco Use Types Packs/Day Years Used Date Smoking Tobacco: Never Assessed Comments Unknown Sex and Gender Information Value Date Recorded Sex Assigned at Not on file Legal Sex Female 4:40 AM PHOTOGRAMMETRY AIRPLANE PILOT Gender Identity Not on file Sexual Orientation Not on file documented as of this encounter Plan of Treatment Upcoming Encounters Date Type Department Care Team (Late st Contact Info) Description 09/29/2025 11:30 AM PHOTOGRAMMETRY AIRPLANE PILOT Office Visit [facility] Gynecologic Oncology [place] [address] [place] [address] [place] [address] Avani Fong, TORRI [address] [place] [address] [place] [address] 09/29/2025 12:00 PM PHOTOGRAMMETRY AIRPLANE PILOT Hospital Encounter [facility] 2nd Fl [address] [place] [address] Infusion Chair 6, 2nd Floor [place] 10/12/2025 1:30 PM PHOTOGRAMMETRY AIRPLANE PILOT Office Visit [facility] Neurology [address] [place] [address] [place] [address] Navi Stephens MD [address] [facility] [address] [address] 10/20/2025 11:00 AM PHOTOGRAMMETRY AIRPLANE PILOT Office Visit [facility] Gynecologic Oncology [place] [address] [place] [address] [place] [address] Becky Walton MD [address] [facility] [address] [place] [address] 10/20/2025 11:30 AM PHOTOGRAMMETRY AIRPLANE PILOT Appointment [facility] 2nd Fl [address] [place] [address] Infusion Chair 6, 2nd Floor [place] documented as of this encounter Procedures Procedure [...] AM CDT Narrative 02/03/2008 10:34 AM CDT [facility] [address] [place], [place] [address] Admit Date: 02/03/2008 ELOISA DRAKE Sex: F Admit Prov: MEHDI MARTINES Date: 1950 Primary Care Prov: ARLYN VÁZQUEZ CMRN: [id number] Room: JAIROMichael SSN: [id number] IMAGING SERVICES Ordering Prov: N/A Accession Number: [id number] Interpretation Chest 2 views 02/03/2008. History: Breast [...] 10:34 Procedure Note Fanny Mcbride - 02/03/2008 [facility] [address] [place], [place] [address] Admit Date: 02/03/2008 ELOISA DRAKE Michael Sex: F Admit Prov: MEHDI MARTINES Date: 1950 Primary Care Prov: ARLYN VÁZQUEZ CMRN: [id number] Room: [facility] SSN: [id number] [place] [address] IMAGING SERVICES Ordering Prov: N/A Interpretation Chest 2 views 02/03/2008. History: Breast cancer.. Findings: No infiltrate, pneumothorax or pleural effusion is noted.The cardiac and mediastinal silhouettes are within normal limits. The visualized bony structures are unremarkable. Impression: Unremarkable study. No interval change from the previousstudy of 02/01/2007. . Dictated by: FANNY MCBRIDE 02/03/2008 10:33 Electronically signed by: FANNY MCBRIDE 02/03/2008 10:34 Mehdi Martines MD DIAGNOSTIC IMAGING ORDERABLE S Final Result * COMPREHENSIVE METABOLIC PANEL (02/03/2008 10:14 AM CDT) ALKALINE PHOSPHATASE 58 35 - 104 U/L [facility] BILIRUBIN TOTAL 0.2 0.2 - 1.0 mg/dL [facility] CO2 27 22 - 30 mmol/L [facility] TOTAL PROTEIN 7.1 6.3 - 8.6 g/dL [facility] POTASSIUM 4.0 3.5 - 4.9 mmol/L [facility] GLUCOSE 92 65 - 99 mg/dL [facility] AST 26 12 - 32 U/L [facility] BUN 12 6 - 20 mg/dL [facility] CALCIUM 8.6 8.4 - 10.2 mg/dL [facility] CHLORIDE 105 96 - 108 mmol/L [facility] ALBUMIN 4.4 3.4 - 4.8 g/dL [facility] CREATININE 0.68 0.51 - 0.95 mg/dL [facility] SODIUM 140 135 - 145 mmol/L [facility] ALT 23 0 - 31 U/L [facility] GFR, >60 >=60 mL/min/1.7 sq meter [facility] GFR >60 >=60 mL/min/1.7 sq meter [facility] Comment: Estimated GFR rate interpretative information for both Americans and non- Americans is available on the [facility] Intranet at: [email or web address] Select: Lab Policies and Procedures Select: Reference Ranges - GFR Blood specimen (specimen) 02/03/2008 10:14 AM CDT 02/03/2008 10:24 AM CDT us Mehdi Martines MD CHEMISTRY ORDERABLES Edited [facility] [address] [place] [address] * CBC WITH DIFFERENTIAL (02/03/2008 10:14 AM CDT) HEMOGLOBIN 13.2 11.8 - 14.8 g/dL [facility] RDW 14.2 11.5 - 14.5 % [facility] WBC 5.7 4.0 - 9.8 K/uL [facility] MCH 30.9 27.2 - 32.6 pg [facility] MPV 10.5 9.3 - 12.4 fL [facility] HEMATOCRIT 39.8 35.5 - 44.0 % [facility] RDW-STDEV 48.1 37.1 - 48.7 fL [facility] RBC 4.27 3.90 - 4.90 M/uL [facility] MCHC 33.2 31.5 - 35.5 % [facility] MCV 93.2 82.0 - 99.0 fL [facility] PLATELETS 180 140 - 350 K/uL [facility] LYMPHOCYTES 29 16 - 45 % [facility] LYMPHOCYTE ABSOLUTE 1.67 0.70 - 4.50 K/uL [facility] BASOPHILS 0 0 - 2 % [facility] BASOPHILS ABSOLUTE 0.01 0.00 - 0.20 K/uL [facility] MONOCYTES 6 3 - 13 % [facility] MONOCYTE ABSOLUTE 0.35 0.10 - 1.30 K/uL [facility] NEUTROPHILS 64 45 - 70 % [facility] NEUTROPHIL ABSOLUTE 3.67 1.90 - 7.00 K/uL [facility] EOSINOPHILS 1 0 - 7 % [facility] EOSINOPHIL ABSOLUTE 0.04 0.00 - 0.70 K/uL [facility] Blood specimen (specimen) 02/03/2008 10:14 AM CDT 02/03/2008 10:24 AM CDT us Mehdi Martines MD HEMATOLOGY ORDERABLES Edited INTERFACE SYSTEM Refer to clinic/hospital department [facility] [address] [place] [address] documented in this encounter Visit Diagnoses Diagnosis [...] documented as of this encounter Care Teams Survey Rodman Relationship Specialty Start Date End Date Titi Cummings MD [address] [phone] PCP - General Family Practice 10/10/23 documented as of this encounter
--- OUTSIDE RECORDS SUMMARY | 2025-09-23 11:02 | XMS_ITS | Encounter Summary ---
Author Organization [facility] Address [address] [place] [address] Care Team Providers Care Front Window Cashier Name Role Phone Titi Cummings MD Primary Care Provider Encounter Details Date Type Department Care Team (Late st Contact Info) Description 04/06/2005 Outpatient Historical [facility] Nia More MD [address] [place] [phone] ABDOMINAL PAIN EPIGASTRIC (Primary Dx) Social History Tobacco Use Types Packs/Day Years Used Date Smoking Tobacco: Never Assessed Comments Unknown Sex and Gender Information Value Date Recorded Sex Assigned at Not on file Legal Sex Female 4:40 AM WEB PRODUCTION ASSISTANT Gender Identity Not on file Sexual Orientation Not on file documented as of this encounter Plan of Treatment Upcoming Encounters Date Type Department Care Team (Late st Contact Info) Description 09/29/2025 11:30 AM WEB PRODUCTION ASSISTANT Office Visit [facility] Gynecologic Oncology [place] [address] [place] [address] [place] [address] Avani Fong, TORRI [address] [place] [address] [place] [address] 09/29/2025 12:00 PM WEB PRODUCTION ASSISTANT Hospital Encounter [facility] 2nd Fl [address] [place] [address] Infusion Chair 6, 2nd Floor [place] 10/12/2025 1:30 PM WEB PRODUCTION ASSISTANT Office Visit [facility] Neurology [address] [place] [address] Navi Stephens MD [address] [address] 10/20/2025 11:00 AM WEB PRODUCTION ASSISTANT Office Visit [facility] Gynecologic Oncology [place] [address] [place] [address] Becky Walton MD [address] [place] [address] 10/20/2025 11:30 AM WEB PRODUCTION ASSISTANT Appointment [facility] 2nd Fl [address] [place] [address] Infusion Chair 6, 2nd Floor [place] documented as of this encounter Visit Diagnoses [...] documented as of this encounter Care Teams Front Window Cashier Relationship Specialty Start Date End Date Titi Cummings MD [address] [phone] PCP - General Family Practice 10/10/23 documented as of this encounter
--- OUTSIDE RECORDS SUMMARY | 2025-09-23 11:02 | XMS_ITS | Encounter Summary ---
Author Organization [facility] Address [address] [place] [address] Care Team Providers Care Hvac Designer Name Role Phone Titi Cummings MD [...] on file Legal Sex Female 4:40 AM PATIENT FINANCIAL SERVICES SPECIALIST Gender Identity Not on file Sexual Orientation Not on file documented as of this encounter Plan of Treatment Upcoming Encounters Date Type Department Care Team (Late st Contact Info) Description 09/29/2025 11:30 AM PATIENT FINANCIAL SERVICES SPECIALIST Office Visit [facility] Gynecologic Oncology [place] [address] [place] [address] Avani Fong, TORRI [address] [place] [address] 09/29/2025 12:00 PM PATIENT FINANCIAL SERVICES SPECIALIST Hospital Encounter [facility] 2nd Fl [address] [place] [address] Infusion Chair 6, 2nd Floor [place] 10/12/2025 1:30 PM PATIENT FINANCIAL SERVICES SPECIALIST Office Visit [facility] Neurology [address] [place] [address] Navi Stephens MD [address] [address] 10/20/2025 11:00 AM PATIENT FINANCIAL SERVICES SPECIALIST Office Visit [facility] Gynecologic Oncology [place] [address] [place] [address] Becky Walton MD [address] [place] [address] 10/20/2025 11:30 AM PATIENT FINANCIAL SERVICES SPECIALIST Appointment [facility] 2nd Fl [address] [place] [address] Infusion Chair 6, 2nd Floor [place] documented as of this encounter Visit Diagnoses [...] documented as of this encounter Care Teams Hvac Designer Relationship Specialty Start Date End Date Titi Cummings MD [address] [place] [phone] PCP - General Family Practice 10/10/23 documented as of this encounter
--- OUTSIDE RECORDS SUMMARY | 2025-09-23 11:02 | XMS_ITS | Encounter Summary ---
Author Organization [facility] Address [address] [place] [address] Care Team Providers Care Unit Secy Name Role Phone Titi Cummigns MD Primary Care Provider Encounter Details Date [...] on file Legal Sex Female 4:40 AM ORNAMENT STITCHER Gender Identity Not on file Sexual Orientation Not on file documented as of this encounter Plan of Treatment Upcoming Encounters Date Type Department Care Team (Late st Contact Info) Description 09/29/2025 11:30 AM ORNAMENT STITCHER Office Visit [facility] Gynecologic Oncology [place] [address] [place] [address] Avani Fong, TORRI [address] [place] [address] 09/29/2025 12:00 PM ORNAMENT STITCHER Hospital Encounter [facility] 2nd Fl [address] [place] [address] Infusion Chair 6, 2nd Floor [place] 10/12/2025 1:30 PM ORNAMENT STITCHER Office Visit [facility] Neurology [address] [place] [address] Navi Stephens MD [address] [address] 10/20/2025 11:00 AM ORNAMENT STITCHER Office Visit [facility] Gynecologic Oncology [place] [address] [place] [address] Becky Walton MD [address] [place] [address] 10/20/2025 11:30 AM ORNAMENT STITCHER Appointment [facility] 2nd Fl [address] [place] [address] Infusion Chair 6, 2nd Floor [place] documented as of this encounter Visit Diagnoses [...] documented as of this encounter Care Teams Unit Secy Relationship Specialty Start Date End Date Titi Cummings MD [address] [phone] PCP - General Family Practice 10/10/23 documented as of this encounter
--- OUTSIDE RECORDS SUMMARY | 2025-09-23 11:02 | XMS_ITS | Encounter Summary ---
Author Organization [facility] Address [address] [place] [address] Care Team Providers Care Furniture Assembly Supervisor Name Role Phone Titi Cummings MD Primary Care Provider Encounter Details Date Type Department Care Team (Latest Contact Info) Description 08/07/2008 Outpatient Historical [facility] BRY Contreras, Gibson Rivera MD NO ADDRESS ON FILE Malignant Neoplasm of Upper-Outer Quadrant of Female Breast (CMS/HCC) Social History Tobacco Use Types Packs/Day Years Used Date Smoking Tobacco: Never Assessed Comments Unknown Sex and Gender Information Value Date Recorded Sex Assigned at Not on file Legal Sex Female 4:40 AM IMPLEMENTATION MANAGER Gender Identity Not on file Sexual Orientation Not on file documented as of this encounter Plan of Treatment Upcoming Encounters Date Type Department Care Team (Late st Contact Info) Description 09/29/2025 11:30 AM IMPLEMENTATION MANAGER Office Visit [facility] Gynecologic Oncology [place] [address] [place] [address] Avani Fong, TORRI [address] [place] [address] 09/29/2025 12:00 PM IMPLEMENTATION MANAGER Hospital Encounter [facility] 2nd Fl [address] [place] [address] Infusion Chair 6, 2nd Floor [place] 10/12/2025 1:30 PM IMPLEMENTATION MANAGER Office Visit [facility] Neurology [address] [place] [address] Navi Stephens MD [address] [address] 10/20/2025 11:00 AM IMPLEMENTATION MANAGER Office Visit [facility] Gynecologic Oncology [place] [address] [place] [address] Becky Walton MD [address] [place] [address] 10/20/2025 11:30 AM IMPLEMENTATION MANAGER Appointment [facility] 2nd Fl [address] [place] [address] Infusion Chair 6, 2nd Floor [place] documented as of this encounter Procedures Procedure Name Priority Date/Time Associated Diagnosis Comments CBC WITH DIFFERENTIAL Stat 08/07/2008 9:32 AM CDT COMPREHENSIVE METABOLIC PANEL Stat 08/07/2008 9:32 AM CDT documented in this encounter Results * COMPREHENSIVE METABOLIC PANEL (08/07/2008 9:32 AM CDT) GLUCOSE 86 65 - 99 mg/dL [facility] AST 28 12 - 32 U/L [facility] BUN 10 6 - 20 mg/dL [facility] CALCIUM 9.3 8.6 - 10.2 mg/dL [facility] ALBUMIN 4.3 3.4 - 4.8 g/dL [facility] CHLORIDE 106 96 - 108 mmol/L [facility] CREATININE 0.67 0.51 - 0.95 mg/dL [facility] ALT 29 0 - 31 U/L [facility] SODIUM 142 135 - 145 mmol/L [facility] ALKALINE PHOSPHATASE 62 35 - 104 U/L [facility] CO2 26 22 - 30 mmol/L [facility] BILIRUBIN TOTAL 0.2 0.2 - 1.0 mg/dL [facility] POTASSIUM 3.8 3.5 - 4.9 mmol/L [facility] TOTAL PROTEIN 6.8 6.3 - 8.6 g/dL [facility] GFR, >60 >=60 mL/min/1.7 sq meter [facility] GFR >60 >=60 mL/min/1.7 sq meter [facility] Comment: Modification of Diet in Renal Disease (MDRD) study formula. Estimated GFR rate interpretative information for both Americans and non- Americans is available on the [facility] Intranet at: [email or web address] Select: Lab Policies and Procedures Select: Reference Ranges - GFR Blood specimen (specimen) 08/07/2008 9:32 AM CDT 08/07/2008 9:54 AM CDT us Gibson Contreras MD CHEMISTRY ORDERABLES Edited INTERFACE SYSTEM Refer to clinic/hospital department [facility] CLIA# [id number] [address] [place] [address] * CBC WITH DIFFERENTIAL (08/07/2008 9:32 AM CDT) WBC 6.0 4.0 - 9.8 K/uL [facility] MCH 30.8 27.2 - 32.6 pg [facility] MPV 10.4 9.3 - 12.4 fL [facility] HEMATOCRIT 40.1 35.5 - 44.0 % [facility] RDW-STDEV 47.3 37.1 - 48.7 fL [facility] RBC 4.29 3.90 - 4.90 M/uL [facility] MCHC 32.9 31.5 - 35.5 % [facility] MCV 93.5 82.0 - 99.0 fL [facility] PLATELETS 175 140 - 350 K/uL [facility] HEMOGLOBIN 13.2 11.8 - 14.8 g/dL [facility] RDW 14.1 11.5 - 14.5 % [facility] LYMPHOCYTES 30 16 - 45 % [facility] LYMPHOCYTE ABSOLUTE 1.80 0.70 - 4.50 K/uL [facility] BASOPHILS 0 0 - 2 % [facility] BASOPHILS ABSOLUTE 0.01 0.00 - 0.20 K/uL [facility] MONOCYTES 8 3 - 13 % [facility] MONOCYTE ABSOLUTE 0.48 0.10 - 1.30 K/uL [facility] NEUTROPHILS 61 45 - 70 % [facility] NEUTROPHIL ABSOLUTE 3.65 1.90 - 7.00 K/uL [facility] EOSINOPHILS 1 0 - 7 % [facility] EOSINOPHIL ABSOLUTE 0.06 0.00 - 0.70 K/uL [facility] Blood specimen (specimen) 08/07/2008 9:32 AM CDT 08/07/2008 9:54 AM CDT us Gibson Contreras MD HEMATOLOGY ORDERABLES Edited INTERFACE SYSTEM Refer to clinic/hospital department [facility] CLIA# [id number] [address] [place] [address] documented in this encounter Visit Diagnoses Diagnosis Malignant neoplasm of upper-outer quadrant of female breast (CMS/HCC) Malignant neoplasm of upper-outer quadrant of female breast documented in this encounter Additional Health Concerns Infection Onset Date Last Indicated Resolved Time R/O C. diff 03/28/2022 03/27/202203/2803/28/2022 3:35 PM CDT R/O C. diff 04/12/2022 04/11/2022 04/12/2022 3:26 PM CDT R/O C. diff 04/13/2023 04/12/2023 04/13/2023 2:29 PM CDT R/O GI Pathogen 04/07/2025 04/08/2025 04/08/2025 6 :24 AM CDT R/O Respiratory 04/07/2025 04/07/2025 04/07/2025 7 :19 PM CDT documented as of this encounter Care Teams Furniture Assembly Supervisor Relationship Specialty Start Date End Date Titi Cummings MD [address] [phone] PCP - General Family Practice 10/10/23 documented as of this encounter
--- OUTSIDE RECORDS SUMMARY | 2025-09-23 11:02 | XMS_ITS | Clinical Summary ---
Author Organization [facility] [employer] Address [address] [place] [address] Care Team Providers Care Property Adjuster Name Role Phone Kyle Casas MD Primary Care Provider [phone] Source Comments [facility] Affiliates and Associated Physician Practices is amultiple site organization consisting of ambulatory clinics and hospital sitesin [place], [place], [place] and [place]. This disclosure is being madepursuant to the Care Everywhere program and may not contain all information available regarding this patient. Last updated 18.[facility] [employer] Active Problems Problem Noted Date Diagnosed Date [...] drink = 0.6 oz pur e alcohol) Comments Unknown Sex and Gender Information Value Date Recorded Sex Assigned at Not on file Legal Sex Female 6:08 PM WALLPAPER REMOVER STEAM Gender Identity Not on file Sexual Orientation Not on file Last Filed Vital Signs Vital Sign Reading Time Taken Comments Blood Pressure 141/87 06/01/2015 10:36 AM CDT Pulse 74 06/01/2015 10:36 AM CDT Temperature - - Respiratory Rate - - Oxygen Saturation - - Inhaled Oxygen Concentration - - Weight 59 kg (130 lb) 06/01/2015 10:36 AM CDT Height 157.5 cm (5' 2) 06/01/2015 10:36 AM CDT Body Mass Index [...] SCREENING 1952 LIPID TESTING 1952 MAMMOGRAM 1952 HEPATITIS C SCREENING 04/10/1970 DTAP/TDAP/TD VACCINES (1 - Tdap) 1971 PNEUMOCOCCAL VACCINE 50+ (1 of 1 - PCV) 2002 ZOSTER VACCINE (1 of 2) 2002 DEPRESSION SCREENING 10/21/2024 COVID-19 VACCINE (1 - 2024-2 6 season) 2025 INFLUENZA VACCINE (#1) 2025 Respiratory Syncytial Virus (RSV) Vaccine Pt: or [...] to complete this topic MENINGOCOCCAL (Group B) VACC INE SHARED DECISION-MAKING Aged Out No longer eligibl e based on patient's age to complete this topic MENINGOCOCCAL GROUPS A/C/Y/W VACCINE Aged Out No longer eligible b ased on patient's age to complete this topic Insurance MEDICARE AETNA Care Teams Property Adjuster Relationship Specialty Start Date End Date Kyle Casas MD PCP - General 10/27/08
--- OUTSIDE RECORDS SUMMARY | 2025-09-23 11:02 | XMS_ITS | Encounter Summary ---
Author Organization [facility] Address [address] [place] [address] Care Team Providers Care Restaurant Area Manager Name Role Phone Titi Cummings MD Primary Care Provider Encounter Details Date Type Department Care Team (Latest Contact Info) Description 01/05/2006 Outpatient Historical [facility] BRY Contreras, Gibson Rivera MD NO ADDRESS ON FILE Other Screening Mammogram (Primary Dx) Social History Tobacco Use Types Packs/Day Years Used Date Smoking Tobacco: Never Assessed Comments Unknown Sex and Gender Information Value Date Recorded Sex Assigned at Not on file Legal Sex Female 4:40 AM CLOTH BOLT BANDER Gender Identity Not on file Sexual Orientation Not on file documented as of this encounter Plan of Treatment Upcoming Encounters Date Type Department Care Team (Late st Contact Info) Description 09/29/2025 11:30 AM CLOTH BOLT BANDER Office Visit [facility] Gynecologic Oncology [place] [address] [facility] [address] [place] [address] Avani Fong, TORRI [address] [place] [address] 09/29/2025 12:00 PM CLOTH BOLT BANDER Hospital Encounter [facility] 2nd Fl [address] [place] [address] Infusion Chair 6, 2nd Floor [place] 10/12/2025 1:30 PM CLOTH BOLT BANDER Office Visit [facility] Neurology [address] [place] [address] Navi Stephens MD [address] [address] 10/20/2025 11:00 AM CLOTH BOLT BANDER Office Visit [facility] Gynecologic Oncology [place] [address] [place] [address] Becky Walton MD [address] [place] [address] 10/20/2025 11:30 AM CLOTH BOLT BANDER Appointment [facility] 2nd Fl [address] [place] [address] Infusion Chair 6, 2nd Floor [place] documented as of this encounter Visit Diagnoses [...] documented as of this encounter Care Teams Restaurant Area Manager Relationship Specialty Start Date End Date Titi Cummings MD [address] [phone] PCP - General Family Practice 10/10/23 documented as of this encounter
--- OUTSIDE RECORDS SUMMARY | 2025-09-23 11:02 | XMS_ITS | Encounter Summary ---
Author Organization [facility] Address [address] [place] [address] Care Team Providers Care Director Of Supply Chain Name Role Phone Titi Cummings MD Primary Care Provider Encounter Details Date Type Department Care Team (Latest Contact Info) Description 01/26/2004 Outpatient Historical [facility] Gibson Contreras MD NO ADDRESS ON FILE MALIG NEOPLASM BREAST UP-OUTER (CMS/HCC) (Primary Dx) Social History Tobacco Use Types Packs/Day Years Used Date Smoking Tobacco: Never Assessed Comments Unknown Sex and Gender Information Value Date Recorded Sex Assigned at Not on file Legal Sex Female 4:40 AM PASTE WORKER Gender Identity Not on file Sexual Orientation Not on file documented as of this encounter Plan of Treatment Upcoming Encounters Date Type Department Care Team (Late st Contact Info) Description 09/29/2025 11:30 AM PASTE WORKER Office Visit [facility] Gynecologic Oncology [place] [address] [place] [address] Avani Fong, TORRI [address] [place] [address] 09/29/2025 12:00 PM PASTE WORKER Hospital Encounter [facility] 2nd Fl [address] [place] [address] Infusion Chair 6, 2nd Floor [place] 10/12/2025 1:30 PM PASTE WORKER Office Visit [facility] Neurology [address] [place] [address] Navi Stephens MD [address] [address] 10/20/2025 11:00 AM PASTE WORKER Office Visit [facility] Gynecologic Oncology [place] [address] [place] [address] Becky Walton MD [address] [place] [address] 10/20/2025 11:30 AM PASTE WORKER Appointment [facility] 2nd Fl [address] [place] [address] Infusion Chair 6, 2nd Floor [place] documented as of this encounter Visit Diagnoses [...] documented as of this encounter Care Teams Director Of Supply Chain Relationship Specialty Start Date End Date Titi Cummings MD [address] [place] [phone] PCP - General Family Practice 10/10/23 documented as of this encounter
--- OUTSIDE RECORDS SUMMARY | 2025-09-23 11:02 | XMS_ITS | Encounter Summary ---
Author Organization [facility] Address [address] [place] [address] Care Team Providers Care Flexo Folder Gluer Operator Name Role Phone Titi Cummings MD Primary Care Provider Encounter Details Date Type Department Care Team (Latest Contact Info) Description 04/24/2005 Outpatient Historical [facility] Wendy Nolasco MD [address] [place] [address] [address] [address] CHRONIC CHOLECYSTITIS NEC (Primary Dx) Social History Tobacco Use Types Packs/Day Years Used Date Smoking Tobacco: Never Assessed Comments Unknown Sex and Gender Information Value Date Recorded Sex Assigned at Not on file Legal Sex Female 4:40 AM MOTORS ASSEMBLER Gender Identity Not on file Sexual Orientation Not on file documented as of this encounter Plan of Treatment Upcoming Encounters Date Type Department Care Team (Late st Contact Info) Description 09/29/2025 11:30 AM MOTORS ASSEMBLER Office Visit [facility] Gynecologic Oncology [place] [address] [facility] [address] [place] [address] Avani Fong, TRORI [address] [facility] [address] [place] [address] 09/29/2025 12:00 PM MOTORS ASSEMBLER Hospital Encounter [facility] 2nd Fl [address] [place] [address] Infusion Chair 6, 2nd Floor [place] 10/12/2025 1:30 PM MOTORS ASSEMBLER Office Visit [facility] Neurology [address] [place] [address] Navi Stephens MD [address] [address] 10/20/2025 11:00 AM MOTORS ASSEMBLER Office Visit [facility] Gynecologic Oncology [place] [address] [place] [address] Becky Walton MD [address] [place] [address] 10/20/2025 11:30 AM MOTORS ASSEMBLER Appointment [facility] 2nd Fl [address] [place] [address] Infusion Chair 6, 2nd Floor [place] documented as of this encounter Visit Diagnoses [...] documented as of this encounter Care Teams Flexo Folder Gluer Operator Relationship Specialty Start Date End Date Titi Cummings MD [address] [place] [phone] PCP - General Family Practice 10/10/23 documented as of this encounter
--- OUTSIDE RECORDS SUMMARY | 2025-09-23 11:02 | XMS_ITS | Encounter Summary ---
Author Organization [facility] Address [address] [place] [address] Care Team Providers Care Anesthesiology Technologist Name Role Phone Titi Cummings MD Primary Care Provider Encounter Details Date Type Department Care Team (Latest Contact Info) Description 02/01/2007 Outpatient Historical HIS [facility] BRY Contreras, Gibson Rivera MD NO ADDRESS ON FILE Other Screening Mammogram (Primary Dx) Social History Tobacco Use Types Packs/Day Years Used Date Smoking Tobacco: Never Assessed Comments Unknown Sex and Gender Information Value Date Recorded Sex Assigned at Not on file Legal Sex Female 4:40 AM ASSEMBLER INSULATOR Gender Identity Not on file Sexual Orientation Not on file documented as of this encounter Plan of Treatment Upcoming Encounters Date Type Department Care Team (Late st Contact Info) Description 09/29/2025 11:30 AM ASSEMBLER INSULATOR Office Visit [facility] Gynecologic Oncology [place] [address] [facility] [address] [place] [address] Avani Fong, TORRI [address] [place] [address] 09/29/2025 12:00 PM ASSEMBLER INSULATOR Hospital Encounter [facility] 2nd Fl [address] [place] [address] Infusion Chair 6, 2nd Floor [place] 10/12/2025 1:30 PM ASSEMBLER INSULATOR Office Visit [facility] Neurology [address] [place] [address] Navi Stephens MD [address] [address] 10/20/2025 11:00 AM ASSEMBLER INSULATOR Office Visit [facility] Gynecologic Oncology [place] [address] [place] [address] Becky Walton MD [address] [place] [address] 10/20/2025 11:30 AM ASSEMBLER INSULATOR Appointment [facility] Center 2nd Fl [address] [place] [address] Infusion Chair 6, 2nd Floor [place] documented as of this encounter Visit Diagnoses [...] documented as of this encounter Care Teams Anesthesiology Technologist Relationship Specialty Start Date End Date Titi Cummings MD [address] [phone] PCP - General Family Practice 10/10/23 documented as of this encounter
[2025-09-23] MEDS: LIDOCAINE 5% PATCH 1 PATCH TRANSDERM (12:08)
[2025-09-23 12:15] VITALS: BP 132/61; PULSE 74; RESP 19; O2SAT 99
--- OUTSIDE RECORDS SUMMARY | 2025-09-23 12:41 | XMS_ITS | Encounter Summary ---
Author Organization [facility] Address [address] [place] [address] Care Team Providers Care Health And Safety Technician Name Role Phone Titi Cummings MD Primary Care Provider Encounter Details Date Type Department Care Team (Latest Contact Info) Description 07/20/2000 Outpatient Historical HIS [facility] BRY Contreras, Gibson Rivera MD NO ADDRESS ON FILE Malignant neoplasm of upper-outer quadrant of female breast (CMS/HCC) (Primary Dx) Social History Tobacco Use Types Packs/Day Years Used Date Smoking Tobacco: Never Assessed Comments Unknown Sex and Gender Information Value Date Recorded Sex Assigned at Not on file Legal Sex Female 4:40 AM COMPUTER TRAINER Gender Identity Not on file Sexual Orientation Not on file documented as of this encounter Plan of Treatment Upcoming Encounters Date Type Department Care Team (Late st Contact Info) Description 09/29/2025 11:30 AM COMPUTER TRAINER Office Visit [facility] Gynecologic Oncology [place] [address] [place] [address] Avani Fong, TORRI [address] [place] [address] 09/29/2025 12:00 PM COMPUTER TRAINER Hospital Encounter [facility] 2nd Fl [address] [place] [address] Infusion Chair 6, 2nd Floor [place] 10/12/2025 1:30 PM COMPUTER TRAINER Office Visit [facility] Neurology [address] [place] [address] Navi Stephens MD [address] [address] 10/20/2025 11:00 AM COMPUTER TRAINER Office Visit [facility] Gynecologic Oncology [place] [address] [place] [address] Becky Walton MD [address] [place] [address] 10/20/2025 11:30 AM COMPUTER TRAINER Appointment [facility] 2nd Fl [address] [place] [address] Infusion Chair 6, 2nd Floor [place] documented as of this encounter Visit Diagnoses [...] as of this encounter Care Teams Health And Safety Technician Relationship Specialty Start Date End Date Titi Cummings MD [address] [place] [phone] PCP - General Family Practice 10/10/23 documented as of this encounter
--- OUTSIDE RECORDS SUMMARY | 2025-09-23 12:41 | XMS_ITS | Encounter Summary ---
Author Organization [facility] Address [address] [place] [address] Care Team Providers Care Senior Staff Specialized Employment Name Role Phone Titi Cummings MD Primary Care Provider Encounter Details Date Type Department Care Team (Latest Contact Info) Description 02/03/2000 Outpatient Historical HIS [facility] BRY Contreras, Gibson Rivera MD NO ADDRESS ON FILE Malignant neoplasm of upper-outer quadrant of female breast (CMS/HCC) (Primary Dx) Social History Tobacco Use Types Packs/Day Years Used Date Smoking Tobacco: Never Assessed Comments Unknown Sex and Gender Information Value Date Recorded Sex Assigned at Not on file Legal Sex Female 4:40 AM BOTTLE SELECTOR Gender Identity Not on file Sexual Orientation Not on file documented as of this encounter Plan of Treatment Upcoming Encounters Date Type Department Care Team (Late st Contact Info) Description 09/29/2025 11:30 AM BOTTLE SELECTOR Office Visit [facility] Gynecologic Oncology [place] [address] [place] [address] Avani Fong, TORRI [address] [place] [address] 09/29/2025 12:00 PM BOTTLE SELECTOR Hospital Encounter [facility] 2nd Fl [address] [place] [address] Infusion Chair 6, 2nd Floor [place] 10/12/2025 1:30 PM BOTTLE SELECTOR Office Visit [facility] Neurology [address] [place] [address] Navi Stephens MD [address] [address] 10/20/2025 11:00 AM BOTTLE SELECTOR Office Visit [facility] Gynecologic Oncology [place] [address] [address] [place] [address] Becky Walton MD [address] [place] [address] 10/20/2025 11:30 AM BOTTLE SELECTOR Appointment [facility] 2nd Fl [address] [place] [address] Infusion Chair 6, 2nd Floor [place] documented as of this encounter Visit Diagnoses [...] as of this encounter Care Teams Senior Staff Specialized Employment Relationship Specialty Start Date End Date Titi Cummings MD [address] [place] [phone] PCP - General Family Practice 10/10/23 documented as of this encounter
--- OUTSIDE RECORDS SUMMARY | 2025-09-23 12:41 | XMS_ITS | Encounter Summary ---
Author Organization [facility] Address [address] [place] [address] Care Team Providers Care Ocean Lifeguard Name Role Phone Titi Cummings MD Primary Care Provider Encounter Details Date Type Department Care Team (Latest Contact Info) Description 10/01/1998 Outpatient Historical HIS [facility] BRY Contreras, Gibson Rivera MD NO ADDRESS ON FILE Malignant neoplasm of upper-outer quadrant of female breast (CMS/HCC) (Primary Dx) Social History Tobacco Use Types Packs/Day Years Used Date Smoking Tobacco: Never Assessed Comments Unknown Sex and Gender Information Value Date Recorded Sex Assigned at Not on file Legal Sex Female 4:40 AM TUNE UP MECHANIC Gender Identity Not on file Sexual Orientation Not on file documented as of this encounter Plan of Treatment Upcoming Encounters Date Type Department Care Team (Late st Contact Info) Description 09/29/2025 11:30 AM TUNE UP MECHANIC Office Visit [facility] Gynecologic Oncology [place] [address] [place] [address] Avani Fong, TORRI [address] [place] [address] 09/29/2025 12:00 PM TUNE UP MECHANIC Hospital Encounter [facility] 2nd Fl [address] [place] [address] Infusion Chair 6, 2nd Floor [place] 10/12/2025 1:30 PM TUNE UP MECHANIC Office Visit [facility] Neurology [address] [place] [address] Navi Stephens MD [address] [facility] [address] [address] 10/20/2025 11:00 AM TUNE UP MECHANIC Office Visit [facility] Gynecologic Oncology [place] [address] [place] [address] Becky Walton MD [address] [facility] [address] [place] [address] 10/20/2025 11:30 AM TUNE UP MECHANIC Appointment [facility] 2nd Fl [address] [place] [address] Infusion Chair 6, 2nd Floor [place] documented as of this encounter Visit Diagnoses [...] documented as of this encounter Care Teams Ocean Lifeguard Relationship Specialty Start Date End Date Titi Cummings MD [address] [place] [phone] PCP - General Family Practice 10/10/23 documented as of this encounter
--- OUTSIDE RECORDS SUMMARY | 2025-09-23 12:41 | XMS_ITS | Encounter Summary ---
Author Organization [facility] Address [address] [place] [address] Care Team Providers Care Oil And Gas Well Treatment Operator Name Role Phone Titi Cummings MD Primary Care Provider Encounter Details Date Type Department Care Team (Latest Contact Info) Description 02/26/2001 Outpatient Historical HIS [facility] BRY Contreras, Gibson Rivera MD NO ADDRESS ON FILE Malignant neoplasm of upper-outer quadrant of female breast (CMS/HCC) (Primary Dx) Social History Tobacco Use Types Packs/Day Years Used Date Smoking Tobacco: Never Assessed Comments Unknown Sex and Gender Information Value Date Recorded Sex Assigned at Not on file Legal Sex Female 4:40 AM PRECISION HONER Gender Identity Not on file Sexual Orientation Not on file documented as of this encounter Plan of Treatment Upcoming Encounters Date Type Department Care Team (Late st Contact Info) Description 09/29/2025 11:30 AM PRECISION HONER Office Visit [facility] Gynecologic Oncology [place] [address] [place] [address] Avani Fong, TORRI [address] [place] [address] 09/29/2025 12:00 PM PRECISION HONER Hospital Encounter [facility] 2nd Fl [address] [place] [address] Infusion Chair 6, 2nd Floor [place] 10/12/2025 1:30 PM PRECISION HONER Office Visit [facility] Neurology [address] [place] [address] Navi Stephens MD [address] [address] 10/20/2025 11:00 AM PRECISION HONER Office Visit [facility] Gynecologic Oncology [place] [address] [place] [address] Becky Walton MD [address] [place] [address] 10/20/2025 11:30 AM PRECISION HONER Appointment [facility] 2nd Fl [address] [place] [address] Infusion Chair 6, 2nd Floor [place] documented as of this encounter Visit Diagnoses [...] documented as of this encounter Care Teams Oil And Gas Well Treatment Operator Relationship Specialty Start Date End Date Titi Cummings MD [address] [place] [phone] PCP - General Family Practice 10/10/23 documented as of this encounter
--- OUTSIDE RECORDS SUMMARY | 2025-09-23 12:42 | XMS_ITS | Encounter Summary ---
Author Organization [facility] Address [address] [place] [address] Care Team Providers Care Merchant Patroller Name Role Phone Titi Cummings MD Primary Care Provider Encounter Details Date Type Department Care Team (Latest Contact Info) Description 01/25/2001 Outpatient Historical HIS [facility] BRY Contreras, Gibson Rivera MD NO ADDRESS ON FILE Malignant neoplasm of upper-outer quadrant of female breast (CMS/HCC) (Primary Dx) Social History Tobacco Use Types Packs/Day Years Used Date Smoking Tobacco: Never Assessed Comments Unknown Sex and Gender Information Value Date Recorded Sex Assigned at Not on file Legal Sex Female 4:40 AM CENTRAL OFFICE ASSOCIATE Gender Identity Not on file Sexual Orientation Not on file documented as of this encounter Plan of Treatment Upcoming Encounters Date Type Department Care Team (Late st Contact Info) Description 09/29/2025 11:30 AM CENTRAL OFFICE ASSOCIATE Office Visit [facility] Gynecologic Oncology [place] [address] [place] [address] Avani Fong, TORRI [address] [place] [address] 09/29/2025 12:00 PM CENTRAL OFFICE ASSOCIATE Hospital Encounter [facility] 2nd Fl [address] [place] [address] Infusion Chair 6, 2nd Floor [place] 10/12/2025 1:30 PM CENTRAL OFFICE ASSOCIATE Office Visit [facility] Neurology [address] [place] [address] Navi Stephens MD [address] [address] 10/20/2025 11:00 AM CENTRAL OFFICE ASSOCIATE Office Visit [facility] Gynecologic Oncology [place] [address] [facility] [address] [place] [address] Becky Walton MD [address] [place] [address] 10/20/2025 11:30 AM CENTRAL OFFICE ASSOCIATE Appointment [facility] 2nd Fl [address] [place] [address] Infusion Chair 6, 2nd Floor [place] documented as of this encounter Visit Diagnoses [...] documented as of this encounter Care Teams Merchant Patroller Relationship Specialty Start Date End Date Titi Cummings MD [address] [place] [phone] PCP - General Family Practice 10/10/23 documented as of this encounter
--- OUTSIDE RECORDS SUMMARY | 2025-09-23 12:42 | XMS_ITS | Encounter Summary ---
Author Organization [facility] Address [address] [place] [address] Care Team Providers Care Test Man Name Role Phone Titi Cummings MD Primary Care Provider Encounter Details Date Type Department Care Team (Latest Contact Info) Description 04/13/1999 Outpatient Historical HIS [facility] BRY Contreras, Gibson Rivera MD NO ADDRESS ON FILE Malignant neoplasm of upper-outer quadrant of female breast (CMS/HCC) (Primary Dx) Social History Tobacco Use Types Packs/Day Years Used Date Smoking Tobacco: Never Assessed Comments Unknown Sex and Gender Information Value Date Recorded Sex Assigned at Not on file Legal Sex Female 4:40 AM MANOMETER TECHNICIAN Gender Identity Not on file Sexual Orientation Not on file documented as of this encounter Plan of Treatment Upcoming Encounters Date Type Department Care Team (Late st Contact Info) Description 09/29/2025 11:30 AM MANOMETER TECHNICIAN Office Visit [facility] Gynecologic Oncology [place] [address] [place] [address] Avani Fong, TORRI [address] [place] [address] 09/29/2025 12:00 PM MANOMETER TECHNICIAN Hospital Encounter [facility] 2nd Fl [address] [place] [address] Infusion Chair 6, 2nd Floor [place] 10/12/2025 1:30 PM MANOMETER TECHNICIAN Office Visit [facility] Neurology [address] [place] [address] Navi Stephens MD [address] [facility] [address] [address] [address] 10/20/2025 11:00 AM MANOMETER TECHNICIAN Office Visit [facility] Gynecologic Oncology [place] [address] [address] [address] [place] [address] Becky Walton MD [address] [facility] [address] [place] [address] 10/20/2025 11:30 AM MANOMETER TECHNICIAN Appointment [facility] 2nd Fl [address] [place] [address] Infusion Chair 6, 2nd Floor [place] documented as of this encounter Visit Diagnoses [...] documented as of this encounter Care Teams Test Man Relationship Specialty Start Date End Date Titi Cummings MD [address] [place] [phone] PCP - General Family Practice 10/10/23 documented as of this encounter
--- OUTSIDE RECORDS SUMMARY | 2025-09-23 12:42 | XMS_ITS | Encounter Summary ---
Author Organization [facility] Address [address] [place] [address] Care Team Providers Care Cinetechnician Name Role Phone Titi Cummings MD Primary Care Provider Encounter Details Date Type Department Care Team (Latest Contact Info) Description 05/27/1999 Outpatient Historical HIS [facility] BRY Contreras, iGbson Rivera MD NO ADDRESS ON FILE Malignant neoplasm of upper-outer quadrant of female breast (CMS/HCC) (Primary Dx) Social History Tobacco Use Types Packs/Day Years Used Date Smoking Tobacco: Never Assessed Comments Unknown Sex and Gender Information Value Date Recorded Sex Assigned at Not on file Legal Sex Female 4:40 AM MAGNETIC TAPE TYPEWRITER OPERATOR Gender Identity Not on file Sexual Orientation Not on file documented as of this encounter Plan of Treatment Upcoming Encounters Date Type Department Care Team (Late st Contact Info) Description 09/29/2025 11:30 AM MAGNETIC TAPE TYPEWRITER OPERATOR Office Visit [facility] Gynecologic Oncology [place] [address] [place] [address] Avani Fong, TORRI [address] [place] [address] 09/29/2025 12:00 PM MAGNETIC TAPE TYPEWRITER OPERATOR Hospital Encounter [facility] 2nd Fl [address] [place] [address] Infusion Chair 6, 2nd Floor [place] 10/12/2025 1:30 PM MAGNETIC TAPE TYPEWRITER OPERATOR Office Visit [facility] Neurology [address] [place] [address] Navi Stephens MD [address] [facility] [address] [address] 10/20/2025 11:00 AM MAGNETIC TAPE TYPEWRITER OPERATOR Office Visit [facility] Gynecologic Oncology [place] [address] [address] [place] [address] Becky Walton MD [address] [facility] [address] [place] [address] 10/20/2025 11:30 AM MAGNETIC TAPE TYPEWRITER OPERATOR Appointment [facility] 2nd Fl [address] [place] [address] Infusion Chair 6, 2nd Floor [place] documented as of this encounter Visit Diagnoses [...] documented as of this encounter Care Teams Cinetechnician Relationship Specialty Start Date End Date Titi Cummings MD [address] [place] [phone] PCP - General Family Practice 10/10/23 documented as of this encounter
--- OUTSIDE RECORDS SUMMARY | 2025-09-23 12:42 | XMS_ITS | Encounter Summary ---
Author Organization [facility] Address [address] [place] [address] Care Team Providers Care Flat Knitter Helper Name Role Phone Titi Cummings MD Primary Care Provider Encounter Details Date Type Department Care Team (Late Contact Info) Description 04/28/1999 Outpatient Historical [facility] JluisorrJose Daniel araujo MD [address] [place] [address] [address] [place] [address] Diarrhea (Primary Dx) Social History Tobacco Use Types Packs/Day Years Used Date Smoking Tobacco: Never Assessed Comments Unknown Sex and Gender Information Value Date Recorded Sex Assigned at Not on file Legal Sex Female 4:40 AM SNAP SHEARER Gender Identity Not on file Sexual Orientation Not on file documented as of this encounter Plan of Treatment Upcoming Encounters Date Type Department Care Team (Late Contact Info) Description 09/29/2025 11:30 AM SNAP SHEARER Office Visit [facility] Gynecologic Oncology [place] [address] [facility] [address] [place] [address] Avani Fong, TORRI [address] [facility] [address] [place] [address] 09/29/2025 12:00 PM SNAP SHEARER Hospital Encounter [facility] 2nd Fl [address] [place] [address] Infusion Chair 6, 2nd Floor [place] 10/12/2025 1:30 PM SNAP SHEARER Office Visit [facility] Neurology [address] [place] [address] Navi Stephens MD [address] [address] 10/20/2025 11:00 AM SNAP SHEARER Office Visit [facility] Gynecologic Oncology [place] [address] [place] [address] Becky Walton MD [address] [place] [address] 10/20/2025 11:30 AM SNAP SHEARER Appointment [facility] 2nd Fl [address] [place] [address] Infusion Chair 6, 2nd Floor [place] documented as of this encounter Visit Diagnoses [...] documented as of this encounter Care Teams Flat Knitter Helper Relationship Specialty Start Date End Date Titi Cummings MD [address] [place] [phone] PCP - General Family Practice 10/10/23 documented as of this encounter
--- OUTSIDE RECORDS SUMMARY | 2025-09-23 12:42 | XMS_ITS | Encounter Summary ---
Author Organization [facility] Address [address] [place] [address] Care Team Providers Care Repair Weaver Name Role Phone Titi Cummings MD Primary Care Provider Encounter Details Date Type Department Care Team (Latest Contact Info) Description 02/06/2001 Outpatient Historical [facility] Daron French MD NO ADDRESS ON FILE Special screening for osteoporosis (Primary Dx) Social History Tobacco Use Types Packs/Day Years Used Date Smoking Tobacco: Never Assessed Comments Unknown Sex and Gender Information Value Date Recorded Sex Assigned at Not on file Legal Sex Female 4:40 AM SECONDARY HISTORY TEACHER Gender Identity Not on file Sexual Orientation Not on file documented as of this encounter Plan of Treatment Upcoming Encounters Date Type Department Care Team (Late st Contact Info) Description 09/29/2025 11:30 AM SECONDARY HISTORY TEACHER Office Visit [facility] Gynecologic Oncology [place] [address] [place] [address] Avani Fong, TORRI [address] [place] [address] 09/29/2025 12:00 PM SECONDARY HISTORY TEACHER Hospital Encounter [facility] 2nd Fl [address] [place] [address] Infusion Chair 6, 2nd Floor [place] 10/12/2025 1:30 PM SECONDARY HISTORY TEACHER Office Visit [facility] Neurology [address] [place] [address] Navi Stephens MD [address] [address] 10/20/2025 11:00 AM SECONDARY HISTORY TEACHER Office Visit [facility] Gynecologic Oncology [place] [address] [place] [address] Becky Walton MD [address] [place] [address] 10/20/2025 11:30 AM SECONDARY HISTORY TEACHER Appointment [facility] 2nd Fl [address] [place] [address] Infusion Chair 6, 2nd Floor [place] documented as of this encounter Visit Diagnoses [...] documented as of this encounter Care Teams Repair Weaver Relationship Specialty Start Date End Date Titi Cummings MD [address] [facility] [address] [place] [phone] PCP - General Family Practice 10/10/23 documented as of this encounter
--- OUTSIDE RECORDS SUMMARY | 2025-09-23 12:42 | XMS_ITS | Encounter Summary ---
Author Organization [facility] Address [address] [place] [address] Care Team Providers Care Road Hogger Operator Name Role Phone Titi Cummings MD Primary Care Provider Encounter Details Date Type Department Care Team (Latest Contact Info) Description 09/23/1999 Outpatient Historical HIS [facility] BRY Contreras, Gibson Rivera MD NO ADDRESS ON FILE Malignant neoplasm of upper-outer quadrant of female breast (CMS/HCC) (Primary Dx) Social History Tobacco Use Types Packs/Day Years Used Date Smoking Tobacco: Never Assessed Comments Unknown Sex and Gender Information Value Date Recorded Sex Assigned at Not on file Legal Sex Female 4:40 AM MEAT WASHER Gender Identity Not on file Sexual Orientation Not on file documented as of this encounter Plan of Treatment Upcoming Encounters Date Type Department Care Team (Late st Contact Info) Description 09/29/2025 11:30 AM MEAT WASHER Office Visit [facility] Gynecologic Oncology [place] [address] [place] [address] Avani Fong, TORRI [address] [place] [address] 09/29/2025 12:00 PM MEAT WASHER Hospital Encounter [facility] 2nd Fl [address] [place] [address] Infusion Chair 6, 2nd Floor [place] 10/12/2025 1:30 PM MEAT WASHER Office Visit [facility] Neurology [address] [place] [address] Navi Stephens MD [address] [facility] [address] [address] 10/20/2025 11:00 AM MEAT WASHER Office Visit [facility] Gynecologic Oncology [place] [address] [place] [address] Becky Walton MD [address] [place] [address] 10/20/2025 11:30 AM MEAT WASHER Appointment [facility] 2nd Fl [address] [place] [address] Infusion Chair 6, 2nd Floor [place] documented as of this encounter Visit Diagnoses [...] documented as of this encounter Care Teams Road Hogger Operator Relationship Specialty Start Date End Date Titi Cummings MD [address] [place] [phone] PCP - General Family Practice 10/10/23 documented as of this encounter
--- OUTSIDE RECORDS SUMMARY | 2025-09-23 12:44 | XMS_ITS ---
Author Organization [facility] Address [address] [place] [address] Phone Care Team Providers Care Management Information Systems Director Name Role Phone Titi Cummings MD [...] NEGATIVE genetic testing. The patient underwent the [employer] My Risk Genetic Testing for Hereditary Cancer [...] Hyperlipemia 02/17/2011 Anxiety 02/17/2011 Hydrocephalus Benign hypertension WATERWORKS OPERATOR (ventriculoperitoneal) shunt status Gait abnormality Acute on [...]
--- OUTSIDE RECORDS SUMMARY | 2025-09-23 12:44 | XMS_ITS | Encounter Summary ---
Author Organization [facility] Address [address] [place] [address] Care Team Providers Care Locker Room Supervisor Name Role Phone Titi Cummings MD [...] on file Legal Sex Female 4:40 AM TOURIST INFORMATION ASSISTANT Gender Identity Not on file Sexual Orientation Not on file Occupation Industry Job Start Date Job End Date Not on file Not on file Not on file Not on file documented as of this encounter Plan of Treatment Upcoming Encounters Date Type Department Care Team (Late Contact Info) Description 09/29/2025 11:30 AM TOURIST INFORMATION ASSISTANT Office Visit [facility] Gynecologic Oncology [place] [address] [place] [address] Avani Fong, TORRI [address] [place] [address] 09/29/2025 12:00 PM TOURIST INFORMATION ASSISTANT Hospital Encounter [facility] 2nd Fl [address] [place] [address] Infusion Chair 6, 2nd Floor [place] 10/12/2025 1:30 PM TOURIST INFORMATION ASSISTANT Office Visit [facility] Neurology [address] [facility] [address] [place] [address] Navi Stephens MD [address] [facility] [address] [address] 10/20/2025 11:00 AM TOURIST INFORMATION ASSISTANT Office Visit [facility] Gynecologic Oncology [place] [address] [facility] [address] [place] [address] Becky Walton MD [address] [facility] [address] [place] [address] 10/20/2025 11:30 AM TOURIST INFORMATION ASSISTANT Appointment [facility] 2nd Fl [address] [place] [address] Infusion Chair 6, 2nd [facility] documented as of this encounter Visit Diagnoses Not on filedocumented in this encounter Additional Health Concerns Assessment Noted Time PHQ-9 Depression Total Score: 4 10/02/20 24 12:00 PM TOURIST INFORMATION ASSISTANT documented as of this encounter Care Teams Locker Room Supervisor Relationship Specialty Start Date End Date Titi Cummings MD [address] [phone] PCP - General Family Practice 10/10/23 documented as of this encounter
--- OUTSIDE RECORDS SUMMARY | 2025-09-23 12:44 | XMS_ITS | Encounter Summary ---
Author Organization [facility] Address [address] [address] Care Team Providers Care Director Of Marketing Name Role Phone Titi Cummings MD [...] on file Legal Sex Female 4:40 AM SUSTAIN ENGINEER Gender Identity Not on file Sexual Orientation Not on file Occupation Industry Job Start Date Job End Date Not on file Not on file Not on file Not on file documented as of this encounter Plan of Treatment Upcoming Encounters Date Type Department Care Team (Late Contact Info) Description 09/29/2025 11:30 AM SUSTAIN ENGINEER Office Visit [facility] Gynecologic Oncology [place] [address] [place] [address] Avani Fong, TORRI [address] [place] [phone] 09/29/2025 12:00 PM SUSTAIN ENGINEER Hospital Encounter [facility] 2nd Fl [address] [place] [address] Infusion Chair 6, 2nd Floor [place] 10/12/2025 1:30 PM SUSTAIN ENGINEER Office Visit [facility] Neurology [address] [place] [address] [place] [address] Navi Stephens MD [address] [place] [address] 10/20/2025 11:00 AM SUSTAIN ENGINEER Office Visit [facility] Gynecologic Oncology [place] [address] [place] [address] Becky Walton MD [address] [facility] [address] [place] [address] 10/20/2025 11:30 AM SUSTAIN ENGINEER Appointment [facility] 2nd Fl [address] [place] [address] Infusion Chair 6, 2nd [facility] documented as of this encounter Visit Diagnoses Not on filedocumented in this encounter Additional Health Concerns Assessment Noted Time PHQ-9 Depression Total Score: 4 10/02/20 24 12:00 PM SUSTAIN ENGINEER documented as of this encounter Care Teams Director Of Marketing Relationship Specialty Start Date End Date Titi Cummings MD [address] [phone] PCP - General Family Practice 10/10/23 documented as of this encounter
--- OUTSIDE RECORDS SUMMARY | 2025-09-23 12:44 | XMS_ITS | Encounter Summary ---
Author Organization [facility] Address [address] [place] [address] Care Team Providers Care Display Maker Name Role Phone Titi Cummings MD Primary Care Provider Encounter Details Date Type Department Care Team (Latest Contact Info) Description 09/04/2025 Results Follow-Up [facility] Gastroenterology [facility] [address] [facility] [address] [place] [address] Morenita Alexis MD [address] [facility] [address] [place] [address] [facility] Social [...] on file Legal Sex Female 4:40 AM DISTRIBUTION OPERATION SUPERVISOR Gender Identity Not on file Sexual Orientation Not on file Occupation Industry Job Start Date Job End Date Not on file Not on file Not on file Not on file documented as of this encounter Plan of Treatment Upcoming Encounters Date Type Department Care Team ( Contact Info) Description 09/29/2025 11:30 AM DISTRIBUTION OPERATION SUPERVISOR Office Visit [facility] Gynecologic Oncology [place] [address] [place] [address] Avani Fong, TORRI [address] [place] [address] 09/29/2025 12:00 PM DISTRIBUTION OPERATION SUPERVISOR Hospital Encounter [facility] 2nd Fl [address] [place] [address] Infusion Chair 6, 2nd Floor [place] 10/12/2025 1:30 PM DISTRIBUTION OPERATION SUPERVISOR Office Visit [facility] [address] [place] [address] Navi Stephens MD [address] [facility] [address] [address] 10/20/2025 11:00 AM DISTRIBUTION OPERATION SUPERVISOR Office Visit [facility] Gynecologic Oncology [place] [address] [place] [address] Becyk Walton MD [address] [facility] [address] [place] [address] 10/20/2025 11:30 AM DISTRIBUTION OPERATION SUPERVISOR Appointment [facility] 2nd Fl [address] [place] [address] Infusion Chair 6, 2nd Floor [place] documented as of this encounter Visit Diagnoses Not on filedocumented in this encounter Additional Health Concerns Assessment Noted Time PHQ-9 Depression Total Score: 4 10/02/20 24 12:00 PM DISTRIBUTION OPERATION SUPERVISOR documented as of this encounter Care Teams Display Maker Relationship Specialty Start Date End Date Titi Cummings MD 4 [facility] [address] [place] [phone] PCP - General Family Practice 10/10/23 documented as of this encounter
--- OUTSIDE RECORDS SUMMARY | 2025-09-23 12:44 | XMS_ITS | Encounter Summary ---
Author Organization [facility] Address [address] [place] [address] Care Team Providers Care Information Systems Auditor Name Role Phone Titi Cummings MD [...] file Legal Sex Female 4:40 AM CHILD LIFE SPECIALIST Gender Identity Not on file Sexual Orientation Not on file Occupation Industry Job Start Date Job End Date Not on file Not on file Not on file Not on file documented as of this encounter Plan of Treatment Upcoming Encounters Date Type Department Care Team (Late Contact Info) Description 09/29/2025 11:30 AM CHILD LIFE SPECIALIST Office Visit [facility] Gynecologic Oncology [place] [address] [place] [address] Avani Fong, TORRI [address] [place] [phone] 09/29/2025 12:00 PM CHILD LIFE SPECIALIST Hospital Encounter [facility] 2nd Fl [address] [place] [address] Infusion Chair 6, 2nd Floor [place] 10/12/2025 1:30 PM CHILD LIFE SPECIALIST Office Visit [facility] Neurology [address] [place] [address] Navi Stephens MD [address] [address] 10/20/2025 11:00 AM CHILD LIFE SPECIALIST Office Visit [facility] Gynecologic Oncology [place] [address] [place] [address] Becky Walton MD [address] [facility] [address] [place] [address] 10/20/2025 11:30 AM CHILD LIFE SPECIALIST Appointment [facility] 2nd Fl [address] [place] [address] Infusion Chair 6, [address] [facility] documented as of this encounter Visit Diagnoses Not on filedocumented in this encounter Additional Health Concerns Assessment Noted Time PHQ-9 Depression Total Score: 4 10/02/20 24 12:00 PM CHILD LIFE SPECIALIST documented as of this encounter Care Teams Information Systems Auditor Relationship Specialty Start Date End Date Titi Cummings MD [address] [phone] PCP - General Family Practice 10/10/23 documented as of this encounter
--- OUTSIDE RECORDS SUMMARY | 2025-09-23 12:44 | XMS_ITS | Encounter Summary ---
Author Organization [facility] Healthcare Address [address] [place] [address] Care Team Providers Care Director Professional Services Name Role Phone Titi Cummings MD Primary Care Provider Tomás Garcia MD Unavailable Gautam Stoll MD Unavailable Steve Murphy MD Unavailable [phone] China Reynoso NP Unavailable + Yariel Stephens MD Unavailable Reason for Visit * Reason Onset Date Comments Hip Injury 09/22/2025 Encounter Details Date Type Department Care Team (Late st Contact Info) Description 09/22/[address] [facility] Medical Group Primary Care at [address] [address] Titi Cummings MD [address] [place] [address] [address] [place] [address] Social History Tobacco Use Types [...] on file Legal Sex Female 1:46 PM CAMERA REPAIR TECHNICIAN Gender Identity Female 07/25/2023 8:58 AM CDT [...] osteoporosis, chronic steroid use) Protocols Used Hip [id number] RA REPAIR TECHNICIAN * Telephone Encounter - Pratima Herbert RN - 09/22/2025 10:58 AM CST Regarding: Fall ----- Message from Анна Rivera sent at 09/22/2025 10:57 AM CAMERA REPAIR TECHNICIAN ----- Symptom Based Call Chief Complaint(s): Fall Duration: Happened on Saturday What type of symptom(s) is the patient experiencing? Red Flag. Is the patient concerned they are experiencing a medical emergency requiring an ambulance? No Additional Comments: Pt states she's taking tramadol for pain, says no injuries just pain between he bottom and her hip. Does message need to be routed? Yes-Action Needed RA REPAIR TECHNICIAN documented in this encounter Plan of Treatment Not on file documented as of this encounter Visit Diagnoses Not on filedocumented in this encounter Care Teams Director Professional Services Relationship Specialty Start Date End Date Titi Cummings MD 2 [facility] [address] [place] [address] PCP - General Family Medicine 09/24/23 Tomás Garcia MD [address] [place] [address] [address] [place], [place] [phone] Referring Physician Neurosurgery 09/24/23 Gautam Stoll MD [address] [place] [address] Consulting Physician Obstetrics and Gynecology 09/24/23 Steve Murphy MD [address] [place] [address] Gynecologic Oncology 09/24/23 China Reynoso NP [address] [place] [address] [address] [place] [address] Nurse Practitioner Neurology 09/24/23 Yariel Stephens MD [address] [place] [address] [facility] [address] [place] [address] Referring Physician Neurology 09/24/23 documented as of this encounter
--- OUTSIDE RECORDS SUMMARY | 2025-09-23 12:44 | XMS_ITS | Encounter Summary ---
Author Organization [facility] Address [address] [place] [address] Care Team Providers Care Lockstitch Waistband Setter Name Role Phone Titi Cummings MD [...] on file Legal Sex Female 4:40 AM BIOTECHNICIAN Gender Identity Not on file Sexual Orientation Not on file Occupation Industry Job Start Date Job End Date Not on file Not on file Not on file Not on file documented as of this encounter Plan of Treatment Upcoming Encounters Date Type Department Care Team (Late Contact Info) Description 09/29/2025 11:30 AM BIOTECHNICIAN Office Visit [facility] Gynecologic Oncology [place] [address] [place] [address] Avani Fong, TORRI [address] [place] [address] 09/29/2025 12:00 PM BIOTECHNICIAN Hospital Encounter [facility] 2nd Fl [address] [place] [address] Infusion Chair 6, 2nd Floor [place] 10/12/2025 1:30 PM BIOTECHNICIAN Office Visit [facility] Neurology [address] [place] [address] Navi Stephens MD [address] [address] 10/20/2025 11:00 AM BIOTECHNICIAN Office Visit [facility] Gynecologic Oncology [place] [address] [place] [address] Becky Walton MD [address] [facility] [address] [place] [address] 10/20/2025 11:30 AM BIOTECHNICIAN Appointment [facility] 2nd Fl [address] [place] [address] Infusion Chair 6, 2nd [facility] documented as of this encounter Visit Diagnoses Not on filedocumented in this encounter Additional Health Concerns Assessment Noted Time PHQ-9 Depression Total Score: 4 10/02/20 24 12:00 PM BIOTECHNICIAN documented as of this encounter Care Teams Lockstitch Waistband Setter Relationship Specialty Start Date End Date Titi Cummings MD [address] [phone] PCP - General Family Practice 10/10/23 documented as of this encounter
--- OUTSIDE RECORDS SUMMARY | 2025-09-23 12:45 | XMS_ITS | Encounter Summary ---
Author Organization [facility] Address [address] [place] [address] Care Team Providers Care Supervisor Mechanic Boilermaking Name Role Phone Titi Cummings MD Primary Care Provider Encounter Details Date Type Department Care Team (Latest Contact Info) Description 08/08/2003 Outpatient Historical [facility], [address] Gibson Contreras MD NO ADDRESS ON FILE ABNORMAL LIVER FUNCTION STUDY (Primary Dx) Social History Tobacco Use Types Packs/Day Years Used Date Smoking Tobacco: Never Assessed Comments Unknown Sex and Gender Information Value Date Recorded Sex Assigned at Not on file Legal Sex Female 4:40 AM OVERWEAVER Gender Identity Not on file Sexual Orientation Not on file documented as of this encounter Plan of Treatment Upcoming Encounters Date Type Department Care Team (Late st Contact Info) Description 09/29/2025 11:30 AM OVERWEAVER Office Visit [facility] Gynecologic Oncology [place] [address] [place] [address] Avani Fong, TORRI [address] [place] [address] 09/29/2025 12:00 PM OVERWEAVER Hospital Encounter [facility] 2nd Fl [address] [place] [address] Infusion Chair 6, 2nd Floor [place] 10/12/2025 1:30 PM OVERWEAVER Office Visit [facility] Neurology [address] [place] [address] Navi Stephens MD [address] [address] 10/20/2025 11:00 AM OVERWEAVER Office Visit [facility] Gynecologic Oncology [place] [address] [place] [address] Becky Walton MD [address] [place] [address] 10/20/2025 11:30 AM OVERWEAVER Appointment [facility] 2nd Fl [address] [place] [address] Infusion Chair 6, 2nd Floor [place] documented as of this encounter Visit Diagnoses [...] as of this encounter Care Teams Supervisor Mechanic Boilermaking Relationship Specialty Start Date End Date Titi Cummings MD [address] [phone] PCP - General Family Practice 10/10/23 documented as of this encounter
--- OUTSIDE RECORDS SUMMARY | 2025-09-23 12:45 | XMS_ITS | Encounter Summary ---
Author Organization [facility] Address [address] [place] [address] Care Team Providers Care Fuel Handler Name Role Phone Titi Cummings MD Primary Care Provider Encounter Details Date Type Department Care Team (Latest Contact Info) Description 01/05/2006 Outpatient Historical [facility] BRY Contreras, Gibson Rivera MD NO ADDRESS ON FILE Other Screening Mammogram (Primary Dx) Social History Tobacco Use Types Packs/Day Years Used Date Smoking Tobacco: Never Assessed Comments Unknown Sex and Gender Information Value Date Recorded Sex Assigned at Not on file Legal Sex Female 4:40 AM DESKTOP SUPPORT ASSOCIATE Gender Identity Not on file Sexual Orientation Not on file documented as of this encounter Plan of Treatment Upcoming Encounters Date Type Department Care Team (Late st Contact Info) Description 09/29/2025 11:30 AM DESKTOP SUPPORT ASSOCIATE Office Visit [facility] Gynecologic Oncology [place] [address] [facility] [facility] [address] [place] [address] Avani Fong, TORRI [address] [place] [address] 09/29/2025 12:00 PM DESKTOP SUPPORT ASSOCIATE Hospital Encounter [facility] 2nd Fl [address] [place] [address] Infusion Chair 6, 2nd Floor [place] 10/12/2025 1:30 PM DESKTOP SUPPORT ASSOCIATE Office Visit [facility] Neurology [address] [place] [address] Navi Stephens MD [address] [address] 10/20/2025 11:00 AM DESKTOP SUPPORT ASSOCIATE Office Visit [facility] Gynecologic Oncology [place] [address] [place] [address] Becky Walton MD [address] [place] [address] 10/20/2025 11:30 AM DESKTOP SUPPORT ASSOCIATE Appointment [facility] 2nd Fl [address] [place] [address] Infusion Chair 6, 2nd Floor [place] documented as of this encounter Visit Diagnoses [...] documented as of this encounter Care Teams Fuel Handler Relationship Specialty Start Date End Date Titi Cummings MD [address] [address] PCP - General Family Practice 10/10/23 documented as of this encounter
--- OUTSIDE RECORDS SUMMARY | 2025-09-23 12:45 | XMS_ITS | Encounter Summary ---
Author Organization [facility] Address [address] [place] [address] Care Team Providers Care Barrer And Tacker Name Role Phone Titi Cummings MD Primary [...] on file Legal Sex Female 4:40 AM VARNISH MIXER Gender Identity Not on file Sexual Orientation Not on file documented as of this encounter Plan of Treatment Upcoming Encounters Date Type Department Care Team (Late st Contact Info) Description 09/29/2025 11:30 AM VARNISH MIXER Office Visit [facility] Gynecologic Oncology [place] [address] [facility] [address] [place] [address] Avani Fong, TORRI [address] [place] [address] 09/29/2025 12:00 PM VARNISH MIXER Hospital Encounter [facility] 2nd Fl [address] [place] [address] Infusion Chair 6, 2nd Floor [place] 10/12/2025 1:30 PM VARNISH MIXER Office Visit [facility] Neurology [address] [place] [address] Navi Stephens MD [address] [address] 10/20/2025 11:00 AM VARNISH MIXER Office Visit [facility] Gynecologic Oncology [place] [address] [place] [address] Becky Walton MD [address] [place] [address] 10/20/2025 11:30 AM VARNISH MIXER Appointment [facility] 2nd Fl [address] [place] [address] Infusion Chair 6, 2nd Floor [place] documented as of this encounter Visit Diagnoses [...] documented as of this encounter Care Teams Barrer And Tacker Relationship Specialty Start Date End Date Titi Cummings MD [address] [address] PCP - General Family Practice 10/10/23 documented as of this encounter
--- OUTSIDE RECORDS SUMMARY | 2025-09-23 12:45 | XMS_ITS | Clinical Summary ---
Author Organization [facility] Address [address] [place] [address] Phone Care Team Providers Care Ventilation Worker Name Role Phone Titi Cummings MD [...] 3 025 Active naloxone (NARCAN) 4 mg/spray [place], Non-Aerosol EMERGENCY USE ONLY: Administer 1 spray [...] NEGATIVE genetic testing. The patient underwent the DianDian My Risk Genetic Testing for Hereditary Cancer [...] Hyperlipemia 02/17/2011 Anxiety 02/17/2011 Hydrocephalus Benign hypertension AWNING FINISHER (ventriculoperitoneal) shunt status Gait abnormality Acute on [...] Device Data STL ABSTRACTION Provider, Abstract 09/20/2025 [facility] Gynecologic Oncology [place] [address] [facility] [address] [place] [address] Avani Fong NP 09/20/2025 External Device Data [...] STL ABSTRACTION Provider, Abstract 09/08/2025 11:00 AM FILLER AND TRIMMER - 09/08/2025 11:59 PM FILLER AND TRIMMER Hospital Encounter [facility] 2nd Fl [address] [place] [address] Becky Walton MD Infusion Chair 10, 2nd [facility] Discharge Disposition: Home or Self Care 09/08/2025 9:30 AM FILLER AND TRIMMER - 09/08/2025 11:59 PM FILLER AND TRIMMER Hospital Encounter [facility] 2nd Fl [address] [place] [address] Becky Walton MD Discharge Disposition: Home or Self Care 09/08/2025 Chart Note [facility] 2nd Fl [address] [place] [address] Lexi Amezquita, GERARDO Follow Up (Nurse navigation [...] STL ABSTRACTION Provider, Abstract 09/04/2025 Results Follow-Up [facility] Gastroenterology [place] [address] [facility] [address] [place] [address] Yuly Alexis MD GIARDIA & [...] STL ABSTRACTION Provider, Abstract 08/31/2025 Chart Note [facility] Oncology Patient Navigation [address] [place] [address] Lexi Amezquita, RN Follow Up (Nurse navigation ) 08/31/2025 External Device Data STL ABSTRACTION Provider, Abstract 08/31/2025 External Device Data STL ABSTRACTION Provider, Abstract 08/31/2025 External Device Data STL ABSTRACTION Provider, Abstract 08/31/2025 External Device Data STL ABSTRACTION Provider, Abstract 08/30/2025 Chart Note [facility] Oncology Patient Navigation [address] [place] [address] Lexi Amezquita, RN Follow Up (Nurse navigation [...] STL ABSTRACTION Provider, Abstract 08/27/2025 12:13 PM FILLER AND TRIMMER - 08/27/2025 11:59 PM FILLER AND TRIMMER Hospital Encounter [facility] [address] [place] [address] Avani Fong NP Infusion Chair 4, 2nd Floor [place] Discharge Disposition: Home or Self Care 08/27/2025 External Device Data STL ABSTRACTION Provider, Abstract 08/27/2025 External Device Data STL ABSTRACTION Provider, Abstract 08/27/2025 External Device Data STL ABSTRACTION Provider, Abstract 08/27/2025 External Device Data STL ABSTRACTION Provider, Abstract 08/26/2025 Chart Note [facility] Oncology Patient Navigation [address] [place] [address] Lexi Amezquita, RN Follow Up (Nurse n) 08/26/[address] [facility] Gastroenterology [place] [address] [facility] [address] [place] [address] Yuly Alexis MD stool studies 08/26/2025 External Device Data STL ABSTRACTION Provider, Abstract 08/26/2025 External Device Data STL ABSTRACTION Provider, Abstract 08/26/2025 External Device Data STL ABSTRACTION Provider, Abstract 08/26/2025 External Device Data STL ABSTRACTION Provider, Abstract 08/25/2025 12:41 PM FILLER AND TRIMMER - 08/25/2025 11:59 PM FILLER AND TRIMMER Hospital Encounter [facility] Infusion Center [facility] [address] [place] [address] Becky Walton MD Infusion Chair 4, 2nd Floor [place] Discharge Disposition: Home or Self Care 08/25/2025 11:00 AM FILLER AND TRIMMER Office Visit [facility] Gynecologic Oncology [place] [address] [facility] [address] [place] [address] Becky Walton MD Recurrent carcinoma of ovary, unspecified laterality (CMS/HCC) (Primary Dx); Chemotherapy management, encounter for; Diarrhea, unspecified type; Colitis; Hypokalemia; Primary peritoneal carcinomatosis (CMS/HCC) 08/25/2025 8:25 AM FILLER AND TRIMMER - 08/25/2025 11:59 PM FILLER AND TRIMMER Hospital Encounter [facility] Fl [address] [place] [address] Becky Walton MD Discharge Disposition: Home or Self Care 08/25/2025 Chart Note [facility] Oncology Patient Navigation [address] [place] [address] Lexi Amezquita, RN Follow Up (Nurse navigation ) 08/25/2025 External Device Data STL ABSTRACTION Provider, Abstract 08/25/2025 External Device Data STL ABSTRACTION Provider, Abstract 08/25/2025 External Device Data STL ABSTRACTION Provider, Abstract 08/25/2025 External Device Data STL ABSTRACTION Provider, Abstract 08/25/2025 Telephone [facility] Gynecologic Oncology [place] [address] [facility] [address] [place] [address] Becky Walton MD Follow Up 08/24/2025 External [...] Data STL ABSTRACTION Provider, Abstract 08/20/[address] [facility] Gastroenterology [facility] [address] [facility] [address] [place] [phone] Yuly Alexis MD Results; Additional testing 08/20/2025 Orders Only [facility] Gastroenterology [facility] [address] [facility] [address] [place] [address] Yuly Alexis MD Acute colitis (Primary Dx); Chronic diarrhea 08/20/2025 Results Follow-Up [facility] Gastroenterology [facility] [address] [facility] [address] [place] [address] Yuly Alexis MD PATHOLOGY 08/19/2025 External Device [...] Abstract 08/17/2025 11:46 AM CDT Anesthesia Event [facility] [address] [place] [address] [place] [address] Gautam Dubon, DO Torres, Nathalie Berg, AA-C 08/17/2025 11:40 AM CDT - 08/17/2025 12:[address] [facility] [address] [place] [address] Yuly Alexis MD COLONOSCOPY 08/17/2025 9:48 AM CDT - 08/17/2025 2:59 PM CDT Hospital En[facility] [address] [place] [address] Yuly Alexis MD Diarrhea, unspecified type Discharge [...] STL ABSTRACTION Provider, Abstract 08/09/2025 Results Follow-Up [facility] Gynecologic Oncology [place] [address] [facility] [address] [place] [address] CHEST ABDOMEN PELVIS W CONT 08/09/2025 Orders Only [facility] Gynecologic Oncology [place] [address] [place] [address] Avani Fong NP 08/09/2025 Telephone [facility] Gynecologic Oncology [place] [address] [facility] [address] [place] [address] Becky Walton MD Follow Up (Requesting CT [...] - 08/06/2025 11:59 PM CDT Hospital Encounter [facility] Scan [facility] [address] [place] [address] Avani Fong NP Discharge Disposition: Home or Self Care 08/06/2025 External Device Data STL ABSTRACTION Provider, Abstract 08/06/2025 External Device Data STL ABSTRACTION Provider, Abstract 08/06/2025 External Device Data STL ABSTRACTION Provider, Abstract 08/06/2025 External Device Data STL ABSTRACTION Provider, Abstract 08/05/[address] [facility] Palliative [facility] Dougherty B [address] [facility] [address] [place] [address] Becky Walton MD Chemotherapy management, encounter for; Peritoneal carcinoma ([facility]/HCC) 08/05/2025 External Device Data STL ABSTRACTION Provider, Abstract 08/05/2025 External Device Data STL ABSTRACTION Provider, Abstract 08/04/2025 11:00 AM CDT Office Visit [facility] Gynecologic Oncology [place] [address] [facility] [address] [place] [address] Avani Fong NP Chemotherapy management, encounter for (Primary Dx); Recurrent carcinoma of ovary, unspecified laterality (CMS/HCC); Diarrhea, unspecified type 08/04/2025 10:56 AM CDT - 08/04/2025 11:59 PM CDT Hospital Encounter [facility] 2nd Fl [address] [place] [address] Avani Fong NP Infusion Chair 1, 2nd Floor [place] Discharge Disposition: Home or Self Care 08/04/2025 9:46 AM CDT - 08/04/2025 11:59 PM CDT Hospital Encounter [facility] 2nd Fl [address] [place] [address] Becky Walton MD Discharge Disposition: Home or Self Care 08/04/2025 Orders Only [facility] Gynecologic Oncology [place] [address] [facility] [address] [place] [address] Avani Fong NP Chemotherapy management, encounter for [...] Data STL ABSTRACTION Provider, Abstract 07/27/2025 Refill [facility] Gynecologic Oncology [place] [address] [facility] [address] [place] [address] Becky Walton MD 07/27/2025 External Device Data [...] Data STL ABSTRACTION Provider, Abstract 07/23/2025 Telephone [facility] Gynecologic Oncology [place] [address] [facility] [address] [place] [address] Becky Walton MD Follow Up (Opium tincture, [...] Data STL ABSTRACTION Provider, Abstract 07/16/2025 Telephone [facility] Gynecologic Oncology [place] [address] [place] [address] Becky Walton MD Question (Opium tincture ) 07/16/2025 External Device Data STL ABSTRACTION Provider, Abstract 07/16/2025 External Device Data STL ABSTRACTION Provider, Abstract 07/16/2025 External Device Data STL ABSTRACTION Provider, Abstract 07/15/2025 Telephone [facility] Gynecologic Oncology [place] [address] [address] Becky Walton MD Follow Up (Opium tincture) 07/15/2025 External Device Data STL ABSTRACTION Provider, Abstract 07/15/2025 External Device Data STL ABSTRACTION Provider, Abstract 07/14/2025 11:20 AM CDT - 07/14/2025 11:59 PM CDT Hospital Encounter [facility] 2nd [place] [address] [place] [address] Becky Walton MD Infusion Chair 8, 2nd Floor [place] Discharge Disposition: Home or Self Care 07/14/2025 11:00 AM CDT Office Visit [facility] Gynecologic Oncology [place] [address] [facility] [address] [place] [address] eBcky Walton MD Diarrhea, unspecified type (Primary Dx); Chemotherapy management, encounter for; Recurrent carcinoma of ovary, unspecified laterality (CMS/HCC) 07/14/2025 7:00 AM CDT - 07/14/2025 11:59 PM CDT Hospital Encounter [facility] 2nd Fl [address] [place] [address] Becky Walton MD Discharge Disposition: Home or [...] Data STL ABSTRACTION Provider, Abstract 07/09/2025 Telephone [facility] Gynecologic Oncology [place] [address] [facility] [address] [place] [address] Becky Walton MD Question (macrobid) 07/09/2025 External [...] 2nd Fl [address] [place] [address] Becky Walton MD Infusion Chair 5, 2nd Floor [place] Discharge Disposition: Home or Self Care 07/06/2025 2:15 PM CDT - 07/06/2025 11:59 PM CDT Hospital Encounter [facility] 2nd Fl [address] [place] [address] Becky Walton MD Discharge Disposition: Home or Self Care 07/06/2025 External Device Data STL ABSTRACTION Provider, Abstract 07/06/2025 [facility] Gynecologic Oncology [place] [address] [facility] [address] [place] [address] Becky Walton MD Follow Up (fatigue) 07/06/2025 [...] on file Legal Sex Female 4:40 AM FILLER AND TRIMMER Gender Identity Not on file Sexual Orientation Not on file Occupation Industry Job Start Date Job End Date Not on file Not on file Not on file Not on file Last Filed Vital Signs Vital Sign Reading Time Taken Comments Blood Pressure 121/75 09/08/2025 12:04 PM FILLER AND TRIMMER Pulse 93 09/08/2025 12:04 PM FILLER AND TRIMMER Temperature 36.5 C (97.7 F) 08/25/2025 10:37 AM FILLER AND TRIMMER Respiratory Rate 18 08/17/2025 2:35 PM CDT Oxygen Saturation 90% 08/25/2025 10:37 AM FILLER AND TRIMMER Inhaled Oxygen Concentration - - Weight 45.9 kg (101 lb 2 oz) 08/25/2025 10:37 AM FILLER AND TRIMMER Height 157.5 cm (5' 2) 08/25/2025 10:37 AM FILLER AND TRIMMER Body Mass Index 18.5 08/25/2025 10:37 AM FILLER AND TRIMMER Plan of Treatment Upcoming Encounters Date Type Department Care Team (Late st Contact Info) Description 09/29/2025 11:30 AM FILLER AND TRIMMER Office Visit [facility] Gynecologic Oncology [place] [address] [facility] [address] [place] [address] Avani Fong NP [address] [facility] [address] [place] [address] 09/29/2025 12:00 PM FILLER AND TRIMMER Hospital Encounter [facility] 2nd Fl [address] [place] [address] Infusion Chair 6, 2nd Floor [place] 10/12/2025 1:30 PM FILLER AND TRIMMER Office Visit [facility] Neurology [address] [facility] [address] [place] [address] Navi Stephens MD [address] [facility] [address] [address] 10/20/2025 11:00 AM FILLER AND TRIMMER Office Visit [facility] Gynecologic Oncology [place] [address] [facility] [address] [place] [address] Becky Walton MD [address] [facility] [address] [place] [address] 10/20/2025 11:30 AM FILLER AND TRIMMER Appointment [facility] 2nd Fl [address] [place] [address] Infusion Chair 6, 2nd Floor [place] [facility] Maintenance Due Date Last Done Comments [...] Completed 03/25/2024 Medical Devices Implanted Type Area Agricultural Commodities Inspector Device Identifier Shelf Expiration Date Model / Serial / Lot Cath Pert Bactiseal [id number] - [id number] Implanted:Qty: 1 on 08/25/2015 by Tomás Garcia MD at [facility] Catheter [employer] 01/19/2016 [id number] / [id number] / [id number] Port-12/20/2021 Implanted:Qty: 1 on 12/20/2021 by Dameon Smith MD Port Chest Wall [id number] 01/18/2023 [id number] / / [id number] Sealant Floseal W/ Apdtr 5ml [id number] - [id number] Implanted:Qty: 1 on 07/19/2015 by Tomás Garcia MD at [facility] Sealant N/A: Cranial GARCIA- [employer]CIENCE 06/20/2016 [id number] / / [id number] Cath Ventricular Bactiseal 82-3072 - [id number] Implanted:Qty: 1 on 07/19/2015 by Tomás Garcia MD at [facility] Shunt N/A: Brain [employer] 01/19/2016 [id number] / / [id number] Connector Shunt Ss Str [id number] - [id number] Implanted:Qty: 1 on 08/25/2015 by Tomás Garcia MD at [facility] Shunt [employer] 01/23/2018 [id number] / / [id number] Valve Strata Reg Programmable [id number] - [id number] Implanted:Qty: 1 on 08/25/2015 by Tomás Garcia MD at [facility] Valve [employer]- NEUROSURGERY 03/20/2018 [id number] / / [id number] Explanted Type Area Agricultural Commodities Inspector Device Identifier Shelf Expiration Date Model / Serial / Lot Valve Strata Reg Programmable [id number] - [id number] Implanted:Qty: 1 on 07/19/2015 by Tomás Garcia MD at [facility] Explanted:Qty: 1 on 08/25/2015 by Tomás Garcia MD at [facility] Valve N/A: Brain [employer]- NEUROSURGERY 03/20/2018 [id number] / / [id number] Procedures Procedure Name Priority Date/Time Associated Diagnosis Comments URINALYSIS W/REFLEX MICROSCOPIC Stat 09/08/2025 9:43 AM FILLER AND TRIMMER Primary peritoneal carcinomatosis (CMS/HCC) Recurrent carcinoma of ovary, unspecified laterality (CMS/HCC) COMPREHENSIVE METABOLIC PANEL Stat 09/08/2025 9:43 AM FILLER AND TRIMMER Primary peritoneal carcinomatosis (CMS/HCC) Recurrent carcinoma of ovary, unspecified laterality (CMS/HCC) CBC WITH DIFFERENTIAL Stat 09/08/2025 9:43 AM FILLER AND TRIMMER Primary peritoneal carcinomatosis (CMS/HCC) Recurrent carcinoma of ovary, unspecified laterality (CMS/HCC) TSH REFLEXIVE Routine 09/08/2025 9:43 AM FILLER AND TRIMMER Primary peritoneal carcinomatosis (CMS/HCC) Recurrent carcinoma of ovary, unspecified laterality (CMS/HCC) OVA AND PARASITE SCREEN Routine 08/27/2025 11:48 AM FILLER AND TRIMMER Acute colitis Chronic diarrhea GIARDIA & CRYPTOSPORIDIUM ANTIGEN Routine 08/27/2025 11:48 AM FILLER AND TRIMMER Acute colitis Chronic diarrhea CANCER ANTIGEN 125 Routine 08/25/2025 8: 40 AM FILLER AND TRIMMER Primary peritoneal carcinomatosis (CMS/HCC) COMPREHENSIVE METABOLIC PANEL Stat 08/25/2025 8:40 AM FILLER AND TRIMMER Primary peritoneal carcinomatosis (CMS/HCC) CBC WITH DIFFERENTIAL Stat 08/25/2025 8:40 AM FILLER AND TRIMMER Primary peritoneal carcinomatosis (CMS/HCC) URINALYSIS W/REFLEX MICROSCOPIC Stat 08/25/2025 8:40 AM FILLER AND TRIMMER Peritoneal carcinomatosis (CMS/HCC) XR CHEST PA OR AP 1 VW Stat 2:41 PM CDT EKG 12-LEAD Routine 08/17/2025 12:49 PM CDT COLONOSCOPY REPORT 08/17/2025 12 :46 PM CDT PATHOLOGY Pathology 08/17/2025 12:42 PM CDT Diarrhea, unspecified type Colitis [place] COLONOSCOPY FLX DX W/COLLJ SPEC WHEN PFRMD [...] OR WO CAD Routine 11/02/2022 11:05 AM FILLER AND TRIMMER Breast cancer screening by mammogram History of breast cancer from Last 3 Months or Most Recently Relevant to Health Maintenance Results * (ABNORMAL) TSH REFLEXIVE (09/08/2025 9:43 AM FILLER AND TRIMMER) TSH 4.96(H) 0.40 - 4.50 mIU/L [facility]sey Monta[facility] T4 FREE 1.1 0.8 - 1.8 ng/dL [facility] Yamli chelsey Montaño Comment: Test Performed at: [facility] [address] [place] [address] Joana-Luly Thi Vo Blood 09/08/2025 9:43 AM FILLER AND TRIMMER 09/08/2025 9:49 AM FILLER AND TRIMMER us Becky Walton MD CHEMISTRY ORDERABLES Final Re sult [facility] [phone] [facility] [address] [place] [address] * (ABNORMAL) CBC WITH DIFFERENTIAL (09/08/2025 9:43 AM FILLER AND TRIMMER) Only the most recent of5 resultswithin the time period is included. WBC 2.8(L) 4.0 - 9.8 K/uL 09/08/2025 9:55 AM FILLER AND TRIMMER [employer] [facility] - . [place] RBC 3.51(L) 3.90 - 4.90 M/uL 09/08/2025 9:55 AM [employer] [facility]ORATORY SERVICES - . [facility] HEMOGLOBIN 11.0(L) 11.8 - 14.8 g/dL 09/08/2025 9:55 AM [employer] [facility] - . [place] HEMATOCRIT 33.3(L) 35.5 - 44.0 % 09/08/2025 9:55 AM [employer] [facility] - . [facility] MCV 94.9 82.0 - 99.0 fL 09/08/2025 9:55 AM FILLER AND TRIMMER [employer] [facility] - . [facility] MCH 31.3 27.2 - 32.6 pg 09/08/2025 9:55 AM [employer] [facility] - . [facility] MCHC 33.0 31.5 - 35.5 g/dL 09/08/2025 9:55 AM [employer] [facility] - . [place] RDW 18.5(H) 11.5 - 14.5 % 09/08/2025 9:55 AM [employer] [facility] - . [facility] RDW-STDEV 62.9(H) 37.1 - 48.7 fL 09/08/2025 9:55 AM [employer] [facility] - . [facility] PLATELETS 108(L) 140 - 350 K/uL 09/08/2025 9:55 AM [employer] [facility] - . [facility] MPV 8.4(L) 9.3 - 12.4 fL 09/08/2025 9:55 AM FILLER AND TRIMMER [employer] [facility] - . [facility] NEUTROPHILS 73 % 09/08/2025 9:55 AM [facility] LYMPHOCYTES 12 % 09/08/2025 9:55 AM [facility] MONOCYTES 14 % 09/08/2025 9:55 AM [facility] EOSINOPHILS 0 % 09/08/2025 9:55 AM [facility] BASOPHILS 0 % 09/08/2025 9:55 AM [facility] IMMATURE GRANULOCYTES 1 % 09/08/2025 9:55 AM [facility] Comment:IG (Immature Granulo cyte) count includes Metamyelocytes, Myelocytes, and Promyelocytes NEUTROPHIL ABSOLUTE 2.03 1.90 - 7.00 K/uL 09/08/2025 9:55 AM [facility] LYMPHOCYTE ABSOLUTE 0.33(L) 0.70 - 4.50 K/uL 09/08/2025 9:55 AM [facility] MONOCYTE ABSOLUTE 0.38 0.10 - 1.30 K/uL 09/08/2025 9:55 AM [facility] EOSINOPHIL ABSOLUTE 0.01 0.00 - 0.70 K/uL 09/08/2025 9:55 AM [facility] BASOPHILS ABSOLUTE 0.01 0.00 - 0.20 K/uL 09/08/2025 9:55 AM [facility] IMMATURE GRANULOCYTES ABSOLUTE 0.02 0.00 - 0.03 K/uL 09/08/2025 9:55 AM [facility] Blood Collection / Unknown 09/08/2025 9:43 AM FILLER AND TRIMMER 09/08/2025 9:52 AM FILLER AND TRIMMER us Becky Walton MD HEMATOLOGY ORDERABLES Final R esult [facility] CLIA# [id number] [address] [facility] [address] [place] [address] * (ABNORMAL) URINALYSIS WITH REFLEX MICROSCOPIC (09/08/2025 9:43 AM FILLER AND TRIMMER) Only the most recent of2 resultswithin the time period is included. COLOR UA Yellow Pale to Dark Yellow 09/08/2025 10:43 AM [facility] [employer] [facility] CLARITY UA Cloudy(A) Clear 09/08/2025 10:43 AM [facility] [employer] [facility] SPECIFIC GRAVITY UA 1.012 1.003 - 1.035 09/08/2025 10:43 AM [facility] [employer] [facility] PH UA 5.0 5.0 - 8.0 09/08/2025 10:43 AM [facility] [employer] [facility] LEUKOCYTE ESTERASE UA 3+(A) Negative 09/08/2025 10:43 AM [facility] [employer] [facility] NITRITE UA Negative Negative 09/08/2025 10:43 AM [facility] [employer] [facility] PROTEIN UA 1+(A) Negative 09/08/2025 10:43 AM [facility] [employer] [facility] GLUCOSE UA Negative Negative 09/08/2025 10:43 AM [facility] [employer] [facility] KETONES UA Negative Negative 09/08/2025 10:43 AM [facility] [employer] [facility] UROBILINOGEN UA Normal <2.0 mg/dL 10:43 AM [facility] [employer] [facility] BILIRUBIN UA Negative Negative 09/08/2025 10:43 AM [facility] [employer] [facility] BLOOD UA Negative Negative 09/08/2025 10:43 AM [facility] [employer] [facility] WBC UA >100(A) 0 - 2 /hpf 09/08/2025 10:43 AM FILLER AND TRIMMER [employer] LABORATORY [facility] RBC UA 0-2 0 - 2 /hpf 09/08/2025 10:43 AM FILLER AND TRIMMER [employer] LABORATORY [facility] BACTERIA UA 1+(A) Negative /hpf 09/08/2025 10:43 AM F[employer]ER AND TRIMMER [employer] [facility] EPITHELIAL CELLS, URINE 0-5 0 - 5 /hpf 09/08/2025 10:43 AM [employer] LABORATORY SERVICES [facility] HYALINE CAST 6-10(A) None Seen, 0-2 /lpf 09/08/2025 10:43 AM [employer] LABORATORY [facility] WBC CLUMPS Present(A) Absent 09/08/2025 10:43 AM [facility] [employer] SERVICES - . [facility] Urine URINE SPECIMEN OBTAINED BY CLEAN CATCH PROCEDURE / Unknown Collection / Unknown 09/08/2025 9:43 AM FILLER AND TRIMMER 09/08/2025 10:23 AM FILLER AND TRIMMER Becky Walton MD URINE ORDERABLES Final Result [facility] CLIA# [id number] [address] [place] [address] * (ABNORMAL) COMPREHENSIVE METABOLIC PANEL (09/08/2025 9:43 AM FILLER AND TRIMMER) Only the most recent of5 resultswithin the time period is included. SODIUM 135(L) 136 - 145 mmol/L 09/08/2025 10:43 AM [facility] [employer] [facility] - . [facility] POTASSIUM 3.9 3.5 - 5.0 mmol/L 09/08/2025 10:43 AM [facility] [employer] [facility] - . [facility] CHLORIDE 103 98 - 107 mmol/L 09/08/2025 10:43 AM [facility] [employer] [facility] - [facility] CO2 24 22 - 29 mmol/L 09/08/2025 10:43 AM [facility] [employer] [facility] - . [facility] CALCIUM 8.7 8.6 - 10.2 mg/dL 09/08/2025 10:43 AM [facility] [employer] SERVICES [facility] [place]. [facility] BUN 7(L) 8 - 23 mg/dL 09/08/2025 10:43 AM [facility] [employer] SERVICES - . [facility] CREATININE 0.68 0.51 - 0.95 mg/dL 09/08/2025 10:43 AM [facility] [employer] LABORATORY SERVICES - [facility] Comment:The GFR result is no t clinically significant on patients <18 or >70 years of age. GLUCOSE 117(H) 74 - 99 mg/dL 09/08/2025 10:43 AM [facility] [employer] SERVICES [facility] [place]. [facility] TOTAL PROTEIN 6.5(L) 6.7 - 8.6 g/dL 09/08/2025 10:43 AM [facility] [employer] LAB[facility] SERVICES - . [facility] ALBUMIN 3.7 3.5 - 5.2 g/dL 09/08/2025 10:43 AM [facility] BILIRUBIN TOTAL 0.4 0.0 - 1.1 mg/dL 09/08/2025 10:43 AM [facility] ALKALINE PHOSPHATASE 86 35 - 104 U/L 09/08/2025 10:43 AM [facility] AST 33(H) <33 U/L 09/08/2025 10:43 AM [facility] ALT 21 <34 U/L 09/08/2025 10:43 AM [facility] GFR >60 mL/min/1.7 3 sq meter 09/08/2025 10:43 AM [facility] Comment:eGFR calculated with 2020 CKD-EPI equation. Vegetarian diet, extremely high or low muscle mass, and may affect results. Cystatin C with Glomerular Filtration Rate is a suitable alternative for these patients. ANION GAP 8 8 - 16 mmol/L 09/08/2025 10:43 AM [facility] Blood Collection / Unknown 09/08/2025 9:43 AM FILLER AND TRIMMER 09/08/2025 10:20 AM [facility] - 09/08/2025 10:43 AM [facility] Samples containing indocyanine green cause interferences on Total and/or Direct Bilirubin and must not be measured. Becky Walton MD CHEMISTRY ORDERABLES Final Re sult [facility]# [id number] [address] [facility] [place] [address] * GIARDIA & CRYPTOSPORIDIUM ANTIGEN (08/27/2025 11:48 AM FILLER AND TRIMMER) CRYPTOSPORIDIUM AG SEE NOTE [facility] Comment: CRYPTOSPORIDIUM ANTIGEN, EIA Micro Number: [id number] Test Status: Final Specimen Source: Stool Specimen Quality: Adequate Cryptosporidium: Not Detected Reference Range: Not Detected NOTE: Due to intermittent shedding, one negative sample does not necessarily rule out the presence of a parasitic infection. GIARDIA AG SEE NOTE [facility] Comment: GIARDIA AG, EIA, STOOL Micro Number: [id number] Test Status: Final Specimen Source: Stool Specimen Quality: Adequate Giardia Result 1: Not Detected Reference Range: Not Detected NOTE: Due to intermittent shedding, one negative sample does not necessarily rule out the presence of a parasitic infection. Test Performed at: [place] [address] [address] [place] [address] Ruddy Pradhan Stool STOOL SPECIMEN / Unknown 08/27/2025 11:48 AM FILLER AND TRIMMER 08/27/2025 8:40 PM FILLER AND TRIMMER us Yuly Alexis MD MICROBIOLOGY - GENERAL ORDERABLES Final Result [facility] [phone] [place] [address] [address] [place] [address] * OVA AND PARASITE SCREEN (08/27/2025 11:48 AM FILLER AND TRIMMER) TRICHROME RESULT SEE NOTE [facility] Comment: OVA AND PARASITES, CONC AND PERM SMEAR Micro Number: [id number] Test Status: Final Specimen Source: Stool Specimen [...] infection. For additional information, please refer to https://education.UserZoom/faq/KQV445 (This link is being provided for informational/ educational purposes only.) Test Performed at: [place] [address] [address] [place] [address] Ruddy Pradhan Stool STOOL SPECIMEN / Unknown 08/27/2025 11:48 AM FILLER AND TRIMMER 08/27/2025 8:40 PM FILLER AND TRIMMER us Yuly Alexis MD MICROBIOLOGY - GENERAL ORDERABLES Final Result [facility] [phone] [facility] [address] [place] [address] * CANCER ANTIGEN 125 (08/25/2025 8:40 AM FILLER AND TRIMMER) Only the most recent of3 resultswithin the time period is included. CA 125 21 <35 U/mL [facility] Comment: This test was performed using the Siemens Chemiluminescent method. Values obtained from different assay methods cannot be used interchangeably. CA 125 levels, regardless of value, should not be interpreted as absolute evidence of the presence or absence of disease. Test Performed at: [facility] [address] [place] [address] Ruddy Pradhan MD Blood 08/25/2025 8:40 AM FILLER AND TRIMMER 08/25/2025 9:11 AM FILLER AND TRIMMER Avani Fong NP CHEMISTRY ORDERABLES Final Resul t [facility] [phone] [facility] [address] [place] [address] * XR CHEST PA OR AP 1 [...] INTERFACE SYSTEM - 08/17/2025 5:02 PM CDT [place] [id number] Test Date: 2025-08-17 Pat Name: ELOISA DRAKE Department: 37 Room: [facility] Gender: F Residential Caregiver: celine : 1950 Requested By: YULY COREY Order Number: [id number] Reading MD: Arnold Peralta Measurements Intervals [place] Rate: 81 P: 68 MN: 175 QRS: -5 QRSD: 95 T: 165 QT: 399 QTc: 464 Interpretive Statements Sinus rhythm Low voltage, extremity leads Nonspecific T abnormalities, lateral leads Baseline wander in lead(s) V1,V2 Electronically Signed On 08-17-2025 17:02:33 CDT by Arnold Peralta Procedure Note Arnold Peralta MD - 08/17/[address] [address] Test Date: 2025-08-17 Pat Name: ELOISA DRAKE Department: 37 Room: [place] 1 Gender: F Residential Caregiver: celine : 1950 Requested By: YULY COREY Order Number: [id number] Reading MD: Arnold Peralta Measurements Intervals [place] Rate: 81 P: 68 MN: 175 QRS: -5 QRSD: 95 T: 165 [...] Alexis MD - 08/17/2025 12:46 PM CDT [facility] Endoscopy Patient Name: Eloisa Drake Procedure Date: [...] of Addenda: [address]; [place] [address] Yuly Alexis MD GI PROCEDURE ORDERABLES Final Result * PATHOLOGY (08/17/2025 12:42 PM CDT) CASE REPORT Surgical Pathology Report Case: [id number] Authorizing Provider: Yuly Alexis MD Collected: 08/17/2025 12:42 PM Ordering Location: [facility] GI Lab [place] Received: 08/17/2025 02:07 PM Pathologist: Elen Sigala MD Specimen: Colon, bxs 12:21 PM T [facility] FINAL DIAGNOSIS Large intestine, site undesignated, biopsy: - Active colitis, very focal and minimal (see microscopic description). 12:21 PM T [facility] at 1221 CDT GROSS DESCRIPTION Received in one container labeled Eloisa Michael Lutz and colon biopsies are 9 pieces of pink-stinson tissue, ranging from 0.1 to 0.3 cm in greatest dimension. All are submitted in cassette A1. EL 12:21 PM T [facility] MICROSCOPIC DESCRIPTION Received are slides labeled [id number], Eloisa Drake. The submitted colon biopsy contains [...] appropriate follow-up is recommended. 12:21 PM T [facility] OPERATIVE PROCEDURE 1: COLONOSCOPY 12:21 PM [facility] CLINICAL INFORMATION Chronic diarrhea. Please look for collagenous colitis, microscopic colitis. R19.7-Diarrhea, unspecified type K52.9-Colitis 12:21 PM T [facility] COMMENT Special stain, immunohistochemical, and/or in situ hybridization results are interpreted with controls that demonstrate appropriate staining reactions. Note on use of immunohistochemistry reagents and in situ hybridization probes: These tests were developed and their performance characteristics determined by [facility], Department of Laboratory Medicine. It has not [...] part or completely in the following laboratories: [facility], [place] #[id number] [address] [place] [address] [facility], [place] #[id number] [address] [place] [address] [facility]/[place], [place] #[id number] [address] [place] [address] This report was created with the [employer] voice-activated dictation system. Inherent to this system is the possibility of syntax, grammar, punctuation and other errors that could impact the interpretation of the report. If there are interpretative questions about aspects of this report, please contact the performing pathologist. 12:21 PM CDT [facility] Tissue SPECIMEN FROM COLON / Unknown Collection / Unknown 08/17/2025 12:42 PM CDT 08/17/2025 2:07 PM CDT Comment:Chronic diarrhea. Pl ease look for collagenous colitis, microscopic colitis. Yuly Alexis MD PATHOLOGY/CYTOLOGY MARIA VICTORIA LIN Final Result [facility]# [id number] [address] [place] [address] * CT CHEST ABDOMEN PELVIS W CONT [...] metastatic disease. [facility] Narrative 08/06/2025 9:42 AM CDT EXAMINATION: CT [...] metastatic disease. DICTATION LOCATION: Location 1 - [facility] Avani Fong CT ORDERABLES Final Result * (ABNORMAL) URINALYSIS WITH REFLEX CULTURE (08/04/2025 10:04 AM CDT) Only the most recent of3 resultswithin the time period is included. COLOR UA Yellow Pale to Dark Yellow 08/06/2025 9:54 AM [facility] [employer] LABORATORY SERVICES - [facility] CLARITY UA Cloudy(A) Clear 08/06/2025 9:54 AM [facility] - [facility] SPECIFIC GRAVITY UA 1.005 1.003 - 1.035 08/06/2025 9:54 AM [facility] [employer] LABORATORY SERVICES [facility] PH UA 5.0 5.0 - 8.0 08/06/2025 9:54 AM [facility] [employer] [facility] LEUKOCYTE ESTERASE UA 3+(A) Negative 08/06/2025 9:54 AM [facility] LABOR[facility]ORY [facility] NITRITE UA Negative Negative 08/06/2025 9:54 AM [facility] LABORATORY SERVICES [facility] PROTEIN UA Negative Negative 08/06/2025 9:54 AM [facility] GLUCOSE UA Negative Negative 08/06/2025 9:54 AM [facility] KETONES UA Negative Negative 08/06/2025 9:54 AM [facility] [employer] LABORATORY SERVICES [facility] UROBILINOGEN UA Normal <2.0 mg/dL 9:54 AM [facility] [employer] LABORATORY [facility] BILIRUBIN UA Negative Negative 08/06/2025 9:54 AM [facility] BLOOD UA 1+(A) Negative 08/06/2025 9:54 AM [facility] WBC UA >100(A) 0 - 2 /hpf 08/06/2025 9:54 AM CDT [facility] RBC UA 11-25(A) 0 - 2 /hpf 08/06/2025 9:54 AM CDT [facility] BACTERIA UA 2+(A) Negative /hpf 08/06/2025 9:54 AM CDT [facility] EPITHELIAL CELLS, URINE 0-5 0 - 5 /hpf 08/06/2025 9:54 AM CDT [facility] WBC CLUMPS Present(A) Absent 08/06/2025 9:54 AM CDT [facility] Urine URINE SPECIMEN OBTAINED BY CLEAN CATCH PROCEDURE / Unknown Collection / Unknown 08/04/2025 10:04 AM CDT 08/06/2025 9:39 AM CDT Narrative [facility] - 08/06/2025 9:54 AM CDT Based on results, a urine culture has been reflexed. Becky Walton MD URINE ORDERABLES Final Result [facility]# [id number] [address] [place] [address] [id number] * (ABNORMAL) URINE CULTURE (08/04/2025 10:04 AM CDT) Only the most recent of3 resultswithin the time period is included. CULTURE >= 100,000 cfu/mL Kluyvera ascorbata(A) SIVAN MCG/ML 08/08/2025 10:17 AM CDT [facility] Urine URINE SPECIMEN OBTAINED BY CLEAN CATCH [...] MICROBIOLOGY - GENERAL ORDERA BLES Final Result [facility]# [id number] [address] [facility] [place] [address] * EXTRA TUBE (07/06/2025 2:21 PM CDT) EXTRA TUBE RECEIVED [facility] Comment: An extra tube was received without a test specified. We will hold this specimen in our cold storage in the event additional testing is requested. Please contact your local client relation specialist for further assistance. SPECIMEN TYPE [facility] Comment: Test Performed at: [place] [address] [place] [address] Ruddy Prince Vo 07/06/2025 2:21 PM CDT 07/06/2025 2:32 PM CDT Becky Walton MD CHEMISTRY ORDERABLES Final Re sult Performing Organization Address City/[facility]/ZIP Code Phone Number [facility] [phone] [facility] [place] [address] [place] [address] * MAGNESIUM LEVEL (07/06/2025 2:21 PM CDT) MAGNESIUM 1.9 1.6 - 2.4 mg/dL 07/06/2025 3:20 PM CDT [facility] Blood Collection / Unknown 07/06/2025 2:21 PM CDT 07/06/2025 2:50 PM CDT Becky Walton MD CHEMISTRY ORDERABLES Final Re sult [facility] LABORATORY [facility] CLIA# [id number] [address] [place] [address] * XR DEXA BONE DENSITY AXIAL 1 [...] W OR WO CAD (11/02/2022 11:05 AM FILLER AND TRIMMER) Anatomical Region Laterality Modality Breast Bilateral Mammography 11/02/2022 11:0 6 AM FILLER AND TRIMMER Impressions 11/02/2022 11:29 AM FILLER AND TRIMMER IMPRESSION: No suspicious findings to suggest malignancy in either breast. Annual mammography is recommended. OVERALL FINAL ASSESSMENT: BI-RADS CATEGORY 2: Benign findings Narrative 11/02/2022 11:29 AM FILLER AND TRIMMER EXAM: BILATERAL SCREENING DIGITAL MAMMOGRAM WITH CAD DATE: 11/02/2022 11:05 AM HISTORY: Personal history of breast cancer with prior left conservation therapy. DICTATION LOCATION: [facility] COMPARISON: 06/01/2021 and older TECHNIQUE: Mediolateral oblique, [...] with prior left conservation therapy. DICTATION LOCATION: [facility] COMPARISON: 06/01/2021 and older TECHNIQUE: Mediolateral oblique, [...] BI-RADS CATEGORY 2: Benign findings Iram Naranjo COMMUNITY SUPPORT SPECIALIST MAMMO ORDERABLES Final Result from Last 3 Months or Most Recently Relevant to Health Maintenance Insurance [employer] Medicare Part D Advance Directives For more information, please contact: [phone] * Full Code (Latest Code Status on [...] 10:37 PM 11/25/2021 6:38 PM Care Teams Ventilation Worker Relationship Specialty Start Date End Date Titi Cummings MD [address] [place] [phone] PCP - General Family Practice 10/10/23
--- OUTSIDE RECORDS SUMMARY | 2025-09-23 12:45 | XMS_ITS | Encounter Summary ---
Author Organization [facility] Address [address] [place] [address] Care Team Providers Care Cattle Shipper Name Role Phone Titi Cummings MD Primary Care Provider Encounter Details Date Type Department Care Team (Latest Contact Info) Description 07/28/2005 Outpatient Historical [facility] BRY Contreras, Gibson Rivera MD NO ADDRESS ON FILE MALIG NEOPLASM BREAST UP-OUTER (CMS/HCC) (Primary Dx) Social History Tobacco Use Types Packs/Day Years Used Date Smoking Tobacco: Never Assessed Comments Unknown Sex and Gender Information Value Date Recorded Sex Assigned at Not on file Legal Sex Female 4:40 AM PROBATION SUPERVISOR Gender Identity Not on file Sexual Orientation Not on file documented as of this encounter Plan of Treatment Upcoming Encounters Date Type Department Care Team (Late st Contact Info) Description 09/29/2025 11:30 AM PROBATION SUPERVISOR Office Visit [facility] Gynecologic Oncology [place] [address] [place] [address] Avani Fong, TORRI [address] [place] [address] 09/29/2025 12:00 PM PROBATION SUPERVISOR Hospital Encounter [facility] 2nd Fl [address] [place] [address] Infusion Chair 6, 2nd Floor [place] 10/12/2025 1:30 PM PROBATION SUPERVISOR Office Visit [facility] Neurology [address] [place] [address] Navi Stephens MD [address] [address] 10/20/2025 11:00 AM PROBATION SUPERVISOR Office Visit [facility] Gynecologic Oncology [place] [address] [place] [address] Becky Walton MD [address] [place] [address] 10/20/2025 11:30 AM PROBATION SUPERVISOR Appointment [facility] 2nd Fl [address] [place] [address] Infusion Chair 6, 2nd Floor [place] documented as of this encounter Procedures Procedure [...] HEMATOLOGY ORDERABLES Final Result Performing Organization Address [facility] de Phone Number INTERFACE SYSTEM [...] HEMATOLOGY ORDERABLES Final Result Performing Organization Address [facility] de Phone Number INTERFACE SYSTEM [...] documented as of this encounter Care Teams Cattle Shipper Relationship Specialty Start Date End Date Titi Cummings MD [address] [place] [phone] PCP - General Family Practice 10/10/23 documented as of this encounter
--- OUTSIDE RECORDS SUMMARY | 2025-09-23 12:45 | XMS_ITS | Encounter Summary ---
Author Organization [facility] Address [address] [place] [address] Care Team Providers Care Senior Pensions Administrator Name Role Phone Titi Cummings MD Primary Care Provider Encounter Details Date Type Department Care Team (Latest Contact Info) Description 01/02/2002 Outpatient Historical [facility] Daron French MD NO ADDRESS ON FILE SCREENING FOR OSTEOPOROSIS (Primary Dx) Social History Tobacco Use Types Packs/Day Years Used Date Smoking Tobacco: Never Assessed Comments Unknown Sex and Gender Information Value Date Recorded Sex Assigned at Not on file Legal Sex Female 4:40 AM SAND MIXER MACHINE Gender Identity Not on file Sexual Orientation Not on file documented as of this encounter Plan of Treatment Upcoming Encounters Date Type Department Care Team (Late st Contact Info) Description 09/29/2025 11:30 AM SAND MIXER MACHINE Office Visit [facility] Gynecologic Oncology [place] [address] [place] [address] Avani Fong, TORRI [address] [place] [address] 09/29/2025 12:00 PM SAND MIXER MACHINE Hospital Encounter [facility] 2nd Fl [address] [place] [address] Infusion Chair 6, 2nd Floor [place] 10/12/2025 1:30 PM SAND MIXER MACHINE Office Visit [facility] Neurology [address] [place] [address] Navi Stephens MD [address] [address] 10/20/2025 11:00 AM SAND MIXER MACHINE Office Visit [facility] Gynecologic Oncology [place] [address] [place] [address] Becky Walton MD [address] [place] [address] 10/20/2025 11:30 AM SAND MIXER MACHINE Appointment [facility] 2nd Fl [address] [place] [address] Infusion Chair 6, 2nd Floor [place] documented as of this encounter Visit Diagnoses [...] as of this encounter Care Teams Senior Pensions Administrator Relationship Specialty Start Date End Date Titi Cummings MD [address] [facility] [address] [place] [phone] PCP - General Family Practice 10/10/23 documented as of this encounter
--- OUTSIDE RECORDS SUMMARY | 2025-09-23 12:45 | XMS_ITS | Encounter Summary ---
Author Organization [facility] Address 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) Social History Tobacco Use Types Packs/Day Years Used Date Smoking Tobacco: Never Assessed Comments Unknown Sex and Gender Information Value Date Recorded Sex Assigned at Not on file Legal Sex Female 4:40 AM NOCTURNIST Gender Identity Not on file Sexual Orientation Not on file documented as of this encounter Plan of Treatment Upcoming Encounters Date Type Department Care Team (Late st Contact Info) Description 09/29/2025 11:30 AM NOCTURNIST Office Visit [facility] Gynecologic Oncology [place] [address] [place] [address] Avani Fong, TORRI [address] [place] [address] 09/29/2025 12:00 PM NOCTURNIST Hospital Encounter [facility] 2nd Fl [address] [place] [address] Infusion Chair 6, 2nd Floor [place] 10/12/2025 1:30 PM NOCTURNIST Office Visit [facility] Neurology [address] [place] [address] Navi Stephens MD [address] [address] 10/20/2025 11:00 AM NOCTURNIST Office Visit [facility] Gynecologic Oncology [place] [address] [place] [address] Becky Walton MD [address] [place] [address] 10/20/2025 11:30 AM NOCTURNIST Appointment [facility] 2nd Fl [address] [place] [address] Infusion Chair 6, 2nd Floor [place] documented as of this encounter Procedures Procedure [...] MD HEMATOLOGY ORDERABLES Edited Performing Organization Address [facility] de Phone Number INTERFACE SYSTEM Refer [...] MD HEMATOLOGY ORDERABLES Edited Performing Organization Address [facility] de Phone Number INTERFACE SYSTEM Refer [...] on the [facility] Intranet at: [email or web address] Select: Lab Policies and Procedures Select: Reference [...] documented as of this encounter Care Teams Electrical Manufacturing Technician Relationship Specialty Start Date End Date Titi Cummings MD [address] [place] [phone] PCP - General Family Practice 10/10/23 documented as of this encounter
--- OUTSIDE RECORDS SUMMARY | 2025-09-23 12:45 | XMS_ITS | Encounter Summary ---
Author Organization [facility] Address [address] [place] [address] Care Team Providers Care Drama Teacher Name Role Phone Titi Cummings MD Primary Care Provider Encounter Details Date Type Department Care Team (Latest Contact Info) Description 02/01/2007 Outpatient Historical HIS [facility] BRY Contreras, Gibson Rivera MD NO ADDRESS ON FILE Other Screening Mammogram (Primary Dx) Social History Tobacco Use Types Packs/Day Years Used Date Smoking Tobacco: Never Assessed Comments Unknown Sex and Gender Information Value Date Recorded Sex Assigned at Not on file Legal Sex Female 4:40 AM INSTRUCTOR OF SOCIOLOGY Gender Identity Not on file Sexual Orientation Not on file documented as of this encounter Plan of Treatment Upcoming Encounters Date Type Department Care Team (Late st Contact Info) Description 09/29/2025 11:30 AM INSTRUCTOR OF SOCIOLOGY Office Visit [facility] Gynecologic Oncology [place] [address] [facility] [address] [place] [address] Avani Fong, TORRI [address] [place] [address] 09/29/2025 12:00 PM INSTRUCTOR OF SOCIOLOGY Hospital Encounter [facility] 2nd Fl [address] [place] [address] Infusion Chair 6, 2nd Floor [place] 10/12/2025 1:30 PM INSTRUCTOR OF SOCIOLOGY Office Visit [facility] Neurology [address] [place] [address] Navi Stephens MD [address] [address] 10/20/2025 11:00 AM INSTRUCTOR OF SOCIOLOGY Office Visit [facility] Gynecologic Oncology [place] [address] [place] [address] Becky Walton MD [address] [place] [address] 10/20/2025 11:30 AM INSTRUCTOR OF SOCIOLOGY Appointment [facility] 2nd Fl [address] [place] [address] Infusion Chair 6, 2nd Floor [place] documented as of this encounter Visit Diagnoses [...] documented as of this encounter Care Teams Drama Teacher Relationship Specialty Start Date End Date Titi Cummings MD [address] [phone] PCP - General Family Practice 10/10/23 documented as of this encounter
--- OUTSIDE RECORDS SUMMARY | 2025-09-23 12:45 | XMS_ITS | Encounter Summary ---
Author Organization [facility] Address [address] [place] [address] Care Team Providers Care Cosmetic Account Coordinator Name Role Phone Titi Cummings MD Primary [...] on file Legal Sex Female 4:40 AM SENIOR FRONT END WEB DEVELOPER Gender Identity Not on file Sexual Orientation Not on file documented as of this encounter Plan of Treatment Upcoming Encounters Date Type Department Care Team (Late st Contact Info) Description 09/29/2025 11:30 AM SENIOR FRONT END WEB DEVELOPER Office Visit [facility] Gynecologic Oncology [place] [address] [place] [address] Avani Fong, TORRI [address] [place] [address] 09/29/2025 12:00 PM SENIOR FRONT END WEB DEVELOPER Hospital Encounter [facility] 2nd Fl [address] [place] [address] Infusion Chair 6, 2nd Floor [place] 10/12/2025 1:30 PM SENIOR FRONT END WEB DEVELOPER Office Visit [facility] Neurology [address] [place] [address] Navi Stephens MD [address] [address] 10/20/2025 11:00 AM SENIOR FRONT END WEB DEVELOPER Office Visit [facility] Gynecologic Oncology [place] [address] [place] [address] Becky Walton MD [address] [place] [address] 10/20/2025 11:30 AM SENIOR FRONT END WEB DEVELOPER Appointment [facility] 2nd Fl [address] [place] [address] Infusion Chair 6, 2nd Floor [place] documented as of this encounter Procedures Procedure [...] URINE ORDERABLES Final Result Performing Organization Address [facility] Phone Number INTERFACE SYSTEM Refer to clinic/hospital [...] ORDERABLES Final Re sult Performing Organization Address [facility] Phone Number INTERFACE SYSTEM Refer to clinic/hospital [...] ORDERABLES Final Re sult Performing Organization Address [facility] Phone Number INTERFACE SYSTEM Refer to clinic/hospital department * LIPASE (03/16/2005 9:42 AM CDT) LIPASE 40 13 - 60 U/L INTERFAC E SYSTEM 03/16/2005 9:42 AM CDT Sera Banuelos MD CHEMISTRY ORDERABLES Final Res ult Performing Organization Address [facility] Phone Number INTERFACE SYSTEM Refer to clinic/hospital department * AMYLASE (03/16/2005 9:42 AM CDT) AMYLASE 42 28 - 100 U/L INTERFACE SYSTEM 03/16/2005 9:42 AM CDT Sera Banuelos MD CHEMISTRY ORDERABLES Final Res ult Performing Organization Address [facility] Phone Number INTERFACE SYSTEM Refer to clinic/hospital department * C-REACTIVE PROTEIN (03/16/2005 9:42 AM CDT) CRP <0.5 0.0 - 0.8 mg/dL INTERFACE SYSTEM 03/16/2005 9:42 AM CDT Sera Banuelos MD CHEMISTRY ORDERABLES Final Res ult Performing Organization Address [facility] de Phone Number INTERFACE SYSTEM [...] documented as of this encounter Care Teams Cosmetic Account Coordinator Relationship Specialty Start Date End Date Titi Cummings MD [address] [place] [phone] PCP - General Family Practice 10/10/23 documented as of this encounter
--- OUTSIDE RECORDS SUMMARY | 2025-09-23 12:45 | XMS_ITS | Encounter Summary ---
Author Organization [facility] Address [address] [place] [address] Care Team Providers Care Sewer Pipe Press Operator Name Role Phone Titi Cummings MD Primary Care Provider Encounter Details Date Type Department Care Team ([facility] Contact Info) Description 08/20/2025 Results Follow-Up [facility] Gastroenterology [facility] [address] [address] Morenita Alexis MD [address] [facility] [address] [place] [address] PATHOLOGY Social History Tobacco Use [...] on file Legal Sex Female 4:40 AM UPHOLSTERER LIMOUSINE AND HEARSE Gender Identity Not on file Sexual Orientation Not on file Occupation Industry Job Start Date Job End Date Not on file Not on file Not on file Not on file documented as of this encounter Plan of Treatment Upcoming Encounters Date Type Department Care Team (Late st Contact Info) Description 09/29/2025 11:30 AM UPHOLSTERER LIMOUSINE AND HEARSE Office Visit [facility] Gynecologic Oncology [place] [address] [place] [address] Avani Fong NP [address] [place] [address] 09/29/2025 12:00 PM UPHOLSTERER LIMOUSINE AND HEARSE Hospital Encounter [facility] 2nd Fl [address] [place] [address] Infusion Chair 6, 2nd Floor [place] 10/12/2025 1:30 PM UPHOLSTERER LIMOUSINE AND HEARSE Office Visit [facility] Neurology [address] [facility] [address] [place] [address] Navi Stephens MD [address] [facility] [address] [address] 10/20/2025 11:00 AM UPHOLSTERER LIMOUSINE AND HEARSE Office Visit [facility] Gynecologic Oncology [place] [address] [facility] [address] [place] [address] Becky Walton MD [address] [facility] [address] [place] [address] 10/20/2025 11:30 AM UPHOLSTERER LIMOUSINE AND HEARSE Appointment [facility] 2nd Fl [address] [place] [address] Infusion Chair 6, 2nd Floor [place] documented as of this encounter Visit Diagnoses Not on filedocumented in this encounter Additional Health Concerns Assessment Noted Time PHQ-9 Depression Total Score: 4 10/02/20 24 12:00 PM UPHOLSTERER LIMOUSINE AND HEARSE documented as of this encounter Care Teams Sewer Pipe Press Operator Relationship Specialty Start Date End Date Titi Cummings MD 4 [facility] [address] [place] [phone] PCP - General Family Practice 10/10/23 documented as of this encounter
--- OUTSIDE RECORDS SUMMARY | 2025-09-23 12:45 | XMS_ITS | Encounter Summary ---
Author Organization [facility] Address [address] [place] [address] Care Team Providers Care Train Driver Name Role Phone Titi Cummings MD Primary Care Provider Encounter Details Date Type Department Care Team (Latest Contact Info) Description 07/26/2001 Outpatient Historical HIS [facility] BRY Contreras, Gibson Rivera MD NO ADDRESS ON FILE Malignant neoplasm of upper-outer quadrant of female breast (CMS/HCC) (Primary Dx) Social History Tobacco Use Types Packs/Day Years Used Date Smoking Tobacco: Never Assessed Comments Unknown Sex and Gender Information Value Date Recorded Sex Assigned at Not on file Legal Sex Female 4:40 AM RESEARCH CENTER DIRECTOR Gender Identity Not on file Sexual Orientation Not on file documented as of this encounter Plan of Treatment Upcoming Encounters Date Type Department Care Team (Late st Contact Info) Description 09/29/2025 11:30 AM RESEARCH CENTER DIRECTOR Office Visit [facility] Gynecologic Oncology [place] [address] [place] [address] Avani Fong, TORRI [address] [place] [address] 09/29/2025 12:00 PM RESEARCH CENTER DIRECTOR Hospital Encounter [facility] 2nd Fl [address] [place] [address] Infusion Chair 6, 2nd Floor [place] 10/12/2025 1:30 PM RESEARCH CENTER DIRECTOR Office Visit [facility] Neurology [address] [place] [address] Navi Stephens MD [address] [facility] [address] [address] 10/20/2025 11:00 AM RESEARCH CENTER DIRECTOR Office Visit [facility] Gynecologic Oncology [place] [address] [place] [address] Becky Walton MD [address] [place] [address] 10/20/2025 11:30 AM RESEARCH CENTER DIRECTOR Appointment [facility] 2nd Fl [address] [place] [address] Infusion Chair 6, 2nd Floor [place] documented as of this encounter Visit Diagnoses [...] documented as of this encounter Care Teams Train Driver Relationship Specialty Start Date End Date Titi Cummings MD [address] [place] [phone] PCP - General Family Practice 10/10/23 documented as of this encounter
--- OUTSIDE RECORDS SUMMARY | 2025-09-23 12:45 | XMS_ITS | Encounter Summary ---
Author Organization [facility] Address [address] [place] [address] Care Team Providers Care Child Welfare Manager Name Role Phone Titi Cummings MD Primary Care Provider Encounter Details Date Type Department Care Team (Latest Contact Info) Description 01/15/2004 Outpatient Historical HIS [facility] BRY Contreras, Gibson Rivera MD NO ADDRESS ON FILE PERS HX OF BREAST MALIGNANCY (Primary Dx) Social History Tobacco Use Types Packs/Day Years Used Date Smoking Tobacco: Never Assessed Comments Unknown Sex and Gender Information Value Date Recorded Sex Assigned at Not on file Legal Sex Female 4:40 AM LOOP SEWER Gender Identity Not on file Sexual Orientation Not on file documented as of this encounter Plan of Treatment Upcoming Encounters Date Type Department Care Team (Late st Contact Info) Description 09/29/2025 11:30 AM LOOP SEWER Office Visit [facility] Gynecologic Oncology [place] [address] [place] [address] Avani Fong, TORRI [address] [place] [address] 09/29/2025 12:00 PM LOOP SEWER Hospital Encounter [facility] 2nd Fl [address] [place] [address] Infusion Chair 6, 2nd Floor [place] 10/12/2025 1:30 PM LOOP SEWER Office Visit [facility] Neurology [address] [place] [address] Navi Stephens MD [address] [address] 10/20/2025 11:00 AM LOOP SEWER Office Visit [facility] Gynecologic Oncology [place] [address] [place] [address] Becky Walton MD [address] [place] [address] 10/20/2025 11:30 AM LOOP SEWER Appointment [facility] 2nd Fl [address] [place] [address] Infusion Chair 6, 2nd Floor [...] documented as of this encounter Care Teams Child Welfare Manager Relationship Specialty Start Date End Date Titi Cummings MD [address] [phone] PCP - General Family Practice 10/10/23 documented as of this encounter
--- OUTSIDE RECORDS SUMMARY | 2025-09-23 12:45 | XMS_ITS | Encounter Summary ---
Author Organization [facility] Address [address] [place] [address] Care Team Providers Care Manifest Clerk Name Role Phone Titi Cummings MD Primary Care Provider Encounter Details Date Type Department Care Team (Latest Contact Info) Description 08/20/2001 Outpatient Historical HIS [facility] BRY Contreras, Gibson Rivera MD NO ADDRESS ON FILE PERS HX OF BREAST MALIGNANCY (Primary Dx) Social History Tobacco Use Types Packs/Day Years Used Date Smoking Tobacco: Never Assessed Comments Unknown Sex and Gender Information Value Date Recorded Sex Assigned at Not on file Legal Sex Female 4:40 AM CHANGE MANAGEMENT SPECIALIST Gender Identity Not on file Sexual Orientation Not on file documented as of this encounter Plan of Treatment Upcoming Encounters Date Type Department Care Team (Late st Contact Info) Description 09/29/2025 11:30 AM CHANGE MANAGEMENT SPECIALIST Office Visit [facility] Gynecologic Oncology [place] [address] [place] [address] Avani Fong, TORRI [address] [place] [address] 09/29/2025 12:00 PM CHANGE MANAGEMENT SPECIALIST Hospital Encounter [facility] 2nd Fl [address] [place] [address] Infusion Chair 6, 2nd Floor [place] 10/12/2025 1:30 PM CHANGE MANAGEMENT SPECIALIST Office Visit [facility] Neurology [address] [place] [address] Navi Stephens MD [address] [address] 10/20/2025 11:00 AM CHANGE MANAGEMENT SPECIALIST Office Visit [facility] Gynecologic Oncology [place] [address] [place] [address] Becky Walton MD [address] [place] [address] 10/20/2025 11:30 AM CHANGE MANAGEMENT SPECIALIST Appointment [facility] 2nd Fl [address] [place] [address] Infusion Chair 6, 2nd [...] documented as of this encounter Care Teams Manifest Clerk Relationship Specialty Start Date End Date Titi Cummings MD [address] [phone] PCP - General Family Practice 10/10/23 documented as of this encounter
--- OUTSIDE RECORDS SUMMARY | 2025-09-23 12:45 | XMS_ITS | Encounter Summary ---
Author Organization [facility] Address [address] [place] [address] Care Team Providers Care Drug Safety Assistant Name Role Phone Titi Cummings MD Primary Care Provider Encounter Details Date Type Department Care Team (Latest Contact Info) Description 04/24/2005 Outpatient Historical [facility] Wendy Nolasco MD [address] [place] [address] [address] [address] CHRONIC CHOLECYSTITIS NEC (Primary Dx) Social History Tobacco Use Types Packs/Day Years Used Date Smoking Tobacco: Never Assessed Comments Unknown Sex and Gender Information Value Date Recorded Sex Assigned at Not on file Legal Sex Female 4:40 AM ELECTRONIC ORGAN MECHANIC Gender Identity Not on file Sexual Orientation Not on file documented as of this encounter Plan of Treatment Upcoming Encounters Date Type Department Care Team (Late st Contact Info) Description 09/29/2025 11:30 AM ELECTRONIC ORGAN MECHANIC Office Visit [facility] Gynecologic Oncology [place] [address] [facility] [address] [place] [address] Avani Fong, TORRI [address] [facility] [address] [place] [address] 09/29/2025 12:00 PM ELECTRONIC ORGAN MECHANIC Hospital Encounter [facility] 2nd Fl [address] [place] [address] Infusion Chair 6, 2nd Floor [place] 10/12/2025 1:30 PM ELECTRONIC ORGAN MECHANIC Office Visit [facility] Neurology [address] [place] [address] Navi Stephens MD [address] [address] 10/20/2025 11:00 AM ELECTRONIC ORGAN MECHANIC Office Visit [facility] Gynecologic Oncology [place] [address] [place] [address] Becky Walton MD [address] [place] [address] 10/20/2025 11:30 AM ELECTRONIC ORGAN MECHANIC Appointment [facility] 2nd Fl [address] [place] [address] Infusion Chair 6, 2nd Floor [place] documented as of this encounter Visit Diagnoses [...] documented as of this encounter Care Teams Drug Safety Assistant Relationship Specialty Start Date End Date Titi Cummings MD [address] [place] [phone] PCP - General Family Practice 10/10/23 documented as of this encounter
--- OUTSIDE RECORDS SUMMARY | 2025-09-23 12:45 | XMS_ITS | Encounter Summary ---
Author Organization [facility] Address [address] [place] [address] Care Team Providers Care Gravity Prospector Name Role Phone Titi Cummings MD Primary Care Provider Encounter Details Date Type Department Care Team (Late st Contact Info) Description 04/06/2005 Outpatient Historical HIS [facility] Nia More MD [address] [place] [phone] ABDOMINAL PAIN EPIGASTRIC (Primary Dx) Social History Tobacco Use Types Packs/Day Years Used Date Smoking Tobacco: Never Assessed Comments Unknown Sex and Gender Information Value Date Recorded Sex Assigned at Not on file Legal Sex Female 4:40 AM STEAM FITTER SUPERVISOR MAINTENANCE Gender Identity Not on file Sexual Orientation Not on file documented as of this encounter Plan of Treatment Upcoming Encounters Date Type Department Care Team (Late st Contact Info) Description 09/29/2025 11:30 AM STEAM FITTER SUPERVISOR MAINTENANCE Office Visit [facility] Gynecologic Oncology [place] [address] [place] [address] [place] [address] Avani Fong, TORRI [address] [place] [address] [place] [address] 09/29/2025 12:00 PM STEAM FITTER SUPERVISOR MAINTENANCE Hospital Encounter [facility] 2nd Fl [address] [place] [address] Infusion Chair 6, 2nd Floor [place] 10/12/2025 1:30 PM STEAM FITTER SUPERVISOR MAINTENANCE Office Visit [facility] Neurology [address] [place] [address] Navi Stephens MD [address] [address] 10/20/2025 11:00 AM STEAM FITTER SUPERVISOR MAINTENANCE Office Visit [facility] Gynecologic Oncology [place] [address] [place] [address] Becky Walton MD [address] [place] [address] 10/20/2025 11:30 AM STEAM FITTER SUPERVISOR MAINTENANCE Appointment [facility] 2nd Fl [address] [place] [address] Infusion Chair 6, 2nd Floor [place] documented as of this encounter Visit Diagnoses [...] documented as of this encounter Care Teams Gravity Prospector Relationship Specialty Start Date End Date Titi Cummings MD [address] [phone] PCP - General Family Practice 10/10/23 documented as of this encounter
--- OUTSIDE RECORDS SUMMARY | 2025-09-23 12:45 | XMS_ITS | Encounter Summary ---
Author Organization [facility] Address [address] [place] [address] Care Team Providers Care Tick Eradicator Name Role Phone Titi Cummings MD Primary Care Provider Encounter Details Date Type Department Care Team (Latest Contact Info) Description 01/15/[address] [facility] BRY Contreras, Gibson Rivera MD NO ADDRESS ON FILE MALIG NEOPLASM BREAST UP-OUTER (CMS/HCC) (Primary Dx) Social History Tobacco Use Types Packs/Day Years Used Date Smoking Tobacco: Never Assessed Comments Unknown Sex and Gender Information Value Date Recorded Sex Assigned at Not on file Legal Sex Female 4:40 AM BANK VAULT CLERK Gender Identity Not on file Sexual Orientation Not on file documented as of this encounter Plan of Treatment Upcoming Encounters Date Type Department Care Team (Late st Contact Info) Description 09/29/2025 11:30 AM BANK VAULT CLERK Office Visit [facility] Gynecologic Oncology [place] [address] [place] [address] Avani Fong, TORRI [address] [place] [address] 09/29/2025 12:00 PM BANK VAULT CLERK Hospital Encounter [facility] 2nd Fl [address] [place] [address] Infusion Chair 6, 2nd Floor [place] 10/12/2025 1:30 PM BANK VAULT CLERK Office Visit [facility] Neurology [address] [place] [address] Navi Stephens MD [address] [address] 10/20/2025 11:00 AM BANK VAULT CLERK Office Visit [facility] ([facility] Gynecologic Oncology [place] [address] [place] [address] Becky Walton MD [address] [place] [address] 10/20/2025 11:30 AM BANK VAULT CLERK Appointment [facility] 2nd Fl [address] [place] [address] Infusion Chair 6, 2nd Floor [place] documented as of this encounter Visit Diagnoses [...] documented as of this encounter Care Teams Tick Eradicator Relationship Specialty Start Date End Date Titi Cummings MD [address] [place] [phone] PCP - General Family Practice 10/10/23 documented as of this encounter
--- OUTSIDE RECORDS SUMMARY | 2025-09-23 12:45 | XMS_ITS | Encounter Summary ---
Author Organization [facility] Address [address] [place] [address] Care Team Providers Care Compensator Worker Name Role Phone Titi Cumimngs MD Primary Care Provider Encounter Details Date Type Department Care Team (Latest Contact Info) Description 07/27/2006 Outpatient Historical HIS [facility] BRY Contreras, Gibson Rivera MD NO ADDRESS ON FILE Malignant Neoplasm of Upper-Outer Quadrant of Female Breast (CMS/HCC) (Primary Dx) Social History Tobacco Use Types Packs/Day Years Used Date Smoking Tobacco: Never Assessed Comments Unknown Sex and Gender Information Value Date Recorded Sex Assigned at Not on file Legal Sex Female 4:40 AM PLANT ETIOLOGIST Gender Identity Not on file Sexual Orientation Not on file documented as of this encounter Plan of Treatment Upcoming Encounters Date Type Department Care Team (Late st Contact Info) Description 09/29/2025 11:30 AM PLANT ETIOLOGIST Office Visit [facility] Gynecologic Oncology [place] [address] [place] [address] Avani Fong, TORRI [address] [place] [address] 09/29/2025 12:00 PM PLANT ETIOLOGIST Hospital Encounter [facility] 2nd Fl [address] [place] [address] Infusion Chair 6, 2nd Floor [place] 10/12/2025 1:30 PM PLANT ETIOLOGIST Office Visit [facility] Neurology [address] [place] [address] Navi Stephens MD [address] [address] 10/20/2025 11:00 AM PLANT ETIOLOGIST Office Visit [facility] Gynecologic Oncology [place] [address] [place] [address] Becky Walton MD [address] [place] [address] 10/20/2025 11:30 AM PLANT ETIOLOGIST Appointment [facility] 2nd Fl [address] [place] [address] Infusion Chair 6, 2nd Floor [place] documented as of this encounter Procedures Procedure [...] HEMATOLOGY ORDERABLES Final Result Performing Organization Address [facility] Phone Number INTERFACE SYSTEM Refer to clinic/hospital [...] HEMATOLOGY ORDERABLES Final Result Performing Organization Address [facility] Phone Number INTERFACE SYSTEM Refer to clinic/hospital [...] documented as of this encounter Care Teams Compensator Worker Relationship Specialty Start Date End Date Titi Cummings MD [address] [place] [phone] PCP - General Family Practice 10/10/23 documented as of this encounter
--- OUTSIDE RECORDS SUMMARY | 2025-09-23 12:45 | XMS_ITS | Encounter Summary ---
Author Organization [facility] Address [address] [place] [address] Care Team Providers Care Corporate Security Officer Name Role Phone Titi Cummings MD Primary Care Provider Encounter Details Date Type Department Care Team (Latest Contact Info) Description 01/05/2006 Outpatient Historical HIS [facility] BRY Contreras, Gibson Rivera MD NO ADDRESS ON FILE Malignant Neoplasm of Upper-Outer Quadrant of Female Breast (CMS/HCC) (Primary Dx) Social History Tobacco Use Types Packs/Day Years Used Date Smoking Tobacco: Never Assessed Comments Unknown Sex and Gender Information Value Date Recorded Sex Assigned at Not on file Legal Sex Female 4:40 AM PITCH WORKER Gender Identity Not on file Sexual Orientation Not on file documented as of this encounter Plan of Treatment Upcoming Encounters Date Type Department Care Team (Late st Contact Info) Description 09/29/2025 11:30 AM PITCH WORKER Office Visit [facility] Gynecologic Oncology [place] [address] [place] [address] Avani Fong, TORRI [address] [place] [address] 09/29/2025 12:00 PM PITCH WORKER Hospital Encounter [facility] 2nd Fl [address] [place] [address] Infusion Chair 6, 2nd Floor [place] 10/12/2025 1:30 PM PITCH WORKER Office Visit [facility] Neurology [address] [place] [address] Navi Stephens MD [address] [address] 10/20/2025 11:00 AM PITCH WORKER Office Visit [facility] Gynecologic Oncology [place] [address] [place] [address] Becky Walton MD [address] [place] [address] 10/20/2025 11:30 AM PITCH WORKER Appointment [facility] 2nd Fl [address] [place] [address] Infusion Chair 6, 2nd Floor [place] documented as of this encounter Procedures Procedure Name Priority Date/Time Associated Diagnosis Comments CBC WITH DIFFERENTIAL Routine 01/05/2006 8:53 AM PITCH WORKER CBC WITH DIFFERENTIAL Routine 01/05/2006 8:53 AM PITCH WORKER COMPREHENSIVE METABOLIC PANEL Routine 01/05/2006 8:53 AM PITCH WORKER documented in this encounter Results * CBC WITH DIFFERENTIAL (01/05/2006 8:53 AM PITCH WORKER) NEUTROPHILS 66 45 - 70 % INTERFAC [...] 0.20 K/uL INTERFACE SYSTEM 01/05/2006 8:53 AM PITCH WORKER us Gibson Contreras MD HEMATOLOGY ORDERABLES Final Result Performing Organization Address [facility] de Phone Number INTERFACE SYSTEM Refer to clinic/hospital department * (ABNORMAL) CBC WITH DIFFERENTIAL (01/05/2006 8:53 AM PITCH WORKER) WBC 7.8 4.0 - 9.8 K/uL INTERFACE [...] 12.4 fL INTERFACE SYSTEM 01/05/2006 8:53 AM PITCH WORKER Gibson Contreras MD HEMATOLOGY ORDERABLES Final Result Performing Organization Address [facility] Phone Number INTERFACE SYSTEM Refer to clinic/hospital department * COMPREHENSIVE METABOLIC PANEL (01/05/2006 8:53 AM PITCH WORKER) GLUCOSE 81 65 - 109 mg/dL INTERFACE [...] 30 mmol/L INTERFACE SYSTEM 01/05/2006 8:53 AM PITCH WORKER us Gibson Contreras MD CHEMISTRY ORDERABLES Final [...] documented as of this encounter Care Teams Corporate Security Officer Relationship Specialty Start Date End Date Titi Cummings MD [address] [place] [phone] PCP - General Family Practice 10/10/23 documented as of this encounter
--- OUTSIDE RECORDS SUMMARY | 2025-09-23 12:45 | XMS_ITS | Encounter Summary ---
Author Organization [facility] Address [address] [place] [address] Care Team Providers Care Senior Benefits Manager Name Role Phone Titi Cummings MD Primary Care Provider Encounter Details Date Type Department Care Team (Latest Contact Info) Description 01/16/2003 Outpatient Historical HIS [facility] BRY Contreras, Gibson Rivera MD NO ADDRESS ON FILE PERS HX OF BREAST MALIGNANCY (Primary Dx) Social History Tobacco Use Types Packs/Day Years Used Date Smoking Tobacco: Never Assessed Comments Unknown Sex and Gender Information Value Date Recorded Sex Assigned at Not on file Legal Sex Female 4:40 AM OIL SPRAYING MACHINE OPERATOR Gender Identity Not on file Sexual Orientation Not on file documented as of this encounter Plan of Treatment Upcoming Encounters Date Type Department Care Team (Late st Contact Info) Description 09/29/2025 11:30 AM OIL SPRAYING MACHINE OPERATOR Office Visit [facility] Gynecologic Oncology [place] [address] [place] [address] Avani Fong, TORRI [address] [place] [address] 09/29/2025 12:00 PM OIL SPRAYING MACHINE OPERATOR Hospital Encounter [facility] 2nd Fl [address] [place] [address] Infusion Chair 6, 2nd Floor [place] 10/12/2025 1:30 PM OIL SPRAYING MACHINE OPERATOR Office Visit [facility] Neurology [address] [place] [address] Navi Stephens MD [address] [address] 10/20/2025 11:00 AM OIL SPRAYING MACHINE OPERATOR Office Visit [facility] Gynecologic Oncology [place] [address] [place] [address] Becky Walton MD [address] [place] [address] 10/20/2025 11:30 AM OIL SPRAYING MACHINE OPERATOR Appointment [facility] 2nd Fl [address] [place] [address] Infusion Chair 6, 2nd Floor [...] as of this encounter Care Teams Senior Benefits Manager Relationship Specialty Start Date End Date Titi Cummings MD [address] [phone] PCP - General Family Practice 10/10/23 documented as of this encounter
--- OUTSIDE RECORDS SUMMARY | 2025-09-23 12:45 | XMS_ITS | Encounter Summary ---
Author Organization [facility] Address [address] [place] [address] Care Team Providers Care Echocardiograph Tech Name Role Phone Titi Cummings MD Primary Care Provider Encounter Details Date Type Department Care Team (Latest Contact Info) Description 01/16/2003 Outpatient Historical HIS [facility] BRY Contreras, Gibson Rivera MD NO ADDRESS ON FILE MALIG NEOPLASM BREAST UP-OUTER (CMS/HCC) (Primary Dx) Social History Tobacco Use Types Packs/Day Years Used Date Smoking Tobacco: Never Assessed Comments Unknown Sex and Gender Information Value Date Recorded Sex Assigned at Not on file Legal Sex Female 4:40 AM STAFF DEVELOPMENT MANAGER Gender Identity Not on file Sexual Orientation Not on file documented as of this encounter Plan of Treatment Upcoming Encounters Date Type Department Care Team (Late st Contact Info) Description 09/29/2025 11:30 AM STAFF DEVELOPMENT MANAGER Office Visit [facility] Gynecologic Oncology [place] [address] [place] [address] Avani Fong, TORRI [address] [place] [address] 09/29/2025 12:00 PM STAFF DEVELOPMENT MANAGER Hospital Encounter [facility] 2nd Fl [address] [place] [address] Infusion Chair 6, 2nd Floor [place] 10/12/2025 1:30 PM STAFF DEVELOPMENT MANAGER Office Visit [facility] Neurology [address] [place] [address] Navi Stephens MD [address] [address] 10/20/2025 11:00 AM STAFF DEVELOPMENT MANAGER Office Visit [facility] Gynecologic Oncology [place] [address] [place] [address] Becky Walton MD [address] [place] [address] 10/20/2025 11:30 AM STAFF DEVELOPMENT MANAGER Appointment [facility] 2nd Fl [address] [place] [address] Infusion Chair 6, 2nd Floor [place] documented as of this encounter Visit Diagnoses [...] documented as of this encounter Care Teams Echocardiograph Tech Relationship Specialty Start Date End Date Titi Cummings MD [address] [place] [phone] PCP - General Family Practice 10/10/23 documented as of this encounter
--- OUTSIDE RECORDS SUMMARY | 2025-09-23 12:45 | XMS_ITS | Encounter Summary ---
Author Organization [facility] Address [address] [place] [address] Care Team Providers Care Quebracho Tanner Name Role Phone Titi Cummings MD Primary Care Provider Encounter Details Date Type Department Care Team (Latest Contact Info) Description 01/31/2002 Outpatient Historical HIS [facility] BRY Contreras, Gibson Rivera MD NO ADDRESS ON FILE MALIG NEOPLASM BREAST UP-OUTER (CMS/HCC) (Primary Dx) Social History Tobacco Use Types Packs/Day Years Used Date Smoking Tobacco: Never Assessed Comments Unknown Sex and Gender Information Value Date Recorded Sex Assigned at Not on file Legal Sex Female 4:40 AM AGRICULTURAL SALES REPRESENTATIVE Gender Identity Not on file Sexual Orientation Not on file documented as of this encounter Plan of Treatment Upcoming Encounters Date Type Department Care Team (Late st Contact Info) Description 09/29/2025 11:30 AM AGRICULTURAL SALES REPRESENTATIVE Office Visit [facility] Gynecologic Oncology [place] [address] [place] [address] Avani Fong, TORRI [address] [place] [address] 09/29/2025 12:00 PM AGRICULTURAL SALES REPRESENTATIVE Hospital Encounter [facility] 2nd Fl [address] [place] [address] Infusion Chair 6, 2nd Floor [place] 10/12/2025 1:30 PM AGRICULTURAL SALES REPRESENTATIVE Office Visit [facility] Neurology [address] [place] [address] Navi Stephens MD [address] [address] 10/20/2025 11:00 AM AGRICULTURAL SALES REPRESENTATIVE Office Visit [facility] Gynecologic Oncology [place] [address] [place] [address] Becky Walton MD [address] [place] [address] 10/20/2025 11:30 AM AGRICULTURAL SALES REPRESENTATIVE Appointment [facility] 2nd Fl [address] [place] [address] Infusion Chair 6, 2nd Floor [place] documented as of this encounter Visit Diagnoses [...] documented as of this encounter Care Teams Quebracho Tanner Relationship Specialty Start Date End Date Titi Cummings MD [address] [place] [phone] PCP - General Family Practice 10/10/23 documented as of this encounter
--- OUTSIDE RECORDS SUMMARY | 2025-09-23 12:45 | XMS_ITS | Encounter Summary ---
Author Organization [facility] Address [address] [place] [address] Care Team Providers Care Community Planner Name Role Phone Titi Cummings MD Primary Care Provider Encounter Details Date Type Department Care Team (Latest Contact Info) Description 08/15/2002 Outpatient Historical HIS [facility] BRY Contreras, Gibson Rivera MD NO ADDRESS ON FILE MALIG NEOPLASM BREAST UP-OUTER (CMS/HCC) (Primary Dx) Social History Tobacco Use Types Packs/Day Years Used Date Smoking Tobacco: Never Assessed Comments Unknown Sex and Gender Information Value Date Recorded Sex Assigned at Not on file Legal Sex Female 4:40 AM OBSTETRICIAN AND GYNAECOLOGIST Gender Identity Not on file Sexual Orientation Not on file documented as of this encounter Plan of Treatment Upcoming Encounters Date Type Department Care Team (Late st Contact Info) Description 09/29/2025 11:30 AM OBSTETRICIAN AND GYNAECOLOGIST Office Visit [facility] Gynecologic Oncology [place] [address] [place] [address] Avani Fong, TORRI [address] [place] [address] 09/29/2025 12:00 PM OBSTETRICIAN AND GYNAECOLOGIST Hospital Encounter [facility] 2nd Fl [address] [place] [address] Infusion Chair 6, 2nd Floor [place] 10/12/2025 1:30 PM OBSTETRICIAN AND GYNAECOLOGIST Office Visit [facility] Neurology [address] [place] [address] Navi Stephens MD [address] [address] 10/20/2025 11:00 AM OBSTETRICIAN AND GYNAECOLOGIST Office Visit [facility] Gynecologic Oncology [place] [address] [place] [address] Becky Walton MD [address] [place] [address] 10/20/2025 11:30 AM OBSTETRICIAN AND GYNAECOLOGIST Appointment [facility] 2nd Fl [address] [place] [address] Infusion Chair 6, 2nd Floor [place] documented as of this encounter Visit Diagnoses [...] as of this encounter Care Teams Community Planner Relationship Specialty Start Date End Date Titi Cummings MD [address] [place] [address] [phone] PCP - General Family Practice 10/10/23 documented as of this encounter
--- OUTSIDE RECORDS SUMMARY | 2025-09-23 12:45 | XMS_ITS | Encounter Summary ---
Author Organization [facility] Address [address] [place] [address] Care Team Providers Care Auto Body Mechanic Name Role Phone Titi Cummings MD Primary Care Provider Encounter Details Date Type Department Care Team (Late Contact Info) Description 03/28/2005 Outpatient Historical [facility] Nia More MD [address] [address] ATROPHIC GASTRITIS W/O HEMORRH (Primary Dx) Social History Tobacco Use Types Packs/Day Years Used Date Smoking Tobacco: Never Assessed Comments Unknown Sex and Gender Information Value Date Recorded Sex Assigned at Not on file Legal Sex Female 4:40 AM GLOBAL MARKETING OPERATIONS MANAGER Gender Identity Not on file Sexual Orientation Not on file documented as of this encounter Plan of Treatment Upcoming Encounters Date Type Department Care Team (Late Contact Info) Description 09/29/2025 11:30 AM GLOBAL MARKETING OPERATIONS MANAGER Office Visit [facility] Gynecologic Oncology [place] [address] [place] [address] [place] [address] Avani Fong, TORRI [address] [place] [address] [place] [address] 09/29/2025 12:00 PM GLOBAL MARKETING OPERATIONS MANAGER Hospital Encounter [facility] 2nd Fl [address] [place] [address] Infusion Chair 6, 2nd Floor [place] 10/12/2025 1:30 PM GLOBAL MARKETING OPERATIONS MANAGER Office Visit [facility] Neurology [address] [place] [address] Navi Stephens MD [address] [address] 10/20/2025 11:00 AM GLOBAL MARKETING OPERATIONS MANAGER Office Visit [facility] Gynecologic Oncology [place] [address] [place] [address] Becky Walton MD [address] [place] [address] 10/20/2025 11:30 AM GLOBAL MARKETING OPERATIONS MANAGER Appointment [facility] 2nd Fl [address] [place] [address] Infusion Chair 6, 2nd Floor [place] documented as of this encounter Visit Diagnoses [...] as of this encounter Care Teams Auto Body Mechanic Relationship Specialty Start Date End Date Titi Cummings MD [address] [phone] PCP - General Family Practice 10/10/23 documented as of this encounter
--- OUTSIDE RECORDS SUMMARY | 2025-09-23 12:45 | XMS_ITS | Clinical Summary ---
Author Organization [facility] [address] Address [address] [place] [address] Care Team Providers Care City Assessor Name Role Phone Titi Cummings MD Primary Care Provider Tomás Garcia MD Unavailable Gautam Stoll MD Unavailable [phone] Steve Murphy MD Unavailable [phone] China Reynoso NP Unavailable + Yariel [...] 10/12/2023 Assessment & Plan (10/12/2023 11:42 AM GROUNDSKEEPING YARDMAN): Re-imaging kidney stone Nuclear stress test ordered, [...] 09/24/2023 Assessment & Plan (09/24/2023 11:21 AM GROUNDSKEEPING YARDMAN): A(n) initial Medicare Annual Wellness Visit has [...] Department Care Team Description 09/22/2025 Nurse Triage [facility] Primary Care at [address] [phone] Titi Cummings MD from Last [...] on file Legal Sex Female 1:46 PM GROUNDSKEEPING YARDMAN Gender Identity Female 07/25/2023 8:58 AM CDT Sexual Orientation Straight 07/25/2023 8: 58 AM CDT Last Filed Vital Signs Vital Sign Reading Time Taken Comments Blood Pressure 120/80 04/15/2025 1:32 PM CDT Pulse 92 04/15/2025 1:32 PM CDT Temperature 36.9 C (98.4 F) 04/15/2025 1:32 PM CDT Respiratory Rate 16 12/01/2024 11:46 AM GROUNDSKEEPING YARDMAN Oxygen Saturation 98% 04/15/2025 1:32 PM CDT [...] HEPATITIS C ANTIBODY Routine 09/24/2023 12:11 PM GROUNDSKEEPING YARDMAN Encounter for hepatitis C virus screening test for high risk patient from Last 3 Months or Most Recently Relevant to Health Maintenance Results * Hepatitis C antibody Blood (09/24/2023 12:11 PM GROUNDSKEEPING YARDMAN) Hep C Ab Nonreactive Nonreactive GI[facility]LO TRIMBLE [...] on 2020. Blood 09/24/2023 12:1 1 PM GROUNDSKEEPING YARDMAN 09/24/2023 6:41 PM GROUNDSKEEPING YARDMAN us Titi uCmmings MD LAB MICROBIOLOGY - GENERAL ORDERABLES Edited Result - Final GIANCARLO [address] [place] [address] from Last 3 Months or Most Recently Relevant to Health Maintenance Insurance [employer] MEDICARE PPO Care Teams City Assessor Relationship Specialty Start Date End Date Titi Cummings MD [address] [place] [address] PCP - General Family Medicine 09/24/23 Tomás Garcia MD 621 [facility] [address] [place] [address] Referring Physician Neurosurgery 09/24/23 Gautam Stoll MD 1 [facility] [address] [place] [address] Consulting Physician Obstetrics and Gynecology 09/24/23 Steve Murphy MD 1 [facility] [address] [place] [address] Gynecologic Oncology 09/24/23 China Reynoso NP 621 [facility] [address] [place] [address] Nurse Practitioner Neurology 09/24/23 Yariel Stephens MD 621 [facility] [address] [place], [place] [id number] Referring Physician Neurology 09/24/23
--- OUTSIDE RECORDS SUMMARY | 2025-09-23 12:46 | XMS_ITS | Encounter Summary ---
Author Organization [facility] Address 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) Social History Tobacco Use Types Packs/Day Years Used Date Smoking Tobacco: Never Assessed Comments Unknown Sex and Gender Information Value Date Recorded Sex Assigned at Not on file Legal Sex Female 4:40 AM ADMIN ASST Gender Identity Not on file Sexual Orientation Not on file documented as of this encounter Plan of Treatment Upcoming Encounters Date Type Department Care Team (Late st Contact Info) Description 09/29/2025 11:30 AM ADMIN ASST Office Visit [facility] Gynecologic Oncology [place] [address] [place] [address] Avani Fong, TORRI [address] [place] [address] 09/29/2025 12:00 PM ADMIN ASST Hospital Encounter [facility] 2nd Fl [address] [place] [address] Infusion Chair 6, 2nd Floor [place] 10/12/2025 1:30 PM ADMIN ASST Office Visit [facility] Neurology [address] [place] [address] Navi Stephens MD [address] [facility] [address] [address] 10/20/2025 11:00 AM ADMIN ASST Office Visit [facility] Gynecologic Oncology [place] [address] [place] [address] Becky Walton MD [address] [place] [address] 10/20/2025 11:30 AM ADMIN ASST Appointment [facility] 2nd Fl [address] [place] [address] Infusion Chair 6, 2nd Floor [place] documented as of this encounter Procedures Procedure [...] AM CDT Narrative 02/12/2009 1:35 PM CDT [facility] [address] [place], [place] [address] Admit Date: 02/12/2009 CHARLINE ELOISA A Sex: F Admit Prov: MEHDI MARTINES Date: 1950 Primary Care Prov: ARLYN VÁZQUEZ CMRN: [id number] Room: LC SSN: [id number] IMAGING SERVICES Ordering Prov: N/A Accession Number: [id number] Interpretation CHEST, PA AND LATERAL, 02/12/09 History: [...] Procedure Note Wander Chaves MD - 02/12/2009 [facility] [address] [place], [place] [address] Admit Date: 02/12/2009 ELOISA DRAKE Michael Sex: F Admit Prov: MEHDI MARTINES Date: 1950 Primary Care Prov: ARLYN VÁZQUEZ CMRN: [id number] Room: [facility] SSN: [id number] [address] IMAGING SERVICES Ordering Prov: N/A Interpretation CHEST, [...] ALKALINE PHOSPHATASE 60 35 - 104 U/L [facility] BILIRUBIN TOTAL 0.3 0.2 - 1.0 mg/dL [facility] CO2 24 22 - 30 mmol/L [facility] TOTAL PROTEIN 7.1 6.3 - 8.6 g/dL [facility] POTASSIUM 3.8 3.5 - 4.9 mmol/L [facility] GLUCOSE 90 65 - 99 mg/dL [facility] AST 26 12 - 32 U/L [facility] BUN 11 6 - 20 mg/dL [facility] CALCIUM 9.1 8.6 - 10.2 mg/dL [facility] CHLORIDE 105 96 - 108 mmol/L [facility] ALBUMIN 4.5 3.4 - 4.8 g/dL [facility] CREATININE 0.66 0.51 - 0.95 mg/dL [facility] SODIUM 141 135 - 145 mmol/L [facility] ALT 24 0 - 31 U/L [facility] GFR, >60 >=60 mL/min/1.7 sq meter [facility] GFR >60 >=60 mL/min/1.7 sq meter [facility] Comment: Modification of Diet in Renal Disease (MDRD) study formula. Estimated GFR rate interpretative information for both Americans and non- Americans is available on the [facility] Intranet at: [email or web address] Select: Lab Policies and Procedures Select: Reference Ranges - GFR Blood specimen (specimen) 02/12/2009 9:09 AM CDT 02/12/2009 9:35 AM CDT Narrative INTERFACE SYSTEM - 02/12/2009 11:09 AM CDT Results called to at 02/12/09 11:09 and read back verified. us Mehdi Martines MD CHEMISTRY ORDERABLES Edited INTERFACE SYSTEM Refer to clinic/hospital department [facility] CLIA# [id number] [address] [place] [address] * CBC WITH DIFFERENTIAL (02/12/2009 9:09 AM CDT) MCV 94.6 82.0 - 99.0 fL [facility] PLATELETS 170 140 - 350 K/uL [facility] HEMOGLOBIN 12.4 11.8 - 14.8 g/dL [facility] RDW 14.0 11.5 - 14.5 % [facility] WBC 4.8 4.0 - 9.8 K/uL [facility] MCH 30.7 27.2 - 32.6 pg [facility] MPV 10.2 9.3 - 12.4 fL [facility] HEMATOCRIT 38.2 35.5 - 44.0 % [facility] RDW-STDEV 48.2 37.1 - 48.7 fL [facility] RBC 4.04 3.90 - 4.90 M/uL [facility] MCHC 32.5 31.5 - 35.5 % [facility] NEUTROPHILS 56 45 - 70 % [facility] NEUTROPHIL ABSOLUTE 2.68 1.90 - 7.00 K/uL [facility] EOSINOPHILS 1 0 - 7 % [facility] EOSINOPHIL ABSOLUTE 0.07 0.00 - 0.70 K/uL [facility] LYMPHOCYTES 36 16 - 45 % [facility] LYMPHOCYTE ABSOLUTE 1.72 0.70 - 4.50 K/uL [facility] BASOPHILS 0 0 - 2 % [facility] BASOPHILS ABSOLUTE 0.01 0.00 - 0.20 K/uL [facility] MONOCYTES 7 3 - 13 % [facility] MONOCYTE ABSOLUTE 0.35 0.10 - 1.30 K/uL [facility] Blood specimen (specimen) 02/12/2009 9:09 AM CDT 02/12/2009 9:35 AM CDT Narrative INTERFACE SYSTEM - 02/12/2009 11:09 AM CDT Results called to at 02/12/09 11:09 and read back verified. us Mehdi Martines MD HEMATOLOGY ORDERABLES Edited INTERFACE SYSTEM Refer to clinic/hospital department [facility] CLIA# [id number] [address] [place] [place] [address] documented in this encounter Visit Diagnoses Diagnosis [...] as of this encounter Care Teams Manager Terminal Relationship Specialty Start Date End Date Titi Cummings MD [address] [phone] PCP - General Family Practice 10/10/23 documented as of this encounter
--- OUTSIDE RECORDS SUMMARY | 2025-09-23 12:46 | XMS_ITS | Encounter Summary ---
Author Organization [facility] Address [address] [place] [address] Care Team Providers Care Derrick Worker Name Role Phone Titi Cummings MD [...] on file Legal Sex Female 4:40 AM PRINCIPAL STATISTICAL PROGRAMMER Gender Identity Not on file Sexual Orientation Not on file documented as of this encounter Plan of Treatment Upcoming Encounters Date Type Department Care Team (Late st Contact Info) Description 09/29/2025 11:30 AM PRINCIPAL STATISTICAL PROGRAMMER Office Visit [facility] Gynecologic Oncology [place] [address] [place] [address] Avani Fong, TORRI [address] [place] [address] 09/29/2025 12:00 PM PRINCIPAL STATISTICAL PROGRAMMER Hospital Encounter [facility] 2nd Fl [address] [place] [address] Infusion Chair 6, 2nd Floor [place] 10/12/2025 1:30 PM PRINCIPAL STATISTICAL PROGRAMMER Office Visit [facility] Neurology [address] [place] [address] Navi Stephens MD [address] [address] 10/20/2025 11:00 AM PRINCIPAL STATISTICAL PROGRAMMER Office Visit [facility] Gynecologic Oncology [place] [address] [place] [address] Becky Walton MD [address] [place] [address] 10/20/2025 11:30 AM PRINCIPAL STATISTICAL PROGRAMMER Appointment [facility] 2nd Fl [address] [place] [address] Infusion Chair 6, 2nd Floor [place] documented as of this encounter Procedures Procedure [...] MD HEMATOLOGY ORDERABLES Edited Performing Organization Address [facility] de Phone [...] MD HEMATOLOGY ORDERABLES Edited Performing Organization Address [facility] de Phone [...] on the [facility] Intranet at: [email or web address] Select: Lab Policies and Procedures Select: Reference [...] documented as of this encounter Care Teams Derrick Worker Relationship Specialty Start Date End Date Titi Cummings MD [address] [address] PCP - General Family Practice 10/10/23 documented as of this encounter
--- OUTSIDE RECORDS SUMMARY | 2025-09-23 12:46 | XMS_ITS | Encounter Summary ---
Author Organization [facility] Address [address] [place] [address] Care Team Providers Care Braid Pattern Setter Name Role Phone Titi Cummings MD Primary Care Provider Encounter Details Date Type Department Care Team (Latest Contact Info) Description 07/29/2004 Outpatient Historical HIS [facility] BRY Contreras, Gibson Rivera MD NO ADDRESS ON FILE MALIG NEOPLASM BREAST UP-OUTER (CMS/HCC) (Primary Dx) Social History Tobacco Use Types Packs/Day Years Used Date Smoking Tobacco: Never Assessed Comments Unknown Sex and Gender Information Value Date Recorded Sex Assigned at Not on file Legal Sex Female 4:40 AM DEPARTMENTAL BUYER Gender Identity Not on file Sexual Orientation Not on file documented as of this encounter Plan of Treatment Upcoming Encounters Date Type Department Care Team (Late st Contact Info) Description 09/29/2025 11:30 AM DEPARTMENTAL BUYER Office Visit [facility] Gynecologic Oncology [place] [address] [place] [address] Avani Fong, TORRI [address] [place] [address] 09/29/2025 12:00 PM DEPARTMENTAL BUYER Hospital Encounter [facility] 2nd Fl [address] [place] [address] Infusion Chair 6, 2nd Floor [place] 10/12/2025 1:30 PM DEPARTMENTAL BUYER [facility] Neurology [address] [place] [address] Navi Stephens MD [address] [address] 10/20/2025 11:00 AM DEPARTMENTAL BUYER Office Visit [facility] Gynecologic Oncology [place] [address] [place] [address] Becky Walton MD [address] [place] [address] 10/20/2025 11:30 AM DEPARTMENTAL BUYER Appointment [facility] 2nd Fl [address] [place] [address] Infusion Chair 6, 2nd Floor [place] documented as of this encounter Visit Diagnoses [...] documented as of this encounter Care Teams Braid Pattern Setter Relationship Specialty Start Date End Date Titi Cummings MD [address] [place] [phone] PCP - General Family Practice 10/10/23 documented as of this encounter
--- OUTSIDE RECORDS SUMMARY | 2025-09-23 12:46 | XMS_ITS | Encounter Summary ---
Author Organization [facility] Address 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) Social History Tobacco Use Types Packs/Day Years Used Date Smoking Tobacco: Never Assessed Comments Unknown Sex and Gender Information Value Date Recorded Sex Assigned at Not on file Legal Sex Female 4:40 AM STRAW HAT BRIM RAISER OPERATOR Gender Identity Not on file Sexual Orientation Not on file documented as of this encounter Plan of Treatment Upcoming Encounters Date Type Department Care Team (Late st Contact Info) Description 09/29/2025 11:30 AM STRAW HAT BRIM RAISER OPERATOR Office Visit [facility] Gynecologic Oncology [place] [address] [place] [address] Avani Fong, TORRI [address] [place] [address] 09/29/2025 12:00 PM STRAW HAT BRIM RAISER OPERATOR Hospital Encounter [facility] 2nd Fl [address] [place] [address] Infusion Chair 6, 2nd Floor [place] 10/12/2025 1:30 PM STRAW HAT BRIM RAISER OPERATOR Office Visit [facility] Neurology [address] [place] [address] Navi Stephens MD [address] [address] 10/20/2025 11:00 AM STRAW HAT BRIM RAISER OPERATOR Office Visit [facility] Gynecologic Oncology [place] [address] [place] [address] Becky aWlton MD [address] [place] [address] 10/20/2025 11:30 AM STRAW HAT BRIM RAISER OPERATOR Appointment [facility] 2nd Fl [address] [place] [address] Infusion Chair 6, 2nd Floor [place] documented as of this encounter Procedures Procedure Name Priority Date/Time Associated Diagnosis Comments CBC WITH DIFFERENTIAL Stat 08/07/2008 9:32 AM CDT COMPREHENSIVE METABOLIC PANEL Stat 08/07/2008 9:32 AM CDT documented in this encounter Results * COMPREHENSIVE METABOLIC PANEL (08/07/2008 9:32 AM CDT) GLUCOSE 86 65 - 99 mg/dL [facility] AST 28 12 - 32 U/L [facility] BUN 10 6 - 20 mg/dL [facility] CALCIUM 9.3 8.6 - 10.2 mg/dL [facility] ALBUMIN 4.3 3.4 - 4.8 g/dL [facility] CHLORIDE 106 96 - 108 mmol/L [facility] CREATININE 0.67 0.51 - 0.95 mg/dL [facility] ALT 29 0 - 31 U/L [facility] SODIUM 142 135 - 145 mmol/L [facility] ALKALINE PHOSPHATASE 62 35 - 104 U/L [facility] CO2 26 22 - 30 mmol/L [facility] BILIRUBIN TOTAL 0.2 0.2 - 1.0 mg/dL [facility] POTASSIUM 3.8 3.5 - 4.9 mmol/L [facility] TOTAL PROTEIN 6.8 6.3 - 8.6 g/dL [facility] GFR, >60 >=60 mL/min/1.7 sq meter [facility] GFR >60 >=60 mL/min/1.7 sq meter [facility] Comment: Modification of Diet in Renal Disease (MDRD) study formula. Estimated GFR rate interpretative information for both Americans and non- Americans is available on the [facility] Intranet at: [email or web address] Select: Lab Policies and Procedures Select: Reference Ranges - GFR Blood specimen (specimen) 08/07/2008 9:32 AM CDT 08/07/2008 9:54 AM CDT us Gibson Contreras MD CHEMISTRY ORDERABLES Edited INTERFACE SYSTEM Refer to clinic/hospital department [facility] CLIA# [id number] [address] [facility] [address] [facility] [place] [address] * CBC WITH DIFFERENTIAL (08/07/2008 9:32 AM CDT) WBC 6.0 4.0 - 9.8 K/uL [facility] MCH 30.8 27.2 - 32.6 pg [facility] MPV 10.4 9.3 - 12.4 fL [facility] HEMATOCRIT 40.1 35.5 - 44.0 % [facility] RDW-STDEV 47.3 37.1 - 48.7 fL [facility] RBC 4.29 3.90 - 4.90 M/uL [facility] MCHC 32.9 31.5 - 35.5 % [facility] MCV 93.5 82.0 - 99.0 fL [facility] PLATELETS 175 140 - 350 K/uL [facility] HEMOGLOBIN 13.2 11.8 - 14.8 g/dL [facility] RDW 14.1 11.5 - 14.5 % [facility] LYMPHOCYTES 30 16 - 45 % [facility] LYMPHOCYTE ABSOLUTE 1.80 0.70 - 4.50 K/uL [facility] BASOPHILS 0 0 - 2 % [facility] BASOPHILS ABSOLUTE 0.01 0.00 - 0.20 K/uL [facility] MONOCYTES 8 3 - 13 % [facility] MONOCYTE ABSOLUTE 0.48 0.10 - 1.30 K/uL [facility] NEUTROPHILS 61 45 - 70 % [facility] NEUTROPHIL ABSOLUTE 3.65 1.90 - 7.00 K/uL [facility] EOSINOPHILS 1 0 - 7 % [facility] EOSINOPHIL ABSOLUTE 0.06 0.00 - 0.70 K/uL [facility] Blood specimen (specimen) 08/07/2008 9:32 AM CDT 08/07/2008 9:54 AM CDT us Gibson Contreras MD HEMATOLOGY ORDERABLES Edited INTERFACE SYSTEM Refer to clinic/hospital department [facility] CLIA# [id number] [address] [place] [address] documented in this encounter Visit Diagnoses Diagnosis [...] documented as of this encounter Care Teams Hospice Superintendent Relationship Specialty Start Date End Date Titi Cummings MD [address] [phone] PCP - General Family Practice 10/10/23 documented as of this encounter
--- OUTSIDE RECORDS SUMMARY | 2025-09-23 12:46 | XMS_ITS | Encounter Summary ---
Author Organization [facility] Address [address] [place] [address] Care Team Providers Care Finisher Map And Chart Name Role Phone Titi Cummings MD Primary Care Provider Encounter Details Date Type Department Care Team (Latest Contact Info) Description 01/26/2004 Outpatient Historical [facility] Gibson Contreras MD NO ADDRESS ON FILE MALIG NEOPLASM BREAST UP-OUTER (CMS/HCC) (Primary Dx) Social History Tobacco Use Types Packs/Day Years Used Date Smoking Tobacco: Never Assessed Comments Unknown Sex and Gender Information Value Date Recorded Sex Assigned at Not on file Legal Sex Female 4:40 AM COMMUNICATION ASSISTANT Gender Identity Not on file Sexual Orientation Not on file documented as of this encounter Plan of Treatment Upcoming Encounters Date Type Department Care Team (Late st Contact Info) Description 09/29/2025 11:30 AM COMMUNICATION ASSISTANT Office Visit [facility] Gynecologic Oncology [place] [address] [place] [address] Avani Fong, TORRI [address] [place] [address] 09/29/2025 12:00 PM COMMUNICATION ASSISTANT Hospital Encounter [facility] 2nd Fl [address] [place] [address] Infusion Chair 6, 2nd Floor [place] 10/12/2025 1:30 PM COMMUNICATION ASSISTANT Office Visit [facility] Neurology [address] [place] [address] Navi Stephens MD [address] [address] 10/20/2025 11:00 AM COMMUNICATION ASSISTANT Office Visit [facility] Gynecologic Oncology [place] [address] [place] [address] Becky Walton MD [address] [place] [address] 10/20/2025 11:30 AM COMMUNICATION ASSISTANT Appointment [facility] 2nd Fl [address] [place] [address] Infusion Chair 6, 2nd Floor [place] documented as of this encounter Visit Diagnoses [...] documented as of this encounter Care Teams Finisher Map And Chart Relationship Specialty Start Date End Date Titi Cummings MD [address] [place] [phone] PCP - General Family Practice 10/10/23 documented as of this encounter
--- OUTSIDE RECORDS SUMMARY | 2025-09-23 12:46 | XMS_ITS | Encounter Summary ---
Author Organization [facility] Address [address] [place] [address] Care Team Providers Care Shear Operator Name Role Phone Titi Cummings MD Primary Care Provider Encounter Details Date Type Department Care Team (Latest Contact Info) Description 01/05/2005 Outpatient Historical HIS [facility] BRY Contreras, Gibson Rivera MD NO ADDRESS ON FILE SURGERY FOLLOWUP, OTHER (Primary Dx) Social History Tobacco Use Types Packs/Day Years Used Date Smoking Tobacco: Never Assessed Comments Unknown Sex and Gender Information Value Date Recorded Sex Assigned at Not on file Legal Sex Female 4:40 AM GEOTHERMAL OPERATIONS ENGINEER Gender Identity Not on file Sexual Orientation Not on file documented as of this encounter Plan of Treatment Upcoming Encounters Date Type Department Care Team (Late st Contact Info) Description 09/29/2025 11:30 AM GEOTHERMAL OPERATIONS ENGINEER Office Visit [facility] Gynecologic Oncology [place] [address] [place] [address] Avani Fong, TORRI [address] [place] [address] 09/29/2025 12:00 PM GEOTHERMAL OPERATIONS ENGINEER Hospital Encounter [facility] 2[facility] Fl [address] [place] [address] Infusion Chair 6, 2nd Floor [place] 10/12/2025 1:30 PM GEOTHERMAL OPERATIONS ENGINEER Office Visit [facility] Neurology [address] [place] [address] Navi Stephens MD [address] [address] 10/20/2025 11:00 AM GEOTHERMAL OPERATIONS ENGINEER Office Visit [facility] Gynecologic Oncology [place] [address] [place] [address] Becky Walton MD [address] [place] [address] 10/20/2025 11:30 AM GEOTHERMAL OPERATIONS ENGINEER Appointment [facility] 2nd Fl [address] [place] [address] Infusion Chair 6, 2nd Floor [place] documented as of this encounter Procedures Procedure Name Priority Date/Time Associated Diagnosis Comments CBC WITH DIFFERENTIAL Routine 01/05/2005 11:07 AM GEOTHERMAL OPERATIONS ENGINEER CBC WITH DIFFERENTIAL Routine 01/05/2005 11:07 AM GEOTHERMAL OPERATIONS ENGINEER COMPREHENSIVE METABOLIC PANEL Routine 01/05/2005 11:07 AM GEOTHERMAL OPERATIONS ENGINEER documented in this encounter Results * CBC WITH DIFFERENTIAL (01/05/2005 11:07 AM GEOTHERMAL OPERATIONS ENGINEER) NEUTROPHILS 63 45 - 70 % INTERFAC [...] K/uL INTERFACE SYSTEM 01/05/2005 11:0 7 AM GEOTHERMAL OPERATIONS ENGINEER Gibson Contreras MD HEMATOLOGY ORDERABLES Final Result INTERFACE SYSTEM Refer to clinic/hospital department * (ABNORMAL) CBC WITH DIFFERENTIAL (01/05/2005 11:07 AM GEOTHERMAL OPERATIONS ENGINEER) WBC 4.3 4.0 - 9.8 K/uL INTERFACE [...] fL INTERFACE SYSTEM 01/05/2005 11:0 7 AM GEOTHERMAL OPERATIONS ENGINEER Gibson Contreras MD HEMATOLOGY ORDERABLES Final Result Performing Organization Address [facility] Phone Number INTERFACE SYSTEM Refer to clinic/hospital department * (ABNORMAL) COMPREHENSIVE METABOLIC PANEL (01/05/2005 11:07 AM GEOTHERMAL OPERATIONS ENGINEER) GLUCOSE 90 65 - 109 mg/dL INTERFACE [...] mmol/L INTERFACE SYSTEM 01/05/2005 11:0 7 AM GEOTHERMAL OPERATIONS ENGINEER us Gibson Contreras MD CHEMISTRY ORDERABLES Final [...] documented as of this encounter Care Teams Shear Operator Relationship Specialty Start Date End Date Titi Cummings MD [address] [phone] PCP - General Family Practice 10/10/23 documented as of this encounter
--- OUTSIDE RECORDS SUMMARY | 2025-09-23 12:46 | XMS_ITS | Encounter Summary ---
Author Organization [facility] Address [address] [place] [address] Care Team Providers Care Financial Investigator Name Role Phone Titi Cummings MD Primary Care Provider Encounter Details Date Type Department Care Team (Late st Contact Info) Description 12/12/2007 Outpatient Historical [facility] Nia More MD [address] [phone] Kyle Richardson MD [address] [place] [address] Social History Tobacco Use Types Packs/Day Years Used Date Smoking Tobacco: Never Assessed Comments Unknown Sex and Gender Information Value Date Recorded Sex Assigned at Not on file Legal Sex Female 4:40 AM GAG WRITER Gender Identity Not on file Sexual Orientation Not on file documented as of this encounter Plan of Treatment Upcoming Encounters Date Type Department Care Team (Late st Contact Info) Description 09/29/2025 11:30 AM GAG WRITER Office Visit [facility] Gynecologic Oncology Janene [address] [place] [address] Avani Fong NP [address] [facility] [address] [place] [address] 09/29/2025 12:00 PM GAG WRITER Hospital Encounter [facility] Fl [address] [place] [phone] Infusion Chair 6, 2nd Floor [place] 10/12/2025 1:30 PM GAG WRITER Office Visit [facility] Neurology [address] [place] [address] Navi Stephens MD [address] [address] [address] 10/20/2025 11:00 AM GAG WRITER Office Visit [facility] Gynecologic Oncology [place] [address] [place] [address] Becky Walton MD [address] [facility] [address] [place] [address] 10/20/2025 11:30 AM GAG WRITER Appointment [facility] 2nd Fl [address] [place] [address] Infusion Chair 6, 2nd Floor [...] documented as of this encounter Care Teams Financial Investigator Relationship Specialty Start Date End Date Titi Cummings MD [address] [phone] PCP - General Family Practice 10/10/23 documented as of this encounter
--- OUTSIDE RECORDS SUMMARY | 2025-09-23 12:46 | XMS_ITS | Encounter Summary ---
Author Organization [facility] Address [address] [place] [address] Care Team Providers Care Bushler Name Role Phone Titi Cummings MD Primary Care Provider Encounter Details Date Type Department Care Team (Late st Contact Info) Description 03/16/2005 Outpatient Historical [facility] [address] [place] [address] Mehran Salgado MD NO ADDRESS ON FILE Social History Tobacco Use Types Packs/Day Years Used Date Smoking Tobacco: Never Assessed Comments Unknown Sex and Gender Information Value Date Recorded Sex Assigned at Not on file Legal Sex Female 4:40 AM SPONGE CLIPPER Gender Identity Not on file Sexual Orientation Not on file documented as of this encounter Plan of Treatment Upcoming Encounters Date Type Department Care Team (Late Contact Info) Description 09/29/2025 11:30 AM SPONGE CLIPPER Office Visit [facility] Gynecologic Oncology [place] [address] [facility] [address] [place] [address] Avani Fong, TORRI [address] [facility] [address] [place] [address] 09/29/2025 12:00 PM SPONGE CLIPPER Hospital Encounter [facility] 2[facility] Fl [address] [place] [address] Infusion Chair 6, 2nd Floor [place] 10/12/2025 1:30 PM SPONGE CLIPPER Office Visit [facility] Neurology [address] [place] [address] Navi Stephens MD [address] [address] 10/20/2025 11:00 AM SPONGE CLIPPER Office Visit [facility] Gynecologic Oncology [place] [address] [place] [address] Becky Walton MD [address] [place] [address] 10/20/2025 11:30 AM SPONGE CLIPPER Appointment [facility] 2nd Az [address] [place] [address] Infusion Chair 6, 2nd Floor [place] documented as of this encounter Visit [...] documented as of this encounter Care Teams Bushler Relationship Specialty Start Date End Date Titi Cummings MD [address] [place] [phone] PCP - General Family Practice 10/10/23 documented as of this encounter
--- OUTSIDE RECORDS SUMMARY | 2025-09-23 12:46 | XMS_ITS | Encounter Summary ---
Author Organization [facility] Address 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) Social History Tobacco Use Types Packs/Day Years Used Date Smoking Tobacco: Never Assessed Comments Unknown Sex and Gender Information Value Date Recorded Sex Assigned at Not on file Legal Sex Female 4:40 AM ELEMENTARY SPANISH TEACHER Gender Identity Not on file Sexual Orientation Not on file documented as of this encounter Plan of Treatment Upcoming Encounters Date Type Department Care Team (Late st Contact Info) Description 09/29/2025 11:30 AM ELEMENTARY SPANISH TEACHER Office Visit [facility] Gynecologic Oncology [place] [address] [place] [address] Avani Fong, TORRI [address] [place] [address] 09/29/2025 12:00 PM ELEMENTARY SPANISH TEACHER Hospital Encounter [facility] 2[facility] Fl [address] [place] [address] Infusion Chair 6, 2nd Floor [place] 10/12/2025 1:30 PM ELEMENTARY SPANISH TEACHER Office Visit [facility] Neurology [address] [place] [address] Navi Stephens MD [address] [facility] [address] [address] 10/20/2025 11:00 AM ELEMENTARY SPANISH TEACHER Office Visit [facility] Gynecologic Oncology [place] [address] [place] [address] Becky Walton MD [address] [place] [address] 10/20/2025 11:30 AM ELEMENTARY SPANISH TEACHER Appointment [facility] 2nd Fl [address] [place] [address] Infusion Chair 6, 2nd Floor [place] documented as of this encounter Procedures Procedure Name Priority Date/Time Associated Diagnosis Comments MAMMO DIAGNOSTIC BILATERAL W OR WO CAD Timed Study 02/03/2008 11:50 AM CDT documented in this encounter Results * MAMMO DIGITAL DIAG BILAT (02/03/2008 11:50 AM CDT) Anatomical Region Laterality Modality Breast Bilateral Other 02/03/2008 11:5 0 AM CDT Narrative 02/03/2008 3:43 PM CDT [facility] [address], [place] [address] Admit Date: 02/03/2008 ELOISA DRAKE Sex: F Admit Prov: MEHDI MARTINES Date: 1950 Primary Care Prov: VÁZQUEZ ARLYN CMRN: [id number] Room: [facility] SSN: [id number] IMAGING SERVICES Ordering Prov: MEHDI MARTINES Accession Number: [id number] Interpretation Bilateral diagnostic digital mammograms with computer-assisted [...] Procedure Note Toi Shah MD - 02/03/2008 [facility] [address], [place] [address] Admit Date: 02/03/2008 CHARLINE ELOISA Michael Sex: F Admit Prov: MEHDI MARTINES Date: 1950 Primary Care Prov: ARLYN VÁZQUEZ CMRN: [id number] Room: [facility] SSN: [id number] IMAGING SERVICES Ordering Prov: MEHDI MARTINES Interpretation Bilateral diagnostic digital mammograms with computer-assisteddiagnosis. 02/03/2008 Reason for this examination: Annual mammogram. 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 Family history of breast cancer, mother at [...] documented as of this encounter Care Teams Gear Keeper Relationship Specialty Start Date End Date Titi Cummings MD [address] [phone] PCP - General Family Practice 10/10/23 documented as of this encounter
--- OUTSIDE RECORDS SUMMARY | 2025-09-23 12:46 | XMS_ITS | Encounter Summary ---
Author Organization [facility] Address [address] [place] [address] Care Team Providers Care Womens Health Nurse Practitioner Name Role Phone Titi Cummings MD Primary [...] file Legal Sex Female 4:40 AM SENIOR ENGINEERING TECHNICIAN Gender Identity Not on file Sexual Orientation Not on file documented as of this encounter Plan of Treatment Upcoming Encounters Date Type Department Care Team (Late st Contact Info) Description 09/29/2025 11:30 AM SENIOR ENGINEERING TECHNICIAN Office Visit [facility] Gynecologic Oncology [place] [address] [place] [address] Avani Fong, TORRI [address] [place] [address] 09/29/2025 12:00 PM SENIOR ENGINEERING TECHNICIAN Hospital Encounter [facility] 2nd Fl [address] [place] [address] Infusion Chair 6, 2nd Floor [place] 10/12/2025 1:30 PM SENIOR ENGINEERING TECHNICIAN Office Visit [facility] Neurology [address] [place] [address] Navi Stephens MD [address] [address] 10/20/2025 11:00 AM SENIOR ENGINEERING TECHNICIAN Office Visit [facility] Gynecologic Oncology [place] [address] [place] [address] Becky Walton MD [address] [place] [address] 10/20/2025 11:30 AM SENIOR ENGINEERING TECHNICIAN Appointment [facility] 2nd Fl [address] [place] [address] Infusion Chair 6, 2nd Floor [place] documented as of this encounter Visit Diagnoses [...] documented as of this encounter Care Teams Womens Health Nurse Practitioner Relationship Specialty Start Date End Date Titi Cummings MD [address] [place] [phone] PCP - General Family Practice 10/10/23 documented as of this encounter
--- OUTSIDE RECORDS SUMMARY | 2025-09-23 12:46 | XMS_ITS | Encounter Summary ---
Author Organization [facility] Address [address] [place] [address] Care Team Providers Care Parts Counter Salesperson Name Role Phone Titi Cummings MD Primary Care Provider Encounter Details Date Type Department Care Team (Latest Contact Info) Description 03/21/2004 Outpatient Historical [facility] Gibson Contreras MD NO ADDRESS ON FILE MALIG NEOPLASM BREAST UP-OUTER (CMS/HCC) (Primary Dx) Social History Tobacco Use Types Packs/Day Years Used Date Smoking Tobacco: Never Assessed Comments Unknown Sex and Gender Information Value Date Recorded Sex Assigned at Not on file Legal Sex Female 4:40 AM EXERCISE PHYSIOLOGIST Gender Identity Not on file Sexual Orientation Not on file documented as of this encounter Plan of Treatment Upcoming Encounters Date Type Department Care Team (Late st Contact Info) Description 09/29/2025 11:30 AM EXERCISE PHYSIOLOGIST Office Visit [facility] Gynecologic Oncology [place] [address] [place] [address] Avani Fong, TORRI [address] [place] [address] 09/29/2025 12:00 PM EXERCISE PHYSIOLOGIST Hospital Encounter [facility] 2nd Fl [address] [place] [address] Infusion Chair 6, 2nd Floor [place] 10/12/2025 1:30 PM EXERCISE PHYSIOLOGIST Office Visit [facility] Neurology [address] [place] [address] Navi Stephens MD [address] [address] 10/20/2025 11:00 AM EXERCISE PHYSIOLOGIST Office Visit [facility] Gynecologic Oncology [place] [address] [facility] [place] [address] Becky Walton MD [address] [place] [address] 10/20/2025 11:30 AM EXERCISE PHYSIOLOGIST Appointment [facility] 2nd Fl [address] [place] [address] Infusion Chair 6, 2nd Floor [place] documented as of this encounter Visit Diagnoses [...] documented as of this encounter Care Teams Parts Counter Salesperson Relationship Specialty Start Date End Date Titi Cummings MD [address] [place] [phone] PCP - General Family Practice 10/10/23 documented as of this encounter
--- OUTSIDE RECORDS SUMMARY | 2025-09-23 12:46 | XMS_ITS | Clinical Summary ---
Author Organization [facility] [employer] Address [address] [place] [address] Care Team Providers Care Food And Nutrition Teacher Name Role Phone Kyle Csaas MD Primary Care Provider Source Comments [facility] Affiliates and Associated Physician Practices is amultiple site organization consisting of ambulatory clinics and hospital sitesin [place], [place], [place] and [place]. This disclosure is being madepursuant to the Care Everywhere program and may not contain all information available regarding this patient. Last updated 18.[facility] [employer] Active Problems Problem Noted Date Diagnosed Date [...] on file Legal Sex Female 6:08 PM SENIOR PHARMACY TECHNICIAN Gender Identity Not on file Sexual [...] this topic Insurance MEDICARE [employer] Care Teams Food And Nutrition Teacher Relationship Specialty Start Date End Date Kyle Casas MD PCP - General 10/27/08
--- OUTSIDE RECORDS SUMMARY | 2025-09-23 12:46 | XMS_ITS | Encounter Summary ---
Author Organization [facility] Address [address] [place] [address] Care Team Providers Care Players Assistant Name Role Phone Titi Cummings MD Primary Care Provider Encounter Details Date Type Department Care Team (Latest Contact Info) Description 02/03/2008 Outpatient Historical HIS [facility] BRY Martines, Mehdi Rivera MD NO ADDRESS ON FILE Malignant Neoplasm of Breast (Female), Unspecified Site (CMS/HCC) Social History Tobacco Use Types Packs/Day Years Used Date Smoking Tobacco: Never Assessed Comments Unknown Sex and Gender Information Value Date Recorded Sex Assigned at Not on file Legal Sex Female 4:40 AM DIRECTOR OF ENTERPRISE STRATEGY Gender Identity Not on file Sexual Orientation Not on file documented as of this encounter Plan of Treatment Upcoming Encounters Date Type Department Care Team (Late st Contact Info) Description 09/29/2025 11:30 AM DIRECTOR OF ENTERPRISE STRATEGY Office Visit [facility] Gynecologic Oncology [place] [address] [place] [address] Avani Fong, TORRI [address] [place] [address] 09/29/2025 12:00 PM DIRECTOR OF ENTERPRISE STRATEGY Hospital Encounter [facility] 2nd Fl [address] [place] [address] Infusion Chair 6, 2nd Floor [place] 10/12/2025 1:30 PM DIRECTOR OF ENTERPRISE STRATEGY Office Visit [facility] Neurology [address] [place] [address] [place] [address] Navi Stephens MD [address] [facility] [address] [address] 10/20/2025 11:00 AM DIRECTOR OF ENTERPRISE STRATEGY Office Visit [facility] Gynecologic Oncology [place] [address] [place] [address] [place] [address] Becky Walton MD [address] [facility] [address] [place] [address] 10/20/2025 11:30 AM DIRECTOR OF ENTERPRISE STRATEGY Appointment [facility] 2nd Fl [address] [place] [address] Infusion Chair 6, 2nd Floor [place] documented as of this encounter Procedures Procedure [...] AM CDT Narrative 02/03/2008 10:34 AM CDT [facility] [address], [place] [address] Admit Date: 02/03/2008 ELOISA DRAKE Sex: F Admit Prov: MEHDI MARTINES Date: 1950 Primary Care Prov: ARLYN VÁZQUEZ CMRN: [id number] Room: [facility] SSN: [id number] IMAGING SERVICES Ordering Prov: N/A Accession Number: [id number] Interpretation Chest 2 views 02/03/2008. History: Breast [...] 10:34 Procedure Note Fanny Mcbride - 02/03/2008 [facility] [address] [place], [place] [address] Admit Date: 02/03/2008 ELOISA DRAKE Michael Sex: F Admit Prov: MEHDI MARTINES Date: 1950 Primary Care Prov: ARLYN VÁZQUEZ CMRN: [id number] Room: [facility] SSN: [id number] [address] IMAGING SERVICES Ordering Prov: N/A Interpretation Chest [...] 35 - 104 U/L [facility] BILIRUBIN TOTAL 0.2 0.2 - 1.0 mg/dL [facility] CO2 27 22 - 30 mmol/L [facility] TOTAL PROTEIN 7.1 6.3 - 8.6 g/dL [facility] POTASSIUM 4.0 3.5 - 4.9 mmol/L [facility] GLUCOSE 92 65 - 99 mg/dL [facility] AST 26 12 - 32 U/L [facility] BUN 12 6 - 20 mg/dL [facility] CALCIUM 8.6 8.4 - 10.2 mg/dL [facility] CHLORIDE 105 96 - 108 mmol/L [facility] ALBUMIN 4.4 3.4 - 4.8 g/dL [facility] CREATININE 0.68 0.51 - 0.95 mg/dL [facility] SODIUM 140 135 - 145 mmol/L [facility] ALT 23 0 - 31 U/L [facility] GFR, >60 >=60 mL/min/1.7 sq meter [facility] GFR >60 >=60 mL/min/1.7 sq meter [facility] Comment: Estimated GFR rate interpretative information for both Americans and non- Americans is available on the [facility] Intranet at: [email or web address] Select: Lab Policies and Procedures Select: Reference Ranges - GFR Blood specimen (specimen) 02/03/2008 10:14 AM CDT 02/03/2008 10:24 AM CDT us Mehdi Martines MD CHEMISTRY ORDERABLES Edited [facility] [address] [place] [address] * CBC WITH DIFFERENTIAL (02/03/2008 10:14 AM CDT) HEMOGLOBIN 13.2 11.8 - 14.8 g/dL [facility] RDW 14.2 11.5 - 14.5 % [facility] WBC 5.7 4.0 - 9.8 K/uL [facility] MCH 30.9 27.2 - 32.6 pg [facility] MPV 10.5 9.3 - 12.4 fL [facility] HEMATOCRIT 39.8 35.5 - 44.0 % [facility] RDW-STDEV 48.1 37.1 - 48.7 fL [facility] RBC 4.27 3.90 - 4.90 M/uL [facility] MCHC 33.2 31.5 - 35.5 % [facility] MCV 93.2 82.0 - 99.0 fL [facility] PLATELETS 180 140 - 350 K/uL [facility] LYMPHOCYTES 29 16 - 45 % [facility] LYMPHOCYTE ABSOLUTE 1.67 0.70 - 4.50 K/uL [facility] BASOPHILS 0 0 - 2 % [facility] BASOPHILS ABSOLUTE 0.01 0.00 - 0.20 K/uL [facility] MONOCYTES 6 3 - 13 % [facility] MONOCYTE ABSOLUTE 0.35 0.10 - 1.30 K/uL [facility] NEUTROPHILS 64 45 - 70 % [facility] NEUTROPHIL ABSOLUTE 3.67 1.90 - 7.00 K/uL [facility] EOSINOPHILS 1 0 - 7 % [facility] EOSINOPHIL ABSOLUTE 0.04 0.00 - 0.70 K/uL [facility] Blood specimen (specimen) 02/03/2008 10:14 AM CDT 02/03/2008 10:24 AM CDT us Mehdi Martines MD HEMATOLOGY ORDERABLES Edited INTERFACE SYSTEM Refer to clinic/hospital department [facility] [address] [place] [address] documented in this encounter Visit Diagnoses Diagnosis [...] documented as of this encounter Care Teams Players Assistant Relationship Specialty Start Date End Date Titi Cummings MD [address] [address] PCP - General Family Practice 10/10/23 documented as of this encounter
--- OUTSIDE RECORDS SUMMARY | 2025-09-23 12:46 | XMS_ITS | Encounter Summary ---
Author Organization [facility] Address [address] [place] [address] Care Team Providers Care Skidder Lever Operator Name Role Phone Titi Cummings MD Primary Care Provider Encounter Details Date Type Department Care Team (Latest Contact Info) Description 02/23/2009 Outpatient Historical HIS [facility] BRY Martines, Mehdi Rivera MD NO ADDRESS ON FILE Other Screening Mammogram Social History Tobacco Use Types Packs/Day Years Used Date Smoking Tobacco: Never Assessed Comments Unknown Sex and Gender Information Value Date Recorded Sex Assigned at Not on file Legal Sex Female 4:40 AM GENERAL FORECASTER Gender Identity Not on file Sexual Orientation Not on file documented as of this encounter Plan of Treatment Upcoming Encounters Date Type Department Care Team (Late st Contact Info) Description 09/29/2025 11:30 AM GENERAL FORECASTER Office Visit [facility] Gynecologic Oncology [place] [address] [place] [address] Avani Fong, TORRI [address] [place] [address] 09/29/2025 12:00 PM GENERAL FORECASTER Hospital Encounter [facility] 2nd Fl [address] [place] [address] Infusion Chair 6, 2nd Floor [place] 10/12/2025 1:30 PM GENERAL FORECASTER Office Visit [facility] Neurology [address] [place] [address] [place] [address] Navi Stephens MD [address] [address] 10/20/2025 11:00 AM GENERAL FORECASTER Office Visit [facility] Gynecologic Oncology [place] [address] [place] [address] Becky Walton MD [address] [place] [address] 10/20/2025 11:30 AM GENERAL FORECASTER Appointment [facility] [place] [facility] Center 2nd Fl [address] [place] [address] Infusion Chair 6, 2nd Floor [place] documented as of this encounter Procedures Procedure Name Priority Date/Time Associated Diagnosis Comments MAMMO DIAGNOSTIC BILATERAL W OR WO CAD Routine 02/23/2009 8:28 AM CDT documented in this encounter Results * MAMMO DIGITAL DIAG BILAT (02/23/2009 8:28 AM CDT) Anatomical Region Laterality Modality Breast Bilateral Other 02/23/2009 8:28 AM CDT Narrative 02/23/2009 11:28 AM CDT [facility] [address] [place], [place] [address] Admit Date: 02/23/2009 ELOISA DRAKE Sex: F Admit Prov: JESSICA MARTINESDAMIAN Rivera Date: 1950 Primary Care Prov: ARLYN VÁZQUEZ CMRN: [id number] [id number] Ordering Prov: MEHDI MARTINES Accession Number: [id number] Interpretation BILATERAL DIAGNOSTIC DIGITAL MAMMOGRAMS WITH COMPUTER [...] MD - 02/23/2009 [facility] [address] [place], [place] [address] Admit Date: 02/23/2009 ELOISA DRAKE Michael Sex: F Admit Prov: MEHDI MARTINES Date: 1950 Primary Care Prov: ARLYN VÁZQUEZ CMRN: [id number] Room: [facility] SSN: [id number] IMAGING SERVICES Ordering Prov: MEHDI MARTINES Interpretation BILATERAL DIAGNOSTIC DIGITAL MAMMOGRAMS WITH COMPUTER ASSISTEDDIAGNOSIS 02/23/2009 Reason for this examination: Annual study Clinical History: Left lumpectomy and radiation for carcinoma [id number] Findings: There are postoperative changes on the [...] documented as of this encounter Care Teams Skidder Lever Operator Relationship Specialty Start Date End Date Titi Cummings MD [address] [place] [phone] PCP - General Family Practice 10/10/23 documented as of this encounter
--- OUTSIDE RECORDS SUMMARY | 2025-09-23 12:46 | XMS_ITS | Encounter Summary ---
Author Organization [facility] Address [address] [place] [address] Care Team Providers Care Adjunct Instructor Chemistry Name Role Phone Titi Cummings MD Primary Care Provider Encounter Details Date Type Department Care Team (Latest Contact Info) Description 01/15/2004 Outpatient Historical HIS [facility] BRY Contreras, Gibson Rivera MD NO ADDRESS ON FILE SCREENING MAMM-MAILG NEOPL-OTHER (Primary Dx) Social History Tobacco Use Types Packs/Day Years Used Date Smoking Tobacco: Never Assessed Comments Unknown Sex and Gender Information Value Date Recorded Sex Assigned at Not on file Legal Sex Female 4:40 AM SCRAPE GATHERER Gender Identity Not on file Sexual Orientation Not on file documented as of this encounter Plan of Treatment Upcoming Encounters Date Type Department Care Team (Late st Contact Info) Description 09/29/2025 11:30 AM SCRAPE GATHERER Office Visit [facility] Gynecologic Oncology [place] [address] [place] [address] Avani Fong, TORRI [address] [place] [address] 09/29/2025 12:00 PM SCRAPE GATHERER Hospital Encounter [facility] 2nd Fl [address] [place] [address] Infusion Chair 6, 2nd Floor [place] 10/12/2025 1:30 PM SCRAPE GATHERER Office Visit [facility] Neurology [address] [place] [address] [place] [address] Navi Stephens MD [address] [address] 10/20/2025 11:00 AM SCRAPE GATHERER Office Visit [facility] Gynecologic Oncology [place] [address] [place] [address] Becky Walton MD [address] [place] [address] 10/20/2025 11:30 AM SCRAPE GATHERER Appointment [facility] 2nd Fl [address] [place] [address] Infusion Chair 6, 2nd Floor [place] documented as of this encounter Visit Diagnoses [...] documented as of this encounter Care Teams Adjunct Instructor Chemistry Relationship Specialty Start Date End Date Titi Cummings MD 4 [facility] [address] [place] [phone] PCP - General Family Practice 10/10/23 documented as of this encounter
--- OUTSIDE RECORDS SUMMARY | 2025-09-23 12:46 | XMS_ITS | Encounter Summary ---
Author Organization [facility] Address [address] [place] [address] Care Team Providers Care Senior Technical Specialist Name Role Phone Titi Cummings MD Primary Care Provider Encounter Details Date Type Department Care Team (Late st Contact Info) Description 03/21/2005 Outpatient Historical HIS [facility] BRY More, Nia Liang MD [address] [place] [address] LUMBOSACRAL SPONDYLOSIS (Primary Dx) Social History Tobacco Use Types Packs/Day Years Used Date Smoking Tobacco: Never Assessed Comments Unknown Sex and Gender Information Value Date Recorded Sex Assigned at Not on file Legal Sex Female 4:40 AM BLOWER ROOM ATTENDANT Gender Identity Not on file Sexual Orientation Not on file documented as of this encounter Plan of Treatment Upcoming Encounters Date Type Department Care Team (Late st Contact Info) Description 09/29/2025 11:30 AM BLOWER ROOM ATTENDANT Office Visit [facility] Gynecologic Oncology [place] [address] [email or web address] [address] [place] [address] Avani Fong, TORRI [address] [place] [address] [place] [address] 09/29/2025 12:00 PM BLOWER ROOM ATTENDANT Hospital Encounter [facility] 2nd Fl [address] [place] [address] Infusion Chair 6, 2nd Floor [place] 10/12/2025 1:30 PM BLOWER ROOM ATTENDANT Office Visit [facility] Neurology [address] [place] [address] [place] [address] Navi Stephens MD [address] [address] 10/20/2025 11:00 AM BLOWER ROOM ATTENDANT Office Visit [facility] Gynecologic Oncology [place] [address] [place] [address] Becky Walton MD [address] [place] [address] 10/20/2025 11:30 AM BLOWER ROOM ATTENDANT Appointment [facility] [address]nd [place] [address] [place] [address] Infusion Chair 6, 2nd Floor [place] documented as of this encounter Visit Diagnoses [...] as of this encounter Care Teams Senior Technical Specialist Relationship Specialty Start Date End Date Titi Cummings MD [address] [phone] PCP - General Family Practice 10/10/23 documented as of this encounter
--- OUTSIDE RECORDS SUMMARY | 2025-09-23 12:46 | XMS_ITS | Encounter Summary ---
Author Organization [facility] Address [address] [place] [address] Care Team Providers Care Site Acquisition Specialist Name Role Phone Titi Cummings MD Primary Care Provider Encounter Details Date Type Department Care Team (Latest Contact Info) Description 01/05/2005 Outpatient Historical HIS [facility] BRY Contreras, Gibson Rivera MD NO ADDRESS ON FILE SURGERY FOLLOWUP, OTHER (Primary Dx) Social History Tobacco Use Types Packs/Day Years Used Date Smoking Tobacco: Never Assessed Comments Unknown Sex and Gender Information Value Date Recorded Sex Assigned at Not on file Legal Sex Female 4:40 AM MEDICAL CONSULTANT Gender Identity Not on file Sexual Orientation Not on file documented as of this encounter Plan of Treatment Upcoming Encounters Date Type Department Care Team (Late st Contact Info) Description 09/29/2025 11:30 AM MEDICAL CONSULTANT Office Visit [facility] Gynecologic Oncology [place] [address] [place] [address] Avani Fong, TORRI [address] [place] [address] 09/29/2025 12:00 PM MEDICAL CONSULTANT Hospital Encounter [facility] 2nd Fl [address] [place] [address] Infusion Chair 6, 2nd Floor [place] 10/12/2025 1:30 PM MEDICAL CONSULTANT Office Visit [facility] Neurology [address] [place] [place] [address] Navi Stephens MD [address] [address] 10/20/2025 11:00 AM MEDICAL CONSULTANT Office Visit [facility] Gynecologic Oncology [place] [address] [place] [address] Becyk Walton MD [address] [place] [address] 10/20/2025 11:30 AM MEDICAL CONSULTANT Appointment [facility] 2nd Fl [address] [place] [address] Infusion Chair 6, 2nd Floor [...] documented as of this encounter Care Teams Site Acquisition Specialist Relationship Specialty Start Date End Date Titi Cummings MD [address] [phone] PCP - General Family Practice 10/10/23 documented as of this encounter
--- OUTSIDE RECORDS SUMMARY | 2025-09-23 12:46 | XMS_ITS | Encounter Summary ---
Author Organization [facility] Address [address] [place] [address] Care Team Providers Care Product Craftsman Name Role Phone Titi Cummings MD Primary Care Provider Encounter Details Date Type Department Care Team (Latest Contact Info) Description 01/05/2005 Outpatient Historical HIS [facility] BRY French, Daron Guaman MD NO ADDRESS ON FILE ABNORMAL CLINICAL FINDING NEC (Primary Dx) Social History Tobacco Use Types Packs/Day Years Used Date Smoking Tobacco: Never Assessed Comments Unknown Sex and Gender Information Value Date Recorded Sex Assigned at Not on file Legal Sex Female 4:40 AM VP OF MARKETING Gender Identity Not on file Sexual Orientation Not on file documented as of this encounter Plan of Treatment Upcoming Encounters Date Type Department Care Team (Late st Contact Info) Description 09/29/2025 11:30 AM VP OF MARKETING Office Visit [facility] Gynecologic Oncology [place] [address] [place] [address] Avani Fong, EXTRACTION SUPERVISOR [address] [place] [address] 09/29/2025 12:00 PM VP OF MARKETING Hospital Encounter [facility] 2nd Fl [address] [place] [address] Infusion Chair 6, 2nd Floor [place] 10/12/2025 1:30 PM VP OF MARKETING Office Visit [facility] Neurology [address] [place] [address] Navi Stephens MD [address] [address] 10/20/2025 11:00 AM VP OF MARKETING Office Visit [facility] Gynecologic Oncology [place] [address] [place] [address] Becky Walton MD [address] [place] [address] 10/20/2025 11:30 AM VP OF MARKETING Appointment [facility] 2nd Fl [address] [place] [address] Infusion Chair 6, 2nd Floor [place] documented as of this encounter Procedures Procedure Name Priority Date/Time Associated Diagnosis Comments TSH Routine 01/05/2005 11:07 AM VP OF MARKETING GLUCOSE LEVEL Routine 01/05/2005 11:07 AM VP OF MARKETING LIPID PANEL Routine 01/05/2005 11:07 AM VP OF MARKETING documented in this encounter Results * GLUCOSE LEVEL (01/05/2005 11:07 AM VP OF MARKETING) GLUCOSE 91 65 - 109 mg/dL INTERFACE SYSTEM 01/05/2005 11:0 7 AM VP OF MARKETING Daron French MD CHEMISTRY ORDERABLES Final Re sult Performing Organization Address City/[facility] de Phone Number INTERFACE SYSTEM Refer to clinic/hospital department * TSH (01/05/2005 11:07 AM VP OF MARKETING) TSH 1.95 0.27 - 4.20 uU/mL INTERFACE SYSTEM 01/05/2005 11:0 7 AM VP OF MARKETING Daron French MD CHEMISTRY ORDERABLES Final Re sult Performing Organization Address City/State/[facility] Co de Phone Number INTERFACE SYSTEM Refer to clinic/hospital department * (ABNORMAL) LIPID PANEL (01/05/2005 11:07 AM VP OF MARKETING) CHOLESTEROL 221(H) 100 - 199 mg/dL INTERFACE [...] 129 High >=130 01/05/2005 11:0 7 AM VP OF MARKETING us Daron French MD CHEMISTRY ORDERABLES Final [...] documented as of this encounter Care Teams Product Craftsman Relationship Specialty Start Date End Date Titi Cummings MD [address] [address] PCP - General Family Practice 10/10/23 documented as of this encounter
--- NOTE | 2025-09-23 13:58 | ED.FALL ---
HPI - Fall General Chief Complaint: Fall Stated Complaint: FELL ON ICE 4D AGO, BUTTOCK PAIN Time Seen by Provider: 09/23/25 11:07 History of Present Illness HPI Narrative: Patient presents here after she slipped and fell on the ice few days ago, he was found by her neighbors helped her up, she has been getting around on her let her [id number] and brother saw her limping and wanted her to get checked out to make sure she has nothing broken. Related Data Home Medications ?Medication ?Instructions ?Recorded ?Confirmed ?Last Taken ?Type atorvastatin 40 mg tablet 40 mg PO DAILY 04/04/20 11/21/21 11/12/21 07:00 History donepezil 5 mg tablet 10 mg PO HS 04/04/20 11/21/21 09/10/21 History fluoxetine 40 mg capsule 40 mg PO DAILY 04/04/20 11/21/21 11/12/21 07:00 History lisinopril 10 mg tablet 20 mg PO DAILY 04/04/20 11/21/21 11/12/21 07:00 History nortriptyline 10 mg capsule 40 mg PO QPM 11/24/20 11/21/21 09/10/21 History omeprazole 40 mg capsule,delayed 40 mg PO QPM 11/24/20 11/21/21 09/10/21 History release budesonide 3 mg 3 mg PO BID 08/24/21 11/21/21 09/10/21 History capsule,delayed,extended release melatonin 12 mg PO HS 08/24/21 11/21/21 09/10/21 History hydroxyzine pamoate 50 mg capsule 50 mg PO HS 11/13/21 11/21/21 Unknown History raloxifene 60 mg tablet 60 mg PO DAILY 11/13/21 11/21/21 11/12/21 07:00 History Allergies Allergy/AdvReac Type Severity Reaction Status Date / Time No Known Allergies Allergy Mild Verified 09/23/25 10:01 Review of Systems Review of Systems: All systems reviewed & are unremarkable except as noted in HPI and below PMFSH Past Medical History Medical History Anxiety Arthritis Cancer of left breast Status post lumpectomy and chemo radiation. Chest pressure Depression Gastroesophageal reflux disease Hydrocephalus Hypertension Memory deficit Overweight (BMI 25.0-29.9) Surgical History Surgical History History of cholecystectomy History of lumpectomy of left breast History of ventriculoperitoneal shunting X3. Family History Family History Mother Lung cancer Father Coronary artery disease Sibling Coronary artery disease Social History Social History Social History: Surrogate decision maker: Neo Drake, . Code status: Full code. Smoking status: Never smoker Second hand tobacco smoke exposure: No Alcohol intake: never Drinks per week: 2 Substance use: never Substance use type: does not use Living arrangements: with family Additional living arrangements comments: Neo (Spouse) Additional occupation/education comments: Retired. Gender identity (if verbalized by the patient): Female Spiritual care concerns: No Exam Narrative: EXAMINATION OF ORGAN SYSTEMS/BODY AREAS: Constitutional: Vital signs per nursing GENERAL:[No acute distress, non-toxic appearing.] HEAD: Normal with no signs of head trauma. EYES: EOMI, conjunctiva normal ENT: Hearing grossly intact LUNGS: Nonlabored breathing. HEART: [Regular rate and rhythm] ABD: [Soft], [nontender to palpation] EXT: Normal range of motion; tender to R hip/buttock SKIN: Large bruise to R buttock NEURO: [Alert. No gross focal sensory or strength deficits.] PSYCH: Normal affect Course Vital Signs Vital signs: Vital Signs Temperature 98.5 F 09/23/25 10:31 Pulse Rate 96 09/23/25 10:31 Respiratory Rate 16 09/23/25 10:31 Blood Pressure 112/67 09/23/25 10:31 Pulse Oximetry 99 09/23/25 10:31 Temperature 98.5 F 09/23/25 10:31 Pulse Rate 74 09/23/25 12:15 Respiratory Rate 19 09/23/25 12:15 Blood Pressure 132/61 09/23/25 12:15 Pulse Oximetry 99 09/23/25 12:15 MDM MDM Narrative Medical decision making narrative: Patient presents after fall a few days ago, did not hit her head, she did land on her bottom, has been able to limp around. On exam she has full normal range of motion, does have some tenderness and bruising to her right buttock. X-ray thankfully without acute fracture. Patient has no interest in staying here and wants to go home. Return precautions given follow-up to PCP. Differential Diagnosis Differential Diagnosis: contusion, fracture, sprain Discharge Plan Discharge Clinical Impression: Traumatic ecchymosis of buttock Patient Disposition: Home Condition: Stable Instructions: Contusion in Adults (ED) Additional Instructions: Your xray doesn't show any broken bones thankfully. Please follow up with your PCP; take the meds as prescribed and return to the ER for any further issues. Patient Language: Maori Prescriptions: New acetaminophen [Tylenol Extra Strength] 500 mg tablet 1,000 mg PO Q6H PRN (Reason: pain) Qty: 50 0RF lidocaine 5 % adhesive patch,medicated 1 patch topical DAILY Qty: 15 0RF Rx Instructions: leave on most painful area for up to 12 hrs No Action omeprazole 40 mg capsule,delayed release(DR/EC) 40 mg PO QPM nortriptyline 10 mg capsule 40 mg PO QPM aspirin [Children's Aspirin] 81 mg Tablet,Chewable 81 mg PO DAILY@0800 Qty: 30 0RF hydrochlorothiazide 12.5 mg Capsule 12.5 mg PO QAM Qty: 30 0RF hydroxyzine pamoate 50 mg capsule 50 mg PO HS raloxifene 60 mg tablet 60 mg PO DAILY fluoxetine 40 mg capsule 40 mg PO DAILY atorvastatin 40 mg tablet 40 mg PO DAILY donepezil 5 mg tablet 10 mg PO HS lisinopril 10 mg tablet 20 mg PO DAILY melatonin 12 mg PO HS budesonide 3 mg capsule,delayed,extend.release 3 mg PO BID Follow-up/Referrals: Emiliano,Titi Rodriguez MD [Primary Care Provider, Unknown]
== END 2025-09-23 12:26 | disposition home or self-care (01) ==
PROVIDERS: Emergency Provider Emergency Medicine; PCP Family Medicine
DX: S30.0XXA Contusion of lower back and pelvis, initial encounter (principal); K21.9 Gastro-esophageal reflux disease without esophagitis; I10 Essential (primary) hypertension; M19.90 Unspecified osteoarthritis, unspecified site; G91.9 Hydrocephalus, unspecified; F41.9 Anxiety disorder, unspecified; Z85.3 Personal history of malignant neoplasm of breast; Z92.21 Personal history of antineoplastic chemotherapy; Z92.3 Personal history of irradiation; Z90.49 Acquired absence of other specified parts of digestive tract; Z79.82 Long term (current) use of aspirin; Z79.899 Other long term (current) drug therapy; W00.0XXA Fall on same level due to ice and snow, initial encounter
CPT/HCPCS: 73502; 99283; A9270